=== PATIENT | male | born 1945 | race Asian ===

== ENCOUNTER 2024-02-08 10:28 | Inpatient (IN) | payer MEDICARE, BC, SELFPAY ==
[2024-02-08 10:38] VITALS: BP 164/70; PULSE 90; RESP 28; TEMP 36.9; O2SAT 97; BMI 25.6
--- NOTE | 2024-02-08 11:15 | XR_ITS ---
Examination: PA chest single view TECHNIQUE: Upright PA chest single view Exam date and time: February 08, 2024 1140 hours INDICATIONS: Chest pain today. FINDINGS: Mild prominence left ventricle Subtle opacity in the lungs Mild vascular congestion Blunting of the costophrenic angles IMPRESSION: Subtle opacity in both lungs suspicious for pneumonia Lateral chest view follow-up would be helpful to assess whether there is fluid in the fissures which would indicate mild heart failure in addition
--- NOTE | 2024-02-08 11:16 | PD.EDRME ---
Rapid Medical Screening Exam RME Arrival date/time: 02/08/24 10:28 78-year-old male presents emergency department with complaints of shortness of breath, cough 2 days ago. I have greeted and performed a focused initial assessment of this patient. Initial appropriate labs ordered at this time. A comprehensive ED assessment and evaluation of the patient and analysis of all test and completion of medical decision making process will be conducted by additional ED provider. Chief Complaint: Asthma Time Seen by Provider: 02/08/24 10:50 Vital signs: Vital Signs Temperature 98.4 F 02/08/24 10:38 Pulse Rate 90 02/08/24 10:38 Respiratory Rate 28 H 02/08/24 10:38 Blood Pressure 164/70 H 02/08/24 10:38 Pulse Oximetry (%) 97 02/08/24 10:38 Oxygen Delivery Method Room Air 02/08/24 10:38
[2024-02-08 11:37] LABS: Basophils % (Auto) 0 % (0-2.5); Eosinophils % (Auto) 0 % (0-10); Hematocrit 21.5 % (41.0-53.0); Immature Granulocytes % (Auto) 0 % (0-0); Immature Granulocytes Auto 0.03 Thou/mm3 (0.00-0.00); Lymphocytes # (Auto) 0.5 Thou/mm3 (1.0-4.8); Lymphocytes % (Auto) 4 % (10-50); Mean Corpuscular Hemoglobin 28.1 pg (25.0-35.0); Mean Corpuscular Volume 83 fL (80-100); Monocytes # (Auto) 1.1 Thou/mm3 (0.0-0.8); Monocytes % (Auto) 10 % (0-12); Neutrophils # (Auto) 9.2 Thou/mm3 (1.8-7.7); Neutrophils % (Auto) 85 % (37-80); Nucleated Red Blood Cell % 0 /100 WBC (0); Platelet Count 219 Thou/mm3 (140-440); RDW Standard Deviation 39.8 fL (35.1-43.9); White Blood Count 10.9 Thou/mm3 (3.8-10.6)
[2024-02-08 11:58] LABS: Prothrombin Time 11.4 Seconds (9.0-12.2)
[2024-02-08 12:02] LABS: Alanine Aminotransferase 47 U/L (10-49); Albumin, Serum 4.7 gm/dL (3.4-4.8); Albumin/Globulin Ratio 1.9 (1.2-2.2); Alkaline Phosphatase 65 U/L (46-116); Anion Gap 7 (7-16); Aspartate Amino Transferase 39 U/L (0-34); BUN/Creatinine Ratio 17 Ratio (12-20); Bilirubin,Total 0.8 mg/dL (0.3-1.2); Blood Urea Nitrogen 48 mg/dL (9-23); Calcium 8.7 mg/dL (8.3-10.6); Calcium (Corrected) 8.7 mg/dL (8.5-10.1); Carbon Dioxide 20.7 mMol/L (20.0-31.0); Chloride 92 mMol/L (98-107); Creatinine (Component) 2.9 mg/dL (0.6-1.3); Estimated Creatinine Clearance 15.5 mL/min (>60); Globulin 2.5 gm/dL (2.3-3.5); Glucose 185 mg/dL (74-106); Lipase 76 U/L (12-53); Osmolality,Calculated 259 (275-295); Potassium 4.4 mMol/L (3.4-5.1); Sodium 120 mMol/L (136-145); Total Protein 7.2 gm/dL (5.7-8.2); Troponin I 0.034 ng/mL (0.0-0.045); eGFR 21 See Note
[2024-02-08 12:04] LABS: Hemoglobin 7.3 g/dL (13.5-16.0)
[2024-02-08 12:06] LABS: B-Type Natriuretic Peptide 381 pg/mL (0-100)
--- NOTE | 2024-02-08 12:06 | PC.NURSE ---
COVID/FLU NEG
--- NOTE | 2024-02-08 12:40 | XR_ITS ---
Examination: PA lateral chest 2 views TECHNIQUE: Upright PA lateral chest 2 views Exam date and time: February 08, 2024 1315 hours Comparison February 07, 2014 11:40 AM INDICATIONS: Difficulty breathing this week FINDINGS: Mild enlargement cardiac contour Mild vascular congestion Subtle perihilar basilar opacity No fluid in the fissures on the lateral view IMPRESSION: Findings suspicious for mild bilateral perihilar basilar pneumonia
[2024-02-08 13:14] LABS: Lactate (Lactic Acid) 0.7 mMol/L (0.4-2.0)
[2024-02-08] MEDS: cefTRIAXone/D5w 1gm IV premix 50 ML IV (16:24)
--- NOTE | 2024-02-08 16:32 | PC.NURSE ---
sepsis alert called
[2024-02-08] MEDS: AZITHROMYCIN 250 MG TABLET 500 MG PO (16:45)
--- NOTE | 2024-02-08 17:12 | EDNOTE_ITS ---
ED SOB =RME/HPI General Chief Complaint: Asthma Stated Complaint: WHEEZING COLD WITH STOMACHACHE Time Seen by Provider: 02/08/24 10:50 Arrival date/time: 02/08/24 10:28 RME / HPI RME / HPI Narrative: 02/08/24 10:28 78-year-old male known case of diabetes mellitus, hypertension, CKD presents emergency department with complaints of shortness of breath, cough 2 days ago. The shortness of breath has been worsening over time. And she went to see his vegetable cook Dr. West and when she evaluated the patient she recommended them to go to the ED. The reported that he has also wheezing however he does not have any orthopnea, PND, fever or chills. On review of other system patient denied any melena or hematochezia denied any abdominal pain. Last bowel movement was today. Related Data Home Medications ?Medication ?Instructions ?Recorded ?Confirmed Glyburide/Metformin * (GLUCOVANCE 1 tab PO BIDAC #0 tabs 10/01/16 2/500 *) Previous Rx's ?Medication ?Instructions ?Recorded amlodipine 10 mg tablet 10 mg PO QDAY #30 tabs 03/18/21 aspirin 81 mg capsule 81 mg PO QDAY #30 caps 03/18/21 atorvastatin 80 mg tablet (Lipitor) 80 mg PO QDAY #30 tabs 03/18/21 blood sugar diagnostic (Accu-Chek #100 ea 03/18/21 Radha Plus test strips) clopidogrel 75 mg tablet (Plavix) 75 mg PO QDAY #30 tabs 03/18/21 lancets #100 ea 03/18/21 Allergies Allergy/AdvReac Type Severity Reaction Status Date / Time No Known Allergies Allergy Unverified 02/08/24 10:31 ED Exam Narrative Physical exam: GEN: AOx3, able to speak full sentences HEENT: NC/AC, oral mucosa moist, neck supple CVS: RRR, S1-S2 present, no murmurs appreciated RESP: Bilateral wheezing with crepitations. 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 Course Quality Measures none Orders Category Date Time Status Bedside Blood Glucose NOW Care 02/08/24 12:45 Active Bedside COVID-19 Antigen Test NOW Care 02/08/24 11:15 Active Bedside Influenza A&B Antigen Test NOW Care 02/08/24 11:15 Completed Director Of Perioperative Services STAT Care 02/08/24 11:15 Active EKG (ED ONLY) *Do not use* NOW Care 02/08/24 11:15 Completed Insert IV NOW Care 02/08/24 12:45 Active Insert IV STAT Care 02/08/24 11:15 Active Strict Intake and Output Routine Care 02/08/24 12:45 Ordered CXR2 [XR chest 2V] Stat Exams 02/08/24 12:40 Completed EKG (ED Only) Stat Exams 02/08/24 11:15 Ordered XR chest 1V portable Stat Exams 02/08/24 11:15 Completed B-Type Natriuretic Peptide Stat Lab 02/08/24 11:27 Completed Blood Culture (Lab) Stat Lab 02/08/24 13:07 Received CBC Stat Lab 02/08/24 11:27 Completed Comprehensive Metabolic Panel Stat Lab 02/08/24 11:27 Completed Lactate (Lactic Acid) Stat Lab 02/08/24 13:07 Completed Lipase Stat Lab 02/08/24 11:27 Completed Magnesium Stat Lab 02/08/24 11:27 Completed Partial Thromboplastin Time Stat Lab 02/08/24 11:27 Completed Procalcitonin Stat Lab 02/08/24 13:07 Completed Prothrombin Time with INR Stat Lab 02/08/24 11:27 Completed Troponin I Stat Lab 02/08/24 11:27 Completed Urinalysis Stat Lab 02/08/24 12:45 Ordered Albuterol/Ipratr Rt Romina [Duoneb Rt Romnia] Med 02/08/24 16:42 Discontinued 3 ml INH X1 ONE Azithromycin Inj [Zithromax Inj] 250 mg Med 02/08/24 14:02 Discontinued Sodium Chloride 0.9% 250 ml [Ns] 250 ml IV QDAY Azithromycin Po [Zithromax PO] Med 02/08/24 16:45 Active 500 mg PO QDAY@1400 Azithromycin Po [Zithromax PO] Med 02/09/24 14:00 Discontinued 500 mg PO QDAY@1400 cefTRIAXone/D5w 1gm IV premix [Rocephin/D5w 1gm IV Med 02/08/24 14:01 Discontinued premix] 50 ml IV X1 EKG (RT) Stat RT 02/08/24 12:45 Ordered Oxygen Delivery NOW RT 02/08/24 12:45 Active Vital Signs Vital signs: Vital Signs Temperature 98.4 F 02/08/24 10:38 Pulse Rate 90 02/08/24 10:38 Respiratory Rate 28 H 02/08/24 10:38 Blood Pressure 164/70 H 02/08/24 10:38 Pulse Oximetry (%) 97 02/08/24 10:38 Oxygen Delivery Method Room Air 02/08/24 10:38 Shortness of Breath / Dyspnea Patient data External records reviewed:: [facility] previous records Clinical information provided by:: patient and spouse Social determinants that could affect healthcare access:: none Patient has the following chronic illnesses:: Diabetes mellitus, hypertension How is presenting disease/condition affected by chronic disease/condition?: exacerbated by Evaluation data The following diagnostics were reviewed and interpreted by me:: lab results, radiology exam(s) and EKG tracing(s) Lab and/or radiology exams considered but not ordered:: None Interpretation Summary: Sepsis secondary to pneumonia Cardiogenic asthma less likely Anemia Medications / Prescriptions Medications or Prescriptions considered but not ordered:: None Medication administrations:: Medication Administration History Azithromycin (Azithromycin 250 Mg Tablet) 500 mg PO QDAY@1400 ABHIJIT Stop: 02/15/24 16:44 Last Admin: 02/08/24 16:45 Dose: 500 mg Documented By: KRISHNA Discontinued Medications Albuterol/Ipratropium (Albuterol/Ipratropium (Duoneb) Rt Romina 3 Ml Nebu) 3 ml INH X1 ONE Stop: 02/08/24 16:43 Azithromycin (Azithromycin 250 Mg Tablet) 500 mg PO QDAY@1400 ABHIJIT Stop: 02/16/24 13:59 Ceftriaxone Sodium/Dextrose (Rocephin/D5w 1gm Iv Premix) 50 mls @ 100 mls/hr IV X1 ONE Stop: 02/08/24 14:30 Last Admin: 02/08/24 16:24 Dose: 100 mls/hr Documented By: KRISHNA Azithromycin 250 mg/ Sodium (Chloride) 250 mls @ 250 mls/hr IV QDAY ABHIJIT Stop: 02/15/24 14:01 As above as given Consultations Consultation(s) initiated? (list below): Yes Diagnosis Shortness of Breath Differential Diagnosis: community acquired pneumonia Most likely diagnosis given after review of the tests above:: Sepsis secondary to pneumonia Admission Indicated Admission indicated?: indicated Admission Request Was there a request for admission?: Yes Admission Attestation Admission request attestation: Discussed case with [] from Hospitalist service regarding admission. Discussed patients ED course, exam findings, labs, and radiology results. The Hospitalist [agrees,declines] to accept the patient for admission. Disposition Plan Disposition Plan: Admit Discharge Plan Plan Patient Disposition: Admit Acute Care w/in Hospital Prescriptions/Referrals Prescriptions/Med Rec: No Action Glyburide/Metformin * (GLUCOVANCE 2/500 *) 1 TAB tablet 1 tab PO BIDAC Qty: 0 amlodipine 10 mg tablet 10 mg PO QDAY Qty: 30 0RF aspirin 81 mg capsule 81 mg PO QDAY Qty: 30 0RF clopidogrel [Plavix] 75 mg tablet 75 mg PO QDAY Qty: 30 0RF atorvastatin [Lipitor] 80 mg tablet 80 mg PO QDAY Qty: 30 0RF (DME) lancets Misc See Rx Instructions .Route Qty: 100 0RF Rx Instructions: As directed (DME) Accu-Chek Radha Plus test strp Strip See Rx Instructions .Route Qty: 100 0RF Rx Instructions: As directed Referrals: Velma West MD [Primary Care Provider] - In 1 week Problem List Clinical Impression: Sepsis, Community acquired pneumonia, Anemia, normocytic normochromic Patient/Caregiver Discharge Instructions Print Language: Tagalog Stand Alone Forms: Karly Award Info., Patient Portal Info Letter
[2024-02-08] MEDS: ALBUTEROL/IPRATROPIUM (Duoneb) RT SOL 3 ML NEBU INH ×3 (17:39→23:51)
[2024-02-08 17:40] VITALS: PULSE 81; RESP 20; O2SAT 99
--- NOTE | 2024-02-08 20:11 | ESHP_ITS ---
<Statement entered by Francis Waller DO - 02/08/24 22:00> Senior attestation: Patient was examined and case was reviewed with team including attending physician. Note reviewed, I agree with most of its contents and agree with the patient's care. Patient is a 78 year old male with history of CKD, T2DM, Htn, and CVA without residual deficits who presented with concerns of shortness of breath, was found to have WBC 10.9, Na 120, Cr 2.9, and imaging suspicious for bilateral basilar pneumonia. Will be admitted for hyposomolar hyponatremia and started on gentle IV NS fluids with q4hour sodium checks, will also start IV antibiotics with rocephin and azithromycin, patient's emergency communications officer Dr. West also consulted for DIAN on CKD and hyponatremia. Francis Waller DO PGY-3 Documentation for date of: 02/08/24 HPI History of Present Illness History of present illness: Mr. 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 Patient's is at bedside and majority of history was taken from her. Patient is been having shortness of breath and wheezing with mild cough and white phlegm for the past 2 days. Patient states that he also is mildly congested denies any runny nose sick contacts or travel history. The noted that recently he has been feeling bloating but denies any changes in the appetite nausea vomiting or abdominal pain. Patient denies any history of prior asthma history. In the ED patient's vitals include blood pressure 164/70 respirations 28, WBC 10.9, hemoglobin 7.3, hematocrit 21.5, was sodium 120. Creatinine 2.9, GFR 21, osmolality 259, BNP 381, lipase 76. Chest x-ray findings include subtle opacity in both lungs suspicious for bilateral basilar pneumonia In the ED patient received a breathing treatment, Rocephin x 1 PMH: Hypertension, diabetes, CKD and history of CVA PSH: No known surgical history SH: Patient denies tobacco, alcohol or drug use Home meds: Patient's losartan was switched to hydralazine 25 3 times daily, amlodipine, atorvastatin, clopidogrel and Ethan-vit Review of Systems Review of Systems Systems Reviewed: All systems reviewed, normal except as documented Exam Vital Signs Temp Pulse Resp BP Pulse Ox O2 Del Method 98.4 F 81 20 164/70 H 99 Room Air 02/08/24 10:38 02/08/24 17:40 02/08/24 17:40 02/08/24 10:38 02/08/24 17:40 02/08/24 10:38 Narrative Exam GENERAL: A&Ox3 . 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 mucous membranes moist. Eyes open, symmetrical, & clear HEART: Normal Heart Sounds LUNGS: wheezing on auscultation ABDOMEN: soft, non-distended, non-tender, bowel sounds heard, no guarding or rebound tenderness SKIN: No Rash or ecchymoses EXTREMITIES: No edema, tenderness, able to move all 4 extremities, pedal pulses palpated Results: Labs 02/10/24 04:42 02/10/24 07:05 Labs: Short CBC 02/08/24 Range/Units 11:27 WBC 10.9 H (3.8-10.6) Thou/mm3 Hgb 7.3 L (13.5-16.0) g/dL Hct 21.5 L* (41.0-53.0) % Plt Count 219 D (140-440) Thou/mm3 BMP 02/08/24 11:27 Sodium 120 L Potassium 4.4 Chloride 92 L Carbon Dioxide 20.7 BUN 48 H Creatinine 2.9 H Glucose 185 H Calcium 8.7 Cardiac Enzymes 02/08/24 Range/Units 11:27 Troponin I 0.034 (0.0-0.045) ng/mL Liver Function 02/08/24 Range/Units 11:27 Total Bilirubin 0.8 (0.3-1.2) mg/dL AST 39 H (0-34) U/L ALT 47 (10-49) U/L Alkaline Phosphatase 65 (46-116) U/L Albumin 4.7 (3.4-4.8) gm/dL Quality Measures Quality Measures none Advance care planning discussed with:: patient Medications Home Medications and Allergies Home Medications ?Medication ?Instructions ?Recorded ?Confirmed ?Type amlodipine 10 mg tablet 10 mg PO QPM 02/08/24 02/08/24 History atorvastatin 10 mg tablet 10 mg PO HS 02/08/24 02/08/24 History ferrous gluconate 324 mg (38 mg 324 mg PO DAILY 02/08/24 02/08/24 History iron) tablet hydralazine 25 mg tablet 25 mg PO TID 02/08/24 02/08/24 History insulin glargine 100 unit/mL (3 10 unit subcut QPM 02/08/24 02/08/24 History mL) subcutaneous pen (Lantus Solostar U-100 Insulin) vitamin B complex-vitamin C-folic 1 tab PO QPM 02/08/24 02/08/24 History acid 0.8 mg tablet (Peg-Pino) Allergies Allergy/AdvReac Type Severity Reaction Status Date / Time No Known Allergies Allergy Unverified 02/08/24 10:31 Visit Medications Acetaminophen (Acetaminophen 325 Mg Tablet) 650 mg PO Q6H PRN PRN Reason: Fever >101.5 Stop: 03/09/24 18:24 Albuterol/Ipratropium (Albuterol/Ipratropium (Duoneb) Rt Romina 3 Ml Nebu) 3 ml INH Q4HRRT ABHIJIT Stop: 03/09/24 18:59 Dextrose (Dextrose 50%-Water Inj 50 Ml Syringe) 25 ml IV Q15MIN PRN PRN Reason: BG 50-70 responsive npo pt Stop: 03/09/24 19:03 Dextrose (Dextrose 50%-Water Inj 50 Ml Syringe) 50 ml IV Q15MIN PRN PRN Reason: BG <50 OR BG <70 & pt unresponsive Stop: 03/09/24 19:03 Glucagon (Glucagon Inj 1 Mg Vial) 1 mg IM Q15MIN PRN PRN Reason: BG <70, and no IV access Sodium Chloride (Ns) 1,000 mls @ 75 mls/hr IV .[id number] [facility] Stop: 02/09/24 18:29 Ceftriaxone Sodium/Dextrose (Rocephin/D5w 1gm Iv Premix) 50 mls @ 100 mls/hr IV QDAY@1400 [facility] Stop: 02/16/24 13:59 Azithromycin 500 mg/ Sodium (Chloride) 250 mls @ 250 mls/hr IV QDAY@1400 [facility] Stop: 02/16/24 13:59 Insulin Human Lispro (Insulin Lispro (Admelog) 1 Unit/0.01 Ml Unit) 0 unit SC ACHS [facility]; Protocol Stop: 03/09/24 20:59 Ondansetron HCl (Ondansetron Inj 2 Mg/Ml Inj 2 Ml) 4 mg IV Q6H PRN; Protocol PRN Reason: NAUSEA OR VOMITING Stop: 03/09/24 18:24 Pantoprazole Sodium (Pantoprazole Inj 40 Mg Vial) 40 mg IVP QDAY ABHIJIT Stop: 03/09/24 18:29 Sennosides (Senna Tablet) 2 tab PO BID PRN; Protocol PRN Reason: CONSTIPATION Stop: 03/09/24 18:24 Discontinued Medications Albuterol/Ipratropium (Albuterol/Ipratropium (Duoneb) Rt Romina 3 Ml Nebu) 3 ml INH X1 ONE Stop: 02/08/24 16:43 Last Admin: 02/08/24 17:39 Dose: 3 ml Azithromycin (Azithromycin 250 Mg Tablet) 500 mg PO QDAY@1400 ABHIJIT Stop: 02/16/24 13:59 Azithromycin (Azithromycin 250 Mg Tablet) 500 mg PO QDAY@1400 ABHIJIT Stop: 02/15/24 16:44 Last Admin: 02/08/24 16:45 Dose: 500 mg Ceftriaxone Sodium/Dextrose (Rocephin/D5w 1gm Iv Premix) 50 mls @ 100 mls/hr IV X1 ONE Stop: 02/08/24 14:30 Last Infusion: 02/08/24 17:34 Dose: Infused Azithromycin 250 mg/ Sodium (Chloride) 250 mls @ 250 mls/hr IV QDAY ABHIJIT Stop: 02/15/24 14:01 Assessment & Plan Plan Mr. Acnua is a 78-year-old male with past medical history significant for hypertension, diabetes, CKD and history of CVA without residuals deficits. Patient is been having shortness of breath and wheezing with mild cough and white phlegm for the past 2 days. #Hyponatremia #Hypoosmolar -On admission patient's sodium is 120, repeat sodium every 4 hours -Osmolality 259 Plan: ?Gentle fluids, normal saline 75 cc ?Consult nephrology ?Urine electrolytes ?IV Rocephin plus azithromycin started 02/07- #Chronic anemia ?Takes iron at home -If hemoglobin drops below 7 consider transfusion -Less likely GI bleed-patient does not report melena or hematochezia #CKD #History of diabetes melitis -On admission creatinine 2.9, GFR 21-patient's baseline -HA1c 5.6 on 01/14/24 -Patient follows Dr. West outpatient for nephrology Plan: ? Nephrology consulted ?Insulin sliding scale ordered #History of primary hypertension #History of CVA without residual deficit -Blood pressure on arrival 164/70 -Resume home hydralazine, amlodipine Disposition: Medsurg DVT Prophylaxis: SCD QSHIFT GI Prophylaxis: Pantoprozol-40 IV Qdily Diet: carbohydrate consistent Code status: Full Assessment and plan discussed with my senior resident & attending physician Dr. Dr. 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 Patient states that shortness of breath has been going on for the past 3 days denies any fevers or chills. In the ER, patient found to have hypoosmolar hyponatremia with sodium of 120 and subsequently started on normal saline admitted. Furthermore, patient also noted to have normocytic anemia however denies any melena or hematochezia. Plan to admit to telemetry and monitor closely with sodium checks every 4 hours and if patient's sodium continues to drop at that point we will consider consulting nephrology I reviewed above note and agree with findings and plans. I have also personally examined the patient with medicine team and went over assessment and plan with medical team including internet marketing intern and resident physician.
[2024-02-08 20:13] LABS: Sodium 122 mMol/L (136-145)
[2024-02-08 20:24] VITALS: PULSE 97; RESP 20; O2SAT 98
[2024-02-08] MEDS: PANTOPRAZOLE INJ 40 MG VIAL IVP (20:37)
[2024-02-08] MEDS: SODIUM CHLORIDE 0.9% 1000 ML 1,000 ML 75 ML IV (20:37)
[2024-02-08 20:46] VITALS: BP 140/68; PULSE 88; RESP 18; TEMP 36.7; O2SAT 92; BMI 22.6
--- NOTE | 2024-02-08 21:28 | XR_ITS ---
Examination: Retroperitoneal ultrasound, complete Technique: Multiple high resolution grayscale images of the retroperitoneum obtained, including kidneys and bladder. Exam date and time:February 08, 2024 1114 hrs. Indications: Acute renal failure Findings: Right kidney 10.0 x 4.2 x 4.3 cm cortex 1.5 cm Left kidney 10.0 x 4.3 x 5.9 cm cortex 1.7 cm Mild renal parenchymal scar formation No hydronephrosis No bladder mass or bladder calculi Bladder prevoid volume 119 cc unable to void Prostate 3.6 x 2.9 x 3.4 cm no prostate nodules Impression: Bilateral renal cortical thinning Mild bilateral renal parenchymal scar formation No hydronephrosis
[2024-02-08] MEDS: INSULIN LISPRO (AdmeLOG) 1 UNIT/0.01 ML UNIT SC (22:03)
[2024-02-08 23:48] VITALS: PULSE 72; PULSE 82; RESP 18; RESP 20; RESP 92; O2SAT 95
[2024-02-09] VITALS (31 sets, daily range): BP systolic 137–176; BP diastolic 79–91; PULSE 86–108; RESP 14–31; TEMP 36.1–36.8; O2SAT 93–99
[2024-02-09 00:07] LABS: Sodium 121 mMol/L (136-145)
[2024-02-09] MEDS: ALBUTEROL/IPRATROPIUM (Duoneb) RT SOL 3 ML NEBU INH ×7 (02:37→21:41)
[2024-02-09 04:02] LABS: Collection Type, Urine Clean Catch; Squamous Epithelial Cell,Urine 0 /hpf (0-5)
[2024-02-09 04:15] LABS: Bilirubin,Urine Negative (Negative); Blood,Urine 1+ (Negative); Clarity,Urine Clear (Clear/Hazy); Color,Urine Lt-Yellow (Lt Yel-Yel); Glucose, Urine Negative (Negative); Ketones,Urine Negative (Negative); Leukocyte Esterase,Urine Negative (Negative); Nitrite,Urine Negative (Negative); PH,Urine 5.5 (5.0-7.0); Protein,Urine 2+ (Neg - Trace); RBC,Urine 1 /hpf (0-3); Specific Gravity,Urine 1.012 (1.001-1.035); Urobilinogen,Urine Negative mg/dL (0.0-1.0); WBC,Urine 1 /hpf (0-5)
[2024-02-09 04:37] LABS: Chloride,Urine Random < 20.0 mMol/L (55.0-125.0); Creatinine,Random Urine 81 mg/dL (30-125); Potassium,Urine Random 30 mMol/L (12-62); Protein Total, Random Urine 165 mg/dL (1-14); Sodium,Urine Random < 15.0 mMol/L (20.0-110.0)
[2024-02-09] MEDS: ACETAMINOPHEN 325 MG TABLET 650 MG PO (05:13)
[2024-02-09] MEDS: hydrALAZINE HCL 25 MG TABLET PO ×2 (05:13→22:06)
[2024-02-09 06:35] LABS: Basophils % (Auto) 0 % (0-2.5); Eosinophils % (Auto) 0 % (0-10); Immature Granulocytes % (Auto) 1 % (0-0); Immature Granulocytes Auto 0.06 Thou/mm3 (0.00-0.00); Lymphocytes # (Auto) 0.5 Thou/mm3 (1.0-4.8); Lymphocytes % (Auto) 4 % (10-50); Mean Corpuscular HGB Conc 33.8 g/dl (31.0-37.0); Mean Corpuscular Hemoglobin 28.2 pg (25.0-35.0); Mean Corpuscular Volume 83 fL (80-100); Monocytes # (Auto) 1.1 Thou/mm3 (0.0-0.8); Monocytes % (Auto) 9 % (0-12); Neutrophils # (Auto) 10.6 Thou/mm3 (1.8-7.7); Neutrophils % (Auto) 86 % (37-80); Nucleated Red Blood Cell % 0 /100 WBC (0); Platelet Count 239 Thou/mm3 (140-440); RDW Standard Deviation 39.8 fL (35.1-43.9); Red Blood Count 2.34 Miln/mm3 (4.50-5.90); White Blood Count 12.3 Thou/mm3 (3.8-10.6)
[2024-02-09 06:38] LABS: Hematocrit 19.5 % (41.0-53.0); Hemoglobin 6.6 g/dL (13.5-16.0)
--- NOTE | 2024-02-09 06:40 | PC.RT ---
Dr Villarreal aware of patient wheezing and increased RR. dr nelson States she will be up to assess patient shortly. nurse states pt has been this way and is aware dr will come in to see patient.
[2024-02-09 06:42] LABS: Glucose Estimated Average 117 mg/dL (80-131); Hemoglobin A1C 5.7 % Hgb (4.8-6.0)
[2024-02-09 07:08] LABS: Anion Gap 9 (7-16); BUN/Creatinine Ratio 19 Ratio (12-20); Blood Urea Nitrogen 51 mg/dL (9-23); Calcium 8.2 mg/dL (8.3-10.6); Carbon Dioxide 15.7 mMol/L (20.0-31.0); Chloride 92 mMol/L (98-107); Creatinine (Component) 2.7 mg/dL (0.6-1.3); Estimated Creatinine Clearance 19.6 mL/min (>60); Glucose 135 mg/dL (74-106); Magnesium 1.9 mg/dL (1.6-2.6); Osmolality,Calculated 252 (275-295); Phosphorous 4.3 mg/dL (2.4-5.1); Potassium 4.4 mMol/L (3.4-5.1); eGFR 23 See Note
[2024-02-09 07:10] LABS: Sodium 117 mMol/L (136-145)
[2024-02-09 08:07] LABS: Hematocrit 18.3 % (41.0-53.0)
[2024-02-09 08:08] LABS: Hemoglobin 6.3 g/dL (13.5-16.0)
[2024-02-09] MEDS: PANTOPRAZOLE INJ 40 MG VIAL IVP (08:59)
[2024-02-09] MEDS: CLOPIDOGREL BISULFATE 75 MG TABLET PO (08:59)
[2024-02-09] MEDS: INSULIN LISPRO (AdmeLOG) 1 UNIT/0.01 ML UNIT SC ×2 (09:00→12:10)
[2024-02-09] MEDS: SODIUM CHLORIDE 0.9% 1000 ML 1,000 ML 75 ML IV (09:04)
[2024-02-09 09:36] LABS: Base Excess -13 (-3-3); HCO3 13 mEq/L (20-26); Inspired O2, VO2 Liters 3 L/min; Inspired Oxygen, FIO2 21 %; O2 Saturation 93 % (91-98); PCO2 30 mmHg (32.0-48.0); PO2 69 mmHg (83-108); pH, Arterial 7.26 (7.35-7.45)
[2024-02-09 09:37] LABS: Allen Test Performed/OK; Puncture Site Right Radial
[2024-02-09] MEDS: MethylPREDNISolone SOD SUCC 62.5 MG/ML 2ML VIAL 125 MG IVP (09:45)
--- NOTE | 2024-02-09 10:10 | XR_ITS ---
Examination: CT chest, without intravenous contrast. Sagittal and coronal 2-D reconstructions. Exam date and time: February 09, 2024 1947 hrs. Indications: Hyponatremia laboratory examination today, clinical diagnosis cancer, chest x-ray 02/09/2024 mild to moderate CHF SOB this week CTDI:vol (mGy) 11.4 DLP: (mGycm) 398 Technique: Multiple 3.0 mm axial sections of the chest to been obtained. Bone and lung density settings are obtained. Sagittal and coronal 2-D reconstructions have been obtained. Low dose protocols were performed. One or more of the following dose reduction techniques were used; automated exposure control, adjustment of the mA and/or KV according to patient size, use of iterative reconstruction technique. Findings: Aortic aneurysm dilatation Main pulmonary artery segment 32 mm Heavy calcification left anterior descending coronary artery No paratracheal tracheobronchial or bronchopulmonary adenopathy Mild to moderate enlargement cardiac contour Prominent vascular congestion with perihilar edema and small right and left pleural effusions Trace pericardial thickening Liver mildly irregular in contour Cholelithiasis Spleen is not enlarged No pancreatic or adrenal mass No hydronephrosis Trace ascites Moderate thoracic spondylosis Impression: Mild to moderate CHF Suspect primary hepatocellular disease Cholelithiasis
[2024-02-09 10:11] LABS: Lactate (Lactic Acid) 3.1 mMol/L (0.4-2.0)
[2024-02-09 10:56] LABS: Albumin, Serum 4.4 gm/dL (3.4-4.8); Anion Gap 11 (7-16); BUN/Creatinine Ratio 18 Ratio (12-20); Blood Urea Nitrogen 46 mg/dL (9-23); Calcium 8.1 mg/dL (8.3-10.6); Calcium (Corrected) 8.1 mg/dL (8.5-10.1); Chloride 88 mMol/L (98-107); Creatinine (Component) 2.6 mg/dL (0.6-1.3); Estimated Creatinine Clearance 20.4 mL/min (>60); Glucose 225 mg/dL (74-106); Osmolality,Calculated 246 (275-295); Phosphorous 5.1 mg/dL (2.4-5.1); Potassium 4.7 mMol/L (3.4-5.1); eGFR 24 See Note
[2024-02-09] MEDS: FUROSEMIDE INJ 10 MG/ML 4ML VIAL 40 MG IVP (10:56)
[2024-02-09] MEDS: SODIUM BICARB INJ 8.4% 1 mEq/ML VIAL 50 ML 50 MEQ IV ×2 (10:56→18:09)
[2024-02-09 10:58] LABS: Sodium 112 mMol/L (136-145)
--- NOTE | 2024-02-09 11:38 | XR_ITS ---
Examination: AP chest single view Technique: AP portable upright chest single view Exam date and time: February 09, 2024 1158 hrs. Comparison: February 08, 2024 Indications: Shortness of breath this week Findings: [id number] heart failure Mild enlargement cardiac contour Prominent vascular congestion including central vascular engorgement Subtle perihilar basilar edema Moderate osteopenia Impression: Mild to moderate CHF Consider superimposed pneumonia at the lung bases
--- NOTE | 2024-02-09 11:40 | PD.RESCONSUL ---
HPI Data of Consult Requesting Physician: Gilbert Alexander MD Admitting Provider: Gilbert Alexander MD Attending Provider: Gilbert Alexander MD Primary Care Provider: Velma West MD Consult Narrative Reason for consult: shortness of breath History of present illness: The patient is a 78-year-old Tagalog speaking male with previous medical history of hypertension, CKD, type II diabetes, CVA in 2020, alcohol use disorder who was admitted for hypoosmolar hyponatremia. According to his he started to sneeze, cough and having shortness of breath a few days ago, he went to his PCP, Dr. West where he was advised to go to the ED. Recently his medications were changed: Losartan was stopped, hydralazine was started and amlodipine dose was increased. He denies history of smoking and denies recent alcohol use. 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 His denies him having shortness of breath while working outside. Denies history of allergies. He was started on antibiotics (ceftriaxone plus azithromycin), breathing treatments, received methylprednisolone 125 mg once maintenance fluids NS, sodium bicarb and 50 meQ. His labs showed Hemoglobin of 6.6, mild leukocytosis, sodium of 112, bicarb 13, lactic acid 3.1, creatinine 2.6. ABG 02/08 9:30 AM showed pH 7.26, pCO2 30, pO2 69. ICU team was consulted due to hypervolemic hyponatremia and shortness of breath. Surgical history: None Medications: Amlodipine, hydralazine Social history: Denies smoking, recent alcohol use. Retired. Used to work in the field. cc:: cc: Gilbert Alexander MD Review of Systems Review of Systems Systems Reviewed: All systems reviewed, normal except as documented Exam Vital Signs Temp Pulse Resp BP Pulse Ox O2 Del Method O2 Flow Rate 97.2 F 94 31 H 137/85 H 95 Nasal Cannula 2 02/09/24 08:00 02/09/24 10:56 02/09/24 10:55 02/09/24 10:56 02/09/24 10:55 02/09/24 08:00 02/09/24 10:55 Narrative Exam Gen: Well-developed and well-nourished elderly male. Able to speak full sentences. HEENT: NCAT, PERRLA, EOMI, MMM, anicteric conjunctivae. CVS: normal S1 and S2. RRR. No M/R/G. Resp: Diffuse expiratory wheezing, tachypnea with recruitment of accessory muscles. Wheeze are heard distantly. Abd: Distended, abdominal muscles tensed due to increased respiratory effort. BS+ in all 4 quadrants. MSK: Good ROM in BUE & BLE. No rash. Moderate pitting ankle edema. Bruise on the lower abdomen. Neuro: CN II-XII grossly intact. Strength 5/5 in BUE & BLE. Alert and oriented x3. Psych: appropriate mood and affect. Results Labs 02/09/24 18:19 02/09/24 22:35 Labs: Short CBC 02/08/24 02/09/24 02/09/24 Range/Units 11:27 05:05 07:31 WBC 10.9 H 12.3 H (3.8-10.6) Thou/mm3 Hgb 7.3 L 6.6 L* 6.3 L* (13.5-16.0) g/dL Hct 21.5 L* 19.5 L* 18.3 L* (41.0-53.0) % Plt Count 219 D 239 (140-440) Thou/mm3 BMP 02/08/24 02/08/24 02/08/24 11: 19:50 23:05 Sodium 120 L 122 L 121 L Potassium 4.4 Chloride 92 L Carbon Dioxide 20.7 BUN 48 H Creatinine 2.9 H Glucose 185 H Calcium 8.7 02/09/24 02/09/24 05:05 09:47 Sodium 117 L* 112 L* Potassium 4.4 4.7 Chloride 92 L 88 L Carbon Dioxide 15.7 L 13.0 L* BUN 51 H 46 H Creatinine 2.7 H 2.6 H Glucose 135 H D 225 H D Calcium 8.2 L 8.1 L Cardiac Enzymes 02/08/24 Range/Units 11: Troponin I 0.034 (0.0-0.045) ng/mL Liver Function 02/08/24 02/09/24 Range/Units 11:27 09:47 Total Bilirubin 0.8 (0.3-1.2) mg/dL AST 39 H (0-34) U/L ALT 47 (10-49) U/L Alkaline Phosphatase 65 (46-116) U/L Albumin 4.7 4.4 (3.4-4.8) gm/dL Urine 02/09/24 Range/Units 03:20 Urine Color Lt-Yellow (Lt Yel-Yel) Urine Clarity Clear (Clear/Hazy) Urine pH 5.5 (5.0-7.0) Ur Specific [place] 1.012 (1.001-1.035) Urine Protein 2+ A (Neg - Trace) Urine Glucose (UA) Negative (Negative) ABG Interpretation ABG results: 02/09/24 09:30 ABG pH 7.26 L ABG pCO2 30 L ABG pO2 69 L ABG HCO3 13 L ABG O2 Saturation 93 ABG Base Excess -13 L Quality Measures Quality Measures none Advance care planning discussed with:: other Medications Home Medications and Allergies Home Medications ?Medication ?Instructions ?Recorded ?Confirmed ?Type amlodipine 10 mg tablet 10 mg PO QPM 02/08/24 02/08/24 History atorvastatin 10 mg tablet 10 mg PO HS 02/08/24 02/08/24 History ferrous gluconate 324 mg (38 mg 324 mg PO DAILY 02/08/24 02/08/24 History iron) tablet hydralazine 25 mg tablet 25 mg PO TID 02/08/24 02/08/24 History insulin glargine 100 unit/mL (3 10 unit subcut QPM 02/08/24 02/08/24 History mL) subcutaneous pen (Lantus Solostar U-100 Insulin) vitamin B complex-vitamin C-folic 1 tab PO QPM 02/08/24 02/08/24 History acid 0.8 mg tablet (Peg-Pino) Allergies Allergy/AdvReac Type Severity Reaction Status Date / Time No Known Allergies Allergy Unverified 02/08/24 10:31 Visit Medications Acetaminophen (Acetaminophen 325 Mg Tablet) 650 mg PO Q6H PRN PRN Reason: PAIN OR FEVER > 101 Stop: 03/09/24 18:24 Last Admin: 02/09/24 05:13 Dose: 650 mg Albuterol/Ipratropium (Albuterol/Ipratropium (Duoneb) Rt Romina 3 Ml Nebu) 3 ml INH Q4HRRT ABHIJIT Stop: 03/09/24 18:59 Last Admin: 02/09/24 10:49 Dose: 3 ml Amlodipine Besylate (Amlodipine Besylate 5 Mg Tablet) 10 mg PO QPM [facility] Stop: 03/10/24 20:59 Atorvastatin Calcium (Atorvastatin Calcium 10 Mg Tablet) 10 mg PO HS [facility] Stop: 03/10/24 20:59 Dextrose (Dextrose 50%-Water Inj 50 Ml Syringe) 25 ml IV Q15MIN PRN PRN Reason: BG 50-70 responsive npo pt Stop: 03/09/24 19:03 Dextrose (Dextrose 50%-Water Inj 50 Ml Syringe) 50 ml IV Q15MIN PRN PRN Reason: BG <50 OR BG <70 & pt unresponsive Stop: 03/09/24 19:03 Glucagon (Glucagon Inj 1 Mg Vial) 1 mg IM Q15MIN PRN PRN Reason: BG <70, and no IV access Hydralazine HCl (Hydralazine Hcl 25 Mg Tablet) 25 mg PO TID [facility] Stop: 03/10/24 05:59 Last Admin: 02/09/24 05:13 Dose: 25 mg Ceftriaxone Sodium/Dextrose (Rocephin/D5w 1gm Iv Premix) 50 mls @ 100 mls/hr IV QDAY@1400 [facility] Stop: 02/16/24 13:59 Azithromycin 500 mg/ Sodium (Chloride) 250 mls @ 250 mls/hr IV QDAY@1400 [facility] Stop: 02/16/24 13:59 Sodium Chloride (Hypertonic Saline 3%) 500 mls @ 35 mls/hr IV .[id number] [facility] Stop: 02/10/24 00:32 Insulin Human Lispro (Insulin Lispro (Admelog) 1 Unit/0.01 Ml Unit) 0 unit [facility]; Protocol Stop: 03/09/24 20:59 Last Admin: 02/09/24 09:00 Dose: 2 unit Ondansetron HCl (Ondansetron Inj 2 Mg/Ml Inj 2 Ml) 4 mg IV Q6H PRN; Protocol PRN Reason: NAUSEA OR VOMITING Stop: 03/09/24 18:24 Pantoprazole Sodium (Pantoprazole Inj 40 Mg Vial) 40 mg IV BID [facility] Stop: 03/10/24 20:59 Sennosides (Senna Tablet) 2 tab PO BID PRN; Protocol PRN Reason: CONSTIPATION Stop: 03/09/24 18:24 Discontinued Medications Acetaminophen (Acetaminophen 325 Mg Tablet) 650 mg PO Q6H PRN PRN Reason: Fever >101.5 Stop: 03/09/24 18:24 Albuterol/Ipratropium (Albuterol/Ipratropium (Duoneb) Rt Romina 3 Ml Nebu) 3 ml INH X1 ONE Stop: 02/08/24 16:43 Last Admin: 02/08/24 17:39 Dose: 3 ml Albuterol/Ipratropium (Albuterol/Ipratropium (Duoneb) Rt Romina 3 Ml Nebu) 3 ml INH X1 ONE Stop: 02/09/24 04:23 Last Admin: 02/09/24 04:31 Dose: 3 ml Azithromycin (Azithromycin 250 Mg Tablet) 500 mg PO QDAY@1400 [facility] Stop: 02/16/24 13:59 Azithromycin (Azithromycin 250 Mg Tablet) 500 mg PO QDAY@1400 [facility] Stop: 02/15/24 16:44 Last Admin: 02/08/24 16:45 Dose: 500 mg Clopidogrel Bisulfate (Clopidogrel Bisulfate 75 Mg Tablet) 75 mg PO QDAY [facility] Stop: 03/10/24 08:59 Last Admin: 02/09/24 08:59 Dose: 75 mg Furosemide (Furosemide Inj 10 Mg/Ml 4ml Vial) 40 mg IVP X1 ONE Stop: 02/09/24 10:48 Last Admin: 02/09/24 10:56 Dose: 40 mg Ceftriaxone Sodium/Dextrose (Rocephin/D5w 1gm Iv Premix) 50 mls @ 100 mls/hr IV X1 ONE Stop: 02/08/24 14:30 Last Infusion: 02/08/24 17:34 Dose: Infused Azithromycin 250 mg/ Sodium (Chloride) 250 mls @ 250 mls/hr IV QDAY [facility] Stop: 02/15/24 14:01 Last Admin: 02/08/24 20:36 Dose: Not Given Sodium Chloride (Ns) 1,000 mls @ 75 mls/hr IV .[id number] [facility] Stop: 02/09/24 18:29 Last Admin: 02/09/24 09:04 Dose: 75 mls/hr Sodium Chloride 35 ml/ IV (Miscellaneous Supplies) 35 mls @ 30 mls/hr IV X1 ONE Stop: 02/10/24 01:59 Methylprednisolone Sodium Succinate (Methylprednisolone Sod Succ 62.5 Mg/Ml 2ml Vial) 125 mg IVP X1 ONE Stop: 02/09/24 09:16 Last Admin: 02/09/24 09:45 Dose: 125 mg Pantoprazole Sodium (Pantoprazole Inj 40 Mg Vial) 40 mg IVP QDAY ABHIJIT Stop: 03/09/24 18:29 Last Admin: 02/09/24 08:59 Dose: 40 mg Sodium Bicarbonate (Sodium Bicarb Inj 8.4% 1 Meq/Ml Vial 50 Ml) 50 meq IV X1 ONE Stop: 02/09/24 10:48 Last Admin: 02/09/24 10:56 Dose: 50 meq Assessment & Plan Plan The patient is a 78-year-old Tagalog speaking male with previous medical history of hypertension, CKD, type II diabetes, CVA in 2020, alcohol use disorder who was admitted for hypoosmolar hyponatremia. NEURO Patient is awake, alert, and oriented x3, following commands, conversational. #No active problems CARDIO #Possible CHF exacerbation #Hypertension Patient has a history of high blood pressure. He is having shortness of breath and is requiring oxygen support. CXR showed signs of CHF and vascular congestion. Plan: - Bumex 2 mg IV - Fluid restriction - Amlodipine 10 mg PO - hydralazine 25 mg TID PULM #Bilateral pneumonia #Possible COPD exacerbation Patient started to have sneezing, cough and shortness of breath a few days ago. He is retired, but continues to do chores outside. 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 Chest Xray showed CHF, bilateral opacities, perihilar pneumonia, flattened diaphragm. Due to increased work of breathing patient was started on BiPAP. ABGs after starting Bipap showed improvement of SaO2 and O2 levels. Plan: - BiPAP IPAP 10, EPAP 5 - DuoNeb treatments q4hrs - Ceftriaxone -present - Azithromycin 02/07-present GI #Possible GI bleed Patient had a significant drop in Hgb Plan: - GI consulted - Protonix 40mg IV - FOBT NEPHRO #Severe hypervolemic hyponatremia #DIAN on CKD On admission patient Na 120, was initially treated with normal saline @75ml/hr. Patient has received 2L of NS. Sodium increased to 122 and sharply declined to 112. Osmolality 259 decreased to 246. Urinalysis showed urine sodium less than 15. Patient appears volume overloaded: CHF pattern with vascular congestion on chest x-ray, 2+ tense edema bilateral lower extremities. ABG showed pH 7.2, pCO2 30, pO2 69, bicarb 13. Lactic acid 3.8, no anion gap. Patient received 1 dose 40 mg IV Lasix and [address] ordered, delayed due to patient severe respiratory distress. BUN 51, creatinine 2.7, eGFR 23. Baseline 2.3. Renal ultrasound showed no hydronephrosis, bilateral renal cortical thinning and renal parenchymal scar formation. Repeat Na remain 122, after that hypertonic saline was started. Plan: ?Hypertonic saline 3% @35 mL/h, do not exceed Na replenishing 4-6 mEq per day - Fluid restriction 1L ?Sodium checks every 4 hours ?Renally dose meds URO #No active problems HEME #Severe anemia Could attributed to possible bleeding or hemodilution. Plan: - repeat CBC - transfuse 1 unit of blood, repeat H&H after ENDO #Type 2 diabetes Plan: - SSK with hypoglycemia protocol ID #No active problems MSK #No active problems SKIN #No active problems DVT prophylaxis: SCDs GI prophylaxis: Pantoprazole 40mg BID Diet: NPO Oro: placed Lines: peripheral Antibiotics: azithromycin, ceftriaxone CODE STATUS: FULL CODE Disposition: to the telemetry for monitoring Plan of care discussed with attending and PGY-[address] Valera. Sheri Babcock MD, PGY 1.
--- NOTE | 2024-02-09 11:43 | ESPR_ITS ---
Documentation for date of: 02/09/24 Subjective Subjective Interval history: This is a 78yo M admitted to the hospital for SOB. Apparently he has been feeling unwell for a few days prior to arrival. He developed increasing SOB 48hrs prior to arrival along with a productive cough. Pts states that the sputum color was white/clear. Denies fever, n/v, chills, or chest pain does admit to some intermittent abd pain. On arrival the patient was noted to have a sodium of 122. The patient was started on normal saline and over the course of the evening and night dropped his sodium down to 112. The patient also developed a nongap acidosis as well as respiratory distress. He had audible wheezing and given his breathing difficulty the ICU was consulted for further evaluation. The patient himself is a poor historian and the majority of information is obtained from evaluation of the chart as well as the who was present at bedside. Critical Care Note Critical care time (min.): 65 Exam Vital Signs Temp Pulse Resp BP Pulse Ox O2 Del Method O2 Flow Rate 97.2 F 94 31 H 137/85 H 95 Nasal Cannula 2 02/09/24 08:00 02/09/24 10:56 02/09/24 10:55 02/09/24 10:56 02/09/24 10:55 02/09/24 08:00 02/09/24 10:55 Narrative Exam Occ-[id number]-[id number], awake and alert, normal body habitus, respiratory distress HEENT-normocephalic, atraumatic, sclera icteric, oral mucosa is hydrated, pursed lip breathing Chest-lungs with diffuse expiratory wheezes, occasional posterior crackles, heart rate regular and rhythmic, no bruits murmurs auscultated times exam, increased work of breathing Abdomen-soft, nontender, bowel sounds present, no rebound or guarding Extremities-2+ pitting edema bilateral lower extremities up to the level of the knee, pulses palpable, no mottling, no clubbing, no focal neurological deficits Physical Exam Completion Physical Exam Complete?: Yes 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 - Senior Medical 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 Labs 02/18/24 04:52 02/18/24 04:52 Labs: Laboratory Results - last 24 hr 02/08/24 02/08/24 02/08/24 11:27 13:07 19:50 WBC 10.9 H RBC 2.60 L Hgb 7.3 L Hct 21.5 L* MCV 83 MCH 28.1 MCHC 34.0 RDW Std Deviation 39.8 Plt Count 219 D Neut % (Auto) 85 H Lymph % (Auto) 4 L [place] % (Auto) 10 Eos % (Auto) 0 Baso % (Auto) 0 Neut # (Auto) 9.2 H Lymph # (Auto) 0.5 L [place] # (Auto) 1.1 H Eos # (Auto) 0.0 Baso # (Auto) 0.0 Immature Gran # (Auto) 0.03 H Absolute Nucleated RBC 0.00 Immature Gran % 0 Nucleated RBC % 0 PT 11.4 INR 1.0 APTT 31.0 Puncture Site ABG pH ABG pCO2 ABG pO2 ABG HCO3 ABG O2 Saturation ABG Base Excess Oxygen Liter Flow FiO2 Sodium 120 L 122 L Potassium 4.4 Chloride 92 L Carbon Dioxide 20.7 Anion Gap 7 BUN 48 H Creatinine 2.9 H Estim Creat Clear Calc 15.5 L eGFR 21 L BUN/Creatinine Ratio [address] Glu mg/dL Hemoglobin A1c Calculated Osmolality 259 L Lactic Acid 0.7 Calcium 8.7 Corrected Calcium 8.7 Phosphorus Magnesium 2.0 Total Bilirubin 0.8 AST 39 H ALT 47 Alkaline Phosphatase 65 Troponin I 0.034 B-Natriuretic Peptide 381 H Total Protein 7.2 Albumin 4.7 Globulin 2.5 Albumin/Globulin Ratio 1.9 Lipase 76 H Procalcitonin 0.20 Ur Collection Type Urine Color Urine Clarity Urine pH Ur Specific [place] Urine Protein Urine Glucose (UA) Urine Ketones Urine Blood Urine Nitrite Urine Bilirubin Urine Urobilinogen (Auto) Ur Leukocyte Esterase Urine RBC Urine WBC Ur Squamous Epith Cells Urine Bacteria Ur Random Creatinine U Random Total Protein Ur Random Sodium Ur Random Potassium Ur Random Chloride Crossmatch Blood Bank Wristband ID 02/08/24 02/09/24 02/09/24 23:05 03:20 03:20 WBC RBC Hgb Hct MCV MCH MCHC RDW Std Deviation Plt Count Neut % (Auto) Lymph % (Auto) [place] % (Auto) Eos % (Auto) Baso % (Auto) Neut # (Auto) Lymph # (Auto) [place] # (Auto) Eos # (Auto) Baso # (Auto) Immature Gran # (Auto) Absolute Nucleated RBC Immature Gran % Nucleated RBC % PT INR APTT Puncture Site ABG pH ABG pCO2 ABG pO2 ABG HCO3 ABG O2 Saturation ABG Base Excess Oxygen Liter Flow FiO2 Sodium 121 L Potassium Chloride Carbon Dioxide Anion Gap BUN Creatinine Estim Creat Clear Calc eGFR BUN/Creatinine Ratio Glucose Estimated Ave Glu mg/dL Hemoglobin A1c Calculated Osmolality Lactic Acid Calcium Corrected Calcium Phosphorus Magnesium Total Bilirubin AST ALT Alkaline Phosphatase Troponin I B-Natriuretic Peptide Total Protein Albumin Globulin Albumin/Globulin Ratio Lipase Procalcitonin Ur Collection Type Clean Catch Urine Color Lt-Yellow Urine Clarity Clear Urine pH 5.5 Ur Specific [place] 1.012 Urine Protein 2+ A Urine Glucose (UA) Negative Urine Ketones Negative Urine Blood 1+ A Urine Nitrite Negative Urine Bilirubin Negative Urine Urobilinogen (Auto) Negative Ur Leukocyte Esterase Negative Urine RBC 1 Urine WBC 1 Ur Squamous Epith Cells 0 Urine Bacteria None Ur Random Creatinine 81 U Random Total Protein 165 H Ur Random Sodium < 15.0 L < 15.0 L Ur Random Potassium 30 Ur Random Chloride < 20.0 L Crossmatch Blood Bank Wristband ID 02/09/24 02/09/24 02/09/24 05:05 07:31 09:30 WBC 12.3 H RBC 2.34 L Hgb 6.6 L* 6.3 L* Hct 19.5 L* 18.3 L* MCV 83 MCH 28.2 MCHC 33.8 RDW Std Deviation 39.8 Plt Count 239 Neut % (Auto) 86 H Lymph % (Auto) 4 L [place] % (Auto) 9 Eos % (Auto) 0 Baso % (Auto) 0 Neut # (Auto) 10.6 H Lymph # (Auto) 0.5 L [place] # (Auto) 1.1 H Eos # (Auto) 0.0 Baso # (Auto) 0.0 Immature Gran # (Auto) 0.06 H Absolute Nucleated RBC 0.00 Immature Gran % 1 H Nucleated RBC % 0 PT INR APTT Puncture Site Right Radial ABG pH 7.26 L ABG pCO2 30 L ABG pO2 69 L ABG HCO3 13 L ABG O2 Saturation 93 ABG Base Excess -13 L Oxygen Liter Flow 3 FiO2 21 Sodium 117 L* Potassium 4.4 Chloride 92 L Carbon Dioxide 15.7 L Anion Gap 9 BUN 51 H Creatinine 2.7 H Estim Creat Clear Calc 19.6 L eGFR 23 L BUN/Creatinine Ratio 19 [address]ucose [address] Glu mg/dL 117 Hemoglobin A1c 5.7 Calculated Osmolality 252 L Lactic Acid Calcium 8.2 L Corrected Calcium Phosphorus 4.3 Magnesium 1.9 Total Bilirubin AST ALT Alkaline Phosphatase Troponin I B-Natriuretic Peptide Total Protein Albumin Globulin Albumin/Globulin Ratio Lipase Procalcitonin Ur Collection Type Urine Color Urine Clarity Urine pH Ur Specific [place] Urine Protein Urine Glucose (UA) Urine Ketones Urine Blood Urine Nitrite Urine Bilirubin Urine Urobilinogen (Auto) Ur Leukocyte Esterase Urine RBC Urine WBC Ur Squamous Epith Cells Urine Bacteria Ur Random Creatinine U Random Total Protein Ur Random Sodium Ur Random Potassium Ur Random Chloride Crossmatch Blood Bank Wristband ID 02/09/24 09:47 WBC RBC Hgb Hct MCV MCH MCHC RDW Std Deviation Plt Count Neut % (Auto) Lymph % (Auto) [place] % (Auto) Eos % (Auto) Baso % (Auto) Neut # (Auto) Lymph # (Auto) [place] # (Auto) Eos # (Auto) Baso # (Auto) Immature Gran # (Auto) Absolute Nucleated RBC Immature Gran % Nucleated RBC % PT INR APTT Puncture Site ABG pH ABG pCO2 ABG pO2 ABG HCO3 ABG O2 Saturation ABG Base Excess Oxygen Liter Flow FiO2 Sodium 112 L* Potassium 4.7 Chloride 88 L Carbon Dioxide 13.0 L* Anion Gap 11 BUN 46 H Creatinine 2.6 H Estim Creat Clear Calc 20.4 L eGFR 24 L BUN/Creatinine Ratio 18 Glucose [address] Glu mg/dL Hemoglobin A1c Calculated Osmolality 246 L Lactic Acid 3.1 H Calcium 8.1 L Corrected Calcium 8.1 L Phosphorus 5.1 Magnesium Total Bilirubin AST ALT Alkaline Phosphatase Troponin I B-Natriuretic Peptide Total Protein Albumin 4.4 Globulin Albumin/Globulin Ratio Lipase Procalcitonin Ur Collection Type Urine Color Urine Clarity Urine pH Ur Specific [place] Urine Protein Urine Glucose (UA) Urine Ketones Urine Blood Urine Nitrite Urine Bilirubin Urine Urobilinogen (Auto) Ur Leukocyte Esterase Urine RBC Urine WBC Ur Squamous Epith Cells Urine Bacteria Ur Random Creatinine U Random Total Protein Ur Random Sodium Ur Random Potassium Ur Random Chloride Crossmatch See Detail Blood Bank Wristband ID Yes Assessment & Plan Additional Assessment Additional Assessment: In brief this is a 78yo M with acute hypoxic resp failure 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 Has an elevated BNP. Last echocardiogram was performed in 2020. Will obtain repeat. Will start the patient on diuresis. Will start on BiPAP for noninvasive positive pressure ventilation to assist with work of breathing. Tropinemia- elevated in the setting of CKD. does not c/o chest pain however will fu with repeat trops and EKG. likely related to demand ischemia Resp Acute hypoxic resp failure- started on bipap for increase in WOB, on FiO2 , given lasix for diuresis as well as nebs ? COPD- pts CXR appears to have some degree of hyperinflation though there is no h/o dx COPD, start duoneb and consider steroids Renal Hyponatremia-on arrival patient presented with a sodium of 120. He received 2 L of normal saline and has had a drop in his sodium to 112. At this point in time the patient appears to have hypervolemic hyponatremia. Will start HTS @20cc/hr with Na q4hrs and adjust with goal of no more than 6meq change in 24hrs Metabolic acidosis- unclear etiology, appears to be a nongap acidosis. there is no report of GI tract losses to account for HCO3. ABG does appear to show appropriate respiratory compensation, ? renal losses, being seen and followed by nephrology CKD- baseline appears to be around 2, acute/chronic component. followed by nephrology as outpt . monitor i/os, contreras placed with 800cc obtained on placement GI NPO for now Endo DM- SSI Heme Anemia-patient's baseline appears to be around 10. On arrival yesterday his hemoglobin was 7.3 which dropped to 6.3 this morning status post 2 L of IV fluid. Will transfuse 1 unit of PRBCs and give lasix after unit. will need additional workup Leukocytosis- reactive v infectious ID ? PNA- on ceftri/carloithro case d/w ICU team and primary pt should be transferred to tele, d/w family at bedside that if the pt continues to decline may need ETT and ICU level of care. They are agreeable if this is needed. labs, imaging, records reviewed ~65ccmin required for eval, exam, review, intervention, discussion and formulation of POC for this critically ill pt with acute hypoxic resp failure at high risk for further and ongoing decompensation. pt was seen and examined multiple times throughout the day Provider Notation Provider Notation: Although this document has been carefully reviewed, there may still be some phonetic and other typographical errors. These errors are purely grammatical due to imperfections in the software program and should not be construed in any way to compromise the substance of the patient's medical care during this visit. Thank you for the opportunity and privilege in assisting you with this patient's care and management.
[2024-02-09] MEDS: ALBUTEROL RT 2.5 MG/0.5 ML NEBU 5 MG INH (12:04)
--- NOTE | 2024-02-09 12:21 | ECHO_ITS ---
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 16 - 28 cm?/m? Ascending Aorta Diameter 3.4 cm M-MODE Aortic Root Diameter MM 3.3 cm LA Systolic Diameter MM 4.2 cm LA Ao Ratio MM 1.3 AV Cusp Separation MM 2.0 cm DOPPLER AV Peak Velocity 172.0 cm/s AV Peak Gradient 11.8 mmHg AV Mean Gradient 7.0 mmHg AV Velocity Time Integral 34.0 cm LVOT Peak Velocity 124.0 cm/s LVOT Peak Gradient 6.2 mmHg LVOT Velocity Time Integral 23.7 cm LVOT Cardiac Index 4460.3 cm?/min?m? AV Area Cont Eq vti 2.2 cm? AV Area Cont Eq pk 2.3 cm? MV Peak Velocity 157.5 cm/s MV Peak Gradient 9.9 mmHg MV Mean Velocity 97.7 cm/s MV Mean Gradient 4.5 mmHg MV Area PHT 5.0 cm? MR Peak Velocity 425.0 cm/s MR Peak Gradient 72.3 mmHg Mitral E Point Velocity 146.0 cm/s Mitral A Point Velocity 122.0 cm/s Mitral E to A Ratio 1.2 LV E' Lateral Velocity 8.1 cm/s Mitral E to LV E' Lateral Ratio 18.1 LV E' Septal Velocity 4.7 cm/s Mitral E to LV E' Septal Ratio 31.2 TR Peak Velocity 302.5 cm/s TR Peak Gradient 36.6 mmHg FINDINGS Left Ventricle Normal left ventricular size, wall thickness, systolic function with no obvious regional wall motion abnormalities. The ejection fraction is visually estimated at 60-65%. Right Ventricle The right ventricle is normal in size and systolic function. The estimated right ventricular systoli c pressure, 53 mmHg. RAP 5. Left Atrium The left atrium is normal by two-dimensional, color flow and Doppler imaging with no structural abnormalities, no thrombus formation present. Right Atrium The right atrium is normal by two-dimensional imaging, color flow and Doppler imaging with no struct ural abnormalities, no thrombus formation present. Atrial Septum The interatrial septum appears normal with no evidence of a shunt. Aorta The aorta is normal by two-dimensional, color flow and Doppler interrogation. Mitral Valve The mitral valve is normal by two-dimensional, color flow and Doppler interrogation. There is mild m itral valve regurgitation. Aortic Valve The aortic valve is trileaflet and normal by two-dimensional, color flow and Doppler interrogation. There is trace aortic valve regurgitation. Tricuspid Valve The tricuspid valve is normal by two-dimensional, color flow and Doppler interrogation. There is mod erate tricuspid valve regurgitation. Pulmonic Valve There is no significant pulmonic valve regurgitation. Vessels The pulmonary artery appears normal. The inferior vena cava pulmonary and hepatic veins appear gallo l. Pericardium The pericardium is normal by two-dimensional imaging. There is no significant pericardial effusion. CONCLUSIONS Normal LV size and function. Estimated EF 60-65% Normal RV size and function. Estimated RVSP 53mmHg. Mild MR. Moderate TR. Trace AI. Jesi Burleson (Electronically Signed) Final Date: 11 February 2024 18:39
--- NOTE | 2024-02-09 12:54 | ESCONSULT_ITS ---
HPI Data of Consult Consult date: 02/09/24 Requesting Physician: Gilbert Alexander MD Admitting Provider: Gilbert Alexander MD Attending Provider: Velma West MD Primary Care Provider: Velma West MD Consult Narrative Reason for consult: Severe hyponatremia History of present illness: Mr. 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 Patient's is at bedside and majority of history was taken from her. Patient has been having shortness of breath and wheezing with mild cough and white phlegm for the past 2 days. Patient states that he also is mildly congested denies any runny nose sick contacts or travel history. The noted that recently he has been feeling bloating but denies any changes in the appetite nausea vomiting or abdominal pain. Patient denies any history of prior asthma history. In the ED patient's vitals include blood pressure 164/70 respirations 28, WBC 10.9, hemoglobin 7.3, hematocrit 21.5, and sodium 120. Creatinine 2.9, GFR 21, osmolality 259, BNP 381, lipase 76. Chest x-ray findings include subtle opacity in both lungs suspicious for bilateral basilar pneumonia. In the ED patient received a breathing treatment, Rocephin x 1. Patient admitted for hypoosmolar hyponatremia. Nephrology was consulted for hyponatremia and DIAN on CKD. Primary team ordered urine electrolytes, started patient on IV fluids normal saline at 75 mL/h, every 4 sodium checks. Urine electrolytes showed urine sodium less than 15. Renal ultrasound showed no hydronephrosis, renal cortical thinning and renal parenchymal scar formation. Patient continued to deteriorate: Hemoglobin 6.3, sodium 117, BUN 51, creatinine 2.7, eGFR 23. Patient was examined on the floors, sitting at side of bed, in clear distress. Patient had labored breathing, audible wheezing, tense edema to bilateral lower extremities. Repeat sodium check 112. Patient received breathing treatment with minimal improvement. ICU was consulted for possible upgrade, patient started on hypertonic saline. ICU team aware of patient monitoring, elected to keep patient on floors for now. Blood transfusion held in setting of volume overload, will continue to monitor closely. Considered chest CT, delayed due to patient's respiratory distress. ABG showed pH 7.26, pCO2 30, pO2 69, bicarb 13. Lactic acid 3.8. No anion gap. Chest x-ray showed mild to moderate CHF pattern with severe vascular congestion including central vascular engorgement. cc:: cc: Gilbert Alexander MD Review of Systems Review of Systems Systems Reviewed: All systems reviewed, normal except as documented Past Medical History Past Medical History CARDIAC: Positive Cardiac Disorders and Hypertension; Negative Congestive Heart Failure RESPIRATORY: Negative Chronic Obstructive Pulmonary Disease (COPD) GENITOURINARY: Negative Renal Disease ENDOCRINE: Positive Diabetes Mellitus Type 2; Negative Diabetes Mellitus Type 1 Surgical History SURGICAL: Positive Eye Surgery OTHER SURGICAL HX: As in the history of present illness Social History SMOKING STATUS: Never smoker Exam Vital Signs Temp Pulse Resp BP Pulse Ox O2 Del Method O2 Flow Rate 97.2 F 93 25 H 137/85 H 98 Nasal Cannula 2 02/09/24 08:00 02/09/24 12:06 02/09/24 12:06 02/09/24 10:56 02/09/24 12:06 02/09/24 08:00 02/09/24 10:55 FiO2 35 02/09/24 12:06 Narrative Exam PE: Gen: Ill-appearing, distressed. HEENT: NCAT, PERRLA, EOMI, MMM, anicteric conjunctivae. CVS: normal S1 and S2. RRR. No M/R/G. Resp: Severe diffuse expiratory wheezing. Scratchy lung sounds. Abd: soft, non-tender, non-distended. MSK: Good ROM in BUE & BLE. No rash. 2+ tense edema bilateral lower extremities. Neuro: CN II-XII grossly intact. Strength 5/5 in BUE & BLE. Alert and oriented x3. Psych: appropriate mood and affect. Results Labs 02/10/24 04:42 02/10/24 15:18 Labs: Short CBC 02/09/24 02/09/24 Range/Units 05:05 07:31 WBC 12.3 H (3.8-10.6) Thou/mm3 Hgb 6.6 L* 6.3 L* (13.5-16.0) g/dL Hct 19.5 L* 18.3 L* (41.0-53.0) % Plt Count 239 (140-440) Thou/mm3 BMP 02/08/24 02/08/24 02/09/24 19:50 23:05 05:05 Sodium 122 L 121 L 117 L* Potassium 4.4 Chloride 92 L Carbon Dioxide 15.7 L BUN 51 H Creatinine 2.7 H Glucose 135 H D Calcium 8.2 L 02/09/24 09:47 Sodium 112 L* Potassium 4.7 Chloride 88 L Carbon Dioxide 13.0 L* BUN 46 H Creatinine 2.6 H Glucose 225 H D Calcium 8.1 L Liver Function 02/09/24 Range/Units 09:47 Albumin 4.4 (3.4-4.8) gm/dL Urine 02/09/24 Range/Units 03:20 Urine Color Lt-Yellow (Lt Yel-Yel) Urine Clarity Clear (Clear/Hazy) Urine pH 5.5 (5.0-7.0) Ur Specific [place] 1.012 (1.001-1.035) Urine Protein 2+ A (Neg - Trace) Urine Glucose (UA) Negative (Negative) ABG Interpretation ABG results: 02/09/24 09:30 ABG pH 7.26 L ABG pCO2 30 L ABG pO2 69 L ABG HCO3 13 L ABG O2 Saturation 93 ABG Base Excess -13 L Quality Measures Quality Measures VTE prophylaxis Advance care planning discussed with:: patient and spouse Medications Home Medications and Allergies Home Medications ?Medication ?Instructions ?Recorded ?Confirmed ?Type amlodipine 10 mg tablet 10 mg PO QPM 02/08/24 02/08/24 History atorvastatin 10 mg tablet 10 mg PO HS 02/08/24 02/08/24 History ferrous gluconate 324 mg (38 mg 324 mg PO DAILY 02/08/24 02/08/24 History iron) tablet hydralazine 25 mg tablet 25 mg PO TID 02/08/24 02/08/24 History insulin glargine 100 unit/mL (3 10 unit subcut QPM 02/08/24 02/08/24 History mL) subcutaneous pen (Lantus Solostar U-100 Insulin) vitamin B complex-vitamin C-folic 1 tab PO QPM 02/08/24 02/08/24 History acid 0.8 mg tablet (Peg-Pino) Allergies Allergy/AdvReac Type Severity Reaction Status Date / Time No Known Allergies Allergy Unverified 02/08/24 10:31 Visit Medications Acetaminophen (Acetaminophen 325 Mg Tablet) 650 mg PO Q6H PRN PRN Reason: PAIN OR FEVER > 101 Stop: 03/09/24 18:24 Last Admin: 02/09/24 05:13 Dose: 650 mg Albuterol/Ipratropium (Albuterol/Ipratropium (Duoneb) Rt Romina 3 Ml Nebu) 3 ml INH Q4HRRT [facility] Stop: 03/09/24 18:59 Last Admin: 02/09/24 10:49 Dose: 3 ml Amlodipine Besylate (Amlodipine Besylate 5 Mg Tablet) 10 mg PO QPM [facility] Stop: 03/10/24 20:59 Atorvastatin Calcium (Atorvastatin Calcium 10 Mg Tablet) 10 mg PO HS [facility] Stop: 03/10/24 20:59 Dextrose (Dextrose 50%-Water Inj 50 Ml Syringe) 25 ml IV Q15MIN PRN PRN Reason: BG 50-70 responsive npo pt Stop: 03/09/24 19:03 Dextrose (Dextrose 50%-Water Inj 50 Ml Syringe) 50 ml IV Q15MIN PRN PRN Reason: BG <50 OR BG <70 & pt unresponsive Stop: 03/09/24 19:03 Glucagon (Glucagon Inj 1 Mg Vial) 1 mg IM Q15MIN PRN PRN Reason: BG <70, and no IV access Hydralazine HCl (Hydralazine Hcl 25 Mg Tablet) 25 mg PO TID [facility] Stop: 03/10/24 05:59 Last Admin: 02/09/24 05:13 Dose: 25 mg Ceftriaxone Sodium/Dextrose (Rocephin/D5w 1gm Iv Premix) 50 mls @ 100 mls/hr IV QDAY@1400 [facility] Stop: 02/16/24 13:59 Azithromycin 500 mg/ Sodium (Chloride) 250 mls @ 250 mls/hr IV QDAY@1400 [facility] Stop: 02/16/24 13:59 Sodium Chloride (Hypertonic Saline 3%) 500 mls @ 35 mls/hr IV .[id number] [facility] Stop: 02/10/24 00:32 Insulin Human Lispro (Insulin Lispro (Admelog) 1 Unit/0.01 Ml Unit) 0 unit [facility]; Protocol Stop: 03/09/24 20:59 Last Admin: 02/09/24 12:10 Dose: 4 unit Ondansetron HCl (Ondansetron Inj 2 Mg/Ml Inj 2 Ml) 4 mg IV Q6H PRN; Protocol PRN Reason: NAUSEA OR VOMITING Stop: 03/09/24 18:24 Pantoprazole Sodium (Pantoprazole Inj 40 Mg Vial) 40 mg IV BID [facility] Stop: 03/10/24 20:59 Sennosides (Senna Tablet) 2 tab PO BID PRN; Protocol PRN Reason: CONSTIPATION Stop: 03/09/24 18:24 Discontinued Medications Acetaminophen (Acetaminophen 325 Mg Tablet) 650 mg PO Q6H PRN PRN Reason: Fever >101.5 Stop: 03/09/24 18:24 Albuterol (Albuterol Rt 2.5 Mg/0.5 Ml Nebu) 5 mg INH X1 ONE Stop: 02/09/24 11:41 Last Admin: 02/09/24 12:04 Dose: 5 mg Albuterol/Ipratropium (Albuterol/Ipratropium (Duoneb) Rt Romina 3 Ml Nebu) 3 ml INH X1 ONE Stop: 02/08/24 16:43 Last Admin: 02/08/24 17:39 Dose: 3 ml Albuterol/Ipratropium (Albuterol/Ipratropium (Duoneb) Rt Romina 3 Ml Nebu) 3 ml INH X1 ONE Stop: 02/09/24 04:23 Last Admin: 02/09/24 04:31 Dose: 3 ml Azithromycin (Azithromycin 250 Mg Tablet) 500 mg PO QDAY@1400 [facility] Stop: 02/16/24 13:59 Azithromycin (Azithromycin 250 Mg Tablet) 500 mg PO QDAY@1400 [facility] Stop: 02/15/24 16:44 Last Admin: 02/08/24 16:45 Dose: 500 mg Clopidogrel Bisulfate (Clopidogrel Bisulfate 75 Mg Tablet) 75 mg PO QDAY [facility] Stop: 03/10/24 08:59 Last Admin: 02/09/24 08:59 Dose: 75 mg Furosemide (Furosemide Inj 10 Mg/Ml 4ml Vial) 40 mg IVP X1 ONE Stop: 02/09/24 10:48 Last Admin: 02/09/24 10:56 Dose: 40 mg Ceftriaxone Sodium/Dextrose (Rocephin/D5w 1gm Iv Premix) 50 mls @ 100 mls/hr IV X1 ONE Stop: 02/08/24 14:30 Last Infusion: 02/08/24 17:34 Dose: Infused Azithromycin 250 mg/ Sodium (Chloride) 250 mls @ 250 mls/hr IV QDAY [facility] Stop: 02/15/24 14:01 Last Admin: 02/08/24 20:36 Dose: Not Given Sodium Chloride (Ns) 1,000 mls @ 75 mls/hr IV .[id number] [facility] Stop: 02/09/24 18:29 Last Admin: 02/09/24 09:04 Dose: 75 mls/hr Sodium Chloride 35 ml/ IV (Miscellaneous Supplies) 35 mls @ 30 mls/hr IV X1 ONE Stop: 02/10/24 01:59 Methylprednisolone Sodium Succinate (Methylprednisolone Sod Succ 62.5 Mg/Ml 2ml Vial) 125 mg IVP X1 ONE Stop: 02/09/24 09:16 Last Admin: 02/09/24 09:45 Dose: 125 mg Pantoprazole Sodium (Pantoprazole Inj 40 Mg Vial) 40 mg IVP QDAY [facility] Stop: 03/09/24 18:29 Last Admin: 02/09/24 08:59 Dose: 40 mg Sodium Bicarbonate (Sodium Bicarb Inj 8.4% 1 Meq/Ml Vial 50 Ml) 50 meq IV X1 ONE Stop: 02/09/24 10:48 Last Admin: 02/09/24 10:56 Dose: 50 meq Assessment & Plan Plan Mr. 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 Patient is been having shortness of breath and wheezing with mild cough and white phlegm for the past 2 days. #Hypoosmolar hyponatremia #DIAN on CKD On admission patient sodium 120, was initially treated with normal saline at 75 mL/h. Sodium increased to 122 and sharply declined to 112. Osmolality 259 decreased to 246. ICU team consulted, patient will remain on floors, ICU will monitor. Urinalysis showed urine sodium less than 15. Patient appears volume overloaded: CHF pattern with vascular congestion on chest x-ray, 2+ tense edema bilateral lower extremities. ABG showed pH 7.2, pCO2 30, pO2 69, bicarb 13. Lactic acid 3.8, no anion gap. Patient received 1 dose 40 mg IV Lasix and [address] ordered, delayed due to patient severe respiratory distress. BUN 51, creatinine 2.7, eGFR 23. Worse than patient's baseline. Renal ultrasound showed no hydronephrosis, bilateral renal cortical thinning and renal parenchymal scar formation. Plan: -Hypertonic saline 3% at 35 mL/h -Every 4 hour sodium checks -Renally dose meds -Avoid nephrotoxic medications -Monitor daily renal function -ICU team consulted for worsening hyponatremia -Echo pending #Acute hypoxic respiratory failure #Chronic anemia #History of diabetes mellitus #History of primary hypertension #History of CVA without residual deficit Management as per primary team DVT prophylaxis: SCDs GI prophylaxis: Protonix Diet: N.p.o. Lines: Peripheral IV, Oro cath Code status: Full code Thank you for allow me to precipitate in the care of this patient. Plan of care discussed with attending Dr. West. Cornelio Powell MD PGY-1 Attending Provider Attestation/Addendum Patient seen and examined with resident physician Dr. Powell. Note reviewed, agree with findings and recommendations. Sick gentleman currently seen in medical floor. Will transfer him to telemetry due to acute respiratory failure. Patient with significant fluid overload and hyponatremia. Did receive 2.5 L of fluids yesterday as urine sodium was less than 15. However he went into flash pulmonary edema this morning needing BiPAP. Patient declined BiPAP. Will continue with nasal cannula. Clinically looks rather hypervolemic. Lifter/Driver was consulted. Will hold off on blood transfusion and CAT scan of the chest until he is more stable. Started him on diuretics. Will monitor serum sodium closely. Plan of care discussed with at bedside. Thank you for allowing me to participate in the care of
[2024-02-09 13:04] LABS: Lactate (Lactic Acid) 3.8 mMol/L (0.4-2.0)
[2024-02-09 13:06] LABS: Beta Hydroxybutyrate 0.2 mmol/L (<0.6)
[2024-02-09 13:06] LABS: Reflex Lactate? Y
[2024-02-09 13:09] LABS: Basophils % (Auto) 0 % (0-2.5); Eosinophils % (Auto) 0 % (0-10); Immature Granulocytes % (Auto) 1 % (0-0); Immature Granulocytes Auto 0.06 Thou/mm3 (0.00-0.00); Lymphocytes # (Auto) 0.4 Thou/mm3 (1.0-4.8); Lymphocytes % (Auto) 3 % (10-50); Mean Corpuscular Hemoglobin 28.7 pg (25.0-35.0); Mean Corpuscular Volume 80 fL (80-100); Monocytes # (Auto) 0.3 Thou/mm3 (0.0-0.8); Monocytes % (Auto) 2 % (0-12); Neutrophils # (Auto) 11.5 Thou/mm3 (1.8-7.7); Neutrophils % (Auto) 94 % (37-80); Nucleated Red Blood Cell % 0 /100 WBC (0); Platelet Count 214 Thou/mm3 (140-440); RDW Standard Deviation 37.5 fL (35.1-43.9); Red Blood Count 2.37 Miln/mm3 (4.50-5.90); White Blood Count 12.2 Thou/mm3 (3.8-10.6)
[2024-02-09 13:20] LABS: Hematocrit 18.9 % (41.0-53.0); Hemoglobin 6.8 g/dL (13.5-16.0)
[2024-02-09 13:25] LABS: Base Excess -10 (-3-3); HCO3 15 mEq/L (20-26); Inspired Oxygen, FIO2 35 %; O2 Saturation 99 % (91-98); PCO2 31 mmHg (32.0-48.0); PO2 101 mmHg (83-108); pH, Arterial 7.31 (7.35-7.45)
[2024-02-09 13:26] LABS: Allen Test Performed/OK; Puncture Site Left Radial
[2024-02-09 13:26] LABS: B-Type Natriuretic Peptide 487 pg/mL (0-100)
[2024-02-09] MEDS: cefTRIAXone/D5w 1gm IV premix 50 ML IV (13:31)
[2024-02-09 13:59] LABS: Alanine Aminotransferase 52 U/L (10-49); Albumin, Serum 4.6 gm/dL (3.4-4.8); Albumin/Globulin Ratio 2.1 (1.2-2.2); Alkaline Phosphatase 60 U/L (46-116); Anion Gap 11 (7-16); Aspartate Amino Transferase 50 U/L (0-34); BUN/Creatinine Ratio 19 Ratio (12-20); Bilirubin,Total 0.9 mg/dL (0.3-1.2); Blood Urea Nitrogen 51 mg/dL (9-23); Chloride 86 mMol/L (98-107); Creatinine (Component) 2.7 mg/dL (0.6-1.3); Estimated Creatinine Clearance 19.6 mL/min (>60); Globulin 2.2 gm/dL (2.3-3.5); Glucose 245 mg/dL (74-106); Osmolality,Calculated 249 (275-295); Phosphorous 5.4 mg/dL (2.4-5.1); Potassium 4.5 mMol/L (3.4-5.1); Procalcitonin 0.51 ng/ml (0.0-0.49); Total Protein 6.8 gm/dL (5.7-8.2); eGFR 23 See Note
[2024-02-09 14:07] LABS: Sodium 112 mMol/L (136-145)
--- NOTE | 2024-02-09 14:07 | EKG_ITS ---
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
[2024-02-09 14:08] LABS: Carbon Dioxide 14.9 mMol/L (20.0-31.0)
[2024-02-09 14:14] LABS: Cocci Serology, IgM Negative (Negative)
[2024-02-09] MEDS: BUMETANIDE INJ 0.25 MG/ML VIAL 4 ML 2 MG IVP ×2 (14:25→22:55)
[2024-02-09] MEDS: AZITHROMYCIN INJ 500 MG in SODIUM CHLORIDE 0.9% 250 ML 250 ML 250 MG IV (14:44)
[2024-02-09 15:35] LABS: Albumin, Serum 4.5 gm/dL (3.4-4.8); Anion Gap 11 (7-16); BUN/Creatinine Ratio 20 Ratio (12-20); Blood Urea Nitrogen 53 mg/dL (9-23); Carbon Dioxide 15.8 mMol/L (20.0-31.0); Chloride 86 mMol/L (98-107); Creatinine (Component) 2.7 mg/dL (0.6-1.3); Estimated Creatinine Clearance 19.6 mL/min (>60); Glucose 219 mg/dL (74-106); Osmolality,Calculated 250 (275-295); Phosphorous 5.6 mg/dL (2.4-5.1); Potassium 4.6 mMol/L (3.4-5.1); eGFR 23 See Note
[2024-02-09 15:36] LABS: Sodium 113 mMol/L (136-145); Troponin I 0.289 ng/mL (0.0-0.045)
[2024-02-09 15:54] LABS: Reflex Lactate? Y
--- NOTE | 2024-02-09 16:11 | ESCONSULT_ITS ---
HPI Data of Consult Requesting Physician: Gilbert Alexander MD Primary Care Provider: Velma West MD Consult Narrative Reason for consult: H/H 6.3/18.3 History of present illness: 78 years old male who presented with shortness of breath and cough for 2 days found to have a chest x-ray bilateral pneumonia also presenting sodium of 112 Patient has a history of diabetes mellitus type 2 hypertension and chronic kidney disease Chloride was 86, osmolality was 249, Chart review shows a PSA of 19.12 as of 01/14/2024 B12 1493 and PTH elevated at 121 I could not find levels of iron in the chart cc:: cc: Gilbert Alexander MD Review of Systems Review of Systems Systems Reviewed: All systems reviewed, normal except as documented Past Medical History Surgical History OTHER SURGICAL HX: As in the history of present illness Meds Home Medications and Allergies Home Medications ?Medication ?Instructions ?Recorded ?Confirmed ?Type amlodipine 10 mg tablet 10 mg PO QPM 02/08/24 02/08/24 History atorvastatin 10 mg tablet 10 mg PO HS 02/08/24 02/08/24 History ferrous gluconate 324 mg (38 mg 324 mg PO DAILY 02/08/24 02/08/24 History iron) tablet hydralazine 25 mg tablet 25 mg PO TID 02/08/24 02/08/24 History insulin glargine 100 unit/mL (3 10 unit subcut QPM 02/08/24 02/08/24 History mL) subcutaneous pen (Lantus Solostar U-100 Insulin) vitamin B complex-vitamin C-folic 1 tab PO QPM 02/08/24 02/08/24 History acid 0.8 mg tablet (Peg-Pino) Allergies Allergy/AdvReac Type Severity Reaction Status Date / Time No Known Allergies Allergy Unverified 02/08/24 10:31 Exam Vital Signs Temp Pulse Resp BP Pulse Ox O2 Del Method O2 Flow Rate 97.7 F 94 25 H 150/87 H 97 BiPAP 2 02/09/24 15:21 02/09/24 15:21 02/09/24 15:21 02/09/24 15:21 02/09/24 15:21 02/09/24 12:00 02/09/24 10:55 FiO2 35 02/09/24 14:53 Constitutional Comments: Chronically ill-appearing Routine Respiratory Exam Comments: Scattered rhonchi decreased breath sounds at the bases Routine Abdominal Exam Comments: Soft nontender Results Labs 02/09/24 12:42 02/09/24 14:55 Labs: Short CBC 02/09/24 02/09/24 02/09/24 Range/Units 05:05 07:31 12:42 WBC 12.3 H 12.2 H (3.8-10.6) Thou/mm3 Hgb 6.6 L* 6.3 L* 6.8 L* (13.5-16.0) g/dL Hct 19.5 L* 18.3 L* 18.9 L* (41.0-53.0) % Plt Count 239 214 (140-440) Thou/mm3 BMP 02/08/24 02/08/24 02/09/24 19:50 23:05 05:05 Sodium 122 L 121 L 117 L* Potassium 4.4 Chloride 92 L Carbon Dioxide 15.7 L BUN 51 H Creatinine 2.7 H Glucose 135 H D Calcium 8.2 L 02/09/24 02/09/24 02/09/24 09:47 12:42 14:55 Sodium 112 L* 112 L* 113 L* Potassium 4.7 4.5 4.6 Chloride 88 L 86 L 86 L Carbon Dioxide 13.0 L* 14.9 L* 15.8 L BUN 46 H 51 H 53 H Creatinine 2.6 H 2.7 H 2.7 H Glucose 225 H D 245 H 219 H Calcium 8.1 L 8.0 L 8.0 L Cardiac Enzymes 02/09/24 Range/Units 14:55 Troponin I 0.289 H* D (0.0-0.045) ng/mL Liver Function 02/09/24 02/09/24 02/09/24 Range/Units 09:47 12:42 14:55 Total Bilirubin 0.9 (0.3-1.2) mg/dL AST 50 H (0-34) U/L ALT 52 H (10-49) U/L Alkaline Phosphatase 60 (46-116) U/L Albumin 4.4 4.6 4.5 (3.4-4.8) gm/dL Urine 02/09/24 Range/Units 03:20 Urine Color Lt-Yellow (Lt Yel-Yel) Urine Clarity Clear (Clear/Hazy) Urine pH 5.5 (5.0-7.0) Ur Specific [place] 1.012 (1.001-1.035) Urine Protein 2+ A (Neg - Trace) Urine Glucose (UA) Negative (Negative) ABG Interpretation ABG results: 02/09/24 02/09/24 09:30 12:12 ABG pH 7.26 L 7.31 L ABG pCO2 30 L 31 L ABG pO2 69 L 101 D ABG HCO3 13 L 15 L ABG O2 Saturation 93 99 H ABG Base Excess -13 L -10 L Assessment and Plan Additional Assessment & Plan Additional Plan: # Anemia with thrombocytopenia within normal B12 level and no history of any yash GI bleeding in the form of melena hematochezia or hematemesis Patient can still have occult GI bleeding # Hypoosmolar hypochloremic hyponatremia agree with the IV fluids I do not think patient has SIADH # Bilateral pneumonia # CKD # Diabetes mellitus type 2 Plan Iron panel Stool for occult blood Upper endoscopy during this hospitalization to make sure there is no source of bleeding at the moment and may be an outpatient colonoscopy In this clinical setting GI tract has to be screened fully I do not think patient has any kind of paraneoplastic syndrome although He does have an elevated PSA of 19.12 which needs to be addressed Thank you very much for the opportunity to participate in the care of this patient
[2024-02-09 16:47] LABS: Lactic Acid, 3 HR 2.6 mMol/L (0.4-2.0)
--- NOTE | 2024-02-09 16:59 | PD.ADDCONS ---
Addendum Consultation Addendum Date of report being addended: 02/09/24 Narrative: Upper endoscopy for tomorrow canceled as patient is on BiPAP I will do the procedure once patient's respiratory status improves
[2024-02-09 17:18] LABS: Total Iron Binding Capacity 240 mcg/dL (250-425)
[2024-02-09 17:18] LABS: Albumin, Serum 4.4 gm/dL (3.4-4.8); Anion Gap 10 (7-16); BUN/Creatinine Ratio 20 Ratio (12-20); Blood Urea Nitrogen 51 mg/dL (9-23); Calcium 7.9 mg/dL (8.3-10.6); Calcium (Corrected) 7.9 mg/dL (8.5-10.1); Chloride 88 mMol/L (98-107); Creatinine (Component) 2.6 mg/dL (0.6-1.3); Estimated Creatinine Clearance 20.4 mL/min (>60); Glucose 221 mg/dL (74-106); Osmolality,Calculated 248 (275-295); Phosphorous 5.6 mg/dL (2.4-5.1); eGFR 24 See Note
[2024-02-09 17:21] LABS: Carbon Dioxide 13.7 mMol/L (20.0-31.0); Sodium 112 mMol/L (136-145)
--- NOTE | 2024-02-09 17:23 | EKG_ITS ---
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
[2024-02-09] MEDS: INSULIN GLARGINE (Lantus) 5 UNIT/0.05 ML (PER 5 UNITS) SC (17:54)
[2024-02-09 18:44] LABS: Hematocrit 21.2 % (41.0-53.0)
[2024-02-09 18:49] LABS: Iron 21 mcg/dL (65-175); Percent Iron Saturation 8 % (20-55); Unsaturated Iron Binding 219 (225-295)
[2024-02-09 18:53] LABS: Hemoglobin 7.7 g/dL (13.5-16.0)
[2024-02-09 19:03] LABS: Albumin, Serum 4.2 gm/dL (3.4-4.8); Anion Gap 10 (7-16); BUN/Creatinine Ratio 19 Ratio (12-20); Blood Urea Nitrogen 50 mg/dL (9-23); Calcium 7.9 mg/dL (8.3-10.6); Calcium (Corrected) 7.9 mg/dL (8.5-10.1); Carbon Dioxide 21.1 mMol/L (20.0-31.0); Chloride 86 mMol/L (98-107); Creatinine (Component) 2.6 mg/dL (0.6-1.3); Estimated Creatinine Clearance 20.4 mL/min (>60); Glucose 215 mg/dL (74-106); Osmolality,Calculated 255 (275-295); Phosphorous 5.2 mg/dL (2.4-5.1); Potassium 4.7 mMol/L (3.4-5.1); eGFR 24 See Note
[2024-02-09 19:06] LABS: Sodium 117 mMol/L (136-145)
[2024-02-09 19:27] LABS: Base Excess, Venous -6 (-3-3); O2 Saturation, Venous 74 % (96-97); PCO2, Venous 29 mmHg (36-56); PO2, Venous 38 mmHg (15-58); pH, Venous 7.41 (7.33-7.66)
[2024-02-09] MEDS: amLODIPine BESYLATE 5 MG TABLET 10 MG PO (20:27)
[2024-02-09] MEDS: ATORVASTATIN CALCIUM 10 MG TABLET PO (20:27)
[2024-02-09] MEDS: PANTOPRAZOLE INJ 40 MG VIAL IV (20:27)
--- NOTE | 2024-02-09 20:55 | PD.RESPRO ---
Documentation for date of: 02/09/24 Subjective Subjective Interval history: 02/08: Over night team reported patient had increasing wheezing and shortness of breath, and received multiple duoneds treatments. This mornign patient is seen and examined at bed. Pt. is unable to talk because of SOB, he is using orxygen via nasal cannula. Pt denies chest pains, nausea, vomiting or abdominal pain. He is loudly wheezing. Pt. reports worsening symptoms of SOB from last night. He continues to have mild cough with phelgm. but the SOB is bothering him the most. Exam Vital Signs Temp Pulse Resp BP Pulse Ox O2 Del Method O2 Flow Rate 97.9 F 91 22 H 165/89 H 99 BiPAP 2 02/09/24 20:00 02/09/24 20:27 02/09/24 20:00 02/09/24 20:27 02/09/24 20:00 02/09/24 20:00 02/09/24 20:00 FiO2 35 02/09/24 20:00 Narrative Exam GENERAL: A&Ox3 . Awake, appears to be in acute distress due to SOB NEURO: nematologist grossly intact, moves extremities x4 HEENT: Atraumatic, Normocephalic. mucous membranes moist. Eyes open, symmetrical, & clear HEART: Normal Heart Sounds LUNGS: wheezing on auscultation ABDOMEN: soft, non-distended, non-tender, bowel sounds heard, no guarding or rebound tenderness SKIN: No Rash or ecchymoses EXTREMITIES: 2+ pitting edema, nop tenderness, able to move all 4 extremities, pedal pulses palpated Objective Labs 02/10/24 04:42 02/10/24 07:05 Labs: Laboratory Results - last 24 hr 02/08/24 02/09/24 02/09/24 23:05 03:20 03:20 WBC RBC Hgb Hct MCV MCH MCHC RDW Std Deviation Plt Count Neut % (Auto) Lymph % (Auto) [place] % (Auto) Eos % (Auto) Baso % (Auto) Neut # (Auto) Lymph # (Auto) [place] # (Auto) Eos # (Auto) Baso # (Auto) Immature Gran # (Auto) Absolute Nucleated RBC Immature Gran % Nucleated RBC % Puncture Site ABG pH ABG pCO2 ABG pO2 ABG HCO3 ABG O2 Saturation ABG Base Excess VBG pH VBG pCO2 VBG pO2 VBG O2 Sat ([place]) VBG Base Excess Oxygen Liter Flow FiO2 Sodium 121 L Potassium Chloride Carbon Dioxide Anion Gap BUN Creatinine Estim Creat Clear Calc eGFR BUN/Creatinine Ratio Glucose Estimated Ave Glu mg/dL Hemoglobin A1c Calculated Osmolality Lactic Acid Calcium Corrected Calcium Phosphorus Magnesium Iron TIBC Iron Saturation Unsat Iron Binding Total Bilirubin AST ALT Alkaline Phosphatase Troponin I B-Natriuretic Peptide Total Protein Albumin Globulin Albumin/Globulin Ratio Beta-Hydroxybutyrate/Acetoacetate Procalcitonin Ur Collection Type Clean Catch Urine Color Lt-Yellow Urine Clarity Clear Urine pH 5.5 Ur Specific [place] 1.012 Urine Protein 2+ A Urine Glucose (UA) Negative Urine Ketones Negative Urine Blood 1+ A Urine Nitrite Negative Urine Bilirubin Negative Urine Urobilinogen (Auto) Negative Ur Leukocyte Esterase Negative Urine RBC 1 Urine WBC 1 Ur Squamous Epith Cells 0 Urine Bacteria None Ur Random Creatinine 81 U Random Total Protein 165 H Ur Random Sodium < 15.0 L < 15.0 L Ur Random Potassium 30 Ur Random Chloride < 20.0 L Coccidioides IgM Ab Blood Type Antibody Screen Crossmatch Blood Bank Wristband ID 02/09/24 02/09/24 02/09/24 05:05 07:31 09:30 WBC 12.3 H RBC 2.34 L Hgb 6.6 L* 6.3 L* Hct 19.5 L* 18.3 L* MCV 83 MCH 28.2 MCHC 33.8 RDW Std Deviation 39.8 Plt Count 239 Neut % (Auto) 86 H Lymph % (Auto) 4 L [place] % (Auto) 9 Eos % (Auto) 0 Baso % (Auto) 0 Neut # (Auto) 10.6 H Lymph # (Auto) 0.5 L [place] # (Auto) 1.1 H Eos # (Auto) 0.0 Baso # (Auto) 0.0 Immature Gran # (Auto) 0.06 H Absolute Nucleated RBC 0.00 Immature Gran % 1 H Nucleated RBC % 0 Puncture Site Right Radial ABG pH 7.26 L ABG pCO2 30 L ABG pO2 69 L ABG HCO3 13 L ABG O2 Saturation 93 ABG Base Excess -13 L VBG pH VBG pCO2 VBG pO2 VBG O2 Sat ([place]) VBG Base Excess Oxygen Liter Flow 3 FiO2 21 Sodium 117 L* Potassium 4.4 Chloride 92 L Carbon Dioxide 15.7 L Anion Gap 9 BUN 51 H Creatinine 2.7 H Estim Creat Clear Calc 19.6 L eGFR 23 L BUN/Creatinine Ratio 19 Glucose [address] Glu mg/dL 117 Hemoglobin A1c 5.7 Calculated Osmolality 252 L Lactic Acid Calcium 8.2 L Corrected Calcium Phosphorus 4.3 Magnesium 1.9 Iron TIBC Iron Saturation Unsat Iron Binding Total Bilirubin AST ALT Alkaline Phosphatase Troponin I B-Natriuretic Peptide Total Protein Albumin Globulin Albumin/Globulin Ratio Beta-Hydroxybutyrate/Acetoacetate Procalcitonin Ur Collection Type Urine Color Urine Clarity Urine pH Ur Specific [place] Urine Protein Urine Glucose (UA) Urine Ketones Urine Blood Urine Nitrite Urine Bilirubin Urine Urobilinogen (Auto) Ur Leukocyte Esterase Urine RBC Urine WBC Ur Squamous Epith Cells Urine Bacteria Ur Random Creatinine U Random Total Protein Ur Random Sodium Ur Random Potassium Ur Random Chloride Coccidioides IgM Ab Blood Type Antibody Screen Crossmatch Blood Bank Wristband ID 02/09/24 02/09/24 02/09/24 09:47 12:12 12:42 WBC 12.2 H RBC 2.37 L Hgb 6.8 L* Hct 18.9 L* MCV 80 MCH 28.7 MCHC 36.0 RDW Std Deviation 37.5 Plt Count 214 Neut % (Auto) 94 H Lymph % (Auto) 3 L [place] % (Auto) 2 Eos % (Auto) 0 Baso % (Auto) 0 Neut # (Auto) 11.5 H Lymph # (Auto) 0.4 L [place] # (Auto) 0.3 Eos # (Auto) 0.0 Baso # (Auto) 0.0 Immature Gran # (Auto) 0.06 H Absolute Nucleated RBC 0.00 Immature Gran % 1 H Nucleated RBC % 0 Puncture Site Left Radial ABG pH 7.31 L ABG pCO2 31 L ABG pO2 101 D ABG HCO3 15 L ABG O2 Saturation 99 H ABG Base Excess -10 L VBG pH VBG pCO2 VBG pO2 VBG O2 Sat ([place]) VBG Base Excess Oxygen Liter Flow FiO2 35 Sodium 112 L* 112 L* Potassium 4.7 4.5 Chloride 88 L 86 L Carbon Dioxide 13.0 L* 14.9 L* Anion Gap 11 11 BUN 46 H 51 H Creatinine 2.6 H 2.7 H Estim Creat Clear Calc 20.4 L 19.6 L eGFR 24 L 23 L BUN/Creatinine Ratio 18 19 Glucose 225 H D [address] Glu mg/dL Hemoglobin A1c Calculated Osmolality 246 L 249 L Lactic Acid 3.1 H 3.8 H Calcium 8.1 L 8.0 L Corrected Calcium 8.1 L 8.0 L Phosphorus 5.1 5.4 H Magnesium Iron TIBC Iron Saturation Unsat Iron Binding Total Bilirubin 0.9 AST 50 H ALT 52 H Alkaline Phosphatase 60 Troponin I B-Natriuretic Peptide 487 H* Total Protein 6.8 Albumin 4.4 4.6 Globulin 2.2 L Albumin/Globulin Ratio 2.1 Beta-Hydroxybutyrate/Acetoacetate 0.2 Procalcitonin 0.51 H Ur Collection Type Urine Color Urine Clarity Urine pH Ur Specific [place] Urine Protein Urine Glucose (UA) Urine Ketones Urine Blood Urine Nitrite Urine Bilirubin Urine Urobilinogen (Auto) Ur Leukocyte Esterase Urine RBC Urine WBC Ur Squamous Epith Cells Urine Bacteria Ur Random Creatinine U Random Total Protein Ur Random Sodium Ur Random Potassium Ur Random Chloride Coccidioides IgM Ab Negative Blood Type B Positive Antibody Screen NEGATIVE Crossmatch See Detail Blood Bank Wristband ID Yes 02/09/24 02/09/24 02/09/24 14:55 16:25 18:19 WBC RBC Hgb 7.7 L Hct 21.2 L* MCV MCH MCHC RDW Std Deviation Plt Count Neut % (Auto) Lymph % (Auto) [place] % (Auto) Eos % (Auto) Baso % (Auto) Neut # (Auto) Lymph # (Auto) [place] # (Auto) Eos # (Auto) Baso # (Auto) Immature Gran # (Auto) Absolute Nucleated RBC Immature Gran % Nucleated RBC % Puncture Site ABG pH ABG pCO2 ABG pO2 ABG HCO3 ABG O2 Saturation ABG Base Excess VBG pH VBG pCO2 VBG pO2 VBG O2 Sat ([place]) VBG Base Excess Oxygen Liter Flow FiO2 Sodium 113 L* 112 L* 117 L* Potassium 4.6 5.0 4.7 Chloride 86 L 88 L 86 L Carbon Dioxide 15.8 L 13.7 L* 21.1 Anion Gap 11 10 10 BUN 53 H 51 H 50 H Creatinine 2.7 H 2.6 H 2.6 H Estim Creat Clear Calc 19.6 L 20.4 L 20.4 L eGFR 23 L 24 L 24 L BUN/Creatinine Ratio 20 20 19 Glucose 219 H [address] Glu mg/dL Hemoglobin A1c Calculated Osmolality 250 L 248 L 255 L Lactic Acid 2.6 H Calcium 8.0 L 7.9 L 7.9 L Corrected Calcium 8.0 L 7.9 L 7.9 L Phosphorus 5.6 H 5.6 H 5.2 H Magnesium Iron 21 L TIBC 240 L Iron Saturation 8 L Unsat Iron Binding 219 L Total Bilirubin AST ALT Alkaline Phosphatase Troponin I 0.289 H* D B-Natriuretic Peptide Total Protein Albumin 4.5 4.4 4.2 Globulin Albumin/Globulin Ratio Beta-Hydroxybutyrate/Acetoacetate Procalcitonin Ur Collection Type Urine Color Urine Clarity Urine pH Ur Specific [place] Urine Protein Urine Glucose (UA) Urine Ketones Urine Blood Urine Nitrite Urine Bilirubin Urine Urobilinogen (Auto) Ur Leukocyte Esterase Urine RBC Urine WBC Ur Squamous Epith Cells Urine Bacteria Ur Random Creatinine U Random Total Protein Ur Random Sodium Ur Random Potassium Ur Random Chloride Coccidioides IgM Ab Blood Type Antibody Screen [facility] [place] Wristband ID 02/09/24 19:16 WBC RBC Hgb Hct MCV MCH MCHC RDW Std Deviation Plt Count Neut % (Auto) Lymph % (Auto) [place] % (Auto) Eos % (Auto) Baso % (Auto) Neut # (Auto) Lymph # (Auto) [place] # (Auto) Eos # (Auto) Baso # (Auto) Immature Gran # (Auto) Absolute Nucleated RBC Immature Gran % Nucleated RBC % Puncture Site ABG pH ABG pCO2 ABG pO2 ABG HCO3 ABG O2 Saturation ABG Base Excess VBG pH 7.41 VBG pCO2 29 L VBG pO2 38 VBG O2 Sat ([place]) 74 L VBG Base Excess -6 L Oxygen Liter Flow FiO2 Sodium Potassium Chloride Carbon Dioxide Anion Gap BUN Creatinine Estim Creat Clear Calc eGFR BUN/Creatinine Ratio Glucose Estimated Ave Glu mg/dL Hemoglobin A1c Calculated Osmolality Lactic Acid Calcium Corrected Calcium Phosphorus Magnesium Iron TIBC Iron Saturation Unsat Iron Binding Total Bilirubin AST ALT Alkaline Phosphatase Troponin I B-Natriuretic Peptide Total Protein Albumin Globulin Albumin/Globulin Ratio Beta-Hydroxybutyrate/Acetoacetate Procalcitonin Ur Collection Type Urine Color Urine Clarity Urine pH Ur Specific [place] Urine Protein Urine Glucose (UA) Urine Ketones Urine Blood Urine Nitrite Urine Bilirubin Urine Urobilinogen (Auto) Ur Leukocyte Esterase Urine RBC Urine WBC Ur Squamous Epith Cells Urine Bacteria Ur Random Creatinine U Random Total Protein Ur Random Sodium Ur Random Potassium Ur Random Chloride Coccidioides IgM Ab Blood Type Antibody Screen [facility] Blood Bank Wristband ID ABG Interpretation ABG results: 02/09/24 02/09/24 02/09/24 09:30 12:12 19:16 ABG pH 7.26 L 7.31 L ABG pCO2 30 L 31 L ABG pO2 69 L 101 D ABG HCO3 13 L 15 L ABG O2 Saturation 93 99 H ABG Base Excess -13 L -10 L VBG pH 7.41 VBG pCO2 29 L VBG pO2 38 VBG Base Excess -6 L Quality Measures Quality Measures VTE prophylaxis Advance care planning discussed with:: patient Assessment & Plan Assessment Current Active Medications: Generic Name Dose Route Start Last Admin Trade Name Freq PRN Reason Stop Dose Admin Acetaminophen 650 mg 02/09/24 05:01 02/09/24 05:13 Acetaminophen 325 Mg Tablet PO 03/09/24 18:24 650 mg Q6H PRN Administration PAIN OR FEVER > 101 Albuterol/Ipratropium 3 ml 02/08/24 19:00 02/09/24 19:58 Albuterol/Ipratropium (Duoneb) Rt Romina 3 Ml Nebu INH 03/09/24 18:59 3 ml Q4HRRT ABHIJIT Administration Amlodipine Besylate 10 mg 02/09/24 21:00 02/09/24 20:27 Amlodipine Besylate 5 Mg Tablet PO 03/10/24 20:59 10 mg QPM ABHIJIT Administration Atorvastatin Calcium 10 mg 02/09/24 21:00 02/09/24 20:27 Atorvastatin Calcium 10 Mg Tablet PO 03/10/24 20:59 10 mg HS ABHIJIT Administration Dextrose 25 ml 02/08/24 19:04 Dextrose 50%-Water Inj 50 Ml Syringe IV 03/09/24 19:03 Q15MIN PRN BG 50-70 responsive npo pt Dextrose 50 ml 02/08/24 19:04 Dextrose 50%-Water Inj 50 Ml Syringe IV 03/09/24 19:03 Q15MIN PRN BG <50 OR BG <70 & pt unresponsive Glucagon 1 mg 02/08/24 19:04 Glucagon Inj 1 Mg Vial IM Q15MIN PRN BG <70, and no IV access Hydralazine HCl 25 mg 02/09/24 06:00 02/09/24 14:24 Hydralazine Hcl 25 Mg Tablet PO 03/10/24 05:59 Not Given TID ABHIJIT Ceftriaxone Sodium/Dextrose 50 mls @ 100 mls/hr 02/09/24 14:00 02/09/24 13:31 Rocephin/D5w 1gm Iv Premix IV 02/16/24 13:59 100 mls/hr QDAY@1400 ABHIJIT Administration Azithromycin 500 mg/ Sodium 250 mls @ 250 mls/hr 02/09/24 14:00 02/09/24 14:44 Chloride IV 02/16/24 13:59 250 mls/hr QDAY@1400 ABHIJIT Administration Sodium Chloride 500 mls @ 50 mls/hr 02/09/24 17:59 Hypertonic Saline 3% IV .Q10H ABHIJIT Insulin Glargine 5 unit 02/09/24 18:00 02/09/24 17:54 Insulin Glargine (Lantus) 5 Unit/0.05 Ml (Per 5 Units) SC 03/10/24 17:59 5 unit QDAY ABHIJIT Administration Insulin Human Lispro 0 unit 02/09/24 18:00 02/09/24 17:46 Insulin Lispro (Admelog) 1 Unit/0.01 Ml Unit SC 03/10/24 17:59 Not Given Q6HR [facility] Protocol Ondansetron HCl 4 mg 02/08/24 18:25 Ondansetron Inj 2 Mg/Ml Inj 2 Ml IV 03/09/24 18:24 Q6H PRN NAUSEA OR VOMITING Protocol Pantoprazole Sodium 40 mg 02/09/24 21:00 02/09/24 20:27 Pantoprazole Inj 40 Mg Vial IV 03/10/24 20:59 40 mg BID ABHIJIT Administration Sennosides 2 tab 02/08/24 18:25 Senna Tablet PO 03/09/24 18:24 BID PRN CONSTIPATION Protocol Plan Mr. 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 Patient is been having shortness of breath and wheezing with mild cough and white phlegm for the past 2 days. #AHRF # Acute CHF exacerbation # COPD exacerbation -Likely multifactorial secondary to COPD exacerbation, community-acquired pneumonia and symptomatic anemia and CHF exacerbation.? -ABG obtained and -no evidence of CO2 retention.? -ICU team was consulted and patient started on BiPAP.? Wean oxygen as tolerated.? Plan: -Continue IV Rocephin and azithromycin -for likely pneumonia.? 02/08- -Continue DuoNebs every 4 hours scheduled and as needed.? -Status post IV Solu-Medrol 125 mg.? -Blood culture showed no growth at --24 hours.? -CT chest ordered. # Hypotonic hypochloremic hyponatremia -Sodium currently 112 and osmolality 255 -Volume status: Hypervolemic -Unclear etiology at this time possibly CHF versus extrarenal losses versus low solute intake versus SIADH versus mineralocorticoid deficiency vs ckd Plan: -Nephrology consulted-Dr. West -Continue to trend sodium every 2 hours and ordered urine studies -Per nephro, Dr. West recommendations start hypertonic saline at 35 cc/h # Normocytic anemia -Presented with hemoglobin of 7.3. -Hemoglobin decreased to 6.6 after receiving IV fluids. Likely a dilutional component.?Hemoglobin improved to 7.7 without blood products.? Plan: -Continue to monitor -will consider transfusion if hemoglobin drops below 7.? -Gastroenterology was consulted and pending FOBT. #? CHF exacerbation -Previous echo in 2020 showed ejection fraction of 55 to 60% -Chest x-ray mild/moderate CHF with prominent vascular congestion -BNP 487 Plan: -Status post IV Lasix 40 mg x 1 -Echocardiogram pending -We will institute goal-directed medical therapy based off echocardiogram results if indicated #troponinemia -Likely secondary to demand ischemia unrelated to ACS versus less likely NSTEMI type I -Troponin elevated to 0.289 Plan: -Trend troponins every 8 hours or until downtrend -Continue home statin -Continue to monitor # Nonanion gap metabolic acidosis # Lactic acidosis -ABG showed pH 7.31, pCO2 31, bicarb 15 -Multifactorial secondary to respiratory distress/hypoxia and underlying CKD plan: -Nephrology consulted -Status post 2 Amps of sodium bicarb -Continue to trend lactic acid #CKD -Creatinine 2.6 and BUN 50 which appears close to patient's baseline plan: -Nephrology following -Renally dose medications and avoid nephrotoxic agents -Daily renal panel # Diabetes mellitus type 2 -Continue lispro sliding scale every 6 hours and Lantus 5 units subcu daily.? - Diabetes well-controlled with A1c 5.6%.? -Monitor blood sugars after receiving steroids. # Primary hypertension -Blood pressure currently not at goal and systolic blood pressure trending in the 150s to 160s -Continue home amlodipine 10 mg PO at bedtime, hydralazine 25 mg PO 3 times daily, and patient received Lasix x 1.? -Resume antihypertensive regimen as needed. Disposition: Tele- AHRF DVT Prophylaxis: SCD QSHIFT GI Prophylaxis: Pantoprozol-40 IV Qdily Diet: carbohydrate consistent Code status: Full Assessment and plan discussed with my senior resident Dr. Waller & attending physician Dr. 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 Patient states that shortness of breath has been going on for the past 3 days denies any fevers or chills. In the ER, patient found to have hypoosmolar hyponatremia with sodium of 120 and subsequently started on normal saline admitted. Furthermore, patient also noted to have normocytic anemia however denies any melena or hematochezia. Overnight, patient noted to have worsening acute hypoxic respiratory failure with worsening crackles and lower extremity edema and subsequently started on diuretic therapy and BiPAP. Furthermore, patient's sodium also noted to drop to 112 and subsequently nephrology was consulted and recommended starting patient on 3% hypertonic saline renal panel every 2 hours. Furthermore, consulted ICU and appreciate recommendation. In addition, patient also noted to have elevated troponin however denies any chest pain and EKG with no ST elevation likely non-STEMI type II and if tropes continue to uptrend at that point we will consult cardiology. I reviewed above note and agree with findings and plans. I have also personally examined the patient with medicine team and went over assessment and plan with medical team including advisory intern and resident physician.
[2024-02-09 21:03] LABS: Albumin, Serum 4.5 gm/dL (3.4-4.8); Anion Gap 13 (7-16); BUN/Creatinine Ratio 20 Ratio (12-20); Blood Urea Nitrogen 55 mg/dL (9-23); Calcium 8.2 mg/dL (8.3-10.6); Calcium (Corrected) 8.2 mg/dL (8.5-10.1); Carbon Dioxide 17.9 mMol/L (20.0-31.0); Chloride 87 mMol/L (98-107); Creatinine (Component) 2.7 mg/dL (0.6-1.3); Estimated Creatinine Clearance 19.6 mL/min (>60); Glucose 219 mg/dL (74-106); Osmolality,Calculated 260 (275-295); Phosphorous 5.4 mg/dL (2.4-5.1); Potassium 4.5 mMol/L (3.4-5.1); eGFR 23 See Note
[2024-02-09 21:04] LABS: Sodium 118 mMol/L (136-145)
[2024-02-09 23:10] LABS: Albumin, Serum 4.2 gm/dL (3.4-4.8); Anion Gap 12 (7-16); BUN/Creatinine Ratio 19 Ratio (12-20); Blood Urea Nitrogen 50 mg/dL (9-23); Carbon Dioxide 17.1 mMol/L (20.0-31.0); Chloride 88 mMol/L (98-107); Creatinine (Component) 2.7 mg/dL (0.6-1.3); Estimated Creatinine Clearance 19.6 mL/min (>60); Glucose 238 mg/dL (74-106); Osmolality,Calculated 257 (275-295); Phosphorous 5.6 mg/dL (2.4-5.1); Potassium 4.4 mMol/L (3.4-5.1); eGFR 23 See Note
[2024-02-09 23:33] LABS: Troponin I 1.242 ng/mL (0.0-0.045)
[2024-02-09 23:34] LABS: Sodium 117 mMol/L (136-145)
--- NOTE | 2024-02-09 23:44 | EKG_ITS ---
[facility] Test Date: 2024-02-09 Pat Name: LARA MARTIN [facility] Hobbing Machine Operator: ARIANNA : 1945 Requested By: Amarilys Villarreal Order Number: [id number] Reading MD: Amarilys Villarreal Measurements Intervals [place] Rate: 97 P: 55 ND: 226 QRS: 22 QRSD: 89 T: 34 QT: 337 QTc: 429 Interpretive Statements SINUS RHYTHM WITH FIRST DEGREE AV BLOCK WITH OCCASIONAL SUPRAVENTRICULAR PREMATURE COMPLEXES POSSIBLE RIGHT VENTRICULAR CONDUCTION DELAY MODERATE ST DEPRESSION Compared to ECG 02/09/2024 17:34:19 ST (T wave) deviation now present /store/S0/[id number].pdf
[2024-02-10] VITALS (21 sets, daily range): BP systolic 132–154; BP diastolic 67–85; PULSE 87–107; RESP 14–25; TEMP 36.6–37; O2SAT 91–99
[2024-02-10 01:06] LABS: Sodium 118 mMol/L (136-145)
[2024-02-10] MEDS: ALBUTEROL/IPRATROPIUM (Duoneb) RT SOL 3 ML NEBU INH ×6 (02:36→22:28)
[2024-02-10] MEDS: hydrALAZINE HCL 25 MG TABLET PO ×3 (05:15→21:57)
[2024-02-10 05:59] LABS: Basophils % (Auto) 0 % (0-2.5); Eosinophils % (Auto) 0 % (0-10); Immature Granulocytes % (Auto) 1 % (0-0); Immature Granulocytes Auto 0.07 Thou/mm3 (0.00-0.00); Lymphocytes # (Auto) 0.3 Thou/mm3 (1.0-4.8); Lymphocytes % (Auto) 3 % (10-50); Mean Corpuscular HGB Conc 35.8 g/dl (31.0-37.0); Mean Corpuscular Hemoglobin 27.9 pg (25.0-35.0); Mean Corpuscular Volume 78 fL (80-100); Monocytes # (Auto) 0.9 Thou/mm3 (0.0-0.8); Monocytes % (Auto) 9 % (0-12); Neutrophils # (Auto) 8.8 Thou/mm3 (1.8-7.7); Neutrophils % (Auto) 87 % (37-80); Nucleated Red Blood Cell % 0 /100 WBC (0); Platelet Count 203 Thou/mm3 (140-440); RDW Standard Deviation 35.4 fL (35.1-43.9); Red Blood Count 2.58 Miln/mm3 (4.50-5.90); White Blood Count 10.1 Thou/mm3 (3.8-10.6)
[2024-02-10 06:01] LABS: Hemoglobin 7.2 g/dL (13.5-16.0)
[2024-02-10 06:04] LABS: Hematocrit 20.1 % (41.0-53.0)
--- NOTE | 2024-02-10 06:05 | PC.NURSE ---
notified md franklin h/h 7.05/15.1, no new orders at the moment per MD, will continue POC
[2024-02-10 06:28] LABS: Anion Gap 11 (7-16); BUN/Creatinine Ratio 19 Ratio (12-20); Blood Urea Nitrogen 55 mg/dL (9-23); Carbon Dioxide 19.1 mMol/L (20.0-31.0); Chloride 88 mMol/L (98-107); Creatinine (Component) 2.9 mg/dL (0.6-1.3); Estimated Creatinine Clearance 18.3 mL/min (>60); Glucose 223 mg/dL (74-106); Osmolality,Calculated 260 (275-295); Potassium 4.2 mMol/L (3.4-5.1); eGFR 21 See Note
[2024-02-10 06:29] LABS: Sodium 118 mMol/L (136-145); Troponin I 1.033 ng/mL (0.0-0.045)
[2024-02-10 08:05] LABS: Sodium 119 mMol/L (136-145); Troponin I 1.072 ng/mL (0.0-0.045)
[2024-02-10] MEDS: PANTOPRAZOLE INJ 40 MG VIAL IV ×2 (09:05→21:55)
[2024-02-10 10:19] LABS: Sodium 119 mMol/L (136-145)
[2024-02-10] MEDS: SODIUM BICARB INJ 8.4% 1 mEq/ML VIAL 50 ML 50 MEQ IV (11:04)
[2024-02-10] MEDS: BUMETANIDE INJ 0.25 MG/ML VIAL 4 ML 1 MG IVP (11:04)
[2024-02-10 12:03] LABS: Sodium 121 mMol/L (136-145)
[2024-02-10] MEDS: INSULIN LISPRO (AdmeLOG) 1 UNIT/0.01 ML UNIT SC ×2 (12:31→16:56)
--- NOTE | 2024-02-10 13:20 | PC.SS ---
Rounding: Pending consult and Cardio
[2024-02-10 13:25] LABS: Albumin, Serum 4.5 gm/dL (3.4-4.8); Anion Gap 14 (7-16); BUN/Creatinine Ratio 19 Ratio (12-20); Blood Urea Nitrogen 56 mg/dL (9-23); Calcium 8.3 mg/dL (8.3-10.6); Calcium (Corrected) 8.3 mg/dL (8.5-10.1); Carbon Dioxide 20.4 mMol/L (20.0-31.0); Chloride 87 mMol/L (98-107); Estimated Creatinine Clearance 17.7 mL/min (>60); Glucose 310 mg/dL (74-106); Osmolality,Calculated 271 (275-295); Phosphorous 5.4 mg/dL (2.4-5.1); Potassium 4.1 mMol/L (3.4-5.1); Sodium 121 mMol/L (136-145); eGFR 21 See Note
--- NOTE | 2024-02-10 13:31 | PC.SS ---
Prisca Acuna is a 78-year-old male admitted to [facility] for Hyponatremia. SS conducted bedside contact with the patient to complete initial assessment and to discuss discharge planning. Patient confirmed demographic information. Patient identifies his Reza Acuna [phone] as his surrogate decision maker. Patient resides at home with his . Pt states he is typically able to complete most ADL?s independently, no need for any source of DME. sometimes assist with ADLs. Pts PCP is Dr. West (last visit about 1 weeks ago) and pharmacy of choice is [facility]. DC option discussed and pt wishes to return home. Pts family will provide transportation upon DC. No further intervention required at this time, social media analyst would be available to address any further concerns. DC Plan: Home Contact: Reza Acuna [phone] PCP: Jenna
[2024-02-10] MEDS: cefTRIAXone/D5w 1gm IV premix 50 ML IV (14:04)
[2024-02-10] MEDS: AZITHROMYCIN 250 MG TABLET 500 MG PO (15:06)
--- NOTE | 2024-02-10 15:10 | ESPR_ITS ---
<Statement entered by Rahul Oneill MD - 02/10/24 16:12> Senior Resident Attestation: I supervised/discussed management plan with architecture internship physician Dr. Hu, and was involved in the care of this patient. I personally saw and examined the patient and discussed the assessment and plan with the entire medicine team, including my attending. I agree with the assessment and plan as documented. Patient's care was discussed with attending physician, Dr. Alexander. Rahul Oneill MD PGY-2. Documentation for date of: 02/10/24 Subjective Subjective Interval history: Patient seen at bedside this morning. Overnight patient remained on BiPAP due to increased work of breathing. Patient was placed on OxyMask this morning as he is a mouth breather and was oxygenating well on it. He was later transitioned to nasal cannula and was oxygenating well this morning his lower extremity edema had improved and patient diet was started. No other complaints at this time. Exam Vital Signs Temp Pulse Resp BP Pulse Ox O2 Del Method O2 Flow Rate 97.9 F 105 H 20 139/81 H 98 Nasal Cannula 6 02/10/24 12:00 02/10/24 14:58 02/10/24 14:58 02/10/24 14:05 02/10/24 14:58 02/10/24 12:00 02/10/24 14:58 FiO2 35 02/10/24 06:51 Narrative Exam General: A/O x3, no acute distress, thin Eyes: PERRL, EOMI. Anicteric, vision grossly intact. Ears: No ear pain, no ear discharge, Hearing grossly intact. Nose: No nasal discharge. Mouth/Throat: Moist mucous membranes, no redness, no lesions. Neck: Neck supple, non-tender, no cervical lymphadenopathy. Lungs: Wheezing, No accessory muscle use, mouth breathing Cardio: Normal S1/S2, regular rhythm, no murmurs, no JVD Abdomen: Soft, non-tender, no palpable masses, peristalsis present, no guarding or rebound. Extremities: Symmetrical, no significant deformities, 1+ peripheral edema , non-tender, peripheral pulses presents. Skin: No rashes, no lesions, warm to touch. Neuro: No focal neurological deficits. motor and sensory intact Psych: Cooperative, appropriate mood and effect. Objective Labs 02/14/24 08:27 02/14/24 04:25 Labs: Laboratory Results - last 24 hr 02/09/24 02/09/24 02/09/24 09:47 14:55 16:25 WBC RBC Hgb Hct MCV MCH MCHC RDW Std Deviation Plt Count Neut % (Auto) Lymph % (Auto) [place] % (Auto) Eos % (Auto) Baso % (Auto) Neut # (Auto) Lymph # (Auto) [place] # (Auto) Eos # (Auto) Baso # (Auto) Immature Gran # (Auto) Absolute Nucleated RBC Immature Gran % Nucleated RBC % VBG pH VBG pCO2 VBG pO2 VBG O2 Sat ([place]) VBG Base Excess Sodium 113 L* 112 L* Potassium 4.6 5.0 Chloride 86 L 88 L Carbon Dioxide 15.8 L 13.7 L* Anion Gap 11 10 BUN 53 H 51 H Creatinine 2.7 H 2.6 H Estim Creat Clear Calc 19.6 L 20.4 L eGFR 23 L 24 L BUN/Creatinine Ratio 20 20 Glucose 219 H 221 H Calculated Osmolality 250 L 248 L Lactic Acid 2.6 H Calcium 8.0 L 7.9 L Corrected Calcium 8.0 L 7.9 L Phosphorus 5.6 H 5.6 H Iron 21 L TIBC 240 L Iron Saturation 8 L Unsat Iron Binding 219 L Troponin I 0.289 H* D Albumin 4.5 4.4 Blood Type B Positive Antibody Screen NEGATIVE Crossmatch See Detail Blood Bank Wristband ID Yes 02/09/24 02/09/24 02/09/24 18:19 19:16 20:14 WBC RBC Hgb 7.7 L Hct 21.2 L* MCV MCH MCHC RDW Std Deviation Plt Count Neut % (Auto) Lymph % (Auto) [place] % (Auto) Eos % (Auto) Baso % (Auto) Neut # (Auto) Lymph # (Auto) [place] # (Auto) Eos # (Auto) Baso # (Auto) Immature Gran # (Auto) Absolute Nucleated RBC Immature Gran % Nucleated RBC % VBG pH 7.41 VBG pCO2 29 L VBG pO2 38 VBG O2 Sat (Tawny) 74 L VBG Base Excess -6 L Sodium 117 L* 118 L* Potassium 4.7 4.5 Chloride 86 L 87 L Carbon Dioxide 21.1 17.9 L Anion Gap 10 13 BUN 50 H 55 H Creatinine 2.6 H 2.7 H Estim Creat Clear Calc 20.4 L 19.6 L eGFR 24 L 23 L BUN/Creatinine Ratio 19 20 Glucose 215 H 219 H Calculated Osmolality 255 L 260 L Lactic Acid Calcium 7.9 L 8.2 L Corrected Calcium 7.9 L 8.2 L Phosphorus 5.2 H 5.4 H Iron TIBC Iron Saturation Unsat Iron Binding Troponin I Albumin 4.2 4.5 Blood Type Antibody Screen [facility] Blood Bank Wristband ID 02/09/24 02/10/24 02/10/24 22:35 00:24 04:42 WBC 10.1 RBC 2.58 L Hgb 7.2 L Hct 20.1 L* MCV 78 L MCH 27.9 MCHC 35.8 RDW Std Deviation 35.4 Plt Count 203 Neut % (Auto) 87 H Lymph % (Auto) 3 L [place] % (Auto) 9 Eos % (Auto) 0 Baso % (Auto) 0 Neut # (Auto) 8.8 H Lymph # (Auto) 0.3 L [place] # (Auto) 0.9 H Eos # (Auto) 0.0 Baso # (Auto) 0.0 Immature Gran # (Auto) 0.07 H Absolute Nucleated RBC 0.00 Immature Gran % 1 H Nucleated RBC % 0 VBG pH VBG pCO2 VBG pO2 VBG O2 Sat ([place]y) VBG Base Excess Sodium 117 L* 118 L* 118 L* Potassium 4.4 4.2 Chloride 88 L 88 L Carbon Dioxide 17.1 L 19.1 L Anion Gap 12 11 BUN 50 H 55 H Creatinine 2.7 H 2.9 H Estim Creat Clear Calc 19.6 L 18.3 L eGFR 23 L 21 L BUN/Creatinine Ratio 19 19 Glucose 238 H 223 H Calculated Osmolality 257 L 260 L Lactic Acid Calcium 8.0 L 8.0 L Corrected Calcium 8.0 L Phosphorus 5.6 H Iron TIBC Iron Saturation Unsat Iron Binding Troponin I 1.242 H* D 1.033 H* D Albumin 4.2 Blood Type Antibody Screen [facility] Blood Bank Wristband ID 02/10/24 02/10/24 02/10/24 07:05 09:20 11:25 WBC RBC Hgb Hct MCV MCH MCHC RDW Std Deviation Plt Count Neut % (Auto) Lymph % (Auto) [place] % (Auto) Eos % (Auto) Baso % (Auto) Neut # (Auto) Lymph # (Auto) [place] # (Auto) Eos # (Auto) Baso # (Auto) Immature Gran # (Auto) Absolute Nucleated RBC Immature Gran % Nucleated RBC % VBG pH VBG pCO2 VBG pO2 VBG O2 Sat ([place]y) VBG Base Excess Sodium 119 L* 119 L* 121 L Potassium Chloride Carbon Dioxide Anion Gap BUN Creatinine Estim Creat Clear Calc eGFR BUN/Creatinine Ratio Glucose Calculated Osmolality Lactic Acid Calcium Corrected Calcium Phosphorus Iron TIBC Iron Saturation Unsat Iron Binding Troponin I 1.072 H* Albumin Blood Type Antibody Screen Crossmatch Blood Bank Wristband ID 02/10/24 12:50 WBC RBC Hgb Hct MCV MCH MCHC RDW Std Deviation Plt Count Neut % (Auto) Lymph % (Auto) [place] % (Auto) Eos % (Auto) Baso % (Auto) Neut # (Auto) Lymph # (Auto) [place] # (Auto) Eos # (Auto) Baso # (Auto) Immature Gran # (Auto) Absolute Nucleated RBC Immature Gran % Nucleated RBC % VBG pH VBG pCO2 VBG pO2 VBG O2 Sat ([place]y) VBG Base Excess Sodium 121 L Potassium 4.1 Chloride 87 L Carbon Dioxide 20.4 Anion Gap 14 BUN 56 H Creatinine 3.0 H Estim Creat Clear Calc 17.7 L eGFR 21 L BUN/Creatinine Ratio 19 Glucose 310 H D Calculated Osmolality 271 L Lactic Acid Calcium 8.3 Corrected Calcium 8.3 L Phosphorus 5.4 H Iron TIBC Iron Saturation Unsat Iron Binding Troponin I Albumin 4.5 Blood Type Antibody Screen Crossmatch Blood Bank Wristband ID ABG Interpretation ABG results: 02/09/24 02/09/24 02/09/24 09:30 12:12 19:16 ABG pH 7.26 L 7.31 L ABG pCO2 30 L 31 L ABG pO2 69 L 101 D ABG HCO3 13 L 15 L ABG O2 Saturation 93 99 H ABG Base Excess -13 L -10 L VBG pH 7.41 VBG pCO2 29 L VBG pO2 38 VBG Base Excess -6 L Quality Measures Quality Measures VTE prophylaxis Advance care planning discussed with:: patient, spouse and child Assessment & Plan Assessment Current Active Medications: Generic Name Dose Route Start Last Admin Trade Name Freq PRN Reason Stop Dose Admin Acetaminophen 650 mg 02/09/24 05:01 02/09/24 05:13 Acetaminophen 325 Mg Tablet PO 03/09/24 18:24 650 mg Q6H PRN Administration PAIN OR FEVER > 101 Albuterol/Ipratropium 3 ml 02/08/24 19:00 02/10/24 14:56 Albuterol/Ipratropium (Duoneb) Rt Romina 3 Ml Nebu INH 03/09/24 18:59 3 ml Q4HRRT ABHIJIT Administration Amlodipine Besylate 10 mg 02/09/24 21:00 02/09/24 20:27 Amlodipine Besylate 5 Mg Tablet PO 03/10/24 20:59 10 mg QPM ABHIJIT Administration Atorvastatin Calcium 10 mg 02/09/24 21:00 02/09/24 20:27 Atorvastatin Calcium 10 Mg Tablet PO 03/10/24 20:59 10 mg HS ABHIJIT Administration Azithromycin 500 mg 02/10/24 15:00 02/10/24 15:06 Azithromycin 250 Mg Tablet PO 02/17/24 14:59 500 mg QDAY ABHIJIT Administration Bumetanide 2 mg 02/10/24 21:00 Bumetanide Inj 0.25 Mg/Ml Vial 4 Ml IVP 03/11/24 20:59 BID ABHIJIT Dextrose 25 ml 02/08/24 19:04 Dextrose 50%-Water Inj 50 Ml Syringe IV 03/09/24 19:03 Q15MIN PRN BG 50-70 responsive npo pt Dextrose 50 ml 02/08/24 19:04 Dextrose 50%-Water Inj 50 Ml Syringe IV 03/09/24 19:03 Q15MIN PRN BG <50 OR BG <70 & pt unresponsive Glucagon 1 mg 02/08/24 19:04 Glucagon Inj 1 Mg Vial IM Q15MIN PRN BG <70, and no IV access Hydralazine HCl 25 mg 02/09/24 06:00 02/10/24 14:05 Hydralazine Hcl 25 Mg Tablet PO 03/10/24 05:59 25 mg TID ABHIJIT Administration Ceftriaxone Sodium/Dextrose 50 mls @ 100 mls/hr 02/09/24 14:00 02/10/24 14:04 Rocephin/D5w 1gm Iv Premix IV 02/16/24 13:59 100 mls/hr QDAY@1400 ABHIJIT Administration Sodium Chloride 500 mls @ 50 mls/hr 02/09/24 17:59 Hypertonic Saline 3% IV .Q10H ABHIJIT Insulin Glargine 5 unit 02/10/24 21:00 Insulin Glargine (Lantus) 5 Unit/0.05 Ml (Per 5 Units) SC 03/11/24 20:59 HS ABHIJIT Insulin Human Lispro 0 unit 02/09/24 18:00 02/10/24 12:31 Insulin Lispro (Admelog) 1 Unit/0.01 Ml Unit SC 03/10/24 17:59 8 unit Q6HR ABHIJIT Administration Protocol Methylprednisolone Sodium Succinate 60 mg 02/10/24 08:00 02/10/24 09:05 Methylprednisolone Sod Succ 40 Mg Vial IVP 02/17/24 07:59 60 mg Q12H ABHIJIT Administration Ondansetron HCl 4 mg 02/08/24 18:25 Ondansetron Inj 2 Mg/Ml Inj 2 Ml IV 03/09/24 18:24 Q6H PRN NAUSEA OR VOMITING Protocol Pantoprazole Sodium 40 mg 02/09/24 21:00 02/10/24 09:05 Pantoprazole Inj 40 Mg Vial IV 03/10/24 20:59 40 mg BID ABHIJIT Administration Sennosides 2 tab 02/08/24 18:25 Senna Tablet PO 03/09/24 18:24 BID PRN CONSTIPATION Protocol Plan 70-year-old male with past medical history of hypertension, DM2, CKD, and CVA was admitted to the hospital on 02/08/2024 for hypoosmolar hyponatremia and acute hypoxic respiratory failure likely secondary to acute decompensated heart failure exacerbation versus pneumonia. #Hypoosmolar hyponatremia #Hypochloremia #Hyperphosphatemia ?Patient's sodium was initially 120 and dropped to 112 next day of admission Sodium this morning was 118 and on repeat in the afternoon was 121 ?Phosphorus 5.4 and chloride 87 Plan: ?Goal sodium correction 124 today ?Sodium checks every 4 hours ?Nephrology consulted, appreciate recommendations ?Will continue to monitor #Acute hypoxic respiratory failure #Pleural effusions #Acute decompensated heart failure exacerbation #HFpEF (EF 55-to 60% 2020) -Patient had LIBERTY LE edema 2+ on admission per chart review ?Echo on 2020 showed EF 55-60% ?BNP on 02/08/2024 was 381 ? Chest CT showed moderate heart failure with pleural effusions bilateral Plan: ?Continue Bumex 2 mg twice daily ?Echo ordered -Strict VALERIO's ?Keep potassium above 4 magnesium above 2 ?O2 administration as needed ?Cardiology consulted Dr. Amaya, appreciate commendations ? Will continue to monitor #Sepsis likely secondary to community-acquired pneumonia #Community-acquired pneumonia #lactic acidosis ?Initially patient came in with complaints of productive cough ?Patient met SIRS criteria 2 out of 4 with leukocytosis and tachypnea ?Chest x-ray 02/08/2024 showed bilateral pneumonia ?Chest x-ray on 02/09/2024 showed pneumonia lung bases ?WBC 10.1 today and no spikes in fevers ?Blood culture negative in 48 hours -Lactic acid 2.6 Plan: ?Continue azithromycin 500 mg daily and Rocephin 1 g daily [02/08-] ?Started Solu-Medrol 60 mg IV every 12 hours ?Will continue to monitor #NSTEMI type II likely demand ischemia ?Patient denies any chest pain?troponins ?Peaked at 1.242 and down trended. ?EKG showed sinus rhythm Plan: ?Will continue to monitor #NAGMA #Lactic acidosis ?Carbon dioxide 19.1 this morning and repeat showed 20.4 after sodium bicarb ?Lactic acid 2.6 Plan: ?Sodium bicarb 50 mEq x 1 ?Will continue to monitor #Chronic anemia ?Patient's hemoglobin 7.2 today ?No active signs of bleeding ?Received 1 PRBC during his hospital stay Plan: ?Will transfuse if hemoglobin less than 7 ?GI consulted and recommended EGD once patient's O2 requirements decreased. ?Will continue to monitor #Hx of HTN ?Continue amlodipine 10 mg every afternoon and hydralazine 25 mg 3 times daily #Hx of DM2 ?a1c 5.7 02/09/2024 Plan: ?ISS ?Accu-Cheks and hypoglycemic protocol ?Will continue to monitor #Hx of CKD ?Patient's baseline creatinine is around 2.3-3.1 ?Creatinine today 3 Plan: ?Avoid nephrotoxic agents ?Renally dose medications ?Nephrology consulted, appreciate recommendations ?Will continue to monitor #Hx of CVA ?Continue atorvastatin 10 mg at bedtime Disposition: Patient seen in telemetry watching sodium and pending echo. Diet: Cardiac, carb consistent low GI prophylaxis: protonix DVT prophylaxis: SCDs Code:Full Case disclosed with Attending Dr. Alexander and My senior Dr. Oneill PGY2. 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 Patient states that shortness of breath has been going on for the past 3 days denies any fevers or chills. In the ER, patient found to have hypoosmolar hyponatremia with sodium of 120 and subsequently started on normal saline admitted. Furthermore, patient also noted to have normocytic anemia however denies any melena or hematochezia. Overnight, patient noted to have worsening acute hypoxic respiratory failure with worsening crackles and lower extremity edema and subsequently started on diuretic therapy and BiPAP. Furthermore, patient's sodium also noted to drop to 112 and subsequently nephrology was consulted and recommended starting patient on 3% hypertonic saline renal panel every 2 hours. In addition, patient also noted to have elevated troponin however denies any chest pain and EKG with no ST elevation likely non-STEMI type II secondary to fluid overload state. As of now, patient's oxygen requirement is downtrending however creatinine continues to uptrend and appreciate nephrology input. Sodium up to 122. Continue to monitor closely and will follow-up with cardiology and nephrology input. Overall, clinically improving. I reviewed above note and agree with findings and plans. I have also personally examined the patient with medicine team and went over assessment and plan with medical team including architecture internship and resident physician.
[2024-02-10 16:07] LABS: Sodium 121 mMol/L (136-145)
--- NOTE | 2024-02-10 18:03 | PD.NEPHPROG ---
Documentation for date of: 02/10/24 Subjective Subjective Interval history: Mr. 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 Patient's is at bedside and majority of history was taken from her. Patient has been having shortness of breath and wheezing with mild cough and white phlegm for the past 2 days. Patient states that he also is mildly congested denies any runny nose sick contacts or travel history. The noted that recently he has been feeling bloating but denies any changes in the appetite nausea vomiting or abdominal pain. Patient denies any history of prior asthma history. In the ED patient's vitals include blood pressure 164/70 respirations 28, WBC 10.9, hemoglobin 7.3, hematocrit 21.5, and sodium 120. Creatinine 2.9, GFR 21, osmolality 259, BNP 381, lipase 76. Chest x-ray findings include subtle opacity in both lungs suspicious for bilateral basilar pneumonia. In the ED patient received a breathing treatment, Rocephin x 1. Patient admitted for hypoosmolar hyponatremia. Nephrology was consulted for hyponatremia and DIAN on CKD. Primary team ordered urine electrolytes, started patient on IV fluids normal saline at 75 mL/h, every 4 sodium checks. Urine electrolytes showed urine sodium less than 15. Renal ultrasound showed no hydronephrosis, renal cortical thinning and renal parenchymal scar formation. Patient continued to deteriorate: Hemoglobin 6.3, sodium 117, BUN 51, creatinine 2.7, eGFR 23. Patient was examined on the floors, sitting at side of bed, in clear distress. Patient had labored breathing, audible wheezing, tense edema to bilateral lower extremities. Repeat sodium check 112. Patient received breathing treatment with minimal improvement. ICU was consulted for possible upgrade, patient started on hypertonic saline. ICU team aware of patient monitoring, elected to keep patient on floors for now. Blood transfusion held in setting of volume overload, will continue to monitor closely. Considered chest CT, delayed due to patient's respiratory distress. ABG showed pH 7.26, pCO2 30, pO2 69, bicarb 13. Lactic acid 3.8. No anion gap. Chest x-ray showed mild to moderate CHF pattern with severe vascular congestion including central vascular engorgement. 02/10/2024 patient currently seen in telemetry. Still having labored breathing and wheezing although slightly better than yesterday. With the Bumex patient put out 3.7 L. Sodium improved from 1 12-1 21. Clinically seems to be stable. at bedside. Blood pressure 154/80, heart rate 107. WBC 10.1, hemoglobin 7.2, platelets 203. Sodium 121, potassium 4.1, BUN 56, creatinine went up to 3.0, glucose 310, phosphorus 5.4, troponin 1.072. Chest x-ray yesterday showed moderate heart failure. Review of Systems Review of Systems Narrative Review of Systems: CONSTITUTIONAL: Complaining of fatigue CARDIOVASCULAR: Patient denies any chest pain. c/o shortness of breath, swelling in the lower extremities. PULMONARY: Patient complaining of wheezing,shortness of breath, cough. GASTROINTESTINAL: Patient denies any abdominal pain, constipation, nausea, vomiting, diarrhea. GENITOURINARY: Patient denies any urinary symptoms of burning or frequency or hematuria, denies any form in the urine. SKIN: Denies any rash. MUSCULOSKELETAL: Complaining of gait imbalance NEUROLOGICAL: Denies any neurological problems of strokes, seizures or confusion. Denies any memory problems. Exam Vital Signs Temp Pulse Resp BP Pulse Ox O2 Del Method O2 Flow Rate 36.9 C 107 H 23 H 154/80 H 94 L Nasal Cannula 6 02/10/24 16:00 02/10/24 16:00 02/10/24 16:00 02/10/24 16:00 02/10/24 16:00 02/10/24 16:00 02/10/24 16:00 FiO2 35 02/10/24 06:51 Narrative Exam GENERAL APPEARANCE: Fragile gentleman currently seen in telemetry. Short of breath. On nasal cannula NECK: ++ JVD CARDIOVASCULAR: Heart regular, no murmurs, tachycardia LUNGS/CHEST: Bilateral crackles, wheezing heard ing ABDOMEN: Soft, nontender, nondistended. No masses. Normal bowel sounds. EXTREMITIES: 2+ edema noted in the lower extremities (right greater than the left SKIN: Skin exam normal without any rashes MUSCULOSKELETAL: In bed NEUROLOGICAL : No neurological deficits. Alert and awake Objective Labs 02/10/24 04:42 02/10/24 15:18 Labs: Laboratory Results - last 24 hr 02/09/24 02/09/24 02/09/24 14:55 18:19 19:16 WBC RBC Hgb 7.7 L Hct 21.2 L* MCV MCH MCHC RDW Std Deviation Plt Count Neut % (Auto) Lymph % (Auto) [place] % (Auto) Eos % (Auto) Baso % (Auto) Neut # (Auto) Lymph # (Auto) [place] # (Auto) Eos # (Auto) Baso # (Auto) Immature Gran # (Auto) Absolute Nucleated RBC Immature Gran % Nucleated RBC % VBG pH 7.41 VBG pCO2 29 L VBG pO2 38 VBG O2 Sat ([place]) 74 L VBG Base Excess -6 L Sodium 117 L* Potassium 4.7 Chloride 86 L Carbon Dioxide 21.1 Anion Gap 10 BUN 50 H Creatinine 2.6 H Estim Creat Clear Calc 20.4 L eGFR 24 L BUN/Creatinine Ratio 19 Glucose 215 H Calculated Osmolality 255 L Calcium 7.9 L Corrected Calcium 7.9 L Phosphorus 5.2 H Iron 21 L Iron Saturation 8 L Unsat Iron Binding 219 L Troponin I Albumin 4.2 02/09/24 02/09/24 02/10/24 20:14 22:35 00:24 WBC RBC Hgb Hct MCV MCH MCHC RDW Std Deviation Plt Count Neut % (Auto) Lymph % (Auto) [place] % (Auto) Eos % (Auto) Baso % (Auto) Neut # (Auto) Lymph # (Auto) [place] # (Auto) Eos # (Auto) Baso # (Auto) Immature Gran # (Auto) Absolute Nucleated RBC Immature Gran % Nucleated RBC % VBG pH VBG pCO2 VBG pO2 VBG O2 Sat ([place]) VBG Base Excess Sodium 118 L* 117 L* 118 L* Potassium 4.5 4.4 Chloride 87 L 88 L Carbon Dioxide 17.9 L 17.1 L Anion Gap 13 12 BUN 55 H 50 H Creatinine 2.7 H 2.7 H Estim Creat Clear Calc 19.6 L 19.6 L eGFR 23 L 23 L BUN/Creatinine Ratio 20 19 Glucose 219 H 238 H Calculated Osmolality 260 L 257 L Calcium 8.2 L 8.0 L Corrected Calcium 8.2 L 8.0 L Phosphorus 5.4 H 5.6 H Iron Iron Saturation Unsat Iron Binding Troponin I 1.242 H* D Albumin 4.5 4.2 02/10/24 02/10/24 02/10/24 04:42 07:05 09:20 WBC 10.1 RBC 2.58 L Hgb 7.2 L Hct 20.1 L* MCV 78 L MCH 27.9 MCHC 35.8 RDW Std Deviation 35.4 Plt Count 203 Neut % (Auto) 87 H Lymph % (Auto) 3 L [place] % (Auto) 9 Eos % (Auto) 0 Baso % (Auto) 0 Neut # (Auto) 8.8 H Lymph # (Auto) 0.3 L [place] # (Auto) 0.9 H Eos # (Auto) 0.0 Baso # (Auto) 0.0 Immature Gran # (Auto) 0.07 H Absolute Nucleated RBC 0.00 Immature Gran % 1 H Nucleated RBC % 0 VBG pH VBG pCO2 VBG pO2 VBG O2 Sat ([place]) VBG Base Excess Sodium 118 L* 119 L* 119 L* Potassium 4.2 Chloride 88 L Carbon Dioxide 19.1 L Anion Gap 11 BUN 55 H Creatinine 2.9 H Estim Creat Clear Calc 18.3 L eGFR 21 L BUN/Creatinine Ratio 19 Glucose 223 H Calculated Osmolality 260 L Calcium 8.0 L Corrected Calcium Phosphorus Iron Iron Saturation Unsat Iron Binding Troponin I 1.033 H* D 1.072 H* Albumin 02/10/24 02/10/24 02/10/24 11:25 12:50 15:18 WBC RBC Hgb Hct MCV MCH MCHC RDW Std Deviation Plt Count Neut % (Auto) Lymph % (Auto) [place] % (Auto) Eos % (Auto) Baso % (Auto) Neut # (Auto) Lymph # (Auto) [place] # (Auto) Eos # (Auto) Baso # (Auto) Immature Gran # (Auto) Absolute Nucleated RBC Immature Gran % Nucleated RBC % VBG pH VBG pCO2 VBG pO2 VBG O2 Sat ([place]) VBG Base Excess Sodium 121 L 121 L 121 L Potassium 4.1 Chloride 87 L Carbon Dioxide 20.4 Anion Gap 14 BUN 56 H Creatinine 3.0 H Estim Creat Clear Calc 17.7 L eGFR 21 L BUN/Creatinine Ratio 19 Glucose 310 H D Calculated Osmolality 271 L Calcium 8.3 Corrected Calcium 8.3 L Phosphorus 5.4 H Iron Iron Saturation Unsat Iron Binding Troponin I Albumin 4.5 ABG Interpretation ABG results: 02/09/24 02/09/24 02/09/24 09:30 12:12 19:16 ABG pH 7.26 L 7.31 L ABG pCO2 30 L 31 L ABG pO2 69 L 101 D ABG HCO3 13 L 15 L ABG O2 Saturation 93 99 H ABG Base Excess -13 L -10 L VBG pH 7.41 VBG pCO2 29 L VBG pO2 38 VBG Base Excess -6 L Assessment & Plan Additional Assessment & Plan Additional Plan: Mr. 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 Patient is been having shortness of breath and wheezing with mild cough and white phlegm for the past 2 days. #Hyperosmolar hyponatremia--patient sodium dropped to 112. Clinically looks rather hypervolemic. Will try 3% hypertonic saline along with diuretics. Vaprisol not available in this hospital. Patient seems to have gone into flash pulmonary edema. Will request ICU consult. Plan of care discussed with primary team. #DIAN on CKD On admission patient sodium 120, was initially treated with normal saline at 75 mL/h. Sodium increased to 122 and sharply declined to 112. Osmolality 259 decreased to 246. ICU team consulted, patient will remain on floors, ICU will monitor. Urinalysis showed urine sodium less than 15. Patient appears volume overloaded: CHF pattern with vascular congestion on chest x-ray, 2+ tense edema bilateral lower extremities. ABG showed pH 7.2, pCO2 30, pO2 69, bicarb 13. Lactic acid 3.8, no anion gap. Patient received 1 dose 40 mg IV Lasix and [address] ordered, delayed due to patient severe respiratory distress. BUN 51, creatinine 3.0. Worse than patient's baseline. Renal ultrasound showed no hydronephrosis, bilateral renal cortical thinning and renal parenchymal scar formation. Plan: Continue with the diuretics. Clinically he seems to be tad better today. Hold off on 3% and DDAVP -Every 4 hour sodium checks -Renally dose meds -Avoid nephrotoxic medications -Monitor daily renal function ICU team on the case #Acute hypoxic respiratory failure #Chronic anemia #History of diabetes mellitus #History of primary hypertension #History of CVA without residual deficit Management as per primary team Spoke to Dr. Burleson-hold dialysis as he responded very well to diuretics. Continue with the Bumex IV 2 mg twice daily Spoke to at bedside. Time spent more than 35 minutes regarding plan of care and disease management. Spoke to Dr. Oliveira, Dr. garcia
--- NOTE | 2024-02-10 19:23 | PD.IMPROG ---
Documentation for date of: 02/10/24 Subjective Subjective Interval history: Patient remains on BiPAP Exam Vital Signs Temp Pulse Resp BP Pulse Ox O2 Del Method O2 Flow Rate 98.4 F 101 H 20 154/80 H 98 Nasal Cannula 5 02/10/24 16:00 02/10/24 19:21 02/10/24 19:21 02/10/24 16:00 02/10/24 19:21 02/10/24 16:00 02/10/24 19:21 FiO2 35 02/10/24 06:51 Constitutional Comments: Chronically ill-appearing Routine Respiratory Exam Comments: On BiPAP Routine Abdominal Exam Comments: Soft nontender Objective Labs 02/10/24 04:42 02/10/24 15:18 Labs: Laboratory Results - last 24 hr 02/09/24 02/09/24 02/09/24 19:16 20:14 22:35 WBC RBC Hgb Hct MCV MCH MCHC RDW Std Deviation Plt Count Neut % (Auto) Lymph % (Auto) [place] % (Auto) Eos % (Auto) Baso % (Auto) Neut # (Auto) Lymph # (Auto) [place] # (Auto) Eos # (Auto) Baso # (Auto) Immature Gran # (Auto) Absolute Nucleated RBC Immature Gran % Nucleated RBC % VBG pH 7.41 VBG pCO2 29 L VBG pO2 38 VBG O2 Sat ([place]) 74 L VBG Base Excess -6 L Sodium 118 L* 117 L* Potassium 4.5 4.4 Chloride 87 L 88 L Carbon Dioxide 17.9 L 17.1 L Anion Gap 13 12 BUN 55 H 50 H Creatinine 2.7 H 2.7 H Estim Creat Clear Calc 19.6 L 19.6 L eGFR 23 L 23 L BUN/Creatinine Ratio 20 19 Glucose 219 H 238 H Calculated Osmolality 260 L 257 L Calcium 8.2 L 8.0 L Corrected Calcium 8.2 L 8.0 L Phosphorus 5.4 H 5.6 H Troponin I 1.242 H* D Albumin 4.5 4.2 02/10/24 02/10/24 02/10/24 00:24 04:42 07:05 WBC 10.1 RBC 2.58 L Hgb 7.2 L Hct 20.1 L* MCV 78 L MCH 27.9 MCHC 35.8 RDW Std Deviation 35.4 Plt Count 203 Neut % (Auto) 87 H Lymph % (Auto) 3 L [place] % (Auto) 9 Eos % (Auto) 0 Baso % (Auto) 0 Neut # (Auto) 8.8 H Lymph # (Auto) 0.3 L [place] # (Auto) 0.9 H Eos # (Auto) 0.0 Baso # (Auto) 0.0 Immature Gran # (Auto) 0.07 H Absolute Nucleated RBC 0.00 Immature Gran % 1 H Nucleated RBC % 0 VBG pH VBG pCO2 VBG pO2 VBG O2 Sat ([place]) VBG Base Excess Sodium 118 L* 118 L* 119 L* Potassium 4.2 Chloride 88 L Carbon Dioxide 19.1 L Anion Gap 11 BUN 55 H Creatinine 2.9 H Estim Creat Clear Calc 18.3 L eGFR 21 L BUN/Creatinine Ratio 19 Glucose 223 H Calculated Osmolality 260 L Calcium 8.0 L Corrected Calcium Phosphorus Troponin I 1.033 H* D 1.072 H* Albumin 02/10/24 02/10/24 02/10/24 09:20 11:25 12:50 WBC RBC Hgb Hct MCV MCH MCHC RDW Std Deviation Plt Count Neut % (Auto) Lymph % (Auto) [place] % (Auto) Eos % (Auto) Baso % (Auto) Neut # (Auto) Lymph # (Auto) [place] # (Auto) Eos # (Auto) Baso # (Auto) Immature Gran # (Auto) Absolute Nucleated RBC Immature Gran % Nucleated RBC % VBG pH VBG pCO2 VBG pO2 VBG O2 Sat ([place]) VBG Base Excess Sodium 119 L* 121 L 121 L Potassium 4.1 Chloride 87 L Carbon Dioxide 20.4 Anion Gap 14 BUN 56 H Creatinine 3.0 H Estim Creat Clear Calc 17.7 L eGFR 21 L BUN/Creatinine Ratio 19 Glucose 310 H D Calculated Osmolality 271 L Calcium 8.3 Corrected Calcium 8.3 L Phosphorus 5.4 H Troponin I Albumin 4.5 02/10/24 15:18 WBC RBC Hgb Hct MCV MCH MCHC RDW Std Deviation Plt Count Neut % (Auto) Lymph % (Auto) [place] % (Auto) Eos % (Auto) Baso % (Auto) Neut # (Auto) Lymph # (Auto) [place] # (Auto) Eos # (Auto) Baso # (Auto) Immature Gran # (Auto) Absolute Nucleated RBC Immature Gran % Nucleated RBC % VBG pH VBG pCO2 VBG pO2 VBG O2 Sat ([place]) VBG Base Excess Sodium 121 L Potassium Chloride Carbon Dioxide Anion Gap BUN Creatinine Estim Creat Clear Calc eGFR BUN/Creatinine Ratio Glucose Calculated Osmolality Calcium Corrected Calcium Phosphorus Troponin I Albumin Impressions Impression: # Anemia thrombocytopenia # Acute respiratory failure requiring BiPAP Will wait to do any invasive GI workup till the respiratory status improves ABG Interpretation ABG results: 02/09/24 02/09/24 02/09/24 09:30 12:12 19:16 ABG pH 7.26 L 7.31 L ABG pCO2 30 L 31 L ABG pO2 69 L 101 D ABG HCO3 13 L 15 L ABG O2 Saturation 93 99 H ABG Base Excess -13 L -10 L VBG pH 7.41 VBG pCO2 29 L VBG pO2 38 VBG Base Excess -6 L Assessment & Plan A&P Narrative # Anemia with thrombocytopenia within normal B12 level and no history of any yash GI bleeding in the form of melena hematochezia or hematemesis Patient can still have occult GI bleeding # Hypoosmolar hypochloremic hyponatremia agree with the IV fluids I do not think patient has SIADH # Bilateral pneumonia # CKD # Diabetes mellitus type 2 Plan Iron panel Stool for occult blood Upper endoscopy during this hospitalization to make sure there is no source of bleeding at the moment and may be an outpatient colonoscopy In this clinical setting GI tract has to be screened fully I do not think patient has any kind of paraneoplastic syndrome although He does have an elevated PSA of 19.12 which needs to be addressed Thank you very much for the opportunity to participate in the care of this patient Time Spent With Patient Time: Total time spent is greater than 50% in coordination of care (as documented) at patient's floor/unit and/or counseling patient:
[2024-02-10 20:54] LABS: Sodium 125 mMol/L (136-145)
[2024-02-10] MEDS: BUMETANIDE INJ 0.25 MG/ML VIAL 4 ML 2 MG IVP (21:56)
[2024-02-10] MEDS: ATORVASTATIN CALCIUM 10 MG TABLET PO (21:56)
[2024-02-10] MEDS: amLODIPine BESYLATE 5 MG TABLET 10 MG PO (21:58)
[2024-02-10 22:43] LABS: Sodium 124 mMol/L (136-145)
--- NOTE | 2024-02-10 22:48 | ESCONSULT_ITS ---
RE: LARA MARTIN : 1945 DATE OF CONSULTATION: 02/10/2024 CONSULTING PHYSICIANS: Dr. Velma West and hospitalist. REASON FOR CONSULTATION: Evaluation of patient with volume overload, congestive heart failure, elevated cardiac enzymes, and troponin level elevation. CHIEF COMPLAINT: Shortness of breath. HISTORY OF PRESENT ILLNESS: The patient is a 78-year-old male with known history of longstanding hypertension, diabetes mellitus and chronic kidney disease stage IV, who is followed by Dr. West regularly, presented to the hospital with multiple symptoms being shortness of breath, orthopnea and volume overload. He was given some fluid, is not having much diuresis, having severe shortness of breath, not having any chest pain at all, but his cardiac enzymes were persistently elevated at one point initially 0.28, but went up to 1.24, 1.0, 1.03. The patient is still not having any chest pain and mostly orthopnea, has JVD with volume overload situation. He does not have any other symptoms for now, but he has been treated with IV Bumex with some urine output. The patient is also developed severe hyponatremia. Sodium 118, now up to 121, dilutional with low urine sodium. His creatinine is still going up steadily 3.0, BUN is 56 and mild acidosis, CO2 is 19. Blood gas showed pH 7.31, pCO2 of 31, and pO2 is 100. His chest x-ray does show evidence of pulmonary congestion and heart failure. EKG showed sinus rhythm. No evidence of ischemic change and now essentially unremarkable first-degree AV block. The patient is still having some shortness of breath and orthopnea and not complaining of any chest pain. ALLERGIES: NONE. MEDICATIONS: At home, he is on currently multiple medications includin. Amlodipine 10 mg daily at home. 2. Hydralazine for hypertension 25 mg daily. 3. Insulin for diabetes mellitus. PAST MEDICAL HISTORY: Hypertension, diabetes, chronic kidney disease, and hypercholesterolemia. Never had any cardiac events or cardiac problems. SOCIAL HISTORY: The patient is with his . He has family. Does not smoke or drink alcoholic beverages. FAMILY HISTORY: Noncontributory. REVIEW OF SYSTEMS: Cardiovascular System: No chest pain. Mostly shortness of breath. Gastrointestinal: No nausea or vomiting. Genitourinary: No frequency or dysuria. Central Nervous System: No neurological symptoms. PHYSICAL EXAMINATION: GENERAL: Well-nourished, acutely ill male, sitting, orthopneic, alert, awake, in no acute distress. Height 5 feet 5 inches, weight 136 pounds. HEENT: Head is atraumatic. NECK: Supple. Significant jugular venous distention is noted. CHEST: Symmetrical. LUNGS: Decreased breath sounds, bilateral crackles and extensive wheezes. HEART: S1 and S2 regular. ABDOMEN: Thin and soft. EXTREMITIES: Edema of both feet. GENITOURINARY AND RECTAL: Not performed. NEUROLOGIC: Unremarkable. LABORATORY DATA: As described earlier Peak troponin 1.0. Other lab data showed hemoglobin of 7.3, hematocrit 20, and white count 10. Chemistry panel showed BUN and creatinine elevated at 56 and 3.0, sodium now 121, earlier it was 118. Creatinine clearance is 21. IMPRESSION: 1. Acutely decompensated congestive heart failure possibly with preserved ejection fraction due to volume overload. 2. Severe hyponatremia secondary to chronic kidney disease and fluid retention. 3. Elevated troponin, possibly type 2 troponin due to demand ischemia with volume overload and heart failure. 4. Hypercholesterolemia. 5. Diabetes mellitus. RECOMMENDATIONS: Continue IV diuretics and Bumex. For now, he does not respond, possibly may require fluid dialysis or fluid overload. Also correction of hyponatremia. As for troponin is concerned, I would treat it as type 2 troponin. Do not see any need for any workup for CAD at this time. No need for anticoagulation considering the patient has severe anemia. I would like to thank you for referring this patient for cardiovascular evaluation. We will be glad to follow the patient with you. DT: 20:39:40 TT: 21:43:00 Ref: [id number] - TID: [id number] MTDD
[2024-02-11] VITALS (16 sets, daily range): BP systolic 136–158; BP diastolic 66–95; PULSE 72–112; RESP 14–22; TEMP 36.5–36.8; O2SAT 91–99; BMI 22.6
[2024-02-11 00:49] LABS: Sodium 124 mMol/L (136-145)
[2024-02-11] MEDS: MELATONIN 3 MG TABLET PO (00:49)
[2024-02-11 02:14] LABS: Sodium 123 mMol/L (136-145)
[2024-02-11] MEDS: ALBUTEROL/IPRATROPIUM (Duoneb) RT SOL 3 ML NEBU INH ×6 (04:09→22:36)
[2024-02-11] MEDS: hydrALAZINE HCL 25 MG TABLET PO (05:18)
[2024-02-11 05:57] LABS: Basophils % (Auto) 0 % (0-2.5); Eosinophils % (Auto) 0 % (0-10); Hematocrit 20.6 % (41.0-53.0); Immature Granulocytes % (Auto) 1 % (0-0); Immature Granulocytes Auto 0.08 Thou/mm3 (0.00-0.00); Lymphocytes # (Auto) 0.3 Thou/mm3 (1.0-4.8); Lymphocytes % (Auto) 3 % (10-50); Mean Corpuscular HGB Conc 35.4 g/dl (31.0-37.0); Mean Corpuscular Hemoglobin 28.2 pg (25.0-35.0); Mean Corpuscular Volume 80 fL (80-100); Monocytes # (Auto) 0.4 Thou/mm3 (0.0-0.8); Monocytes % (Auto) 3 % (0-12); Neutrophils # (Auto) 10.6 Thou/mm3 (1.8-7.7); Neutrophils % (Auto) 94 % (37-80); Nucleated Red Blood Cell % 0 /100 WBC (0); Platelet Count 229 Thou/mm3 (140-440); RDW Standard Deviation 36.8 fL (35.1-43.9); Red Blood Count 2.59 Miln/mm3 (4.50-5.90); White Blood Count 11.3 Thou/mm3 (3.8-10.6)
[2024-02-11 05:58] LABS: Hemoglobin 7.3 g/dL (13.5-16.0)
[2024-02-11 06:40] LABS: Anion Gap 13 (7-16); BUN/Creatinine Ratio 18 Ratio (12-20); Blood Urea Nitrogen 57 mg/dL (9-23); Calcium 8.4 mg/dL (8.3-10.6); Carbon Dioxide 19.5 mMol/L (20.0-31.0); Chloride 90 mMol/L (98-107); Creatinine (Component) 3.2 mg/dL (0.6-1.3); Estimated Creatinine Clearance 16.5 mL/min (>60); Glucose 220 mg/dL (74-106); Osmolality,Calculated 268 (275-295); Potassium 3.9 mMol/L (3.4-5.1); Sodium 122 mMol/L (136-145); eGFR 19 See Note
[2024-02-11 07:23] LABS: Sodium 122 mMol/L (136-145)
[2024-02-11] MEDS: INSULIN LISPRO (AdmeLOG) 1 UNIT/0.01 ML UNIT SC ×3 (07:48→16:57)
[2024-02-11 08:06] LABS: Phosphorous 6.7 mg/dL (2.4-5.1)
[2024-02-11] MEDS: PANTOPRAZOLE INJ 40 MG VIAL IV ×2 (08:33→20:24)
[2024-02-11] MEDS: BUMETANIDE INJ 0.25 MG/ML VIAL 4 ML 2 MG IVP (08:35)
[2024-02-11] MEDS: CITRIC ACID/SODIUM CITR 15 ML UDC (BICITRA) 30 ML PO ×2 (08:35→20:22)
[2024-02-11 09:26] LABS: Sodium 121 mMol/L (136-145)
--- NOTE | 2024-02-11 10:37 | ESPR_ITS ---
<Statement entered by Hernandez Amaya MD - 02/12/24 12:24> I personally evaluated this patient who has a complex medical problems including volume overload renal failure appears to appears to have HFpEF with worsening of shortness of breath with heart failure and wheezing extensive wheezing. He did have good urine output dialysis has been deferred for now. Cardiac echo showed normal ejection fraction no significant valvular heart disease. No wall motion abnormality seen. Troponin level elevation appears to be is due to type II troponin demand ischemia. I personally evaluated the patient with the resident PGY [address] Kern agree with treatment plan recommendation as formulated. Documentation for date of: 02/11/24 Subjective Subjective Interval history: The patient is a 78-year-old male with known history of longstanding hypertension, diabetes mellitus and chronic kidney disease stage IV, who is followed by Dr. West regularly, presented to the hospital with multiple symptoms being shortness of breath, orthopnea and volume overload. He was given some fluid, is not having much diuresis, having severe shortness of breath, not having any chest pain at all, but his cardiac enzymes were persistently elevated at one point initially 0.28, but went up to 1.24, 1.0, 1.03. The patient is still not having any chest pain and mostly orthopnea, has JVD with volume overload situation. He does not have any other symptoms for now, but he has been treated with IV Bumex with some urine output. The patient is also developed severe hyponatremia. Sodium 118, now up to 121, dilutional with low urine sodium. His creatinine is still going up steadily 3.0, BUN is 56 and mild acidosis, CO2 is 19. Blood gas showed pH 7.31, pCO2 of 31, and pO2 is 100. His chest x-ray does show evidence of pulmonary congestion and heart failure. EKG showed sinus rhythm. No evidence of ischemic change and now essentially unremarkable first-degree AV block. The patient is still having some shortness of breath and orthopnea and not complaining of any chest pain. Labs revealed troponin at 1.0. Hemoglobin at 7.3, white count 10. Chemistry panel showed BUN and creatinine elevated at 56 and 2.0. Sodium now 121. Creatinine clearance 21. PMH: As above Allergies: NKDA Home medications: Amlodipine 10 mg, hydralazine 25 mg, insulin 02/11/2024: Patient was seen and examined at the bedside. Patient is feeling better and is seen on nasal cannula 4 L. Morning labs revealed leukocytosis likely due to steroids, hemoglobin at 7.3. Chemistry panel showed sodium at 121 today. Kidney functions consistent with CKD stage IV with creatinine 3.2. Phosphorus at 6.7. Urine sodium less than 15, random total protein 165. Echocardiogram showed normal LV size and function. Estimated EF 60-65%Normal RV size and function.Estimated RVSP 53mmHg.Mild MR. Moderate TR. Trace AI. Recommended to continue Bumex 2 mg once a day, continuing IV ceftriaxone for treating infection. Sodium levels have improved. Nephrology team added salt tablets as well. After discussing with scout executive, we discontinued amlodipine and hydralazine and started Cardizem 60 mg 3 times daily. Patient's family was updated regarding the plan of care. Patient still making good urine output therefore nephrology will follow the patient closely due to his CKD stage IV. Exam Vital Signs Temp Pulse Resp BP Pulse Ox O2 Del Method O2 Flow Rate 98.0 F 101 H 17 147/95 H 97 Nasal Cannula 4 02/11/24 08:00 02/11/24 10:00 02/11/24 10:00 02/11/24 08:35 02/11/24 10:00 02/11/24 04:00 02/11/24 10:00 FiO2 35 02/11/24 04:00 Narrative Exam GENERAL APPEARANCE: AxOx4, chronically ill-appearing male in no acute distress. HEENT: NC, AT. MMM. EOMI, clear conjunctiva, oropharynx clear.JVD NECK: Supple without lymphadenopathy. No stiffness or restricted ROM. Prominent JVD. HEART: Regular rate and regular rhythm, normal S1/S2, no m/r/g LUNGS: Decreased breath sounds and bilateral crackles heard on auscultation. ABDOMEN: Soft, nontender, nondistended with good bowel sounds heard. EXTREMITIES: 1+ pitting edema On both lower extremities. NEUROLOGICAL: Grossly nonfocal. Alert and oriented, moving all 4 extremities. CN not formally tested but appear grossly intact. Observed to ambulate with normal gait. Skin: Warm and dry without any rash. Psych: Appropriate mood and affect Objective Labs 02/11/24 05:08 02/11/24 15:07 Labs: Laboratory Results - last 24 hr 1102/10/24 02/10/24 11:25 12:50 15:18 WBC RBC Hgb Hct MCV MCH MCHC RDW Std Deviation Plt Count Neut % (Auto) Lymph % (Auto) [place] % (Auto) Eos % (Auto) Baso % (Auto) Neut # (Auto) Lymph # (Auto) [place] # (Auto) Eos # (Auto) Baso # (Auto) Immature Gran # (Auto) Absolute Nucleated RBC Immature Gran % Nucleated RBC % Sodium 121 L 121 L 121 L Potassium 4.1 Chloride 87 L Carbon Dioxide 20.4 Anion Gap 14 BUN 56 H Creatinine 3.0 H Estim Creat Clear Calc 17.7 L eGFR 21 L BUN/Creatinine Ratio 19 Glucose 310 H D Calculated Osmolality 271 L Calcium 8.3 Corrected Calcium 8.3 L Phosphorus 5.4 H Albumin 4.5 02/10/24 02/10/24 02/11/24 20:21 22:25 00:23 WBC RBC Hgb Hct MCV MCH MCHC RDW Std Deviation Plt Count Neut % (Auto) Lymph % (Auto) [place] % (Auto) Eos % (Auto) Baso % (Auto) Neut # (Auto) Lymph # (Auto) [place] # (Auto) Eos # (Auto) Baso # (Auto) Immature Gran # (Auto) Absolute Nucleated RBC Immature Gran % Nucleated RBC % Sodium 125 L 124 L 124 L Potassium Chloride Carbon Dioxide Anion Gap BUN Creatinine Estim Creat Clear Calc eGFR BUN/Creatinine Ratio Glucose Calculated Osmolality Calcium Corrected Calcium Phosphorus Albumin 02/11/24 02/11/24 02/11/24 01:54 05:08 07:01 WBC 11.3 H RBC 2.59 L Hgb 7.3 L Hct 20.6 L* MCV 80 MCH 28.2 MCHC 35.4 RDW Std Deviation 36.8 Plt Count 229 Neut % (Auto) 94 H Lymph % (Auto) 3 L [place] % (Auto) 3 Eos % (Auto) 0 Baso % (Auto) 0 Neut # (Auto) 10.6 H Lymph # (Auto) 0.3 L [place] # (Auto) 0.4 Eos # (Auto) 0.0 Baso # (Auto) 0.0 Immature Gran # (Auto) 0.08 H Absolute Nucleated RBC 0.00 Immature Gran % 1 H Nucleated RBC % 0 Sodium 123 L 122 L 122 L Potassium 3.9 Chloride 90 L Carbon Dioxide 19.5 L Anion Gap 13 BUN 57 H Creatinine 3.2 H Estim Creat Clear Calc 16.5 L eGFR 19 L BUN/Creatinine Ratio 18 Glucose 220 H D Calculated Osmolality 268 L Calcium 8.4 Corrected Calcium Phosphorus 6.7 H Albumin 02/11/24 09:04 WBC RBC Hgb Hct MCV MCH MCHC RDW Std Deviation Plt Count Neut % (Auto) Lymph % (Auto) [place] % (Auto) Eos % (Auto) Baso % (Auto) Neut # (Auto) Lymph # (Auto) [place] # (Auto) Eos # (Auto) Baso # (Auto) Immature Gran # (Auto) Absolute Nucleated RBC Immature Gran % Nucleated RBC % Sodium 121 L Potassium Chloride Carbon Dioxide Anion Gap BUN Creatinine Estim Creat Clear Calc eGFR BUN/Creatinine Ratio Glucose Calculated Osmolality Calcium Corrected Calcium Phosphorus Albumin ABG Interpretation ABG results: 02/09/24 02/09/24 02/09/24 09:30 12:12 19:16 ABG pH 7.26 L 7.31 L ABG pCO2 30 L 31 L ABG pO2 69 L 101 D ABG HCO3 13 L 15 L ABG O2 Saturation 93 99 H ABG Base Excess -13 L -10 L VBG pH 7.41 VBG pCO2 29 L VBG pO2 38 VBG Base Excess -6 L Quality Measures Quality Measures VTE prophylaxis Advance care planning discussed with:: patient Assessment & Plan Assessment Current Active Medications: Generic Name Dose Route Start Last Admin Trade Name Freq PRN Reason Stop Dose Admin Acetaminophen 650 mg 02/09/24 05:01 02/09/24 05:13 Acetaminophen 325 Mg Tablet PO 03/09/24 18:24 650 mg Q6H PRN Administration PAIN OR FEVER > 101 Albuterol/Ipratropium 3 ml 02/08/24 19:00 02/11/24 09:58 Albuterol/Ipratropium (Duoneb) Rt Romina 3 Ml Nebu INH 03/09/24 18:59 3 ml Q4HRRT ABHIJIT Administration Amlodipine Besylate 10 mg 02/09/24 21:00 02/10/24 21:58 Amlodipine Besylate 5 Mg Tablet PO 03/10/24 20:59 10 mg QPM ABHIJIT Administration Atorvastatin Calcium 10 mg 02/09/24 21:00 02/10/24 21:56 Atorvastatin Calcium 10 Mg Tablet PO 03/10/24 20:59 10 mg HS ABHIJIT Administration Bumetanide 2 mg 02/12/24 09:00 Bumetanide Inj 0.25 Mg/Ml Vial 4 Ml IVP 03/13/24 08:59 DAILY ABHIJIT Citric Acid/Sodium Citrate 30 ml 02/11/24 09:00 02/11/24 08:35 Citric Acid/Sodium Citr 15 Ml Udc (Bicitra) PO 03/12/24 08:59 30 ml BID ABHIJIT Administration Dextrose 25 ml 02/08/24 19:04 Dextrose 50%-Water Inj 50 Ml Syringe IV 03/09/24 19:03 Q15MIN PRN BG 50-70 responsive npo pt Dextrose 50 ml 02/08/24 19:04 Dextrose 50%-Water Inj 50 Ml Syringe IV 03/09/24 19:03 Q15MIN PRN BG <50 OR BG <70 & pt unresponsive Glucagon 1 mg 02/08/24 19:04 Glucagon Inj 1 Mg Vial IM Q15MIN PRN BG <70, and no IV access Hydralazine HCl 25 mg 02/09/24 06:00 02/11/24 05:18 Hydralazine Hcl 25 Mg Tablet PO 03/10/24 05:59 25 mg TID ABHIJIT Administration Ceftriaxone Sodium/Dextrose 50 mls @ 100 mls/hr 02/09/24 14:00 02/10/24 14:04 Rocephin/D5w 1gm Iv Premix IV 02/16/24 13:59 100 mls/hr QDAY@1400 ABHIJIT Administration Sodium Chloride 500 mls @ 50 mls/hr 02/09/24 17:59 02/10/24 19:19 Hypertonic Saline 3% IV Not Given .Q10H ABHIJIT Insulin Glargine 5 unit 02/10/24 21:00 02/10/24 21:51 Insulin Glargine (Lantus) 5 Unit/0.05 Ml (Per 5 Units) SC 03/11/24 20:59 Not Given HS ABHIJIT Insulin Human Lispro 0 unit 02/10/24 17:00 02/11/24 07:48 Insulin Lispro (Admelog) 1 Unit/0.01 Ml Unit SC 03/11/24 16:59 4 unit ACHS ABHIJIT Administration Protocol Methylprednisolone Sodium Succinate 60 mg 02/10/24 08:00 02/11/24 08:33 Methylprednisolone Sod Succ 40 Mg Vial IVP 02/17/24 07:59 60 mg Q12H ABHIJIT Administration Ondansetron HCl 4 mg 02/08/24 18:25 Ondansetron Inj 2 Mg/Ml Inj 2 Ml IV 03/09/24 18:24 Q6H PRN NAUSEA OR VOMITING Protocol Pantoprazole Sodium 40 mg 02/09/24 21:00 02/11/24 08:33 Pantoprazole Inj 40 Mg Vial IV 03/10/24 20:59 40 mg BID ABHIJIT Administration Sennosides 2 tab 02/08/24 18:25 Senna Tablet PO 03/09/24 18:24 BID PRN CONSTIPATION Protocol Sevelamer Carbonate 800 mg 02/11/24 12:00 Sevelamer Carbonate 800 Mg Tablet PO 03/12/24 11:59 TIDWM ABHIJIT Plan This 70-year-old male with past medical history of hypertension, DM2, CKD, and CVA was admitted to the hospital on 02/08/2024 for hypoosmolar hyponatremia and acute hypoxic respiratory failure likely secondary to acute decompensated heart failure exacerbation versus pneumonia. # Acute hypoxic respiratory failure # Likely secondary to pleural effusion versus HFpEF vs Fluid overload due to CKD # HFpEF EF 60 to 65% ?Patient presented with shortness of breath, wheezing and mild cough. Patient was kept on BiPAP due to increased work of breathing. Switched to OxyMask. ? Chest CT showed moderate heart failure with pleural effusions bilateral. ?Patient showed a diuresis output of 2.4 L with negative balance of 1.6 L. ?Patient's sodium has slightly improved at 123 ? Echocardiogram showed EF 60 to 65%. Plan: ? Continue IV diuretics Bumex 2 mg once a day ? Started Cardizem 60 mg 3 times daily ? Continue correcting hyponatremia ? Nephrology team added salt tablets and recommended to continue diuresis as 2 mg once a day ? No need of anticoagulation as patient has severe anemia ? Strict VALERIO's, fluid restriction and daily weight ? Oxygen as needed ? Daily labs ? Keep magnesium above 2 and potassium above 4 ? Primary team transfusing PRBCs ? Keep hemoglobin above 7 ? Continue IV antibiotic therapy and steroids for treating sepsis # History of hypertension ? Patient was taking amlodipine and hydralazine for blood pressure management. Plan: ? Started Cardizem 60 mg 3 times a day ? DC'd amlodipine and hydralazine ? Monitor vitals # NSTEMI type II likely supply demand ischemia ? Troponin I peaked at 1.242 and down trended. EKG showed sinus rhythm. Plan: ? Continue to monitor for signs of chest pain or shortness of breath Other active problems: # Hypoosmolar hyponatremia # Hypochloremia -Nephrology following the case. # Sepsis likely secondary to community-acquired pneumonia # Lactic acidosis type B # NAGMA # Anemia of chronic disease # History of type 2 diabetes # CKD stage 4 # History of CVA #Moderate thoracic spondylosis per CT finding Rest of the management as per primary care team. Thank you very much for consulting cardiology team. Recommended to continue IV diuretic therapy, correcting underlying hyponatremia and treating underlying infection. Echocardiogram showed EF 60-65%. Discontinued amlodipine and hydralazine. Started Cardizem 60 3 times daily. Plan of care discussed with target man, Dr. Jose Luis Kern MD, PGY 2
--- NOTE | 2024-02-11 11:15 | ESPR_ITS ---
<Statement entered by Rahul Oneill MD - 02/11/24 15:07> Senior Resident Attestation: I supervised/discussed management plan with manager of international physician Dr. Hu, and was involved in the care of this patient. I personally saw and examined the patient and discussed the assessment and plan with the entire medicine team, including my attending. I agree with the assessment and plan as documented. Patient's care was discussed with attending physician, Dr. Alexander. Rahul Oneill MD PGY-2. Documentation for date of: 02/11/24 Subjective Subjective Interval history: Patient seen at bedside this morning. No overnight events. Patient sodium dropped to 122 from 124 last night, but repeat around noon time was 123. Nephrology started sodium tablets 1 g twice daily. Patient was also/on Bicitra given his metabolic acidosis and sevelamer for his hyperphosphatemia. Patient's respiratory requirements have been stable, but he still has some wheezing. He has been diuresing well, Bumex 2mg qday now, DC amlodipine and hydralazine, started diltiazem. No other complaints at this time. Exam Vital Signs Temp Pulse Resp BP Pulse Ox O2 Del Method O2 Flow Rate 98.0 F 101 H 17 147/95 H 97 Nasal Cannula 4 02/11/24 08:00 02/11/24 10:00 02/11/24 10:00 02/11/24 08:35 02/11/24 10:00 02/11/24 04:00 02/11/24 10:00 FiO2 35 02/11/24 04:00 Narrative Exam General: A/O x3, no acute distress, thin Eyes: PERRL, EOMI. Anicteric, vision grossly intact. Ears: No ear pain, no ear discharge, Hearing grossly intact. Nose: No nasal discharge. Mouth/Throat: Moist mucous membranes, no redness, no lesions. Neck: Neck supple, non-tender, no cervical lymphadenopathy. Lungs: Wheezing still appreaciated, No accessory muscle use, mouth breathing Cardio: Normal S1/S2, regular rhythm, no murmurs, no JVD Abdomen: Soft, non-tender, no palpable masses, peristalsis present, no guarding or rebound. Extremities: Symmetrical, no significant deformities, 1+ peripheral edema, slightly better , non-tender, peripheral pulses presents. Skin: No rashes, no lesions, warm to touch. Neuro: No focal neurological deficits. motor and sensory intact Psych: Cooperative, appropriate mood and effect. Objective Labs 02/14/24 08:27 02/14/24 04:25 Labs: Laboratory Results - last 24 hr 02/10/24 02/10/24 02/10/24 11:25 12:50 15:18 WBC RBC Hgb Hct MCV MCH MCHC RDW Std Deviation Plt Count Neut % (Auto) Lymph % (Auto) [place] % (Auto) Eos % (Auto) Baso % (Auto) Neut # (Auto) Lymph # (Auto) [place] # (Auto) Eos # (Auto) Baso # (Auto) Immature Gran # (Auto) Absolute Nucleated RBC Immature Gran % Nucleated RBC % Sodium 121 L 121 L 121 L Potassium 4.1 Chloride 87 L Carbon Dioxide 20.4 Anion Gap 14 BUN 56 H Creatinine 3.0 H Estim Creat Clear Calc 17.7 L eGFR 21 L BUN/Creatinine Ratio 19 Glucose 310 H D Calculated Osmolality 271 L Calcium 8.3 Corrected Calcium 8.3 L Phosphorus 5.4 H Albumin 4.5 02/10/24 02/10/24 02/11/24 20:21 22:25 00:23 WBC RBC Hgb Hct MCV MCH MCHC RDW Std Deviation Plt Count Neut % (Auto) Lymph % (Auto) [place] % (Auto) Eos % (Auto) Baso % (Auto) Neut # (Auto) Lymph # (Auto) [place] # (Auto) Eos # (Auto) Baso # (Auto) Immature Gran # (Auto) Absolute Nucleated RBC Immature Gran % Nucleated RBC % Sodium 125 L 124 L 124 L Potassium Chloride Carbon Dioxide Anion Gap BUN Creatinine Estim Creat Clear Calc eGFR BUN/Creatinine Ratio Glucose Calculated Osmolality Calcium Corrected Calcium Phosphorus Albumin 02/11/24 02/11/24 02/11/24 01:54 05:08 07:01 WBC 11.3 H RBC 2.59 L Hgb 7.3 L Hct 20.6 L* MCV 80 MCH 28.2 MCHC 35.4 RDW Std Deviation 36.8 Plt Count 229 Neut % (Auto) 94 H Lymph % (Auto) 3 L [place] % (Auto) 3 Eos % (Auto) 0 Baso % (Auto) 0 Neut # (Auto) 10.6 H Lymph # (Auto) 0.3 L [place] # (Auto) 0.4 Eos # (Auto) 0.0 Baso # (Auto) 0.0 Immature Gran # (Auto) 0.08 H Absolute Nucleated RBC 0.00 Immature Gran % 1 H Nucleated RBC % 0 Sodium 123 L 122 L 122 L Potassium 3.9 Chloride 90 L Carbon Dioxide 19.5 L Anion Gap 13 BUN 57 H Creatinine 3.2 H Estim Creat Clear Calc 16.5 L eGFR 19 L BUN/Creatinine Ratio 18 Glucose 220 H D Calculated Osmolality 268 L Calcium 8.4 Corrected Calcium Phosphorus 6.7 H Albumin 02/11/24 09:04 WBC RBC Hgb Hct MCV MCH MCHC RDW Std Deviation Plt Count Neut % (Auto) Lymph % (Auto) [place] % (Auto) Eos % (Auto) Baso % (Auto) Neut # (Auto) Lymph # (Auto) [place] # (Auto) Eos # (Auto) Baso # (Auto) Immature Gran # (Auto) Absolute Nucleated RBC Immature Gran % Nucleated RBC % Sodium 121 L Potassium Chloride Carbon Dioxide Anion Gap BUN Creatinine Estim Creat Clear Calc eGFR BUN/Creatinine Ratio Glucose Calculated Osmolality Calcium Corrected Calcium Phosphorus Albumin ABG Interpretation ABG results: 02/09/24 02/09/24 02/09/24 09:30 12:12 19:16 ABG pH 7.26 L 7.31 L ABG pCO2 30 L 31 L ABG pO2 69 L 101 D ABG HCO3 13 L 15 L ABG O2 Saturation 93 99 H ABG Base Excess -13 L -10 L VBG pH 7.41 VBG pCO2 29 L VBG pO2 38 VBG Base Excess -6 L Quality Measures Quality Measures VTE prophylaxis Advance care planning discussed with:: patient and spouse Assessment & Plan Assessment Current Active Medications: Generic Name Dose Route Start Last Admin Trade Name Freq PRN Reason Stop Dose Admin Acetaminophen 650 mg 02/09/24 05:01 02/09/24 05:13 Acetaminophen 325 Mg Tablet PO 03/09/24 18:24 650 mg Q6H PRN Administration PAIN OR FEVER > 101 Albuterol/Ipratropium 3 ml 02/08/24 19:00 02/11/24 09:58 Albuterol/Ipratropium (Duoneb) Rt Romina 3 Ml Nebu INH 03/09/24 18:59 3 ml Q4HRRT ABHIJIT Administration Amlodipine Besylate 10 mg 02/09/24 21:00 02/10/24 21:58 Amlodipine Besylate 5 Mg Tablet PO 03/10/24 20:59 10 mg QPM ABHIJIT Administration Atorvastatin Calcium 10 mg 02/09/24 21:00 02/10/24 21:56 Atorvastatin Calcium 10 Mg Tablet PO 03/10/24 20:59 10 mg HS ABHIJIT Administration Bumetanide 2 mg 02/12/24 09:00 Bumetanide Inj 0.25 Mg/Ml Vial 4 Ml IVP 03/13/24 08:59 DAILY ABHIJIT Citric Acid/Sodium Citrate 30 ml 02/11/24 09:00 02/11/24 08:35 Citric Acid/Sodium Citr 15 Ml Udc (Bicitra) PO 03/12/24 08:59 30 ml BID ABHIJIT Administration Dextrose 25 ml 02/08/24 19:04 Dextrose 50%-Water Inj 50 Ml Syringe IV 03/09/24 19:03 Q15MIN PRN BG 50-70 responsive npo pt Dextrose 50 ml 02/08/24 19:04 Dextrose 50%-Water Inj 50 Ml Syringe IV 03/09/24 19:03 Q15MIN PRN BG <50 OR BG <70 & pt unresponsive Glucagon 1 mg 02/08/24 19:04 Glucagon Inj 1 Mg Vial IM Q15MIN PRN BG <70, and no IV access Hydralazine HCl 25 mg 02/09/24 06:00 02/11/24 05:18 Hydralazine Hcl 25 Mg Tablet PO 03/10/24 05:59 25 mg TID ABHIJIT Administration Ceftriaxone Sodium/Dextrose 50 mls @ 100 mls/hr 02/09/24 14:00 02/10/24 14:04 Rocephin/D5w 1gm Iv Premix IV 02/16/24 13:59 100 mls/hr QDAY@1400 ABHIJIT Administration Sodium Chloride 500 mls @ 50 mls/hr 02/09/24 17:59 02/10/24 19:19 Hypertonic Saline 3% IV Not Given .Q10H ABHIJTI Insulin Glargine 5 unit 02/10/24 21:00 02/10/24 21:51 Insulin Glargine (Lantus) 5 Unit/0.05 Ml (Per 5 Units) SC 03/11/24 20:59 Not Given HS ABHIJIT Insulin Human Lispro 0 unit 02/10/24 17:00 11/18/24 07:48 Insulin Lispro (Admelog) 1 Unit/0.01 Ml Unit SC 03/11/24 16:59 4 unit ACHS ABHIJIT Administration Protocol Methylprednisolone Sodium Succinate 60 mg 02/10/24 08:00 02/11/24 08:33 Methylprednisolone Sod Succ 40 Mg Vial IVP 02/17/24 07:59 60 mg Q12H ABHIJIT Administration Ondansetron HCl 4 mg 02/08/24 18:25 Ondansetron Inj 2 Mg/Ml Inj 2 Ml IV 03/09/24 18:24 Q6H PRN NAUSEA OR VOMITING Protocol Pantoprazole Sodium 40 mg 02/09/24 21:00 02/11/24 08:33 Pantoprazole Inj 40 Mg Vial IV 03/10/24 20:59 40 mg BID ABHIJIT Administration Sennosides 2 tab 02/08/24 18:25 Senna Tablet PO 03/09/24 18:24 BID PRN CONSTIPATION Protocol Sevelamer Carbonate 800 mg 02/11/24 12:00 Sevelamer Carbonate 800 Mg Tablet PO 03/12/24 11:59 TIDWM ABHIJIT Plan 70-year-old male with past medical history of hypertension, DM2, CKD, and CVA was admitted to the hospital on 02/08/2024 for hypoosmolar hyponatremia and acute hypoxic respiratory failure likely secondary to acute decompensated heart failure exacerbation versus pneumonia. #Hypoosmolar hyponatremia #Hypochloremia #Hyperphosphatemia ?Patient's sodium was initially 120 and dropped to 112 next day of admission -Sodium today 123 ?Phosphorus 6.7 and chloride 90 Plan: ?started sodium tablets 1gm BID and sevelamer 800 mg TID. ?Sodium checks every 4 hours ?Nephrology consulted, appreciate recommendations ?Will continue to monitor #Acute hypoxic respiratory failure #Pleural effusions #Acute decompensated heart failure exacerbation #HFpEF (EF 55-to 60% 2020) -Patient had LIBERTY LE edema 2+ on admission per chart review ?Echo on 2020 showed EF 55-60% ?BNP on 02/08/2024 was 381 ? Chest CT showed moderate heart failure with pleural effusions bilateral Plan: ?Decreased Bumex 2 mg to once daily ?Echo pending -Strict VALERIO's ?Keep potassium above 4 magnesium above 2 ?O2 administration as needed ?Cardiology consulted Dr. Amaya, appreciate commendations ? Will continue to monitor #Sepsis likely secondary to community-acquired pneumonia #Community-acquired pneumonia #lactic acidosis ?Initially patient came in with complaints of productive cough ?Patient met SIRS criteria 2 out of 4 with leukocytosis and tachypnea ?Chest x-ray 02/08/2024 showed bilateral pneumonia ?Chest x-ray on 02/09/2024 showed pneumonia lung bases ?WBC 11.3 today, likely reactive in the setting of steroids, no spikes in fevers ?Blood culture negative in 48 hours -Lactic acid 2.6 Plan: ?Continue azithromycin 500 mg daily and Rocephin 1 g daily [02/08-] ?Started Solu-Medrol 60 mg IV every 12 hours ?Will continue to monitor #NSTEMI type II likely demand ischemia ?Patient denies any chest pain?troponins ?Peaked at 1.242 and down trended. ?EKG showed sinus rhythm Plan: ?Will continue to monitor #NAGMA #Lactic acidosis ?Carbon dioxide 19.5 this morning Plan: ?Bicitra as per nephrology ?Will continue to monitor #Chronic anemia ?Patient's hemoglobin 7.3 today ?No active signs of bleeding ?Received 1 PRBC during his hospital stay Plan: ?Will transfuse if hemoglobin less than 7 ?GI consulted and recommended EGD once patient's O2 requirements decreased. ?Will continue to monitor #Hx of HTN ?DC'd amlodipine 10 mg every afternoon and hydralazine 25 mg 3 times daily -Started Diltiazem 60mg TID. #Hx of DM2 ?a1c 5.7 02/09/2024 Plan: ?ISS ?Accu-Cheks and hypoglycemic protocol ?Will continue to monitor #Hx of CKD ?Patient's baseline creatinine is around 2.3-3.1 ?Creatinine today 3.2 Plan: ?Avoid nephrotoxic agents ?Renally dose medications ?Nephrology consulted, appreciate recommendations ?Will continue to monitor #Hx of CVA ?Continue atorvastatin 10 mg at bedtime Disposition: Patient seen in telemetry watching sodium and pending echo. Diet: Cardiac, carb consistent low GI prophylaxis: protonix DVT prophylaxis: SCDs Code:Full Case disclosed with Attending Dr. Alexander and My senior Dr. Oneill PGY2. 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 Patient states that shortness of breath has been going on for the past 3 days denies any fevers or chills. In the ER, patient found to have hypoosmolar hyponatremia with sodium of 120 and subsequently started on normal saline admitted. Furthermore, patient also noted to have normocytic anemia however denies any melena or hematochezia. Overnight, patient noted to have worsening acute hypoxic respiratory failure with worsening crackles and lower extremity edema and subsequently started on diuretic therapy and BiPAP. Furthermore, patient's sodium also noted to drop to 112 and subsequently nephrology was consulted and recommended starting patient on 3% hypertonic saline renal panel every 2 hours. In addition, patient also noted to have elevated troponin however denies any chest pain and EKG with no ST elevation likely non-STEMI type II secondary to fluid overload state. As of now, patient's oxygen requirement is downtrending however creatinine continues to uptrend and appreciate nephrology input. Sodium up to 122. Continue to monitor closely and will follow-up with cardiology and nephrology input. Overall, clinically improving. I reviewed above note and agree with findings and plans. I have also personally examined the patient with medicine team and went over assessment and plan with medical team including manager of international and resident physician.
[2024-02-11] MEDS: SODIUM CHLORIDE 1 GM TABLET PO ×2 (12:05→20:23)
[2024-02-11] MEDS: SEVELAMER CARBONATE 800 MG TABLET PO ×2 (12:06→16:57)
[2024-02-11] MEDS: LACTULOSE SYRUP 20 GM/30 ML UDC 10 GM PO (12:06)
[2024-02-11 12:09] LABS: Sodium 123 mMol/L (136-145)
[2024-02-11 12:33] LABS: Cocci Serology, IgG Negative (Negative)
--- NOTE | 2024-02-11 13:17 | PD.NEPHPROG ---
Documentation for date of: 02/11/24 Subjective Subjective Interval history: Mr. 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 Patient's is at bedside and majority of history was taken from her. Patient has been having shortness of breath and wheezing with mild cough and white phlegm for the past 2 days. Patient states that he also is mildly congested denies any runny nose sick contacts or travel history. The noted that recently he has been feeling bloating but denies any changes in the appetite nausea vomiting or abdominal pain. Patient denies any history of prior asthma history. In the ED patient's vitals include blood pressure 164/70 respirations 28, WBC 10.9, hemoglobin 7.3, hematocrit 21.5, and sodium 120. Creatinine 2.9, GFR 21, osmolality 259, BNP 381, lipase 76. Chest x-ray findings include subtle opacity in both lungs suspicious for bilateral basilar pneumonia. In the ED patient received a breathing treatment, Rocephin x 1. Patient admitted for hypoosmolar hyponatremia. Nephrology was consulted for hyponatremia and DIAN on CKD. Primary team ordered urine electrolytes, started patient on IV fluids normal saline at 75 mL/h, every 4 sodium checks. Urine electrolytes showed urine sodium less than 15. Renal ultrasound showed no hydronephrosis, renal cortical thinning and renal parenchymal scar formation. Patient continued to deteriorate: Hemoglobin 6.3, sodium 117, BUN 51, creatinine 2.7, eGFR 23. Patient was examined on the floors, sitting at side of bed, in clear distress. Patient had labored breathing, audible wheezing, tense edema to bilateral lower extremities. Repeat sodium check 112. Patient received breathing treatment with minimal improvement. ICU was consulted for possible upgrade, patient started on hypertonic saline. ICU team aware of patient monitoring, elected to keep patient on floors for now. Blood transfusion held in setting of volume overload, will continue to monitor closely. Considered chest CT, delayed due to patient's respiratory distress. ABG showed pH 7.26, pCO2 30, pO2 69, bicarb 13. Lactic acid 3.8. No anion gap. Chest x-ray showed mild to moderate CHF pattern with severe vascular congestion including central vascular engorgement. 02/10/2024 patient currently seen in telemetry. Still having labored breathing and wheezing although slightly better than yesterday. With the Bumex patient put out 3.7 L. Sodium improved from 1 12-1 21. Clinically seems to be stable. at bedside. Blood pressure 154/80, heart rate 107. WBC 10.1, hemoglobin 7.2, platelets 203. Sodium 121, potassium 4.1, BUN 56, creatinine went up to 3.0, glucose 310, phosphorus 5.4, troponin 1.072. Chest x-ray yesterday showed moderate heart failure. 02/11/2024 patient still very short of breath although slightly better than yesterday. at bedside. Labs and medications have been reviewed. Continue with diuretics. Sodium 123. Salt tablets added. Metabolic acidosis noted-Bicitra given. Spoke to Dr. Burleson. Review of Systems Review of Systems Narrative Review of Systems: CONSTITUTIONAL: Complaining of fatigue CARDIOVASCULAR: Patient denies any chest pain. c/o shortness of breath, swelling in the lower extremities. PULMONARY: Patient complaining of wheezing,shortness of breath, cough. GASTROINTESTINAL: Patient denies any abdominal pain, constipation, nausea, vomiting, diarrhea. GENITOURINARY: Patient denies any urinary symptoms of burning or frequency or hematuria, denies any form in the urine. SKIN: Denies any rash. MUSCULOSKELETAL: Complaining of gait imbalance NEUROLOGICAL: Denies any neurological problems of strokes, seizures or confusion. Denies any memory problems. Exam Vital Signs Temp Pulse Resp BP Pulse Ox O2 Del Method O2 Flow Rate 36.7 C 98 17 139/66 H 98 Nasal Cannula 4 02/11/24 12:00 02/11/24 12:00 02/11/24 12:00 02/11/24 12:00 02/11/24 12:00 02/11/24 12:00 02/11/24 10:00 FiO2 35 02/11/24 04:00 Narrative Exam GENERAL APPEARANCE: Fragile gentleman currently seen in telemetry. Short of breath. On nasal cannula NECK: ++ JVD CARDIOVASCULAR: Heart regular, no murmurs, tachycardia LUNGS/CHEST: Bilateral crackles, wheezing heard ABDOMEN: Soft, nontender, nondistended. No masses. Normal bowel sounds. EXTREMITIES: 2+ edema noted in the lower extremities (right greater than the left SKIN: Skin exam normal without any rashes MUSCULOSKELETAL: In bed NEUROLOGICAL : No neurological deficits. Alert and awake Objective Labs 02/12/24 05:27 02/12/24 05:27 Labs: Laboratory Results - last 24 hr 02/09/24 02/10/24 02/10/24 12:42 12:50 15:18 WBC RBC Hgb Hct MCV MCH MCHC RDW Std Deviation Plt Count Neut % (Auto) Lymph % (Auto) [place] % (Auto) Eos % (Auto) Baso % (Auto) Neut # (Auto) Lymph # (Auto) [place] # (Auto) Eos # (Auto) Baso # (Auto) Immature Gran # (Auto) Absolute Nucleated RBC Immature Gran % Nucleated RBC % Sodium 121 L 121 L Potassium 4.1 Chloride 87 L Carbon Dioxide 20.4 Anion Gap 14 BUN 56 H Creatinine 3.0 H Estim Creat Clear Calc 17.7 L eGFR 21 L BUN/Creatinine Ratio 19 Glucose 310 H D Calculated Osmolality 271 L Calcium 8.3 Corrected Calcium 8.3 L Phosphorus 5.4 H Albumin 4.5 Coccidioides IgG Ab Negative 02/10/24 02/10/24 02/11/24 20:21 22:25 00:23 WBC RBC Hgb Hct MCV MCH MCHC RDW Std Deviation Plt Count Neut % (Auto) Lymph % (Auto) [place] % (Auto) Eos % (Auto) Baso % (Auto) Neut # (Auto) Lymph # (Auto) [place] # (Auto) Eos # (Auto) Baso # (Auto) Immature Gran # (Auto) Absolute Nucleated RBC Immature Gran % Nucleated RBC % Sodium 125 L 124 L 124 L Potassium Chloride Carbon Dioxide Anion Gap BUN Creatinine Estim Creat Clear Calc eGFR BUN/Creatinine Ratio Glucose Calculated Osmolality Calcium Corrected Calcium Phosphorus Albumin Coccidioides IgG Ab 02/11/24 02/11/24 02/11/24 01:54 05:08 07:01 WBC 11.3 H RBC 2.59 L Hgb 7.3 L Hct 20.6 L* MCV 80 MCH 28.2 MCHC 35.4 RDW Std Deviation 36.8 Plt Count 229 Neut % (Auto) 94 H Lymph % (Auto) 3 L [place] % (Auto) 3 Eos % (Auto) 0 Baso % (Auto) 0 Neut # (Auto) 10.6 H Lymph # (Auto) 0.3 L [place] # (Auto) 0.4 Eos # (Auto) 0.0 Baso # (Auto) 0.0 Immature Gran # (Auto) 0.08 H Absolute Nucleated RBC 0.00 Immature Gran % 1 H Nucleated RBC % 0 Sodium 123 L 122 L 122 L Potassium 3.9 Chloride 90 L Carbon Dioxide 19.5 L Anion Gap 13 BUN 57 H Creatinine 3.2 H Estim Creat Clear Calc 16.5 L eGFR 19 L BUN/Creatinine Ratio 18 Glucose 220 H D Calculated Osmolality 268 L Calcium 8.4 Corrected Calcium Phosphorus 6.7 H Albumin Coccidioides IgG Ab 02/11/24 02/11/24 09:04 11:14 WBC RBC Hgb Hct MCV MCH MCHC RDW Std Deviation Plt Count Neut % (Auto) Lymph % (Auto) [place] % (Auto) Eos % (Auto) Baso % (Auto) Neut # (Auto) Lymph # (Auto) [place] # (Auto) Eos # (Auto) Baso # (Auto) Immature Gran # (Auto) Absolute Nucleated RBC Immature Gran % Nucleated RBC % Sodium 121 L 123 L Potassium Chloride Carbon Dioxide Anion Gap BUN Creatinine Estim Creat Clear Calc eGFR BUN/Creatinine Ratio Glucose Calculated Osmolality Calcium Corrected Calcium Phosphorus Albumin Coccidioides IgG Ab ABG Interpretation ABG results: 02/09/24 02/09/24 02/09/24 09:30 12:12 19:16 ABG pH 7.26 L 7.31 L ABG pCO2 30 L 31 L ABG pO2 69 L 101 D ABG HCO3 13 L 15 L ABG O2 Saturation 93 99 H ABG Base Excess -13 L -10 L VBG pH 7.41 VBG pCO2 29 L VBG pO2 38 VBG Base Excess -6 L Assessment & Plan Additional Assessment & Plan Additional Plan: Mr. 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 Patient is been having shortness of breath and wheezing with mild cough and white phlegm for the past 2 days. #Hyperosmolar hyponatremia--patient sodium dropped to 112-- 123. Clinically looks rather hypervolemic. Added salt tablet #DIAN on CKD On admission patient sodium 120, was initially treated with normal saline at 75 mL/h. Sodium increased to 122 and sharply declined to 112. Osmolality 259 decreased to 246. ICU team consulted, patient will remain on floors, ICU will monitor. Urinalysis showed urine sodium less than 15. Patient appears volume overloaded: CHF pattern with vascular congestion on chest x-ray, 2+ tense edema bilateral lower extremities. ABG showed pH 7.2, pCO2 30, pO2 69, bicarb 13. Lactic acid 3.8, no anion gap. Patient received 1 dose 40 mg IV Lasix and [address] ordered, delayed due to patient severe respiratory distress. BUN 51, creatinine 3.0. Secondary to diuretics worse than patient's baseline. Renal ultrasound showed no hydronephrosis, bilateral renal cortical thinning and renal parenchymal scar formation. Plan: Continue with the diuretics. Clinically he seems to be tad better today. -Every 4 hour sodium checks -Renally dose meds -Avoid nephrotoxic medications -Monitor daily renal function ICU team on the case #Acute hypoxic respiratory failure #Chronic anemia #History of diabetes mellitus #History of primary hypertension #History of CVA without residual deficit Management as per primary team Spoke to Dr. Burleson-hold dialysis as he responded very well to diuretics. Continue with the Bumex IV 2 mg daily Spoke to at bedside. Time spent more than 35 minutes regarding plan of care and disease management. Spoke to primary team Quality - progress note Quality Measures Quality Measures: VTE prophylaxis Reason for Continued Stay Reason for Continued Stay: further monitoring
[2024-02-11 13:32] LABS: Sodium 123 mMol/L (136-145)
[2024-02-11] MEDS: cefTRIAXone/D5w 1gm IV premix 50 ML IV (13:47)
--- NOTE | 2024-02-11 14:22 | PC.SS ---
Update: MRI was negative, Echo reading is pending. Plan is to d/c tomorrow.
[2024-02-11 15:47] LABS: Sodium 123 mMol/L (136-145)
[2024-02-11] MEDS: ATORVASTATIN CALCIUM 10 MG TABLET PO (20:23)
[2024-02-11] MEDS: INSULIN GLARGINE (Lantus) 5 UNIT/0.05 ML (PER 5 UNITS) SC (20:39)
[2024-02-11] MEDS: DILTIAZEM 30 MG TABLET 60 MG PO (22:23)
[2024-02-12] VITALS (19 sets, daily range): BP systolic 141–159; BP diastolic 66–93; PULSE 76–104; RESP 15–22; TEMP 36.4–37.1; O2SAT 92–100; BMI 22.6
[2024-02-12] MEDS: ALBUTEROL/IPRATROPIUM (Duoneb) RT SOL 3 ML NEBU INH ×5 (02:33→22:36)
[2024-02-12] MEDS: DILTIAZEM 30 MG TABLET 60 MG PO ×3 (05:00→21:12)
[2024-02-12 06:37] LABS: Basophils % (Auto) 0 % (0-2.5); Eosinophils % (Auto) 0 % (0-10); Immature Granulocytes % (Auto) 1 % (0-0); Immature Granulocytes Auto 0.14 Thou/mm3 (0.00-0.00); Lymphocytes # (Auto) 0.3 Thou/mm3 (1.0-4.8); Lymphocytes % (Auto) 3 % (10-50); Mean Corpuscular HGB Conc 35.5 g/dl (31.0-37.0); Mean Corpuscular Hemoglobin 28.4 pg (25.0-35.0); Mean Corpuscular Volume 80 fL (80-100); Monocytes # (Auto) 0.5 Thou/mm3 (0.0-0.8); Monocytes % (Auto) 4 % (0-12); Neutrophils # (Auto) 12.2 Thou/mm3 (1.8-7.7); Neutrophils % (Auto) 92 % (37-80); Nucleated Red Blood Cell % 0 /100 WBC (0); Platelet Count 275 Thou/mm3 (140-440); Red Blood Count 2.64 Miln/mm3 (4.50-5.90); White Blood Count 13.1 Thou/mm3 (3.8-10.6)
[2024-02-12 06:46] LABS: Hematocrit 21.1 % (41.0-53.0); Hemoglobin 7.5 g/dL (13.5-16.0)
[2024-02-12 07:25] LABS: Alanine Aminotransferase 86 U/L (10-49); Albumin, Serum 4.4 gm/dL (3.4-4.8); Alkaline Phosphatase 48 U/L (46-116); Anion Gap 13 (7-16); Aspartate Amino Transferase 97 U/L (0-34); BUN/Creatinine Ratio 19 Ratio (12-20); Bilirubin,Total 0.5 mg/dL (0.3-1.2); Blood Urea Nitrogen 69 mg/dL (9-23); Calcium 8.9 mg/dL (8.3-10.6); Calcium (Corrected) 8.9 mg/dL (8.5-10.1); Carbon Dioxide 22.9 mMol/L (20.0-31.0); Chloride 89 mMol/L (98-107); Creatinine (Component) 3.6 mg/dL (0.6-1.3); Estimated Creatinine Clearance 14.7 mL/min (>60); Globulin 2.2 gm/dL (2.3-3.5); Glucose 218 mg/dL (74-106); Osmolality,Calculated 278 (275-295); Phosphorous 6.6 mg/dL (2.4-5.1); Sodium 125 mMol/L (136-145); Total Protein 6.6 gm/dL (5.7-8.2); eGFR 17 See Note
[2024-02-12] MEDS: INSULIN LISPRO (AdmeLOG) 1 UNIT/0.01 ML UNIT SC ×3 (07:47→16:47)
[2024-02-12] MEDS: BUMETANIDE INJ 0.25 MG/ML VIAL 4 ML 2 MG IVP (08:47)
[2024-02-12] MEDS: PANTOPRAZOLE INJ 40 MG VIAL IV ×2 (08:47→21:08)
[2024-02-12] MEDS: SODIUM CHLORIDE 1 GM TABLET PO ×2 (08:47→21:10)
[2024-02-12] MEDS: SEVELAMER CARBONATE 800 MG TABLET PO ×3 (08:47→16:52)
[2024-02-12] MEDS: CITRIC ACID/SODIUM CITR 15 ML UDC (BICITRA) 30 ML PO ×2 (08:48→21:10)
--- NOTE | 2024-02-12 09:56 | ESPR_ITS ---
Documentation for date of: 02/12/24 Subjective Subjective Interval history: Mr. 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 Patient's is at bedside and majority of history was taken from her. Patient has been having shortness of breath and wheezing with mild cough and white phlegm for the past 2 days. Patient states that he also is mildly congested denies any runny nose sick contacts or travel history. The noted that recently he has been feeling bloating but denies any changes in the appetite nausea vomiting or abdominal pain. Patient denies any history of prior asthma history. In the ED patient's vitals include blood pressure 164/70 respirations 28, WBC 10.9, hemoglobin 7.3, hematocrit 21.5, and sodium 120. Creatinine 2.9, GFR 21, osmolality 259, BNP 381, lipase 76. Chest x-ray findings include subtle opacity in both lungs suspicious for bilateral basilar pneumonia. In the ED patient received a breathing treatment, Rocephin x 1. Patient admitted for hypoosmolar hyponatremia. Nephrology was consulted for hyponatremia and DIAN on CKD. Primary team ordered urine electrolytes, started patient on IV fluids normal saline at 75 mL/h, every 4 sodium checks. Urine electrolytes showed urine sodium less than 15. Renal ultrasound showed no hydronephrosis, renal cortical thinning and renal parenchymal scar formation. Patient continued to deteriorate: Hemoglobin 6.3, sodium 117, BUN 51, creatinine 2.7, eGFR 23. Patient was examined on the floors, sitting at side of bed, in clear distress. Patient had labored breathing, audible wheezing, tense edema to bilateral lower extremities. Repeat sodium check 112. Patient received breathing treatment with minimal improvement. ICU was consulted for possible upgrade, patient started on hypertonic saline. ICU team aware of patient monitoring, elected to keep patient on floors for now. Blood transfusion held in setting of volume overload, will continue to monitor closely. Considered chest CT, delayed due to patient's respiratory distress. ABG showed pH 7.26, pCO2 30, pO2 69, bicarb 13. Lactic acid 3.8. No anion gap. Chest x-ray showed mild to moderate CHF pattern with severe vascular congestion including central vascular engorgement. 02/10/2024 patient currently seen in telemetry. Still having labored breathing and wheezing although slightly better than yesterday. With the Bumex patient put out 3.7 L. Sodium improved from 1 12-1 21. Clinically seems to be stable. at bedside. Blood pressure 154/80, heart rate 107. WBC 10.1, hemoglobin 7.2, platelets 203. Sodium 121, potassium 4.1, BUN 56, creatinine went up to 3.0, glucose 310, phosphorus 5.4, troponin 1.072. Chest x-ray yesterday showed moderate heart failure. 02/11/2024 patient seen and examined in telemetry. Patient appears comfortable, mildly agitated/excitable. Lung sounds greatly improved, minimal lower extremity edema. 1.5 L urine output. Sodium continues to improve: 123 increased to 125. Potassium 4.0, bicarb 22.9, BUN 69, creatinine 3.6, eGFR 17. Exam Vital Signs Temp Pulse Resp BP Pulse Ox O2 Del Method O2 Flow Rate 98.1 F 86 16 145/66 H 97 Nasal Cannula 4 02/12/24 07:54 02/12/24 08:47 02/12/24 07:54 02/12/24 08:47 02/12/24 07:54 02/12/24 07:54 02/12/24 07:54 FiO2 35 02/11/24 04:00 Narrative Exam GENERAL APPEARANCE: Fragile gentleman currently seen in telemetry. Short of breath. On nasal cannula NECK: ++ JVD CARDIOVASCULAR: Heart regular, no murmurs, tachycardia LUNGS/CHEST: Minimal bibasilar crackles ABDOMEN: Soft, nontender, nondistended. No masses. Normal bowel sounds. EXTREMITIES: Trace edema BLE SKIN: Skin exam normal without any rashes MUSCULOSKELETAL: In bed NEUROLOGICAL : No neurological deficits. Alert and awake Objective Labs 02/12/24 05:27 02/12/24 05:27 Labs: Laboratory Results - last 24 hr 02/09/24 02/09/24 02/11/24 09:47 12:42 11:14 WBC RBC Hgb Hct MCV MCH MCHC RDW Std Deviation Plt Count Neut % (Auto) Lymph % (Auto) [place] % (Auto) Eos % (Auto) Baso % (Auto) Neut # (Auto) Lymph # (Auto) [facility] # (Auto) Eos # (Auto) Baso # (Auto) Immature Gran # (Auto) Absolute Nucleated RBC Immature Gran % Nucleated RBC % Sodium 123 L Potassium Chloride Carbon Dioxide Anion Gap BUN Creatinine Estim Creat Clear Calc eGFR BUN/Creatinine Ratio Glucose Calculated Osmolality Calcium Corrected Calcium Phosphorus Total Bilirubin AST ALT Alkaline Phosphatase Total Protein Albumin Globulin Albumin/Globulin Ratio Coccidioides IgG Ab Negative Crossmatch See Detail 02/11/24 02/11/24 02/12/24 13:00 15:07 05:27 WBC 13.1 H RBC 2.64 L Hgb 7.5 L Hct 21.1 L* MCV 80 MCH 28.4 MCHC 35.5 RDW Std Deviation 37.0 Plt Count 275 D Neut % (Auto) 92 H Lymph % (Auto) [address] [facility] % (Auto) 4 Eos % (Auto) 0 Baso % (Auto) 0 Neut # (Auto) 12.2 H Lymph # (Auto) 0.[address] [facility] # (Auto) 0.5 Eos # (Auto) 0.0 Baso # (Auto) 0.0 Immature Gran # (Auto) 0.14 H Absolute Nucleated RBC 0.00 Immature Gran % 1 H Nucleated RBC % 0 Sodium 123 L 123 L 125 L Potassium 4.0 Chloride 89 L Carbon Dioxide 22.9 Anion Gap 13 BUN 69 H Creatinine 3.6 H Estim Creat Clear Calc 14.7 L eGFR 17 L BUN/Creatinine Ratio 19 Glucose 218 H Calculated Osmolality 278 Calcium 8.9 Corrected Calcium 8.9 Phosphorus 6.6 H Total Bilirubin 0.5 AST 97 H ALT 86 H Alkaline Phosphatase 48 Total Protein 6.6 Albumin 4.4 Globulin 2.2 L Albumin/Globulin Ratio 2.0 Coccidioides IgG Ab Crossmatch ABG Interpretation ABG results: 02/09/24 02/09/24 02/09/24 09:30 12:12 19:16 ABG pH 7.26 L 7.31 L ABG pCO2 30 L 31 L ABG pO2 69 L 101 D ABG HCO3 13 L 15 L ABG O2 Saturation 93 99 H ABG Base Excess -13 L -10 L VBG pH 7.41 VBG pCO2 29 L VBG pO2 38 VBG Base Excess -6 L Quality Measures Quality Measures VTE prophylaxis Advance care planning discussed with:: patient Assessment & Plan Assessment Current Active Medications: Generic Name Dose Route Start Last Admin Trade Name Freq PRN Reason Stop Dose Admin Acetaminophen 650 mg 02/09/24 05:01 02/09/24 05:13 Acetaminophen 325 Mg Tablet PO 03/09/24 18:24 650 mg Q6H PRN Administration PAIN OR FEVER > 101 Albuterol/Ipratropium 3 ml 02/08/24 19:00 02/12/24 07:49 Albuterol/Ipratropium (Duoneb) Rt Romina 3 Ml Nebu INH 03/09/24 18:59 Not Given Q4HRRT ABHIJIT Atorvastatin Calcium 10 mg 02/09/24 21:00 02/11/24 20:23 Atorvastatin Calcium 10 Mg Tablet PO 03/10/24 20:59 10 mg HS ABHIJIT Administration Bumetanide 2 mg 02/12/24 09:00 02/12/24 08:47 Bumetanide Inj 0.25 Mg/Ml Vial 4 Ml IVP 03/13/24 08:59 2 mg DAILY ABHIJIT Administration Citric Acid/Sodium Citrate 30 ml 02/11/24 09:00 02/12/24 08:48 Citric Acid/Sodium Citr 15 Ml Udc (Bicitra) PO 03/12/24 08:59 30 ml BID ABHIJIT Administration Dextrose 25 ml 02/08/24 19:04 Dextrose 50%-Water Inj 50 Ml Syringe IV 03/09/24 19:03 Q15MIN PRN BG 50-70 responsive npo pt Dextrose 50 ml 02/08/24 19:04 Dextrose 50%-Water Inj 50 Ml Syringe IV 03/09/24 19:03 Q15MIN PRN BG <50 OR BG <70 & pt unresponsive Diltiazem HCl 60 mg 02/11/24 22:00 02/12/24 05:00 Diltiazem 30 Mg Tablet PO 03/12/24 21:59 60 mg TID ABHIJIT Administration Glucagon 1 mg 02/08/24 19:04 Glucagon Inj 1 Mg Vial IM Q15MIN PRN BG <70, and no IV access Ceftriaxone Sodium/Dextrose 50 mls @ 100 mls/hr 02/09/24 14:00 02/11/24 13:47 Rocephin/D5w 1gm Iv Premix IV 02/16/24 13:59 100 mls/hr QDAY@1400 ABHIJIT Administration Sodium Chloride 500 mls @ 50 mls/hr 02/09/24 17:59 02/10/24 19:19 Hypertonic Saline 3% IV Not Given .Q10H ABHIJIT Insulin Glargine 5 unit 02/10/24 21:00 02/11/24 20:39 Insulin Glargine (Lantus) 5 Unit/0.05 Ml (Per 5 Units) SC 03/11/24 20:59 5 unit HS ABHIJIT Administration Insulin Human Lispro 0 unit 02/10/24 17:00 02/12/24 07:47 Insulin Lispro (Admelog) 1 Unit/0.01 Ml Unit SC 03/11/24 16:59 6 unit ACHS ABHIJIT Administration Protocol Methylprednisolone Sodium Succinate 60 mg 02/10/24 08:00 02/12/24 08:46 Methylprednisolone Sod Succ 40 Mg Vial IVP 02/17/24 07:59 60 mg Q12H ABHIJIT Administration Ondansetron HCl 4 mg 02/08/24 18:25 Ondansetron Inj 2 Mg/Ml Inj 2 Ml IV 03/09/24 18:24 Q6H PRN NAUSEA OR VOMITING Protocol Pantoprazole Sodium 40 mg 02/09/24 21:00 02/12/24 08:47 Pantoprazole Inj 40 Mg Vial IV 03/10/24 20:59 40 mg BID ABHIJIT Administration Sennosides 2 tab 02/08/24 18:25 Senna Tablet PO 03/09/24 18:24 BID PRN CONSTIPATION Protocol Sevelamer Carbonate 800 mg 02/11/24 12:00 02/12/24 08:47 Sevelamer Carbonate 800 Mg Tablet PO 03/12/24 11:59 800 mg TIDWM ABHIJIT Administration Sodium Chloride 1 gm 02/11/24 11:45 02/12/24 08:47 Sodium Chloride 1 Gm Tablet PO 03/12/24 11:44 1 gm BID ABHIJIT Administration Plan Mr. 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 Patient is been having shortness of breath and wheezing with mild cough and white phlegm for the past 2 days. #Hyperosmolar hyponatremia--patient sodium dropped to 112. Clinically looks rather hypervolemic. Will try 3% hypertonic saline along with diuretics. Vaprisol not available in this hospital. Patient seems to have gone into flash pulmonary edema. Will request ICU consult. Plan of care discussed with primary team. #DIAN on CKD On admission patient sodium 120, was initially treated with normal saline at 75 mL/h. Sodium increased to 122 and sharply declined to 112. Osmolality 259 decreased to 246. ICU team consulted, patient will remain on floors, ICU will monitor. Urinalysis showed urine sodium less than 15. Patient appears volume overloaded: CHF pattern with vascular congestion on chest x-ray, 2+ tense edema bilateral lower extremities. ABG showed pH 7.2, pCO2 30, pO2 69, bicarb 13. Lactic acid 3.8, no anion gap. Patient received 1 dose 40 mg IV Lasix and [address] ordered, delayed due to patient severe respiratory distress. BUN 51, creatinine 3.0. Worse than patient's baseline. Renal ultrasound showed no hydronephrosis, bilateral renal cortical thinning and renal parenchymal scar formation. 3% hypertonic saline has been held, patient on oral salt tabs Plan: Continue with the diuretics. Clinically he seems to be tad better today. Hold off on 3% and DDAVP -Every 4 hour sodium checks -Renally dose meds -Avoid nephrotoxic medications -Salt tabs p.o. 1 g twice daily -Monitor daily renal function ICU team on the case #Acute hypoxic respiratory failure #Chronic anemia #History of diabetes mellitus #History of primary hypertension #History of CVA without residual deficit Management as per primary team Spoke to Dr. Burleson-hold dialysis as he responded very well to diuretics. Continue with the Bumex IV 2 mg twice daily. Thank you for allow me to participate in the care of this patient. Plan of care discussed with attending Dr. West. Cornelio Powell MD PGY-1 Attending Provider Attestation/Addendum patient seen and examined with resident physician Dr. Powell. Note reviewed, agree with findings and recommendations with changes made. Patient clinically looks better than previous days although slightly confused. Question related to his hypoxic respiratory failure/ steroids/delirium. Will monitor closely. Sodium 125. Continue with diuretics. Creatinine elevated at 3.6. Unfortunately cannot stop diuretics as patient clinically seems to be in fluid overload. Might end up on dialysis short-term.
--- NOTE | 2024-02-12 12:34 | XR_ITS ---
Examination: Duplex scan of the lower extremity, unilateral left complete Date and time of exam: February 12, 2024 1406 hours INDICATIONS: Left leg swelling and calf pain beginning today Technique: Duplex scan of the extremity veins using B-mode/grayscale imaging and Doppler spectral analysis and color flow Attention is directed to internal echogenicity, compression and augmentation involving these veins, color flow assessment, spectral analysis Findings: Major deep venous structures in the extremity demonstrate normal course and caliber. There is no evidence of deep vein thrombosis. Normal color flow and spectral analysis Impression: Negative for DVT..
[2024-02-12] MEDS: cefTRIAXone/D5w 1gm IV premix 50 ML IV (13:46)
--- NOTE | 2024-02-12 14:34 | PC.SS ---
Rounding Note: Patient might require dialysis. Medical team to order Hep panel and TB test.
--- NOTE | 2024-02-12 14:35 | PC.SS ---
[facility] confirmed with patient's daughter, Daisy Acuna; that patient is not established with dialysis outpatient. Patient might be candidate for inpatient dialysis.
--- NOTE | 2024-02-12 15:20 | ESPR_ITS ---
<Statement entered by Hernandez Amaya MD - 02/15/24 08:56> I personally I personally examined the patient evaluated the patient in detail patient appears to be doing a little better but still having a lot of shortness of breath continue with IV diuretic therapy is tolerating well so far. I evaluated the patient all essential components of the note are reviewed by me treatment plan recommendations are reviewed agree with the treatment plan recommendation as formulated by Dr. Sanderson PGY 2 will continue to monitor the patient may require dialysis if he does not improve. Documentation for date of: 02/12/24 Subjective Subjective Interval history: The patient is a 78-year-old male with known history of longstanding hypertension, diabetes mellitus and chronic kidney disease stage IV, who is followed by Dr. West regularly, presented to the hospital with multiple symptoms being shortness of breath, orthopnea and volume overload. He was given some fluid, is not having much diuresis, having severe shortness of breath, not having any chest pain at all, but his cardiac enzymes were persistently elevated at one point initially 0.28, but went up to 1.24, 1.0, 1.03. The patient is still not having any chest pain and mostly orthopnea, has JVD with volume overload situation. He does not have any other symptoms for now, but he has been treated with IV Bumex with some urine output. The patient is also developed severe hyponatremia. Sodium 118, now up to 121, dilutional with low urine sodium. His creatinine is still going up steadily 3.0, BUN is 56 and mild acidosis, CO2 is 19. Blood gas showed pH 7.31, pCO2 of 31, and pO2 is 100. His chest x-ray does show evidence of pulmonary congestion and heart failure. EKG showed sinus rhythm. No evidence of ischemic change and now essentially unremarkable first-degree AV block. The patient is still having some shortness of breath and orthopnea and not complaining of any chest pain. Labs revealed troponin at 1.0. Hemoglobin at 7.3, white count 10. Chemistry panel showed BUN and creatinine elevated at 56 and 2.0. Sodium now 121. Creatinine clearance 21. PMH: As above Allergies: NKDA Home medications: Amlodipine 10 mg, hydralazine 25 mg, insulin 02/11/2024: Patient was seen and examined at the bedside. Patient is feeling better and is seen on nasal cannula 4 L. Morning labs revealed leukocytosis likely due to steroids, hemoglobin at 7.3. Chemistry panel showed sodium at 121 today. Kidney functions consistent with CKD stage IV with creatinine 3.2. Phosphorus at 6.7. Urine sodium less than 15, random total protein 165. Echocardiogram showed normal LV size and function. Estimated EF 60-65%Normal RV size and function.Estimated RVSP 53mmHg.Mild MR. Moderate TR. Trace AI. Recommended to continue Bumex 2 mg once a day, continuing IV ceftriaxone for treating infection. Sodium levels have improved. Nephrology team added salt tablets as well. After discussing with bridge engineer, we discontinued amlodipine and hydralazine and started Cardizem 60 mg 3 times daily. Patient's family was updated regarding the plan of care. Patient still making good urine output therefore nephrology will follow the patient closely due to his CKD stage IV. 02/12/24:Patient was seen and examined at the bedside, Patient appears improved in his breathing. Patient had Left leg swelling and calf pain. Vitals showed slight elevated BP. Labs showed Leukocytosis and Hgb around 7.5.Na improved to 125. Kidney functions showing Cr at 3.6. Doppler LE was negative for DVT.Recommended to continue Bumex 2 mg once a day, and cont cardizem 60 mg TID. Added nicardipine 20 mg twice daily for blood pressure control. Exam Vital Signs Temp Pulse Resp BP Pulse Ox O2 Del Method O2 Flow Rate 98.0 F 89 18 157/76 H 99 Nasal Cannula 2 02/12/24 12:00 02/12/24 14:37 02/12/24 14:37 02/12/24 13:45 02/12/24 14:37 02/12/24 12:00 02/12/24 14:37 FiO2 35 02/11/24 04:00 Narrative Exam GENERAL APPEARANCE: AxOx4, chronically ill-appearing male in no acute distress. HEENT: NC, AT. MMM. EOMI, clear conjunctiva, oropharynx clear.JVD NECK: Supple without lymphadenopathy. No stiffness or restricted ROM. Prominent JVD. HEART: Regular rate and regular rhythm, normal S1/S2, no m/r/g LUNGS: Decreased breath sounds and bilateral crackles heard on auscultation. ABDOMEN: Soft, nontender, nondistended with good bowel sounds heard. EXTREMITIES: 1+ pitting edema On both lower extremities. NEUROLOGICAL: Grossly nonfocal. Alert and oriented, moving all 4 extremities. CN not formally tested but appear grossly intact. Observed to ambulate with normal gait. Skin: Warm and dry without any rash. Psych: Appropriate mood and affect Objective Labs 02/12/24 05:27 02/12/24 05:27 Labs: Laboratory Results - last 24 hr 02/09/24 02/11/24 02/12/24 09:47 15:07 05:27 WBC 13.1 H RBC 2.64 L Hgb 7.5 L Hct 21.1 L* MCV 80 MCH 28.4 MCHC 35.5 RDW Std Deviation 37.0 Plt Count 275 D Neut % (Auto) 92 H Lymph % (Auto) 3 L [place] % (Auto) 4 Eos % (Auto) 0 Baso % (Auto) 0 Neut # (Auto) 12.2 H Lymph # (Auto) 0.3 L [place] # (Auto) 0.5 Eos # (Auto) 0.0 Baso # (Auto) 0.0 Immature Gran # (Auto) 0.14 H Absolute Nucleated RBC 0.00 Immature Gran % 1 H Nucleated RBC % 0 Sodium 123 L 125 L Potassium 4.0 Chloride 89 L Carbon Dioxide 22.9 Anion Gap 13 BUN 69 H Creatinine 3.6 H Estim Creat Clear Calc 14.7 L eGFR 17 L BUN/Creatinine Ratio 19 Glucose 218 H Calculated Osmolality 278 Calcium 8.9 Corrected Calcium 8.9 Phosphorus 6.6 H Total Bilirubin 0.5 AST 97 H ALT 86 H Alkaline Phosphatase 48 Total Protein 6.6 Albumin 4.4 Globulin 2.2 L Albumin/Globulin Ratio 2.0 Crossmatch See Detail ABG Interpretation ABG results: 02/09/24 02/09/24 02/09/24 09:30 12:12 19:16 ABG pH 7.26 L 7.31 L ABG pCO2 30 L 31 L ABG pO2 69 L 101 D ABG HCO3 13 L 15 L ABG O2 Saturation 93 99 H ABG Base Excess -13 L -10 L VBG pH 7.41 VBG pCO2 29 L VBG pO2 38 VBG Base Excess -6 L Quality Measures Quality Measures VTE prophylaxis Advance care planning discussed with:: patient Assessment & Plan Assessment Current Active Medications: Generic Name Dose Route Start Last Admin Trade Name Freq PRN Reason Stop Dose Admin Acetaminophen 650 mg 02/09/24 05:01 02/09/24 05:13 Acetaminophen 325 Mg Tablet PO 03/09/24 18:24 650 mg Q6H PRN Administration PAIN OR FEVER > 101 Albuterol/Ipratropium 3 ml 02/08/24 19:00 02/12/24 14:35 Albuterol/Ipratropium (Duoneb) Rt Romina 3 Ml Nebu INH 03/09/24 18:59 3 ml Q4HRRT ABHIJIT Administration Atorvastatin Calcium 10 mg 02/09/24 21:00 02/11/24 20:23 Atorvastatin Calcium 10 Mg Tablet PO 03/10/24 20:59 10 mg HS ABHIJIT Administration Bumetanide 2 mg 02/12/24 09:00 02/12/24 08:47 Bumetanide Inj 0.25 Mg/Ml Vial 4 Ml IVP 03/13/24 08:59 2 mg DAILY ABHIJIT Administration Citric Acid/Sodium Citrate 30 ml 02/11/24 09:00 02/12/24 08:48 Citric Acid/Sodium Citr 15 Ml Udc (Bicitra) PO 03/12/24 08:59 30 ml BID ABHIJIT Administration Dextrose 25 ml 02/08/24 19:04 Dextrose 50%-Water Inj 50 Ml Syringe IV 03/09/24 19:03 Q15MIN PRN BG 50-70 responsive npo pt Dextrose 50 ml 02/08/24 19:04 Dextrose 50%-Water Inj 50 Ml Syringe IV 03/09/24 19:03 Q15MIN PRN BG <50 OR BG <70 & pt unresponsive Diltiazem HCl 60 mg 02/11/24 22:00 02/12/24 13:45 Diltiazem 30 Mg Tablet PO 03/12/24 21:59 60 mg TID ABHIJIT Administration Glucagon 1 mg 02/08/24 19:04 Glucagon Inj 1 Mg Vial IM Q15MIN PRN BG <70, and no IV access Ceftriaxone Sodium/Dextrose 50 mls @ 100 mls/hr 02/09/24 14:00 02/12/24 13:46 Rocephin/D5w 1gm Iv Premix IV 02/16/24 13:59 100 mls/hr QDAY@1400 ABHIJIT Administration Sodium Chloride 500 mls @ 50 mls/hr 02/09/24 17:59 02/10/24 19:19 Hypertonic Saline 3% IV Not Given .Q10H ABHIJIT Insulin Glargine 5 unit 02/10/24 21:00 02/11/24 20:39 Insulin Glargine (Lantus) 5 Unit/0.05 Ml (Per 5 Units) SC 03/11/24 20:59 5 unit HS ABHIJIT Administration Insulin Human Lispro 0 unit 02/10/24 17:00 02/12/24 11:29 Insulin Lispro (Admelog) 1 Unit/0.01 Ml Unit SC 03/11/24 16:59 4 unit ACHS ABHIJIT Administration Protocol Methylprednisolone Sodium Succinate 60 mg 02/10/24 08:00 02/12/24 08:46 Methylprednisolone Sod Succ 40 Mg Vial IVP 02/17/24 07:59 60 mg Q12H ABHIJIT Administration Ondansetron HCl 4 mg 02/08/24 18:25 Ondansetron Inj 2 Mg/Ml Inj 2 Ml IV 03/09/24 18:24 Q6H PRN NAUSEA OR VOMITING Protocol Pantoprazole Sodium 40 mg 02/09/24 21:00 02/12/24 08:47 Pantoprazole Inj 40 Mg Vial IV 03/10/24 20:59 40 mg BID ABHIJIT Administration Sennosides 2 tab 02/08/24 18:25 Senna Tablet PO 03/09/24 18:24 BID PRN CONSTIPATION Protocol Sevelamer Carbonate 800 mg 02/11/24 12:00 02/12/24 12:34 Sevelamer Carbonate 800 Mg Tablet PO 03/12/24 11:59 800 mg TIDWM ABHIJIT Administration Sodium Chloride 1 gm 02/11/24 11:45 02/12/24 08:47 Sodium Chloride 1 Gm Tablet PO 03/12/24 11:44 1 gm BID ABHIJIT Administration Plan This 70-year-old male with past medical history of hypertension, DM2, CKD, and CVA was admitted to the hospital on 02/08/2024 for hypoosmolar hyponatremia and acute hypoxic respiratory failure likely secondary to acute decompensated heart failure exacerbation versus pneumonia. # Acute hypoxic respiratory failure # Likely secondary to pleural effusion versus HFpEF vs Fluid overload due to CKD # HFpEF EF 60 to 65% ?Patient presented with shortness of breath, wheezing and mild cough. Patient was kept on BiPAP due to increased work of breathing. Switched to OxyMask. ? Chest CT showed moderate heart failure with pleural effusions bilateral. ?Patient showed a diuresis output of 2.4 L with negative balance of 1.6 L. ?Patient's sodium has slightly improved at 123 ? Echocardiogram showed EF 60 to 65%. ? LE Doppler was negative for DVT. Plan: ? Added nicardipine 20 mg twice daily for blood pressure management ? Continue IV diuretics Bumex 2 mg once a day ? Continur Cardizem 60 mg 3 times daily ? Continue correcting hyponatremia ? Nephrology team added salt tablets and recommended to continue diuresis as 2 mg once a day ? No need of anticoagulation as patient has severe anemia ? Strict VALERIO's, fluid restriction and daily weight ? Oxygen as needed ? Daily labs ? Keep magnesium above 2 and potassium above 4 ? Primary team transfusing PRBCs ? Keep hemoglobin above 7 ? Continue IV antibiotic therapy and steroids for treating sepsis # History of hypertension # Hypertensive emergency ? Patient was taking amlodipine and hydralazine for blood pressure management. Plan: ?Added nicardipine 20 mg twice daily ? Continue Cardizem 60 mg 3 times a day ? DC'd amlodipine and hydralazine ? Monitor vitals # NSTEMI type II likely supply demand ischemia ? Troponin I peaked at 1.242 and down trended. EKG showed sinus rhythm. Plan: ? Continue to monitor for signs of chest pain or shortness of breath Other active problems: # Hypoosmolar hyponatremia # Hypochloremia -Nephrology following the case. # Sepsis likely secondary to community-acquired pneumonia # Lactic acidosis type B # NAGMA # Anemia of chronic disease # History of type 2 diabetes # CKD stage 4 # History of CVA #Moderate thoracic spondylosis per CT finding Rest of the management as per primary care team. Thank you very much for consulting cardiology team. Recommended to continue IV diuretic therapy, correcting underlying hyponatremia and treating underlying infection.Continue with Cardizem 60 3 times daily. Added nicardipine 20 mg twice daily. Plan of care discussed with network technician, Dr. Jose Luis Kern MD, PGY 2
--- NOTE | 2024-02-12 16:18 | ESPR_ITS ---
<Statement entered by Rahul Oneill MD - 02/12/24 18:29> Senior Resident Attestation: I supervised/discussed management plan with employee communications intern physician Dr. Key, and was involved in the care of this patient. I personally saw and examined the patient and discussed the assessment and plan with the entire medicine team, including my attending. I agree with the assessment and plan as documented. Patient's care was discussed with attending physician, Dr. Alexander. Rahul Oneill MD PGY-2. Documentation for date of: 02/12/24 Subjective Subjective Interval history: 02/08: Over night team reported patient had increasing wheezing and shortness of breath, and received multiple duoneds treatments. This mornign patient is seen and examined at bed. Pt. is unable to talk because of SOB, he is using orxygen via nasal cannula. Pt denies chest pains, nausea, vomiting or abdominal pain. He is loudly wheezing. Pt. reports worsening symptoms of SOB from last night. He continues to have mild cough with phelgm. but the SOB is bothering him the most. 02/09: Please see Dr. Hu notes 02/10: Please see Dr. Hu notes 02/11: No overnight events, patient is seen and examined at bedside. Patient appears to be comfortably breathing on 3 L of oxygen on nasal cannula. Patient has significant improvement in shortness of breath, wheezing and edema in the lower extremities. Patient denies any chest pain, continues to have minimal cough with phlegm. Patient denies any abdominal pain nausea or vomiting. Later in the afternoon patient had tenderness over the edema on the left extremity, Doppler ultrasound was negative for DVT. Patient has no other complaints Exam Vital Signs Temp Pulse Resp BP Pulse Ox O2 Del Method O2 Flow Rate 98.0 F 89 18 157/76 H 99 Nasal Cannula 2 02/12/24 12:00 02/12/24 14:37 02/12/24 14:37 02/12/24 13:45 02/12/24 14:37 02/12/24 12:00 02/12/24 14:37 FiO2 35 02/11/24 04:00 Narrative Exam GENERAL: A&Ox3 . 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 mucous membranes moist. Eyes open, symmetrical, & clear HEART: Normal Heart Sounds LUNGS: clear on auscultation ABDOMEN: soft, non-distended, non-tender, bowel sounds heard, no guarding or rebound tenderness SKIN: No Rash or ecchymoses EXTREMITIES: minimal pitting edema, nop tenderness, able to move all 4 extremities, pedal pulses palpated Objective Labs 02/14/24 08:27 02/14/24 04:25 Labs: Laboratory Results - last 24 hr 02/09/24 02/12/24 09:47 05:27 WBC 13.1 H RBC 2.64 L Hgb 7.5 L Hct 21.1 L* MCV 80 MCH 28.4 MCHC 35.5 RDW Std Deviation 37.0 Plt Count 275 D Neut % (Auto) 92 H Lymph % (Auto) 3 L [place] % (Auto) 4 Eos % (Auto) 0 Baso % (Auto) 0 Neut # (Auto) 12.2 H Lymph # (Auto) 0.3 L [place] # (Auto) 0.5 Eos # (Auto) 0.0 Baso # (Auto) 0.0 Immature Gran # (Auto) 0.14 H Absolute Nucleated RBC 0.00 Immature Gran % 1 H Nucleated RBC % 0 Sodium 125 L Potassium 4.0 Chloride 89 L Carbon Dioxide 22.9 Anion Gap 13 BUN 69 H Creatinine 3.6 H Estim Creat Clear Calc 14.7 L eGFR 17 L BUN/Creatinine Ratio 19 Glucose 218 H Calculated Osmolality 278 Calcium 8.9 Corrected Calcium 8.9 Phosphorus 6.6 H Total Bilirubin 0.5 AST 97 H ALT 86 H Alkaline Phosphatase 48 Total Protein 6.6 Albumin 4.4 Globulin 2.2 L Albumin/Globulin Ratio 2.0 Crossmatch See Detail ABG Interpretation ABG results: 02/09/24 02/09/24 02/09/24 09:30 12:12 19:16 ABG pH 7.26 L 7.31 L ABG pCO2 30 L 31 L ABG pO2 69 L 101 D ABG HCO3 13 L 15 L ABG O2 Saturation 93 99 H ABG Base Excess -13 L -10 L VBG pH 7.41 VBG pCO2 29 L VBG pO2 38 VBG Base Excess -6 L Quality Measures Quality Measures VTE prophylaxis Advance care planning discussed with:: patient Assessment & Plan Assessment Current Active Medications: Generic Name Dose Route Start Last Admin Trade Name Freq PRN Reason Stop Dose Admin Acetaminophen 650 mg 02/09/24 05:01 02/09/24 05:13 Acetaminophen 325 Mg Tablet PO 03/09/24 18:24 650 mg Q6H PRN Administration PAIN OR FEVER > 101 Albuterol/Ipratropium 3 ml 02/08/24 19:00 02/12/24 14:35 Albuterol/Ipratropium (Duoneb) Rt Romina 3 Ml Nebu INH 03/09/24 18:59 3 ml Q4HRRT ABHIJIT Administration Atorvastatin Calcium 10 mg 02/09/24 21:00 02/11/24 20:23 Atorvastatin Calcium 10 Mg Tablet PO 03/10/24 20:59 10 mg HS ABHIJIT Administration Bumetanide 2 mg 02/12/24 09:00 02/12/24 08:47 Bumetanide Inj 0.25 Mg/Ml Vial 4 Ml IVP 03/13/24 08:59 2 mg DAILY ABHIJIT Administration Citric Acid/Sodium Citrate 30 ml 02/11/24 09:00 02/12/24 08:48 Citric Acid/Sodium Citr 15 Ml Udc (Bicitra) PO 03/12/24 08:59 30 ml BID ABHIJIT Administration Dextrose 25 ml 02/08/24 19:04 Dextrose 50%-Water Inj 50 Ml Syringe IV 03/09/24 19:03 Q15MIN PRN BG 50-70 responsive npo pt Dextrose 50 ml 02/08/24 19:04 Dextrose 50%-Water Inj 50 Ml Syringe IV 03/09/24 19:03 Q15MIN PRN BG <50 OR BG <70 & pt unresponsive Diltiazem HCl 60 mg 02/11/24 22:00 02/12/24 13:45 Diltiazem 30 Mg Tablet PO 03/12/24 21:59 60 mg TID ABHIJIT Administration Glucagon 1 mg 02/08/24 19:04 Glucagon Inj 1 Mg Vial IM Q15MIN PRN BG <70, and no IV access Ceftriaxone Sodium/Dextrose 50 mls @ 100 mls/hr 02/09/24 14:00 02/12/24 13:46 Rocephin/D5w 1gm Iv Premix IV 02/16/24 13:59 100 mls/hr QDAY@1400 ABHIJIT Administration Sodium Chloride 500 mls @ 50 mls/hr 02/09/24 17:59 02/10/24 19:19 Hypertonic Saline 3% IV Not Given .Q10H ABHIJIT Insulin Glargine 5 unit 02/10/24 21:00 02/11/24 20:39 Insulin Glargine (Lantus) 5 Unit/0.05 Ml (Per 5 Units) SC 03/11/24 20:59 5 unit HS ABHIJIT Administration Insulin Human Lispro 0 unit 02/10/24 17:00 02/12/24 11:29 Insulin Lispro (Admelog) 1 Unit/0.01 Ml Unit SC 03/11/24 16:59 4 unit ACHS ABHIJIT Administration Protocol Methylprednisolone Sodium Succinate 60 mg 02/10/24 08:00 02/12/24 08:46 Methylprednisolone Sod Succ 40 Mg Vial IVP 02/17/24 07:59 60 mg Q12H ABHIJIT Administration Ondansetron HCl 4 mg 02/08/24 18:25 Ondansetron Inj 2 Mg/Ml Inj 2 Ml IV 03/09/24 18:24 Q6H PRN NAUSEA OR VOMITING Protocol Pantoprazole Sodium 40 mg 02/09/24 21:00 02/12/24 08:47 Pantoprazole Inj 40 Mg Vial IV 03/10/24 20:59 40 mg BID ABHIJIT Administration Sennosides 2 tab 02/08/24 18:25 Senna Tablet PO 03/09/24 18:24 BID PRN CONSTIPATION Protocol Sevelamer Carbonate 800 mg 02/11/24 12:00 02/12/24 12:34 Sevelamer Carbonate 800 Mg Tablet PO 03/12/24 11:59 800 mg TIDWM ABHIJIT Administration Sodium Chloride 1 gm 02/11/24 11:45 02/12/24 08:47 Sodium Chloride 1 Gm Tablet PO 03/12/24 11:44 1 gm BID ABHIJIT Administration Plan 70-year-old male with past medical history of hypertension, DM2, CKD, and CVA was admitted to the hospital on 02/08/2024 for hypoosmolar hyponatremia and acute hypoxic respiratory failure likely secondary to acute decompensated heart failure exacerbation versus pneumonia. #Hypoosmolar hyponatremia #Hypochloremia #Hyperphosphatemia ?Patient's sodium was initially 120 and dropped to 112 next day of admission -Sodium today 125 ?Phosphorus 6.6 and chloride 89 Plan: ?started sodium tablets 1gm BID and sevelamer 800 mg TID. ?Sodium checks every 4 hours ?Nephrology consulted, appreciate recommendations ?Will continue to monitor #Acute hypoxic respiratory failure #Pleural effusions #Acute decompensated heart failure exacerbation #HFpEF (EF 55-to 60% 2020) -Patient had LIBERTY LE edema 2+ on admission per chart review ?Echo on 2020 showed EF 55-60%, without evidence of diastolic dysfuntion ?BNP on 02/08/2024 was 381 ?Chest CT showed moderate heart failure with pleural effusions bilateral ?Echo 02/10- estimated EF 60-65% and Mild MR and moderate TR Plan: ?Continue Bumex 2mg to once daily -Strict VALERIO's ?Keep potassium above 4 magnesium above 2 ?O2 administration as needed ?Cardiology consulted Dr. Amaya, appreciate commendations ? Will continue to monitor #Sepsis likely secondary to community-acquired pneumonia #Community-acquired pneumonia #lactic acidosis ?Initially patient came in with complaints of productive cough ?Patient met SIRS criteria 2 out of 4 with leukocytosis and tachypnea ?Chest x-ray 02/08/2024 showed bilateral pneumonia ?Chest x-ray on 02/09/2024 showed pneumonia lung bases ?WBC 11.3 today, likely reactive in the setting of steroids, no spikes in fevers ?Blood culture negative in 48 hours -Lactic acid 2.6 Plan: ?Continue azithromycin 500 mg daily and Rocephin 1 g daily [02/08-] ?Started Solu-Medrol 60 mg IV every 12 hours ?Will continue to monitor #NSTEMI type II likely demand ischemia ?Patient denies any chest pain?troponins ?Peaked at 1.242 and down trended. ?EKG showed sinus rhythm Plan: ?Will continue to monitor #NAGMA #Lactic acidosis ?Carbon dioxide 19.5 this morning Plan: ?Bicitra as per nephrology ?Will continue to monitor #Chronic anemia ?Patient's hemoglobin 7.3 today ?No active signs of bleeding ?Received 1 PRBC during his hospital stay Plan: ?Will transfuse if hemoglobin less than 7 ?GI consulted and recommended EGD once patient's O2 requirements decreased. ?Will continue to monitor #Hx of HTN ?DC'd amlodipine 10 mg every afternoon and hydralazine 25 mg 3 times daily -Started Diltiazem 60mg TID. #Hx of DM2 ?a1c 5.7 02/09/2024 Plan: ?ISS ?Accu-Cheks and hypoglycemic protocol ?Will continue to monitor #Hx of CKD ?Patient's baseline creatinine is around 2.3-3.1 ?Creatinine today 3.2 Plan: ?Avoid nephrotoxic agents ?Renally dose medications ?Nephrology consulted, appreciate recommendations ?Will continue to monitor #Hx of CVA ?Continue atorvastatin 10 mg at bedtime Disposition: tele for continue to monitor sodium Diet: Cardiac, carb consistent low GI prophylaxis: protonix DVT prophylaxis: SCDs Code:Full Assessment and plan discussed with my senior resident Dr. Oneill & attending physician Dr. 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 Patient states that shortness of breath has been going on for the past 3 days denies any fevers or chills. In the ER, patient found to have hypoosmolar hyponatremia with sodium of 120 and subsequently started on normal saline admitted. Furthermore, patient also noted to have normocytic anemia however denies any melena or hematochezia. Overnight, patient noted to have worsening acute hypoxic respiratory failure with worsening crackles and lower extremity edema and subsequently started on diuretic therapy and BiPAP. Furthermore, patient's sodium also noted to drop to 112 and subsequently nephrology was consulted and recommended starting patient on 3% hypertonic saline renal panel every 2 hours. In addition, patient also noted to have elevated troponin however denies any chest pain and EKG with no ST elevation likely non-STEMI type II secondary to fluid overload state. As of now, patient's oxygen requirement is downtrending however creatinine continues to uptrend and appreciate nephrology input. Sodium up to 122. Continue to monitor closely and will follow-up with cardiology and nephrology input. Overall, clinically improving. I reviewed above note and agree with findings and plans. I have also personally examined the patient with medicine team and went over assessment and plan with medical team including employee communications intern and resident physician.
[2024-02-12] MEDS: INSULIN GLARGINE (Lantus) 5 UNIT/0.05 ML (PER 5 UNITS) SC (21:09)
[2024-02-12] MEDS: niCARdipine 20 MG CAPSULE PO (21:10)
[2024-02-12] MEDS: ATORVASTATIN CALCIUM 10 MG TABLET PO (21:10)
[2024-02-12] MEDS: MELATONIN 3 MG TABLET PO (22:01)
[2024-02-13] VITALS (16 sets, daily range): BP systolic 106–139; BP diastolic 58–84; PULSE 66–103; RESP 14–82; TEMP 36.2–37.3; O2SAT 90–99
[2024-02-13] MEDS: traZODone HCL 50 MG TABLET PO (00:13)
[2024-02-13] MEDS: ALBUTEROL/IPRATROPIUM (Duoneb) RT SOL 3 ML NEBU INH ×3 (02:32→21:01)
[2024-02-13 05:54] LABS: Basophils % (Auto) 0 % (0-2.5); Eosinophils % (Auto) 0 % (0-10); Immature Granulocytes % (Auto) 1 % (0-0); Lymphocytes # (Auto) 0.3 Thou/mm3 (1.0-4.8); Lymphocytes % (Auto) 2 % (10-50); Mean Corpuscular HGB Conc 34.6 g/dl (31.0-37.0); Mean Corpuscular Hemoglobin 27.9 pg (25.0-35.0); Mean Corpuscular Volume 81 fL (80-100); Monocytes # (Auto) 0.6 Thou/mm3 (0.0-0.8); Monocytes % (Auto) 5 % (0-12); Neutrophils # (Auto) 10.6 Thou/mm3 (1.8-7.7); Neutrophils % (Auto) 92 % (37-80); Nucleated Red Blood Cell # 0.02 Thou/mm3 (0.00-0.00); Nucleated Red Blood Cell % 0 /100 WBC (0); Platelet Count 259 Thou/mm3 (140-440); RDW Standard Deviation 37.9 fL (35.1-43.9); Red Blood Count 2.58 Miln/mm3 (4.50-5.90); White Blood Count 11.5 Thou/mm3 (3.8-10.6)
[2024-02-13 05:55] LABS: Hematocrit 20.8 % (41.0-53.0); Hemoglobin 7.2 g/dL (13.5-16.0)
[2024-02-13 06:37] LABS: Alanine Aminotransferase 93 U/L (10-49); Albumin, Serum 4.2 gm/dL (3.4-4.8); Albumin/Globulin Ratio 2.2 (1.2-2.2); Alkaline Phosphatase 43 U/L (46-116); Anion Gap 12 (7-16); Aspartate Amino Transferase 88 U/L (0-34); BUN/Creatinine Ratio 20 Ratio (12-20); Bilirubin,Total 0.5 mg/dL (0.3-1.2); Blood Urea Nitrogen 77 mg/dL (9-23); Calcium 8.7 mg/dL (8.3-10.6); Calcium (Corrected) 8.7 mg/dL (8.5-10.1); Carbon Dioxide 26.2 mMol/L (20.0-31.0); Chloride 89 mMol/L (98-107); Creatinine (Component) 3.9 mg/dL (0.6-1.3); Estimated Creatinine Clearance 13.1 mL/min (>60); Globulin 1.9 gm/dL (2.3-3.5); Glucose 260 mg/dL (74-106); Magnesium 2.3 mg/dL (1.6-2.6); Osmolality,Calculated 287 (275-295); Phosphorous 6.8 mg/dL (2.4-5.1); Sodium 127 mMol/L (136-145); Total Protein 6.1 gm/dL (5.7-8.2); eGFR 15 See Note
[2024-02-13] MEDS: DILTIAZEM 30 MG TABLET 60 MG PO ×3 (07:27→21:13)
[2024-02-13] MEDS: INSULIN LISPRO (AdmeLOG) 1 UNIT/0.01 ML UNIT SC ×4 (07:40→20:47)
[2024-02-13] MEDS: SODIUM CHLORIDE 1 GM TABLET PO ×2 (08:53→21:13)
[2024-02-13] MEDS: CITRIC ACID/SODIUM CITR 15 ML UDC (BICITRA) 30 ML PO ×2 (08:53→21:13)
[2024-02-13] MEDS: BUMETANIDE INJ 0.25 MG/ML VIAL 4 ML 2 MG IVP (08:54)
[2024-02-13] MEDS: niCARdipine 20 MG CAPSULE PO ×2 (08:54→21:12)
[2024-02-13] MEDS: PANTOPRAZOLE INJ 40 MG VIAL IV ×2 (08:55→21:13)
--- NOTE | 2024-02-13 09:48 | PD.RESPRO ---
Documentation for date of: 02/13/24 Subjective Subjective Interval history: Mr. 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 Patient's is at bedside and majority of history was taken from her. Patient has been having shortness of breath and wheezing with mild cough and white phlegm for the past 2 days. Patient states that he also is mildly congested denies any runny nose sick contacts or travel history. The noted that recently he has been feeling bloating but denies any changes in the appetite nausea vomiting or abdominal pain. Patient denies any history of prior asthma history. In the ED patient's vitals include blood pressure 164/70 respirations 28, WBC 10.9, hemoglobin 7.3, hematocrit 21.5, and sodium 120. Creatinine 2.9, GFR 21, osmolality 259, BNP 381, lipase 76. Chest x-ray findings include subtle opacity in both lungs suspicious for bilateral basilar pneumonia. In the ED patient received a breathing treatment, Rocephin x 1. Patient admitted for hypoosmolar hyponatremia. Nephrology was consulted for hyponatremia and DIAN on CKD. Primary team ordered urine electrolytes, started patient on IV fluids normal saline at 75 mL/h, every 4 sodium checks. Urine electrolytes showed urine sodium less than 15. Renal ultrasound showed no hydronephrosis, renal cortical thinning and renal parenchymal scar formation. Patient continued to deteriorate: Hemoglobin 6.3, sodium 117, BUN 51, creatinine 2.7, eGFR 23. Patient was examined on the floors, sitting at side of bed, in clear distress. Patient had labored breathing, audible wheezing, tense edema to bilateral lower extremities. Repeat sodium check 112. Patient received breathing treatment with minimal improvement. ICU was consulted for possible upgrade, patient started on hypertonic saline. ICU team aware of patient monitoring, elected to keep patient on floors for now. Blood transfusion held in setting of volume overload, will continue to monitor closely. Considered chest CT, delayed due to patient's respiratory distress. ABG showed pH 7.26, pCO2 30, pO2 69, bicarb 13. Lactic acid 3.8. No anion gap. Chest x-ray showed mild to moderate CHF pattern with severe vascular congestion including central vascular engorgement. 02/10/2024 patient currently seen in telemetry. Still having labored breathing and wheezing although slightly better than yesterday. With the Bumex patient put out 3.7 L. Sodium improved from 1 12-1 21. Clinically seems to be stable. at bedside. Blood pressure 154/80, heart rate 107. WBC 10.1, hemoglobin 7.2, platelets 203. Sodium 121, potassium 4.1, BUN 56, creatinine went up to 3.0, glucose 310, phosphorus 5.4, troponin 1.072. Chest x-ray yesterday showed moderate heart failure. 02/11/2024 patient still very short of breath although slightly better than yesterday. at bedside. Labs and medications have been reviewed. Continue with diuretics. Sodium 123. Salt tablets added. Metabolic acidosis noted-Bicitra given. Spoke to Dr. Burleson. 02/12/2024 patient seen and examined in telemetry. Patient appears comfortable, mildly agitated/excitable. Lung sounds greatly improved, minimal lower extremity edema. 1.5 L urine output. Sodium continues to improve: 123 increased to 125. Potassium 4.0, bicarb 22.9, BUN 69, creatinine 3.6, eGFR 17. 02/13/2024 patient seen and examined in telemetry. Patient resting in bed, appears lethargic, mildly agitated, poor mentation compared to previous examinations. Significant wheezing on auscultation of lungs, minimal lower extremity edema. 1.9 L urinary output. Sodium 127, potassium 4.0, bicarb 26.2, BUN 77, creatinine 3.9, eGFR 15. Hemoglobin 7.2. Will hold Bumex. Discussed worsening delirium with primary team, will possibly use Seroquel. Exam Vital Signs Temp Pulse Resp BP Pulse Ox O2 Del Method O2 Flow Rate 97.9 F 94 21 H 106/78 94 L Nasal Cannula 4 02/13/24 08:00 02/13/24 08:54 02/13/24 08:00 02/13/24 08:54 02/13/24 08:00 02/13/24 08:00 02/13/24 08:00 FiO2 0 02/13/24 08:00 Narrative Exam GENERAL APPEARANCE: Fragile gentleman currently seen in telemetry. Short of breath. On nasal cannula NECK: ++ JVD CARDIOVASCULAR: Heart regular, no murmurs, tachycardia LUNGS/CHEST: Significant wheezing in all lung lara. ABDOMEN: Soft, nontender, nondistended. No masses. Normal bowel sounds. EXTREMITIES: Trace edema BLE SKIN: Skin exam normal without any rashes MUSCULOSKELETAL: In bed NEUROLOGICAL : No neurological deficits. Alert and awake Objective Labs 02/13/24 05:32 02/13/24 05:32 Labs: Laboratory Results - last 24 hr 02/13/24 05:32 WBC 11.5 H RBC 2.58 L Hgb 7.2 L Hct 20.8 L* MCV 81 MCH 27.9 MCHC 34.6 RDW Std Deviation 37.9 Plt Count 259 Neut % (Auto) 92 H Lymph % (Auto) 2 L [place] % (Auto) 5 Eos % (Auto) 0 Baso % (Auto) 0 Neut # (Auto) 10.6 H Lymph # (Auto) 0.3 L [place] # (Auto) 0.6 Eos # (Auto) 0.0 Baso # (Auto) 0.0 Immature Gran # (Auto) 0.10 H Absolute Nucleated RBC 0.02 H Immature Gran % 1 H Nucleated RBC % 0 Sodium 127 L Potassium 4.0 Chloride 89 L Carbon Dioxide 26.2 Anion Gap 12 BUN 77 H Creatinine 3.9 H Estim Creat Clear Calc 13.1 L eGFR 15 L BUN/Creatinine Ratio 20 Glucose 260 H Calculated Osmolality 287 Calcium 8.7 Corrected Calcium 8.7 Phosphorus 6.8 H Magnesium 2.3 Total Bilirubin 0.5 AST 88 H ALT 93 H Alkaline Phosphatase 43 L Total Protein 6.1 Albumin 4.2 Globulin 1.9 L Albumin/Globulin Ratio 2.2 ABG Interpretation ABG results: 02/09/24 02/09/24 02/09/24 09:30 12:12 19:16 ABG pH 7.26 L 7.31 L ABG pCO2 30 L 31 L ABG pO2 69 L 101 D ABG HCO3 13 L 15 L ABG O2 Saturation 93 99 H ABG Base Excess -13 L -10 L VBG pH 7.41 VBG pCO2 29 L VBG pO2 38 VBG Base Excess -6 L Quality Measures Quality Measures VTE prophylaxis Advance care planning discussed with:: patient and spouse Assessment & Plan Assessment Current Active Medications: Generic Name Dose Route Start Last Admin Trade Name Freq PRN Reason Stop Dose Admin Acetaminophen 650 mg 02/09/24 05:01 02/09/24 05:13 Acetaminophen 325 Mg Tablet PO 03/09/24 18:24 650 mg Q6H PRN Administration PAIN OR FEVER > 101 Albuterol/Ipratropium 3 ml 02/13/24 09:21 Albuterol/Ipratropium (Duoneb) Rt Romina 3 Ml Nebu INH 03/09/24 18:59 Q4HRRT PRN WHEEZING or sob Atorvastatin Calcium 10 mg 02/09/24 21:00 02/12/24 21:10 Atorvastatin Calcium 10 Mg Tablet PO 03/10/24 20:59 10 mg HS ABHIJIT Administration Bumetanide 2 mg 02/12/24 09:00 02/13/24 08:54 Bumetanide Inj 0.25 Mg/Ml Vial 4 Ml IVP 03/13/24 08:59 2 mg DAILY ABHIJIT Administration Citric Acid/Sodium Citrate 30 ml 02/11/24 09:00 02/13/24 08:53 Citric Acid/Sodium Citr 15 Ml Udc (Bicitra) PO 03/12/24 08:59 30 ml BID ABHIJIT Administration Dextrose 25 ml 02/08/24 19:04 Dextrose 50%-Water Inj 50 Ml Syringe IV 03/09/24 19:03 Q15MIN PRN BG 50-70 responsive npo pt Dextrose 50 ml 02/08/24 19:04 Dextrose 50%-Water Inj 50 Ml Syringe IV 03/09/24 19:03 Q15MIN PRN BG <50 OR BG <70 & pt unresponsive Diltiazem HCl 60 mg 02/11/24 22:00 02/13/24 07:27 Diltiazem 30 Mg Tablet PO 03/12/24 21:59 60 mg TID ABHIJIT Administration Glucagon 1 mg 02/08/24 19:04 Glucagon Inj 1 Mg Vial IM Q15MIN PRN BG <70, and no IV access Ceftriaxone Sodium/Dextrose 50 mls @ 100 mls/hr 02/09/24 14:00 02/12/24 13:46 Rocephin/D5w 1gm Iv Premix IV 02/16/24 13:59 100 mls/hr QDAY@1400 ABHIJIT Administration Sodium Chloride 500 mls @ 50 mls/hr 02/09/24 17:59 02/10/24 19:19 Hypertonic Saline 3% IV Not Given .Q10H ABHIJIT Insulin Glargine 5 unit 02/10/24 21:00 02/12/24 21:09 Insulin Glargine (Lantus) 5 Unit/0.05 Ml (Per 5 Units) SC 03/11/24 20:59 5 unit HS ABHIJIT Administration Insulin Human Lispro 0 unit 02/10/24 17:00 02/13/24 07:40 Insulin Lispro (Admelog) 1 Unit/0.01 Ml Unit SC 03/11/24 16:59 6 unit ACHS ABHIJIT Administration Protocol Methylprednisolone Sodium Succinate 60 mg 02/13/24 09:00 02/13/24 08:53 Methylprednisolone Sod Succ 40 Mg Vial IVP 02/20/24 08:59 60 mg DAILY ABHIJIT Administration Nicardipine HCl 20 mg 02/12/24 21:00 02/13/24 08:54 Nicardipine 20 Mg Capsule PO 03/13/24 20:59 20 mg BID ABHIJIT Administration Ondansetron HCl 4 mg 02/08/24 18:25 Ondansetron Inj 2 Mg/Ml Inj 2 Ml IV 03/09/24 18:24 Q6H PRN NAUSEA OR VOMITING Protocol Pantoprazole Sodium 40 mg 02/09/24 21:00 02/13/24 08:55 Pantoprazole Inj 40 Mg Vial IV 03/10/24 20:59 40 mg BID ABHIJIT Administration Sennosides 2 tab 02/08/24 18:25 Senna Tablet PO 03/09/24 18:24 BID PRN CONSTIPATION Protocol Sevelamer Carbonate 800 mg 02/11/24 12:00 02/13/24 09:06 Sevelamer Carbonate 800 Mg Tablet PO 03/12/24 11:59 Not Given TIDWM ABHIJIT Sodium Chloride 1 gm 02/11/24 11:45 02/13/24 08:53 Sodium Chloride 1 Gm Tablet PO 03/12/24 11:44 1 gm BID ABHIJIT Administration Plan Mr. 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 Patient is been having shortness of breath and wheezing with mild cough and white phlegm for the past 2 days. #Hyperosmolar hyponatremia--patient sodium dropped to 112. Clinically looks rather hypervolemic. Will try 3% hypertonic saline along with diuretics. Vaprisol not available in this hospital. Patient seems to have gone into flash pulmonary edema. Will request ICU consult. Plan of care discussed with primary team. Sodium improving, 127. Plan: -Continue to monitor daily labs -Hold IV fluids due to volume overload -Salt tabs 1 g p.o. twice daily #DIAN on CKD On admission patient sodium 120, was initially treated with normal saline at 75 mL/h. Sodium increased to 122 and sharply declined to 112. Osmolality 259 decreased to 246. ICU team consulted, patient will remain on floors, ICU will monitor. Urinalysis showed urine sodium less than 15. Patient appears volume overloaded: CHF pattern with vascular congestion on chest x-ray, 2+ tense edema bilateral lower extremities. ABG showed pH 7.2, pCO2 30, pO2 69, bicarb 13. Lactic acid 3.8, no anion gap. Patient received 1 dose 40 mg IV Lasix and [address] ordered, delayed due to patient severe respiratory distress. BUN 51, creatinine 3.0. Worse than patient's baseline. Renal ultrasound showed no hydronephrosis, bilateral renal cortical thinning and renal parenchymal scar formation. 3% hypertonic saline has been held, patient on oral salt tabs Plan: -Hold Bumex -Hold IV fluids -Every 4 hour sodium checks -Renally dose meds -Avoid nephrotoxic medications -Monitor daily renal function -ICU team on the case #Hospital induced delirium #Acute hypoxic respiratory failure #Chronic anemia #History of diabetes mellitus #History of primary hypertension #History of CVA without residual deficit Management as per primary team Spoke to Dr. Burleson-hold dialysis as he responded very well to diuretics. Continue with the Bumex IV 2 mg twice daily. Thank you for allow me to participate in the care of this patient. Plan of care discussed with attending Dr. West. Cornelio Powell MD PGY-1 Attending Provider Attestation/Addendum Patient seen and examined with resident physician Dr. Powell. Note reviewed, agree with findings and recommendations. Patient is a BUN and creatinine continues to be elevated. He is still confused. Will hold diuretics today. Seems to be slightly dehydrated. Still having wheezing. On nebulizer, steroids. Might benefit from low-dose Seroquel. Seems to have hospital-acquired delirium. at bedside.
[2024-02-13] MEDS: SEVELAMER CARBONATE 800 MG TABLET PO ×2 (13:20→17:33)
[2024-02-13] MEDS: cefTRIAXone/D5w 1gm IV premix 50 ML IV (13:20)
--- NOTE | 2024-02-13 14:44 | ESPR_ITS ---
<Statement entered by Hernandez Amaya MD - 02/15/24 09:07> The patient is doing better now but still having shortness of shortness of breath continues to respond to diuretic therapy all the findings are reviewed agree with the treatment plan recommendation as documented by Dr. Kern PGY 2 Documentation for date of: 02/13/24 Subjective Subjective Interval history: The patient is a 78-year-old male with known history of longstanding hypertension, diabetes mellitus and chronic kidney disease stage IV, who is followed by Dr. West regularly, presented to the hospital with multiple symptoms being shortness of breath, orthopnea and volume overload. He was given some fluid, is not having much diuresis, having severe shortness of breath, not having any chest pain at all, but his cardiac enzymes were persistently elevated at one point initially 0.28, but went up to 1.24, 1.0, 1.03. The patient is still not having any chest pain and mostly orthopnea, has JVD with volume overload situation. He does not have any other symptoms for now, but he has been treated with IV Bumex with some urine output. The patient is also developed severe hyponatremia. Sodium 118, now up to 121, dilutional with low urine sodium. His creatinine is still going up steadily 3.0, BUN is 56 and mild acidosis, CO2 is 19. Blood gas showed pH 7.31, pCO2 of 31, and pO2 is 100. His chest x-ray does show evidence of pulmonary congestion and heart failure. EKG showed sinus rhythm. No evidence of ischemic change and now essentially unremarkable first-degree AV block. The patient is still having some shortness of breath and orthopnea and not complaining of any chest pain. Labs revealed troponin at 1.0. Hemoglobin at 7.3, white count 10. Chemistry panel showed BUN and creatinine elevated at 56 and 2.0. Sodium now 121. Creatinine clearance 21. PMH: As above Allergies: NKDA Home medications: Amlodipine 10 mg, hydralazine 25 mg, insulin 02/11/2024: Patient was seen and examined at the bedside. Patient is feeling better and is seen on nasal cannula 4 L. Morning labs revealed leukocytosis likely due to steroids, hemoglobin at 7.3. Chemistry panel showed sodium at 121 today. Kidney functions consistent with CKD stage IV with creatinine 3.2. Phosphorus at 6.7. Urine sodium less than 15, random total protein 165. Echocardiogram showed normal LV size and function. Estimated EF 60-65%Normal RV size and function.Estimated RVSP 53mmHg.Mild MR. Moderate TR. Trace AI. Recommended to continue Bumex 2 mg once a day, continuing IV ceftriaxone for treating infection. Sodium levels have improved. Nephrology team added salt tablets as well. After discussing with chemistry department chair, we discontinued amlodipine and hydralazine and started Cardizem 60 mg 3 times daily. Patient's family was updated regarding the plan of care. Patient still making good urine output therefore nephrology will follow the patient closely due to his CKD stage IV. 02/12/24:Patient was seen and examined at the bedside, Patient appears improved in his breathing. Patient had Left leg swelling and calf pain. Vitals showed slight elevated BP. Labs showed Leukocytosis and Hgb around 7.5.Na improved to 125. Kidney functions showing Cr at 3.6. Doppler LE was negative for DVT.Recommended to continue Bumex 2 mg once a day, and cont cardizem 60 mg TID. Added nicardipine 20 mg twice daily for blood pressure control. 02/13/2024: Patient was seen and examined at the bedside. He appears lethargic and mildly agitated with poor mentation. He had a urine output of 1. 9 l. Chemistry panel showed sodium 127, kidney functions worsened with BUN 77 creatinine 3.9. Hemoglobin 7.2. Nephrology team decided to hold Bumex. He does have signs of worsening delirium. Recommended to hold Bumex as patient has CKD significant compared to heart failure. will likely reduce dose of bumex to 1 mg once a day and give only for fluid overload state. Exam Vital Signs Temp Pulse Resp BP Pulse Ox O2 Del Method O2 Flow Rate 98.0 F 82 18 125/62 99 Nasal Cannula 2 02/13/24 11:54 02/13/24 13:20 02/13/24 12:57 02/13/24 13:20 02/13/24 12:57 02/13/24 11:54 02/13/24 12:57 FiO2 0 02/13/24 11:54 Narrative Exam GENERAL APPEARANCE: Patient is mildly delirious chronically ill-appearing male in no acute distress. HEENT: NC, AT. MMM. EOMI, clear conjunctiva, oropharynx clear.JVD NECK: Supple without lymphadenopathy. No stiffness or restricted ROM. Prominent JVD. HEART: Regular rate and regular rhythm, normal S1/S2, no m/r/g LUNGS: Decreased breath sounds and bilateral crackles heard on auscultation. ABDOMEN: Soft, nontender, nondistended with good bowel sounds heard. EXTREMITIES: 1+ pitting edema On both lower extremities. NEUROLOGICAL: Grossly nonfocal. Alert and oriented, moving all 4 extremities. CN not formally tested but appear grossly intact. Observed to ambulate with normal gait. Skin: Warm and dry without any rash. Psych: Delirium noticed Objective Labs 02/13/24 05:32 02/13/24 05:32 Labs: Laboratory Results - last 24 hr 02/13/24 05:32 WBC 11.5 H RBC 2.58 L Hgb 7.2 L Hct 20.8 L* MCV 81 MCH 27.9 MCHC 34.6 RDW Std Deviation 37.9 Plt Count 259 Neut % (Auto) 92 H Lymph % (Auto) 2 L [place] % (Auto) 5 Eos % (Auto) 0 Baso % (Auto) 0 Neut # (Auto) 10.6 H Lymph # (Auto) 0.3 L [place] # (Auto) 0.6 Eos # (Auto) 0.0 Baso # (Auto) 0.0 Immature Gran # (Auto) 0.10 H Absolute Nucleated RBC 0.02 H Immature Gran % 1 H Nucleated RBC % 0 Sodium 127 L Potassium 4.0 Chloride 89 L Carbon Dioxide 26.2 Anion Gap 12 BUN 77 H Creatinine 3.9 H Estim Creat Clear Calc 13.1 L eGFR 15 L BUN/Creatinine Ratio 20 Glucose 260 H Calculated Osmolality 287 Calcium 8.7 Corrected Calcium 8.7 Phosphorus 6.8 H Magnesium 2.3 Total Bilirubin 0.5 AST 88 H ALT 93 H Alkaline Phosphatase 43 L Total Protein 6.1 Albumin 4.2 Globulin 1.9 L Albumin/Globulin Ratio 2.2 ABG Interpretation ABG results: 02/09/24 02/09/24 02/09/24 09:30 12:12 19:16 ABG pH 7.26 L 7.31 L ABG pCO2 30 L 31 L ABG pO2 69 L 101 D ABG HCO3 13 L 15 L ABG O2 Saturation 93 99 H ABG Base Excess -13 L -10 L VBG pH 7.41 VBG pCO2 29 L VBG pO2 38 VBG Base Excess -6 L Quality Measures Quality Measures VTE prophylaxis Advance care planning discussed with:: other Assessment & Plan Assessment Current Active Medications: Generic Name Dose Route Start Last Admin Trade Name Silvia PRN Reason Stop Dose Admin Acetaminophen 650 mg 02/09/24 05:01 02/09/24 05:13 Acetaminophen 325 Mg Tablet PO 03/09/24 18:24 650 mg Q6H PRN Administration PAIN OR FEVER > 101 Albuterol/Ipratropium 3 ml 02/13/24 09:21 02/13/24 12:54 Albuterol/Ipratropium (Duoneb) Rt Romina 3 Ml Nebu INH 03/09/24 18:59 3 ml Q4HRRT PRN Administration WHEEZING or sob Atorvastatin Calcium 10 mg 02/09/24 21:00 02/12/24 21:10 Atorvastatin Calcium 10 Mg Tablet PO 03/10/24 20:59 10 mg HS ABHIJIT Administration Bumetanide 2 mg 02/12/24 09:00 02/13/24 08:54 Bumetanide Inj 0.25 Mg/Ml Vial 4 Ml IVP 03/13/24 08:59 2 mg DAILY ABHIJIT Administration Citric Acid/Sodium Citrate 30 ml 02/11/24 09:00 02/13/24 08:53 Citric Acid/Sodium Citr 15 Ml Udc (Bicitra) PO 03/12/24 08:59 30 ml BID ABHIJIT Administration Dextrose 25 ml 02/08/24 19:04 Dextrose 50%-Water Inj 50 Ml Syringe IV 03/09/24 19:03 Q15MIN PRN BG 50-70 responsive npo pt Dextrose 50 ml 02/08/24 19:04 Dextrose 50%-Water Inj 50 Ml Syringe IV 03/09/24 19:03 Q15MIN PRN BG <50 OR BG <70 & pt unresponsive Diltiazem HCl 60 mg 02/11/24 22:00 02/13/24 13:20 Diltiazem 30 Mg Tablet PO 03/12/24 21:59 60 mg TID ABHIJIT Administration Glucagon 1 mg 02/08/24 19:04 Glucagon Inj 1 Mg Vial IM Q15MIN PRN BG <70, and no IV access Ceftriaxone Sodium/Dextrose 50 mls @ 100 mls/hr 02/09/24 14:00 02/13/24 13:20 Rocephin/D5w 1gm Iv Premix IV 02/16/24 13:59 100 mls/hr QDAY@1400 ABHIJIT Administration Sodium Chloride 500 mls @ 50 mls/hr 02/09/24 17:59 02/10/24 19:19 Hypertonic Saline 3% IV Not Given .Q10H ABHIJIT Insulin Glargine 5 unit 02/10/24 21:00 02/12/24 21:09 Insulin Glargine (Lantus) 5 Unit/0.05 Ml (Per 5 Units) SC 03/11/24 20:59 5 unit HS ABHIJIT Administration Insulin Human Lispro 0 unit 02/10/24 17:00 02/13/24 11:40 Insulin Lispro (Admelog) 1 Unit/0.01 Ml Unit SC 03/11/24 16:59 6 unit ACHS ABHIJIT Administration Protocol Nicardipine HCl 20 mg 02/12/24 21:00 02/13/24 08:54 Nicardipine 20 Mg Capsule PO 03/13/24 20:59 20 mg BID ABHIJIT Administration Ondansetron HCl 4 mg 02/08/24 18:25 Ondansetron Inj 2 Mg/Ml Inj 2 Ml IV 03/09/24 18:24 Q6H PRN NAUSEA OR VOMITING Protocol Pantoprazole Sodium 40 mg 02/09/24 21:00 02/13/24 08:55 Pantoprazole Inj 40 Mg Vial IV 03/10/24 20:59 40 mg BID ABHIJIT Administration Sennosides 2 tab 02/08/24 18:25 Senna Tablet PO 03/09/24 18:24 BID PRN CONSTIPATION Protocol Sevelamer Carbonate 800 mg 02/11/24 12:00 02/13/24 13:20 Sevelamer Carbonate 800 Mg Tablet PO 03/12/24 11:59 800 mg TIDWM ABHIJIT Administration Sodium Chloride 1 gm 02/11/24 11:45 02/13/24 08:53 Sodium Chloride 1 Gm Tablet PO 03/12/24 11:44 1 gm BID ABHIJIT Administration Plan This 70-year-old male with past medical history of hypertension, DM2, CKD, and CVA was admitted to the hospital on 02/08/2024 for hypoosmolar hyponatremia and acute hypoxic respiratory failure likely secondary to acute decompensated heart failure exacerbation versus pneumonia. # Acute hypoxic respiratory failure # Likely secondary to pleural effusion versus HFpEF vs Fluid overload due to CKD # HFpEF EF 60 to 65% ?Patient presented with shortness of breath, wheezing and mild cough. Patient was kept on BiPAP due to increased work of breathing. Switched to OxyMask. ? Chest CT showed moderate heart failure with pleural effusions bilateral. ?Patient showed a diuresis output of 2.4 L with negative balance of 1.6 L. ?Patient's sodium has slightly improved at 123 ? Echocardiogram showed EF 60 to 65%. ? LE Doppler was negative for DVT. Plan: ? Cont nicardipine 20 mg twice daily for blood pressure management ? Hold IV diuretics Bumex 2 mg once a day given worsening kidney functions and will switch to 1 mg bumex once only if fluid overloaded ? No need of anticoagulation as patient has severe anemia ? Strict VALERIO's, fluid restriction and daily weight ? Oxygen as needed ? Daily labs ? Keep magnesium above 2 and potassium above 4 ? Keep hemoglobin above 7 ? Continue IV antibiotic therapy and steroids for treating sepsis # History of hypertension # Hypertensive emergency, resolved ? Patient was taking amlodipine and hydralazine for blood pressure management. Plan: ? Continue nicardipine 20 mg twice dailyand Cardizem 60 mg 3 times a day ? DC'd amlodipine and hydralazine ? Monitor vitals # NSTEMI type II likely supply demand ischemia ? Troponin I peaked at 1.242 and down trended. EKG showed sinus rhythm. Plan: ? Continue to monitor for signs of chest pain or shortness of breath Other active problems: # Delirium # Hypoosmolar hyponatremia, improved # Hypochloremia -Nephrology following the case. # Sepsis likely secondary to community-acquired pneumonia # Lactic acidosis type B # NAGMA # Anemia of chronic disease # History of type 2 diabetes # CKD stage 4 # History of CVA #Moderate thoracic spondylosis per CT finding Rest of the management as per primary care team. Thank you very much for consulting cardiology team. Sodium improved to 127. Holding Bumex for now. Primary team managing for delirium. Plan of care discussed with cad detailer, Dr. Jose Luis Kern MD, PGY 2
--- NOTE | 2024-02-13 15:23 | ESPR_ITS ---
<Statement entered by Rahul Oneill MD - 02/13/24 17:22> Senior Resident Attestation: I supervised/discussed management plan with internal communications writer physician Dr. Key, and was involved in the care of this patient. I personally saw and examined the patient and discussed the assessment and plan with the entire medicine team, including my attending. I agree with the assessment and plan as documented. Patient's care was discussed with attending physician, Dr. Alexander. Rahul Oneill MD PGY-2. Documentation for date of: 02/13/24 Subjective Subjective Interval history: 02/08: Over night team reported patient had increasing wheezing and shortness of breath, and received multiple duoneds treatments. This mornign patient is seen and examined at bed. Pt. is unable to talk because of SOB, he is using orxygen via nasal cannula. Pt denies chest pains, nausea, vomiting or abdominal pain. He is loudly wheezing. Pt. reports worsening symptoms of SOB from last night. He continues to have mild cough with phelgm. but the SOB is bothering him the most. 02/09: Please see Dr. Hu notes 02/10: Please see Dr. Hu notes 02/11: No overnight events, patient is seen and examined at bedside. Patient appears to be comfortably breathing on 3 L of oxygen on nasal cannula. Patient has significant improvement in shortness of breath, wheezing and edema in the lower extremities. Patient denies any chest pain, continues to have minimal cough with phlegm. Patient denies any abdominal pain nausea or vomiting. Later in the afternoon patient had tenderness over the edema on the left extremity, Doppler ultrasound was negative for DVT. Patient has no other complaints. 02/12: No overnight events, patient is seen and examined at bedside. Patient's is at bedside who reported patient has been hallucinating all night, he appeared to be talking to someone that was not present in the room. Patient's stated that he has been seeing people boxing around the room, he would get up from the bed and sit on the bedside commode. Patient was delirious and agitated all night. denies any prior history of similar episodes. Currently patient is saturating on 3 L of oxygen. He has been eating approximately 30% of his food denies cough, nausea or vomiting. This morning patient was able to sleep a little bit and skipped his breathing treatments that were scheduled for 7 AM. Sodium is improving to 127, patient's kidney function is declining with creatinine 3.9 and GFR 15. patient has no other complaints. Exam Vital Signs Temp Pulse Resp BP Pulse Ox O2 Del Method O2 Flow Rate 98.0 F 82 18 125/62 99 Nasal Cannula 2 02/13/24 11:54 02/13/24 13:20 02/13/24 12:57 02/13/24 13:20 02/13/24 12:57 02/13/24 11:54 02/13/24 12:57 FiO2 0 02/13/24 11:54 Narrative Exam GENERAL: A&Ox3 . Awake, confused and delirious NEURO: well surveying engineer grossly intact, moves extremities x4 HEENT: Atraumatic, Normocephalic. mucous membranes moist. Eyes open, symmetrical, & clear HEART: Normal Heart Sounds LUNGS: wheezing bilaterally on auscultation ABDOMEN: soft, non-distended, non-tender, bowel sounds heard, no guarding or rebound tenderness SKIN: No Rash or ecchymoses EXTREMITIES: minimal pitting edema, nop tenderness, able to move all 4 extremities, pedal pulses palpated Objective Labs 02/14/24 08:27 02/14/24 04:25 Labs: Laboratory Results - last 24 hr 02/13/24 05:32 WBC 11.5 H RBC 2.58 L Hgb 7.2 L Hct 20.8 L* MCV 81 MCH 27.9 MCHC 34.6 RDW Std Deviation 37.9 Plt Count 259 Neut % (Auto) 92 H Lymph % (Auto) 2 L [place] % (Auto) 5 Eos % (Auto) 0 Baso % (Auto) 0 Neut # (Auto) 10.6 H Lymph # (Auto) 0.3 L [place] # (Auto) 0.6 Eos # (Auto) 0.0 Baso # (Auto) 0.0 Immature Gran # (Auto) 0.10 H Absolute Nucleated RBC 0.02 H Immature Gran % 1 H Nucleated RBC % 0 Sodium 127 L Potassium 4.0 Chloride 89 L Carbon Dioxide 26.2 Anion Gap 12 BUN 77 H Creatinine 3.9 H Estim Creat Clear Calc 13.1 L eGFR 15 L BUN/Creatinine Ratio 20 Glucose 260 H Calculated Osmolality 287 Calcium 8.7 Corrected Calcium 8.7 Phosphorus 6.8 H Magnesium 2.3 Total Bilirubin 0.5 AST 88 H ALT 93 H Alkaline Phosphatase 43 L Total Protein 6.1 Albumin 4.2 Globulin 1.9 L Albumin/Globulin Ratio 2.2 ABG Interpretation ABG results: 02/09/24 02/09/24 02/09/24 09:30 12:12 19:16 ABG pH 7.26 L 7.31 L ABG pCO2 30 L 31 L ABG pO2 69 L 101 D ABG HCO3 13 L 15 L ABG O2 Saturation 93 99 H ABG Base Excess -13 L -10 L VBG pH 7.41 VBG pCO2 29 L VBG pO2 38 VBG Base Excess -6 L Quality Measures Quality Measures VTE prophylaxis Advance care planning discussed with:: patient Assessment & Plan Assessment Current Active Medications: Generic Name Dose Route Start Last Admin Trade Name Freq PRN Reason Stop Dose Admin Acetaminophen 650 mg 02/09/24 05:01 02/09/24 05:13 Acetaminophen 325 Mg Tablet PO 03/09/24 18:24 650 mg Q6H PRN Administration PAIN OR FEVER > 101 Albuterol/Ipratropium 3 ml 02/13/24 09:21 02/13/24 12:54 Albuterol/Ipratropium (Duoneb) Rt Romina 3 Ml Nebu INH 03/09/24 18:59 3 ml Q4HRRT PRN Administration WHEEZING or sob Atorvastatin Calcium 10 mg 02/09/24 21:00 02/12/24 21:10 Atorvastatin Calcium 10 Mg Tablet PO 03/10/24 20:59 10 mg HS ABHIJIT Administration Bumetanide 2 mg 02/12/24 09:00 02/13/24 08:54 Bumetanide Inj 0.25 Mg/Ml Vial 4 Ml IVP 03/13/24 08:59 2 mg DAILY ABHIJIT Administration Citric Acid/Sodium Citrate 30 ml 02/11/24 09:00 02/13/24 08:53 Citric Acid/Sodium Citr 15 Ml Udc (Bicitra) PO 03/12/24 08:59 30 ml BID ABHIJIT Administration Dextrose 25 ml 02/08/24 19:04 Dextrose 50%-Water Inj 50 Ml Syringe IV 03/09/24 19:03 Q15MIN PRN BG 50-70 responsive npo pt Dextrose 50 ml 02/08/24 19:04 Dextrose 50%-Water Inj 50 Ml Syringe IV 03/09/24 19:03 Q15MIN PRN BG <50 OR BG <70 & pt unresponsive Diltiazem HCl 60 mg 02/11/24 22:00 02/13/24 13:20 Diltiazem 30 Mg Tablet PO 03/12/24 21:59 60 mg TID ABHIJIT Administration Glucagon 1 mg 02/08/24 19:04 Glucagon Inj 1 Mg Vial IM Q15MIN PRN BG <70, and no IV access Ceftriaxone Sodium/Dextrose 50 mls @ 100 mls/hr 02/09/24 14:00 02/13/24 13:20 Rocephin/D5w 1gm Iv Premix IV 02/16/24 13:59 100 mls/hr QDAY@1400 ABHIJIT Administration Sodium Chloride 500 mls @ 50 mls/hr 02/09/24 17:59 02/10/24 19:19 Hypertonic Saline 3% IV Not Given .Q10H ABHIJIT Insulin Glargine 5 unit 02/10/24 21:00 02/12/24 21:09 Insulin Glargine (Lantus) 5 Unit/0.05 Ml (Per 5 Units) SC 03/11/24 20:59 5 unit HS ABHIJIT Administration Insulin Human Lispro 0 unit 02/10/24 17:00 02/13/24 11:40 Insulin Lispro (Admelog) 1 Unit/0.01 Ml Unit SC 03/11/24 16:59 6 unit ACHS ABHIJIT Administration Protocol Nicardipine HCl 20 mg 02/12/24 21:00 02/13/24 08:54 Nicardipine 20 Mg Capsule PO 03/13/24 20:59 20 mg BID ABHIJIT Administration Ondansetron HCl 4 mg 02/08/24 18:25 Ondansetron Inj 2 Mg/Ml Inj 2 Ml IV 03/09/24 18:24 Q6H PRN NAUSEA OR VOMITING Protocol Pantoprazole Sodium 40 mg 02/09/24 21:00 02/13/24 08:55 Pantoprazole Inj 40 Mg Vial IV 03/10/24 20:59 40 mg BID ABHIJIT Administration Sennosides 2 tab 02/08/24 18:25 Senna Tablet PO 03/09/24 18:24 BID PRN CONSTIPATION Protocol Sevelamer Carbonate 800 mg 02/11/24 12:00 02/13/24 13:20 Sevelamer Carbonate 800 Mg Tablet PO 03/12/24 11:59 800 mg TIDWM ABHIJIT Administration Sodium Chloride 1 gm 02/11/24 11:45 02/13/24 08:53 Sodium Chloride 1 Gm Tablet PO 03/12/24 11:44 1 gm BID ABHIJIT Administration Plan 70-year-old male with past medical history of hypertension, DM2, CKD, and CVA was admitted to the hospital on 02/08/2024 for hypoosmolar, hyponatremia and acute hypoxic respiratory failure likely secondary to acute decompensated heart failure exacerbation versus pneumonia. #Delirium -Patient is likely showing signs of delirium possibly a side effect of steroids Plan: ?D/C steroids -And monitor patient mood -Encouraged to be surrounded with patient's family #Hypoosmolar hyponatremia #Hypochloremia #Hyperphosphatemia ?Patient's sodium was initially 120 and dropped to 112 next day of admission -Sodium today 127 ?Phosphorus 6.6 and chloride 89 Plan: ?started sodium tablets 1gm BID and sevelamer 800 mg TID. ?Sodium checks every 4 hours ?Nephrology consulted, appreciate recommendations ?Will continue to monitor #Acute hypoxic respiratory failure #Pleural effusions #Acute decompensated heart failure exacerbation #HFpEF (EF 55-to 60% 2020) -Patient had LIBERTY LE edema 2+ on admission per chart review ?Echo on 2020 showed EF 55-60%, without evidence of diastolic dysfuntion ?BNP on 02/08/2024 was 381 ?Chest CT showed moderate heart failure with pleural effusions bilateral ?Echo 02/10- estimated EF 60-65% and Mild MR and moderate TR Plan: ? Per nephrology team hold Bumex 2mg to once daily -Strict VALERIO's ?Keep potassium above 4 magnesium above 2 ?O2 administration as needed ?Cardiology consulted Dr. Amaya, appreciate commendations ? Will continue to monitor #Sepsis likely secondary to community-acquired pneumonia #Community-acquired pneumonia #lactic acidosis ?Initially patient came in with complaints of productive cough ?Patient met SIRS criteria 2 out of 4 with leukocytosis and tachypnea ?Chest x-ray 02/08/2024 showed bilateral pneumonia ?Chest x-ray on 02/09/2024 showed pneumonia lung bases ?WBC 11.3 today, likely reactive in the setting of steroids, no spikes in fevers ?Blood culture negative in 48 hours -Lactic acid 2.6 Plan: ?Continue azithromycin 500 mg daily and Rocephin 1 g daily [02/08-] ? D/C- Solu-Medrol 60 mg IV every 12 hours ?Will continue to monitor #NSTEMI type II likely demand ischemia ?Patient denies any chest pain?troponins ?Peaked at 1.242 and down trended. ?EKG showed sinus rhythm Plan: ?Will continue to monitor #NAGMA #Lactic acidosis ?Carbon dioxide 19.5 this morning Plan: ?Bicitra as per nephrology ?Will continue to monitor #Chronic anemia ?Patient's hemoglobin 7.3 today ?No active signs of bleeding ?Received 1 PRBC during his hospital stay Plan: ?Will transfuse if hemoglobin less than 7 ?GI consulted and recommended EGD once patient's O2 requirements decreased. ?Will continue to monitor #Hx of HTN ?DC'd amlodipine 10 mg every afternoon and hydralazine 25 mg 3 times daily -Started Diltiazem 60mg TID. #Hx of DM2 ?a1c 5.7 02/09/2024 Plan: ?ISS ?Accu-Cheks and hypoglycemic protocol ?Will continue to monitor #Hx of CKD ?Patient's baseline creatinine is around 2.3-3.1 ?Creatinine today 3.2 Plan: ?Avoid nephrotoxic agents ?Renally dose medications ?Nephrology consulted, appreciate recommendations ?Will continue to monitor #Hx of CVA ?Continue atorvastatin 10 mg at bedtime Disposition: tele for continue to monitor sodium Diet: Cardiac, carb consistent low GI prophylaxis: protonix DVT prophylaxis: SCDs Code:Full Assessment and plan discussed with my senior resident Dr. Oneill & attending physician Dr. 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 Patient states that shortness of breath has been going on for the past 3 days denies any fevers or chills. In the ER, patient found to have hypoosmolar hyponatremia with sodium of 120 and subsequently started on normal saline admitted. Furthermore, patient also noted to have normocytic anemia however denies any melena or hematochezia. Overnight, patient noted to have worsening acute hypoxic respiratory failure with worsening crackles and lower extremity edema and subsequently started on diuretic therapy and BiPAP. Furthermore, patient's sodium also noted to drop to 112 and subsequently nephrology was consulted and recommended starting patient on 3% hypertonic saline renal panel every 2 hours. In addition, patient also noted to have elevated troponin however denies any chest pain and EKG with no ST elevation likely non-STEMI type II secondary to fluid overload state. As of now, patient's oxygen requirement is downtrending however creatinine continues to uptrend and appreciate nephrology input. Sodium up to 122. Continue to monitor closely and will follow-up with cardiology and nephrology input. Creatinine continues to uptrend and hyponatremia improving. Noted to be confused and plan to discontinue steroids. I reviewed above note and agree with findings and plans. I have also personally examined the patient with medicine team and went over assessment and plan with medical team including internal communications writer and resident physician.
[2024-02-13] MEDS: INSULIN GLARGINE (Lantus) 5 UNIT/0.05 ML (PER 5 UNITS) SC (20:47)
[2024-02-13] MEDS: ATORVASTATIN CALCIUM 10 MG TABLET PO (21:13)
[2024-02-13] MEDS: QUEtiapine FUMARATE 25 MG TABLET PO (23:52)
[2024-02-14] VITALS (32 sets, daily range): BP systolic 124–163; BP diastolic 52–85; PULSE 66–83; RESP 12–80; TEMP 36.1–36.8; O2SAT 83–99
--- NOTE | 2024-02-14 | XR_ITS ---
Ultrasound-guided needle placement right internal jugular vein Permanent tunneled dialysis catheter insertion, percutaneous Fluoroscopy AP chest, 2 views INDICATIONS: Renal failure, need for stat and long-term dialysis with permanent tunneled dialysis catheter Date and time of procedure: February 14, 2024 1023 hours Informed consent provided Technique: A timeout was completed verifying correct patient, procedure, site, positioning, and special equipment if applicable. The patient was placed in a dependent position appropriate for dialysis catheter placement based on the vein to be cannulated. The patient'sright neck was prepped and draped in sterile fashion. Maximum Sterile Barrier Technique used including cap, mask, sterile gown, sterile gloves, and sterile full body drape. If ultrasound technique used: sterile gel and sterile probe covers. Hand Hygiene performed using proper scrub, soap and water, or alcohol-based hand rub. 1% lidocaine was used to anesthetize the surrounding skin area The [employer] portable ultrasound apparatus was utilized to confirm patency of the right internal jugular vein Utilizing ultrasonographic guidance, successful 21-gauge needle puncture into the right internal jugular vein. Ultrasound images were recorded and stored. Vessel micropuncture was performed with 21-gauge needle. 0.18 wire guide is introduced into the vein. 0.18 wire is introduced into the vena cava under fluoroscopy. Subcutaneous tunnel formed in the upper chest. Permanent tunneled dialysis catheter placed in the subcutaneous tunnel. Dilators were introduced over the J-wire guide. Tunneled dialysis catheter is introduced through a dilator with venous sheath into the superior vena cava under fluoroscopic guidance. The catheter is sutured in place to the skin and a sterile dressing applied. Perfusion to the extremity distal to the point of catheter insertion is checked and found to be adequate Attending radiologist was present for the entire procedure Estimated blood loss2 cc. The patient tolerated the procedure well and there were no complications Impression: Successful ultrasound-guided needle placement right internal jugular vein Successful permanent tunneled dialysis catheter insertion, percutaneous Fluoroscopy 0.2 minute radiation dose 1.39 milligray 2 spot fluoroscopic chest films. AP chest performed at completion procedure demonstrates satisfactory position dialysis catheter. May use dialysis catheter.
[2024-02-14] MEDS: DILTIAZEM 30 MG TABLET 60 MG PO ×2 (06:13→21:58)
[2024-02-14 06:15] LABS: Basophils % (Auto) 0 % (0-2.5); Eosinophils % (Auto) 0 % (0-10); Monocytes # (Auto) 0.7 Thou/mm3 (0.0-0.8); Monocytes % (Auto) 7 % (0-12); Nucleated Red Blood Cell % 0 /100 WBC (0); White Blood Count 10.2 Thou/mm3 (3.8-10.6)
[2024-02-14 06:17] LABS: Immature Granulocytes % (Auto) 2 % (0-0); Immature Granulocytes Auto 0.18 Thou/mm3 (0.00-0.00); Lymphocytes # (Auto) 0.2 Thou/mm3 (1.0-4.8); Lymphocytes % (Auto) 2 % (10-50); Mean Corpuscular HGB Conc 35.4 g/dl (31.0-37.0); Mean Corpuscular Hemoglobin 28.7 pg (25.0-35.0); Mean Corpuscular Volume 81 fL (80-100); Neutrophils % (Auto) 89 % (37-80); Nucleated Red Blood Cell # 0.02 Thou/mm3 (0.00-0.00); Platelet Count 243 Thou/mm3 (140-440); RDW Standard Deviation 38.3 fL (35.1-43.9); Red Blood Count 2.44 Miln/mm3 (4.50-5.90)
[2024-02-14 06:37] LABS: Hematocrit 19.8 % (41.0-53.0)
[2024-02-14 07:14] LABS: Alanine Aminotransferase 91 U/L (10-49); Albumin/Globulin Ratio 2.2 (1.2-2.2); Alkaline Phosphatase 40 U/L (46-116); Anion Gap 7 (7-16); Aspartate Amino Transferase 64 U/L (0-34); BUN/Creatinine Ratio 20 Ratio (12-20); Bilirubin,Total 0.4 mg/dL (0.3-1.2); Blood Urea Nitrogen 95 mg/dL (9-23); Calcium 8.9 mg/dL (8.3-10.6); Calcium (Corrected) 8.9 mg/dL (8.5-10.1); Carbon Dioxide 29.9 mMol/L (20.0-31.0); Chloride 92 mMol/L (98-107); Creatinine (Component) 4.7 mg/dL (0.6-1.3); Estimated Creatinine Clearance 10.8 mL/min (>60); Globulin 1.8 gm/dL (2.3-3.5); Glucose 294 mg/dL (74-106); Magnesium 2.6 mg/dL (1.6-2.6); Osmolality,Calculated 299 (275-295); Potassium 4.4 mMol/L (3.4-5.1); Sodium 129 mMol/L (136-145); Total Protein 5.8 gm/dL (5.7-8.2); eGFR 12 See Note
[2024-02-14] MEDS: INSULIN LISPRO (AdmeLOG) 1 UNIT/0.01 ML UNIT SC ×3 (07:37→20:25)
[2024-02-14 08:42] LABS: Hematocrit 21.1 % (41.0-53.0)
[2024-02-14 08:44] LABS: Hemoglobin 7.3 g/dL (13.5-16.0)
[2024-02-14] MEDS: PANTOPRAZOLE INJ 40 MG VIAL IV ×2 (08:49→20:27)
--- NOTE | 2024-02-14 09:18 | ESPR_ITS ---
Documentation for date of: 02/14/24 Subjective Subjective Interval history: Mr. 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 Patient's is at bedside and majority of history was taken from her. Patient has been having shortness of breath and wheezing with mild cough and white phlegm for the past 2 days. Patient states that he also is mildly congested denies any runny nose sick contacts or travel history. The noted that recently he has been feeling bloating but denies any changes in the appetite nausea vomiting or abdominal pain. Patient denies any history of prior asthma history. In the ED patient's vitals include blood pressure 164/70 respirations 28, WBC 10.9, hemoglobin 7.3, hematocrit 21.5, and sodium 120. Creatinine 2.9, GFR 21, osmolality 259, BNP 381, lipase 76. Chest x-ray findings include subtle opacity in both lungs suspicious for bilateral basilar pneumonia. In the ED patient received a breathing treatment, Rocephin x 1. Patient admitted for hypoosmolar hyponatremia. Nephrology was consulted for hyponatremia and DIAN on CKD. Primary team ordered urine electrolytes, started patient on IV fluids normal saline at 75 mL/h, every 4 sodium checks. Urine electrolytes showed urine sodium less than 15. Renal ultrasound showed no hydronephrosis, renal cortical thinning and renal parenchymal scar formation. Patient continued to deteriorate: Hemoglobin 6.3, sodium 117, BUN 51, creatinine 2.7, eGFR 23. Patient was examined on the floors, sitting at side of bed, in clear distress. Patient had labored breathing, audible wheezing, tense edema to bilateral lower extremities. Repeat sodium check 112. Patient received breathing treatment with minimal improvement. ICU was consulted for possible upgrade, patient started on hypertonic saline. ICU team aware of patient monitoring, elected to keep patient on floors for now. Blood transfusion held in setting of volume overload, will continue to monitor closely. Considered chest CT, delayed due to patient's respiratory distress. ABG showed pH 7.26, pCO2 30, pO2 69, bicarb 13. Lactic acid 3.8. No anion gap. Chest x-ray showed mild to moderate CHF pattern with severe vascular congestion including central vascular engorgement. 02/10/2024 patient currently seen in telemetry. Still having labored breathing and wheezing although slightly better than yesterday. With the Bumex patient put out 3.7 L. Sodium improved from 1 12-1 21. Clinically seems to be stable. at bedside. Blood pressure 154/80, heart rate 107. WBC 10.1, hemoglobin 7.2, platelets 203. Sodium 121, potassium 4.1, BUN 56, creatinine went up to 3.0, glucose 310, phosphorus 5.4, troponin 1.072. Chest x-ray yesterday showed moderate heart failure. 02/11/2024 patient still very short of breath although slightly better than yesterday. at bedside. Labs and medications have been reviewed. Continue with diuretics. Sodium 123. Salt tablets added. Metabolic acidosis noted- Bicitra given. Spoke to Dr. Burleson. 02/12/2024 patient seen and examined in telemetry. Patient appears comfortable, mildly agitated/excitable. Lung sounds greatly improved, minimal lower extremity edema. 1.5 L urine output. Sodium continues to improve: 123 increased to 125. Potassium 4.0, bicarb 22.9, BUN 69, creatinine 3.6, eGFR 17. 02/13/2024 patient seen and examined in telemetry. Patient resting in bed, appears lethargic, mildly agitated, poor mentation compared to previous examinations. Significant wheezing on auscultation of lungs, minimal lower extremity edema. 1.9 L urinary output. Sodium 127, potassium 4.0, bicarb 26.2, BUN 77, creatinine 3.9, eGFR 15. Hemoglobin 7.2. Will hold Bumex. Discussed worsening delirium with primary team, will possibly use Seroquel. 02/14/2024 patient seen on telemetry. Patient resting in bed, appears mildly agitated. Per at bedside patient had good night sleep but Became agitated when woken this morning for blood draw. Renal function decreased: BUN 95, creatinine 4.7, eGFR 12. Sodium 129. Will place a temporary Vas-Cath for emergent dialysis. Exam Vital Signs Temp Pulse Resp BP Pulse Ox O2 Del Method O2 Flow Rate 97.4 F 71 19 130/59 L 95 Oxy Mask 5 02/14/24 08:00 02/14/24 08:00 02/14/24 08:00 02/14/24 08:00 02/14/24 08:00 02/14/24 08:00 02/14/24 08:00 FiO2 0 02/13/24 11:54 Narrative Exam GENERAL APPEARANCE: Fragile gentleman currently seen in telemetry. Short of breath. On nasal cannula NECK: ++ JVD CARDIOVASCULAR: Heart regular, no murmurs, tachycardia LUNGS/CHEST: Significant wheezing in all lung lara. ABDOMEN: Soft, nontender, nondistended. No masses. Normal bowel sounds. EXTREMITIES: No edema. SKIN: Skin exam normal without any rashes MUSCULOSKELETAL: In bed NEUROLOGICAL : No neurological deficits. Alert and awake. Mildly agitated. Objective Labs 02/14/24 17:37 02/14/24 04:25 Labs: Laboratory Results - last 24 hr 02/14/24 02/14/24 04:25 08:27 WBC 10.2 RBC 2.44 L Hgb 7.0 L 7.3 L Hct 19.8 L* 21.1 L* MCV 81 MCH 28.7 MCHC 35.4 RDW Std Deviation 38.3 Plt Count 243 Neut % (Auto) 89 H Lymph % (Auto) 2 L [place]berry % (Auto) 7 Eos % (Auto) 0 Baso % (Auto) 0 Neut # (Auto) 9.0 H Lymph # (Auto) 0.2 L [place] # (Auto) 0.7 Eos # (Auto) 0.0 Baso # (Auto) 0.0 Immature Gran # (Auto) 0.18 H Absolute Nucleated RBC 0.02 H Immature Gran % 2 H Nucleated RBC % 0 Sodium 129 L Potassium 4.4 Chloride 92 L Carbon Dioxide 29.9 Anion Gap 7 BUN 95 H Creatinine 4.7 H* D Estim Creat Clear Calc 10.8 L eGFR 12 L* BUN/Creatinine Ratio 20 Glucose 294 H Calculated Osmolality 299 H Calcium 8.9 Corrected Calcium 8.9 Phosphorus 7.0 H Magnesium 2.6 Total Bilirubin 0.4 AST 64 H ALT 91 H Alkaline Phosphatase 40 L Total Protein 5.8 Albumin 4.0 Globulin 1.8 L Albumin/Globulin Ratio 2.2 ABG Interpretation ABG results: 02/09/24 02/09/24 02/09/24 09:30 12:12 19:16 ABG pH 7.26 L 7.31 L ABG pCO2 30 L 31 L ABG pO2 69 L 101 D ABG HCO3 13 L 15 L ABG O2 Saturation 93 99 H ABG Base Excess -13 L -10 L VBG pH 7.41 VBG pCO2 29 L VBG pO2 38 VBG Base Excess -6 L Quality Measures Quality Measures VTE prophylaxis Advance care planning discussed with:: patient and spouse Assessment & Plan Assessment Current Active Medications: Generic Name Dose Route Start Last Admin Trade Name Freq PRN Reason Stop Dose Admin Acetaminophen 650 mg 02/09/24 05:01 02/09/24 05:13 Acetaminophen 325 Mg Tablet PO 03/09/24 18:24 650 mg Q6H PRN Administration PAIN OR FEVER > 101 Albuterol/Ipratropium 3 ml 02/13/24 09:21 02/13/24 21:01 Albuterol/Ipratropium (Duoneb) Rt Romina 3 Ml Nebu INH 03/09/24 18:59 3 ml Q4HRRT PRN Administration WHEEZING or sob Atorvastatin Calcium 10 mg 02/09/24 21:00 02/13/24 21:13 Atorvastatin Calcium 10 Mg Tablet PO 03/10/24 20:59 10 mg HS ABHIJIT Administration Bumetanide 2 mg 02/12/24 09:00 02/13/24 08:54 Bumetanide Inj 0.25 Mg/Ml Vial 4 Ml IVP 03/13/24 08:59 2 mg DAILY ABHIJIT Administration Citric Acid/Sodium Citrate 30 ml 02/11/24 09:00 02/14/24 08:44 Citric Acid/Sodium Citr 15 Ml Udc (Bicitra) PO 03/12/24 08:59 Not Given BID ABHIJIT Dextrose 25 ml 02/08/24 19:04 Dextrose 50%-Water Inj 50 Ml Syringe IV 03/09/24 19:03 Q15MIN PRN BG 50-70 responsive npo pt Dextrose 50 ml 02/08/24 19:04 Dextrose 50%-Water Inj 50 Ml Syringe IV 03/09/24 19:03 Q15MIN PRN BG <50 OR BG <70 & pt unresponsive Diltiazem HCl 60 mg 02/11/24 22:00 02/14/24 06:13 Diltiazem 30 Mg Tablet PO 03/12/24 21:59 60 mg TID ABHIJIT Administration Glucagon 1 mg 02/08/24 19:04 Glucagon Inj 1 Mg Vial IM Q15MIN PRN BG <70, and no IV access Ceftriaxone Sodium/Dextrose 50 mls @ 100 mls/hr 02/09/24 14:00 02/13/24 13:20 Rocephin/D5w 1gm Iv Premix IV 02/16/24 13:59 100 mls/hr QDAY@1400 ABHIJIT Administration Insulin Glargine 5 unit 02/10/24 21:00 02/13/24 20:47 Insulin Glargine (Lantus) 5 Unit/0.05 Ml (Per 5 Units) SC 03/11/24 20:59 5 unit HS ABHIJIT Administration Insulin Human Lispro 0 unit 02/10/24 17:00 02/14/24 07:37 Insulin Lispro (Admelog) 1 Unit/0.01 Ml Unit SC 03/11/24 16:59 10 unit ACHS ABHIJIT Administration Protocol Nicardipine HCl 20 mg 02/12/24 21:00 02/14/24 08:44 Nicardipine 20 Mg Capsule PO 03/13/24 20:59 Not Given BID ABHIJIT Ondansetron HCl 4 mg 02/08/24 18:25 Ondansetron Inj 2 Mg/Ml Inj 2 Ml IV 03/09/24 18:24 Q6H PRN NAUSEA OR VOMITING Protocol Pantoprazole Sodium 40 mg 02/09/24 21:00 02/14/24 08:49 Pantoprazole Inj 40 Mg Vial IV 03/10/24 20:59 40 mg BID ABHIJIT Administration Sennosides 2 tab 02/08/24 18:25 Senna Tablet PO 03/09/24 18:24 BID PRN CONSTIPATION Protocol Sevelamer Carbonate 800 mg 02/11/24 12:00 02/14/24 08:40 Sevelamer Carbonate 800 Mg Tablet PO 03/12/24 11:59 Not Given TIDWM ABHIJIT Sodium Chloride 1 gm 02/11/24 11:45 02/14/24 08:45 Sodium Chloride 1 Gm Tablet PO 03/12/24 11:44 Not Given BID ABHIJIT Plan Mr. 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 Patient is been having shortness of breath and wheezing with mild cough and white phlegm for the past 2 days. #Hyperosmolar hyponatremia--patient sodium dropped to 112. Clinically looks rather hypervolemic. Will try 3% hypertonic saline along with diuretics. Vaprisol not available in this hospital. Patient seems to have gone into flash pulmonary edema. Will request ICU consult. Plan of care discussed with primary team. Sodium improving, 129. Plan: -Continue to monitor daily labs -Hold IV fluids due to volume overload -Salt tabs 1 g p.o. twice daily #DIAN on CKD On admission patient sodium 120, was initially treated with normal saline at 75 mL/h. Sodium increased to 122 and sharply declined to 112. Osmolality 259 decreased to 246. ICU team consulted, patient will remain on floors, ICU will monitor. Urinalysis showed urine sodium less than 15. Patient appears volume overloaded: CHF pattern with vascular congestion on chest x-ray, 2+ tense edema bilateral lower extremities. ABG showed pH 7.2, pCO2 30, pO2 69, bicarb 13. Lactic acid 3.8, no anion gap. Patient received 1 dose 40 mg IV Lasix and [address] ordered, delayed due to patient severe respiratory distress. BUN 51, creatinine 3.0. Worse than patient's baseline. Renal ultrasound showed no hydronephrosis, bilateral renal cortical thinning and renal parenchymal scar formation. 3% hypertonic saline has been held, patient on oral salt tabs Kidney function has continued to decline: BUN 95, creatinine 4.7, EGFR 12. Plan: -Will place temporary Vas-Cath for emergent dialysis -Hold Bumex -Hold IV fluids -Every 4 hour sodium checks -Renally dose meds -Avoid nephrotoxic medications -Monitor daily renal function -ICU team on the case #Hospital induced delirium #Acute hypoxic respiratory failure #Chronic anemia #History of diabetes mellitus #History of primary hypertension #History of CVA without residual deficit Management as per primary team Thank you for allow me to participate in the care of this patient. Plan of care discussed with attending Dr. West. Cornelio Powell MD PGY-1 Attending Provider Attestation/Addendum Patient seen and examined with resident physician Dr. Powell. Note reviewed, agree with findings and recommendations. Patient still feeling short of breath and confused. BUN and creatinine significantly elevated. Suspect patient going towards cardiorenal syndrome/ATN. Long conversation with his -she agreed for dialysis. Catheter placed by Dr. Trevizo. If no improvement needs outpatient dialysis. Hepatitis, PPD ordered Patient currently seen on dialysis. Tolerating dialysis without any problems. Hemodialysis for 2 hours, 2K, ultrafiltration 1-1.5 L, Epogen 6000, no heparin ordered. Plan of care discussed with the dialysis nurse. Please see dialysis flowsheet for further details.
[2024-02-14 09:21] LABS: INR 1.1 (0.9-1.3); Partial Thromboplastin Time 26.3 Seconds (22.0-36.0); Prothrombin Time 12.2 Seconds (9.0-12.2)
--- NOTE | 2024-02-14 09:33 | PC.SS ---
Update: Plan is for the patient to receive placement of dialysis catheter today.
[2024-02-14] MEDS: LIDOCAINE INJ PF 1% 5 ML VIAL 6 ML INFL (11:24)
[2024-02-14] MEDS: HEPARIN SOD LOCK SYR 100 UNIT/ML 500 UNIT STFIELD (11:24)
[2024-02-14] MEDS: fentaNYL CIT INJ 50 mCg/ML AMP 2ML IVP (11:24)
[2024-02-14] MEDS: HEPARIN SOD INJ 1000 UNIT/ML VIAL 3300 UNIT INDWELLCAT (11:40)
--- NOTE | 2024-02-14 12:00 | PC.NURSE ---
Patient transported to tele via gurney. Report given to SKIP Tavera post perm dialysis catheter placement. Dressing clean, dry, and intact.
[2024-02-14] MEDS: SEVELAMER CARBONATE 0.8 GM PACKET (NON-FORMULARY) PO ×2 (12:57→17:03)
--- NOTE | 2024-02-14 14:43 | PC.NURSE ---
Pt on dialysis at this time. 1 unit prbc started. No s/s of reaction or side effects noted. Pt no complaints. Dr West ordered to remove 1-1.5L of fluid as tolerated. Will monitor
--- NOTE | 2024-02-14 14:47 | ESPR_ITS ---
<Statement entered by Hernandez Amaya MD - 02/17/24 12:58> I personally examined the patient evaluated the patient not complain of any chest pain or shortness of breath now undergoing dialysis tolerating well so far blood pressure is also stable I reviewed the findings and all essential components of the progress report and consultation report agree with the treatment plan recommendation as formulated by Dr. Kern PGY 2 resident physician will continue to monitor the patient Documentation for date of: 02/14/24 Subjective Subjective Interval history: The patient is a 78-year-old male with known history of longstanding hypertension, diabetes mellitus and chronic kidney disease stage IV, who is followed by Dr. West regularly, presented to the hospital with multiple symptoms being shortness of breath, orthopnea and volume overload. He was given some fluid, is not having much diuresis, having severe shortness of breath, not having any chest pain at all, but his cardiac enzymes were persistently elevated at one point initially 0.28, but went up to 1.24, 1.0, 1.03. The patient is still not having any chest pain and mostly orthopnea, has JVD with volume overload situation. He does not have any other symptoms for now, but he has been treated with IV Bumex with some urine output. The patient is also developed severe hyponatremia. Sodium 118, now up to 121, dilutional with low urine sodium. His creatinine is still going up steadily 3.0, BUN is 56 and mild acidosis, CO2 is 19. Blood gas showed pH 7.31, pCO2 of 31, and pO2 is 100. His chest x-ray does show evidence of pulmonary congestion and heart failure. EKG showed sinus rhythm. No evidence of ischemic change and now essentially unremarkable first-degree AV block. The patient is still having some shortness of breath and orthopnea and not complaining of any chest pain. Labs revealed troponin at 1.0. Hemoglobin at 7.3, white count 10. Chemistry panel showed BUN and creatinine elevated at 56 and 2.0. Sodium now 121. Creatinine clearance 21. PMH: As above Allergies: NKDA Home medications: Amlodipine 10 mg, hydralazine 25 mg, insulin 02/11/2024: Patient was seen and examined at the bedside. Patient is feeling better and is seen on nasal cannula 4 L. Morning labs revealed leukocytosis likely due to steroids, hemoglobin at 7.3. Chemistry panel showed sodium at 121 today. Kidney functions consistent with CKD stage IV with creatinine 3.2. Phosphorus at 6.7. Urine sodium less than 15, random total protein 165. Echocardiogram showed normal LV size and function. Estimated EF 60-65%Normal RV size and function.Estimated RVSP 53mmHg.Mild MR. Moderate TR. Trace AI. Recommended to continue Bumex 2 mg once a day, continuing IV ceftriaxone for treating infection. Sodium levels have improved. Nephrology team added salt tablets as well. After discussing with cotton tipper, we discontinued amlodipine and hydralazine and started Cardizem 60 mg 3 times daily. Patient's family was updated regarding the plan of care. Patient still making good urine output therefore nephrology will follow the patient closely due to his CKD stage IV. 02/12/24:Patient was seen and examined at the bedside, Patient appears improved in his breathing. Patient had Left leg swelling and calf pain. Vitals showed slight elevated BP. Labs showed Leukocytosis and Hgb around 7.5.Na improved to 125. Kidney functions showing Cr at 3.6. Doppler LE was negative for DVT.Recommended to continue Bumex 2 mg once a day, and cont cardizem 60 mg TID. Added nicardipine 20 mg twice daily for blood pressure control. 02/13/2024: Patient was seen and examined at the bedside. He appears lethargic and mildly agitated with poor mentation. He had a urine output of 1. 9 l. Chemistry panel showed sodium 127, kidney functions worsened with BUN 77 creatinine 3.9. Hemoglobin 7.2. Nephrology team decided to hold Bumex. He does have signs of worsening delirium. Recommended to hold Bumex as patient has CKD significant compared to heart failure. will likely reduce dose of bumex to 1 mg once a day and give only for fluid overload state. 02/14/2024: Patient was seen and examined at the bedside. Patient appears to be mildly distress. Vitals showed mildly elevated blood pressure. Labs revealed hemoglobin at 7.3. Kidney functions showed worsening BUN and creatinine 4.7. Mild hyponatremia however sodium improved since admission. Phosphorus 7.0. Elevated liver enzymes. Nephrology team decided to start dialysis and family was agreeable to the plan.PermCath placed in right IJV. Recommended to discontinue Bumex. Patient will be undergoing hemodialysis. Agreeable to the plan. All labs and orders were reviewed. Exam Vital Signs Temp Pulse Resp BP Pulse Ox O2 Del Method O2 Flow Rate 97.8 F 66 16 144/52 H 97 Oxy Mask 2 02/14/24 14:36 02/14/24 14:45 02/14/24 14:36 02/14/24 14:45 02/14/24 14:36 02/14/24 12:00 02/14/24 14:36 FiO2 0 02/14/24 13:58 Narrative Exam GENERAL APPEARANCE: Patient is mildly delirious chronically ill-appearing male in mildly agitated HEENT: NC, AT. MMM. EOMI, clear conjunctiva, oropharynx clear.JVD seen NECK: Supple without lymphadenopathy. No stiffness or restricted ROM. Prominent JVD. Right IJV catheter HEART: Regular rate and regular rhythm, normal S1/S2, no m/r/g LUNGS: Decreased breath sounds and bilateral crackles heard on auscultation. ABDOMEN: Soft, nontender, nondistended with good bowel sounds heard. EXTREMITIES: 1+ pitting edema On both lower extremities. NEUROLOGICAL: Grossly nonfocal. Alert and oriented, moving all 4 extremities. CN not formally tested but appear grossly intact. Observed to ambulate with normal gait. Skin: Warm and dry without any rash. Psych: Delirium noticed Objective Labs 02/14/24 08:27 02/14/24 04:25 Labs: Laboratory Results - last 24 hr 02/09/24 02/14/24 02/14/24 09:47 04:25 05:30 WBC 10.2 RBC 2.44 L Hgb 7.0 L Hct 19.8 L* MCV 81 MCH 28.7 MCHC 35.4 RDW Std Deviation 38.3 Plt Count 243 Neut % (Auto) 89 H Lymph % (Auto) 2 L [place] % (Auto) 7 Eos % (Auto) 0 Baso % (Auto) 0 Neut # (Auto) 9.0 H Lymph # (Auto) 0.2 L [place] # (Auto) 0.7 Eos # (Auto) 0.0 Baso # (Auto) 0.0 Immature Gran # (Auto) 0.18 H Absolute Nucleated RBC 0.02 H Immature Gran % 2 H Nucleated RBC % 0 PT 12.2 INR 1.1 APTT 26.3 Sodium 129 L Potassium 4.4 Chloride 92 L Carbon Dioxide 29.9 Anion Gap 7 BUN 95 H Creatinine 4.7 H* D Estim Creat Clear Calc 10.8 L eGFR 12 L* BUN/Creatinine Ratio 20 Glucose 294 H Calculated Osmolality 299 H Calcium 8.9 Corrected Calcium 8.9 Phosphorus 7.0 H Magnesium 2.6 Total Bilirubin 0.4 AST 64 H ALT 91 H Alkaline Phosphatase 40 L Total Protein 5.8 Albumin 4.0 Globulin 1.8 L Albumin/Globulin Ratio 2.2 Blood Type Antibody Screen Crossmatch See Detail Blood Bank Wristband ID 02/14/24 08:27 WBC RBC Hgb 7.3 L Hct 21.1 L* MCV MCH MCHC RDW Std Deviation Plt Count Neut % (Auto) Lymph % (Auto) [place] % (Auto) Eos % (Auto) Baso % (Auto) Neut # (Auto) Lymph # (Auto) [place] # (Auto) Eos # (Auto) Baso # (Auto) Immature Gran # (Auto) Absolute Nucleated RBC Immature Gran % Nucleated RBC % PT INR APTT Sodium Potassium Chloride Carbon Dioxide Anion Gap BUN Creatinine Estim Creat Clear Calc eGFR BUN/Creatinine Ratio Glucose Calculated Osmolality Calcium Corrected Calcium Phosphorus Magnesium Total Bilirubin AST ALT Alkaline Phosphatase Total Protein Albumin Globulin Albumin/Globulin Ratio Blood Type B Positive Antibody Screen NEGATIVE Crossmatch See Detail Blood Bank Wristband ID Yes ABG Interpretation ABG results: 02/09/24 02/09/24 02/09/24 09:30 12:12 19:16 ABG pH 7.26 L 7.31 L ABG pCO2 30 L 31 L ABG pO2 69 L 101 D ABG HCO3 13 L 15 L ABG O2 Saturation 93 99 H ABG Base Excess -13 L -10 L VBG pH 7.41 VBG pCO2 29 L VBG pO2 38 VBG Base Excess -6 L Quality Measures Quality Measures VTE prophylaxis Advance care planning discussed with:: patient Assessment & Plan Assessment Current Active Medications: Generic Name Dose Route Start Last Admin Trade Name Freq PRN Reason Stop Dose Admin Acetaminophen 650 mg 02/09/24 05:01 02/09/24 05:13 Acetaminophen 325 Mg Tablet PO 03/09/24 18:24 650 mg Q6H PRN Administration PAIN OR FEVER > 101 Albuterol/Ipratropium 3 ml 02/13/24 09:21 02/13/24 21:01 Albuterol/Ipratropium (Duoneb) Rt Romina 3 Ml Nebu INH 03/09/24 18:59 3 ml Q4HRRT PRN Administration WHEEZING or sob Atorvastatin Calcium 10 mg 02/09/24 21:00 02/13/24 21:13 Atorvastatin Calcium 10 Mg Tablet PO 03/10/24 20:59 10 mg HS ABHIJIT Administration Citric Acid/Sodium Citrate 30 ml 02/11/24 09:00 02/14/24 08:44 Citric Acid/Sodium Citr 15 Ml Udc (Bicitra) PO 03/12/24 08:59 Not Given BID ABHIJIT Dextrose 25 ml 02/08/24 19:04 Dextrose 50%-Water Inj 50 Ml Syringe IV 03/09/24 19:03 Q15MIN PRN BG 50-70 responsive npo pt Dextrose 50 ml 02/08/24 19:04 Dextrose 50%-Water Inj 50 Ml Syringe IV 03/09/24 19:03 Q15MIN PRN BG <50 OR BG <70 & pt unresponsive Diltiazem HCl 60 mg 02/11/24 22:00 02/14/24 13:53 Diltiazem 30 Mg Tablet PO 03/12/24 21:59 Not Given TID ABHIJIT Glucagon 1 mg 02/08/24 19:04 Glucagon Inj 1 Mg Vial IM Q15MIN PRN BG <70, and no IV access Ceftriaxone Sodium/Dextrose 50 mls @ 100 mls/hr 02/09/24 14:00 02/13/24 13:20 Rocephin/D5w 1gm Iv Premix IV 02/16/24 13:59 100 mls/hr QDAY@1400 ABHIJIT Administration Insulin Glargine 5 unit 02/10/24 21:00 02/13/24 20:47 Insulin Glargine (Lantus) 5 Unit/0.05 Ml (Per 5 Units) SC 03/11/24 20:59 5 unit HS ABHIJIT Administration Insulin Human Lispro 0 unit 02/10/24 17:00 02/14/24 12:08 Insulin Lispro (Admelog) 1 Unit/0.01 Ml Unit SC 03/11/24 16:59 4 unit ACHS ABHIJIT Administration Protocol Nicardipine HCl 20 mg 02/12/24 21:00 02/14/24 08:44 Nicardipine 20 Mg Capsule PO 03/13/24 20:59 Not Given BID ABHIJIT Ondansetron HCl 4 mg 02/08/24 18:25 Ondansetron Inj 2 Mg/Ml Inj 2 Ml IV 03/09/24 18:24 Q6H PRN NAUSEA OR VOMITING Protocol Pantoprazole Sodium 40 mg 02/09/24 21:00 02/14/24 08:49 Pantoprazole Inj 40 Mg Vial IV 03/10/24 20:59 40 mg BID ABHIJIT Administration Sennosides 2 tab 02/08/24 18:25 Senna Tablet PO 03/09/24 18:24 BID PRN CONSTIPATION Protocol Sevelamer Carbonate 0.8 gm 02/14/24 12:30 02/14/24 12:57 Sevelamer Carbonate 0.8 Gm Packet (Non-Formulary) PO 03/12/24 11:59 0.8 gm TIDWM ABHIJIT Administration Sodium Chloride 1 gm 02/11/24 11:45 02/14/24 08:45 Sodium Chloride 1 Gm Tablet PO 03/12/24 11:44 Not Given BID ABHIJIT Plan This 70-year-old male with past medical history of hypertension, DM2, CKD, and CVA was admitted to the hospital on 02/08/2024 for hypoosmolar hyponatremia and acute hypoxic respiratory failure likely secondary to acute decompensated heart failure exacerbation versus pneumonia. # Acute hypoxic respiratory failure # Likely secondary to pleural effusion versus HFpEF vs Fluid overload due to CKD # HFpEF EF 60 to 65% ?Patient presented with shortness of breath, wheezing and mild cough. Patient was kept on BiPAP due to increased work of breathing. Switched to OxyMask. ? Chest CT showed moderate heart failure with pleural effusions bilateral. ?Patient showed a diuresis output of 2.4 L with negative balance of 1.6 L. ?Patient's sodium has slightly improved at 123 ? Echocardiogram showed EF 60 to 65%. ? LE Doppler was negative for DVT. Plan: ? Discontinued Bumex given patient is starting on hemodialysis from now on ? Cont nicardipine 20 mg twice daily for blood pressure management ? No need of anticoagulation as patient has severe anemia ? Strict VALERIO's, fluid restriction and daily weight ? Oxygen as needed ? Daily labs ? Keep magnesium above 2 and potassium above 4 ? Keep hemoglobin above 7 ? Continue IV antibiotic therapy and steroids for treating sepsis # History of hypertension # Hypertensive emergency, resolved ? Patient was taking amlodipine and hydralazine for blood pressure management. Plan: ? Continue nicardipine 20 mg twice dailyand Cardizem 60 mg 3 times a day ? DC'd amlodipine and hydralazine ? Monitor vitals # NSTEMI type II likely supply demand ischemia ? Troponin I peaked at 1.242 and down trended. EKG showed sinus rhythm. Plan: ? Continue to monitor for signs of chest pain or shortness of breath # New onset hemodialysis ? Patient's kidney functions worsened and he remains in fluid overload with decreased urine output. ? Nephrology team decided for placing a right IJV catheter and starting hemodialysis sessions. ? Right IJV catheter placed today Plan: ? Avoid nephrotoxic agents ? Renally dose medications ? Strict VALERIO's ? Follow-up with renal panel ? Nephrology following the case ? Discontinued Bumex ?Continue sevelamer 0.8 3 times daily with meals Other active problems: # Delirium # Hypoosmolar hyponatremia, improved # Hypochloremia -Nephrology following the case. # Sepsis likely secondary to community-acquired pneumonia # Lactic acidosis type B # NAGMA # Anemia of chronic disease # History of type 2 diabetes # CKD stage 4 # History of CVA #Moderate thoracic spondylosis per CT finding Rest of the management as per primary care team. Thank you very much for consulting cardiology team. Discontinued Bumex. Patient is starting a new onset hemodialysis from now on nephrology following the case. Agreeable to the plan. Plan of care discussed with die try out worker stamping, Dr. Jose Luis Kern MD, PGY 2
--- NOTE | 2024-02-14 15:04 | PC.SS ---
Addendum entered and electronically signed by JOHNATHAN Bruon 02/14/24 15:05: Medical team informed of need to order Hep panel and TB test. Original Note: Rounding Note: Plan is for dialysis cath placement and then to start dialysis.
--- NOTE | 2024-02-14 15:30 | PC.SS ---
APICULTURIST informed that patient will receive 1st session of dialysis today.
--- NOTE | 2024-02-14 16:41 | PD.RESPRO ---
Documentation for date of: 02/14/24 Subjective Subjective Interval history: 02/08: Over night team reported patient had increasing wheezing and shortness of breath, and received multiple duoneds treatments. This mornign patient is seen and examined at bed. Pt. is unable to talk because of SOB, he is using orxygen via nasal cannula. Pt denies chest pains, nausea, vomiting or abdominal pain. He is loudly wheezing. Pt. reports worsening symptoms of SOB from last night. He continues to have mild cough with phelgm. but the SOB is bothering him the most. 02/09: Please see Dr. Hu notes 02/10: Please see Dr. Hu notes 02/11: No overnight events, patient is seen and examined at bedside. Patient appears to be comfortably breathing on 3 L of oxygen on nasal cannula. Patient has significant improvement in shortness of breath, wheezing and edema in the lower extremities. Patient denies any chest pain, continues to have minimal cough with phlegm. Patient denies any abdominal pain nausea or vomiting. Later in the afternoon patient had tenderness over the edema on the left extremity, Doppler ultrasound was negative for DVT. Patient has no other complaints. 02/12: No overnight events, patient is seen and examined at bedside. Patient's is at bedside who reported patient has been hallucinating all night, he appeared to be talking to someone that was not present in the room. Patient's stated that he has been seeing people boxing around the room, he would get up from the bed and sit on the bedside commode. Patient was delirious and agitated all night. denies any prior history of similar episodes. Currently patient is saturating on 3 L of oxygen. He has been eating approximately 30% of his food denies cough, nausea or vomiting. This morning patient was able to sleep a little bit and skipped his breathing treatments that were scheduled for 7 AM. Sodium is improving to 127, patient's kidney function is declining with creatinine 3.9 and GFR 15. patient has no other complaints. 02/13: Overnight team reported patient had worsening delirium and Seroquel x1 was given around 11 PM. Patient is seen and examined at bedside patient's is at bedside who stated patient slept comfortably after the dose of Seroquel. this morning patient was agitated and startles very easily. also states that patient have not had a bowel movement for several days. Currently patient is saturating on 6 L of oxygen via OxiMax saturating at 97%. Patient's kidney function is worsening creatinine 4.7 and GFR 12 plan for urgent dialysis today. Patient's hemoglobin is 7 and hematocrit is 19.8 Mild hyponatremia 129 however sodium improved since admission. planning to give him 1 unit of RBCs since patient will be going to have a dialysis session today. Exam Vital Signs Temp Pulse Resp BP Pulse Ox O2 Del Method O2 Flow Rate 98 F 70 17 163/79 H 98 Oxy Mask 3 02/14/24 16:19 02/14/24 16:19 02/14/24 16:19 02/14/24 16:19 02/14/24 16:19 02/14/24 12:00 02/14/24 16:19 FiO2 0 02/14/24 16:19 Narrative Exam GENERAL: A&Ox3 . Awake, confused and delirious NEURO: executive cyber leader grossly intact, moves extremities x4 HEENT: Atraumatic, Normocephalic. mucous membranes moist. Eyes open, symmetrical, & clear HEART: Normal Heart Sounds LUNGS: wheezing bilaterally on auscultation ABDOMEN: soft, non-distended, non-tender, bowel sounds heard, no guarding or rebound tenderness SKIN: No Rash or ecchymoses EXTREMITIES: minimal pitting edema, nop tenderness, able to move all 4 extremities, pedal pulses palpated Objective Labs 02/14/24 08:27 02/14/24 04:25 Labs: Laboratory Results - last 24 hr 02/09/24 02/14/24 02/14/24 09:47 04:25 05:30 WBC 10.2 RBC 2.44 L Hgb 7.0 L Hct 19.8 L* MCV 81 MCH 28.7 MCHC 35.4 RDW Std Deviation 38.3 Plt Count 243 Neut % (Auto) 89 H Lymph % (Auto) 2 L [place] % (Auto) 7 Eos % (Auto) 0 Baso % (Auto) 0 Neut # (Auto) 9.0 H Lymph # (Auto) 0.2 L [place] # (Auto) 0.7 Eos # (Auto) 0.0 Baso # (Auto) 0.0 Immature Gran # (Auto) 0.18 H Absolute Nucleated RBC 0.02 H Immature Gran % 2 H Nucleated RBC % 0 PT 12.2 INR 1.1 APTT 26.3 Sodium 129 L Potassium 4.4 Chloride 92 L Carbon Dioxide 29.9 Anion Gap 7 BUN 95 H Creatinine 4.7 H* D Estim Creat Clear Calc 10.8 L eGFR 12 L* BUN/Creatinine Ratio 20 Glucose 294 H Calculated Osmolality 299 H Calcium 8.9 Corrected Calcium 8.9 Phosphorus 7.0 H Magnesium 2.6 Total Bilirubin 0.4 AST 64 H ALT 91 H Alkaline Phosphatase 40 L Total Protein 5.8 Albumin 4.0 Globulin 1.8 L Albumin/Globulin Ratio 2.2 Blood Type Antibody Screen Crossmatch See Detail Blood Bank Wristband ID 02/14/24 08:27 WBC RBC Hgb 7.3 L Hct 21.1 L* MCV MCH MCHC RDW Std Deviation Plt Count Neut % (Auto) Lymph % (Auto) [place] % (Auto) Eos % (Auto) Baso % (Auto) Neut # (Auto) Lymph # (Auto) [place] # (Auto) Eos # (Auto) Baso # (Auto) Immature Gran # (Auto) Absolute Nucleated RBC Immature Gran % Nucleated RBC % PT INR APTT Sodium Potassium Chloride Carbon Dioxide Anion Gap BUN Creatinine Estim Creat Clear Calc eGFR BUN/Creatinine Ratio Glucose Calculated Osmolality Calcium Corrected Calcium Phosphorus Magnesium Total Bilirubin AST ALT Alkaline Phosphatase Total Protein Albumin Globulin Albumin/Globulin Ratio Blood Type B Positive Antibody Screen NEGATIVE Crossmatch See Detail Blood Bank Wristband ID Yes ABG Interpretation ABG results: 02/09/24 02/09/24 02/09/24 09:30 12:12 19:16 ABG pH 7.26 L 7.31 L ABG pCO2 30 L 31 L ABG pO2 69 L 101 D ABG HCO3 13 L 15 L ABG O2 Saturation 93 99 H ABG Base Excess -13 L -10 L VBG pH 7.41 VBG pCO2 29 L VBG pO2 38 VBG Base Excess -6 L Quality Measures Quality Measures VTE prophylaxis Advance care planning discussed with:: patient Assessment & Plan Assessment Current Active Medications: Generic Name Dose Route Start Last Admin Trade Name Freq PRN Reason Stop Dose Admin Acetaminophen 650 mg 02/09/24 05:01 02/09/24 05:13 Acetaminophen 325 Mg Tablet PO 03/09/24 18:24 650 mg Q6H PRN Administration PAIN OR FEVER > 101 Albuterol/Ipratropium 3 ml 02/13/24 09:21 02/13/24 21:01 Albuterol/Ipratropium (Duoneb) Rt Romina 3 Ml Nebu INH 03/09/24 18:59 3 ml Q4HRRT PRN Administration WHEEZING or sob Atorvastatin Calcium 10 mg 02/09/24 21:00 02/13/24 21:13 Atorvastatin Calcium 10 Mg Tablet PO 03/10/24 20:59 10 mg HS ABHIJIT Administration Citric Acid/Sodium Citrate 30 ml 02/11/24 09:00 02/14/24 08:44 Citric Acid/Sodium Citr 15 Ml Udc (Bicitra) PO 03/12/24 08:59 Not Given BID ABHIJIT Dextrose 25 ml 02/08/24 19:04 Dextrose 50%-Water Inj 50 Ml Syringe IV 03/09/24 19:03 Q15MIN PRN BG 50-70 responsive npo pt Dextrose 50 ml 02/08/24 19:04 Dextrose 50%-Water Inj 50 Ml Syringe IV 03/09/24 19:03 Q15MIN PRN BG <50 OR BG <70 & pt unresponsive Diltiazem HCl 60 mg 02/11/24 22:00 02/14/24 13:53 Diltiazem 30 Mg Tablet PO 03/12/24 21:59 Not Given TID ABHIJIT Glucagon 1 mg 02/08/24 19:04 Glucagon Inj 1 Mg Vial IM Q15MIN PRN BG <70, and no IV access Heparin Sodium (Porcine) 3,300 unit 02/14/24 15:39 Heparin Sod Inj 1000 Unit/Ml Vial 10 Ml INDWELLCAT 02/28/24 15:38 X1 PRN DIALYSIS Ceftriaxone Sodium/Dextrose 50 mls @ 100 mls/hr 02/09/24 14:00 02/13/24 13:20 Rocephin/D5w 1gm Iv Premix IV 02/16/24 13:59 100 mls/hr QDAY@1400 ABHIJIT Administration Insulin Glargine 5 unit 02/10/24 21:00 02/13/24 20:47 Insulin Glargine (Lantus) 5 Unit/0.05 Ml (Per 5 Units) SC 03/11/24 20:59 5 unit HS ABHIJIT Administration Insulin Human Lispro 0 unit 02/10/24 17:00 02/14/24 12:08 Insulin Lispro (Admelog) 1 Unit/0.01 Ml Unit SC 12/17/24 16:59 4 unit ACHS ABHIJIT Administration Protocol Nicardipine HCl 20 mg 02/12/24 21:00 02/14/24 08:44 Nicardipine 20 Mg Capsule PO 03/13/24 20:59 Not Given BID ABHIJIT Ondansetron HCl 4 mg 02/08/24 18:25 Ondansetron Inj 2 Mg/Ml Inj 2 Ml IV 03/09/24 18:24 Q6H PRN NAUSEA OR VOMITING Protocol Pantoprazole Sodium 40 mg 02/09/24 21:00 02/14/24 08:49 Pantoprazole Inj 40 Mg Vial IV 03/10/24 20:59 40 mg BID ABHIJIT Administration Sennosides 2 tab 02/08/24 18:25 Senna Tablet PO 03/09/24 18:24 BID PRN CONSTIPATION Protocol Sevelamer Carbonate 0.8 gm 02/14/24 12:30 02/14/24 12:57 Sevelamer Carbonate 0.8 Gm Packet (Non-Formulary) PO 03/12/24 11:59 0.8 gm TIDWM ABHIJIT Administration Sodium Chloride 1 gm 02/11/24 11:45 02/14/24 08:45 Sodium Chloride 1 Gm Tablet PO 03/12/24 11:44 Not Given BID ABHIJIT Plan 70-year-old male with past medical history of hypertension, DM2, CKD, and CVA was admitted to the hospital on 02/08/2024 for hypoosmolar, hyponatremia and acute hypoxic respiratory failure likely secondary to acute decompensated heart failure exacerbation versus pneumonia. #Acute renal failure # History of CKD stage IV # Renal dialysis -GFR 12, creatinine 4.7 Plan: ?Permanent Vas-Cath based -Urgent dialysis session today #Hypoosmolar hyponatremia #Hypochloremia #Hyperphosphatemia ?Patient's sodium was initially 120 and dropped to 112 next day of admission -Sodium today 129 ?Phosphorus 7.0 and chloride 92 Plan: ?started sodium tablets 1gm BID and sevelamer 800 mg TID. ?Sodium checks every 4 hours ?Nephrology consulted, appreciate recommendations ?Will continue to monitor #Acute hypoxic respiratory failure #Pleural effusions #Acute decompensated heart failure exacerbation #HFpEF (EF 55-to 60% 2020) -Patient had LIBERTY LE edema 2+ on admission per chart review ?Echo on 2020 showed EF 55-60%, without evidence of diastolic dysfuntion ?BNP on 02/08/2024 was 381 ?[address] CT showed moderate heart failure with pleural effusions bilateral ?Echo 02/10- estimated EF 60-65% and Mild MR and moderate TR Plan: ? Per nephrology team hold Bumex 2mg to once daily -Strict VALERIO's ?Keep potassium above 4 magnesium above 2 ?O2 administration as needed ?Cardiology consulted Dr. Amaya, appreciate commendations ? Will continue to monitor #Delirium -Patient is likely showing signs of delirium possibly a side effect of steroids Plan: ?D/C steroids -And monitor patient mood -Encouraged to be surrounded with patient's family -Give Seroquel x 1 if patient is agitated and delirious #Sepsis likely secondary to community-acquired pneumonia #Community-acquired pneumonia #lactic acidosis ?Initially patient came in with complaints of productive cough ?Patient met SIRS criteria 2 out of 4 with leukocytosis and tachypnea ?Chest x-ray 02/08/2024 showed bilateral pneumonia ?Chest x-ray on 02/09/2024 showed pneumonia lung bases ?WBC 11.3 today, likely reactive in the setting of steroids, no spikes in fevers ?Blood culture negative in 48 hours -Lactic acid 2.6 Plan: ?Continue azithromycin 500 mg daily and Rocephin 1 g daily [02/08-] ? D/C- Solu-Medrol 60 mg IV every 12 hours ?Will continue to monitor #NSTEMI type II likely demand ischemia ?Patient denies any chest pain?troponins ?Peaked at 1.242 and down trended. ?EKG showed sinus rhythm Plan: ?Will continue to monitor #NAGMA #Lactic acidosis ?Carbon dioxide 19.5 this morning Plan: ?Bicitra as per nephrology ?Will continue to monitor #Chronic anemia ?Patient's hemoglobin 7.0- 1 unit RBC given which improved Hgb 7.3 today ?No active signs of bleeding Plan: ?Will transfuse if hemoglobin less than 7 ?GI consulted and recommended EGD once patient's O2 requirements decreased. ?Will continue to monitor #Hx of HTN ?DC'd amlodipine 10 mg every afternoon and hydralazine 25 mg 3 times daily -Started Diltiazem 60mg TID. #Hx of DM2 ?a1c 5.7 02/09/2024 Plan: ?ISS ?Accu-Cheks and hypoglycemic protocol ?Will continue to monitor #Hx of CKD ?Patient's baseline creatinine is around 2.3-3.1 ?Creatinine today 3.2 Plan: ?Avoid nephrotoxic agents ?Renally dose medications ?Nephrology consulted, appreciate recommendations ?Will continue to monitor #Hx of CVA ?Continue atorvastatin 10 mg at bedtime Disposition: tele for continue to monitor sodium, management of CKD, urgent dialysis Diet: Cardiac, carb consistent low GI prophylaxis: protonix DVT prophylaxis: SCDs Code:Full Assessment and plan discussed with my senior resident Dr. Oneill & attending physician Dr. 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 Patient states that shortness of breath has been going on for the past 3 days denies any fevers or chills. In the ER, patient found to have hypoosmolar hyponatremia with sodium of 120 and subsequently started on normal saline admitted. Furthermore, patient also noted to have normocytic anemia however denies any melena or hematochezia. Overnight, patient noted to have worsening acute hypoxic respiratory failure with worsening crackles and lower extremity edema and subsequently started on diuretic therapy and BiPAP. Furthermore, patient's sodium also noted to drop to 112 and subsequently nephrology was consulted and recommended starting patient on 3% hypertonic saline renal panel every 2 hours. In addition, patient also noted to have elevated troponin however denies any chest pain and EKG with no ST elevation likely non-STEMI type II secondary to fluid overload state. As of now, patient's oxygen requirement is downtrending however creatinine continues to uptrend and appreciate nephrology input. Sodium up to 122. Continue to monitor closely and will follow-up with cardiology and nephrology input. Creatinine continues to uptrend and hyponatremia improving. Confusion significantly improving and nephrology plan to dialyze patient today. I reviewed above note and agree with findings and plans. I have also personally examined the patient with medicine team and went over assessment and plan with medical team including newsroom intern and resident physician.
--- NOTE | 2024-02-14 16:48 | PC.NURSE ---
1st dialysis completed for 2 hrs, tolerated well. Able to remove 900 ml of fluid net. 1 unit PRBC given during HD. No side effects/reaction noted. Pt no complaint of pain. Respiration even and unlabored. Sating at 97% on O2 at 3L/min via oxy mask. Pt back in rm 272. Pt at bed side. Post VS stable. BP 163/79, HR 71, Temp. 98. Report given to Ayse VALDIVIA.
[2024-02-14] MEDS: cefTRIAXone/D5w 1gm IV premix 50 ML IV (17:03)
[2024-02-14 17:07] LABS: Hepatitis A Antibody IgM Non Reactive (Non React); Hepatitis B Core Antibody IgM Non Reactive (Non React); Hepatitis B Surface Ab NonReact(Not Immune) (Immune); Hepatitis B Surface Antigen Non Reactive (Non React); Hepatitis C Antibody Non Reactive (Non React)
[2024-02-14] MEDS: TUBERCULIN PPD INJ 5 UNIT/0.1 ML DOSE ID (18:09)
[2024-02-14 18:22] LABS: Hematocrit 26.8 % (41.0-53.0); Hemoglobin 9.2 g/dL (13.5-16.0)
[2024-02-14] MEDS: INSULIN GLARGINE (Lantus) 5 UNIT/0.05 ML (PER 5 UNITS) SC (20:25)
[2024-02-14] MEDS: niCARdipine 20 MG CAPSULE PO (20:27)
[2024-02-14] MEDS: ATORVASTATIN CALCIUM 10 MG TABLET PO (20:27)
[2024-02-14] MEDS: CITRIC ACID/SODIUM CITR 15 ML UDC (BICITRA) 30 ML PO (20:27)
[2024-02-14] MEDS: SODIUM CHLORIDE 1 GM TABLET PO (20:27)
--- NOTE | 2024-02-14 21:13 | ESPR_ITS ---
Documentation for date of: 02/14/24 Subjective Subjective Interval history: Patient's hemoglobin hematocrit dropped down to 7.3 and 21.1 Requiring 1 unit of PRBCs And the hemoglobin is back up to 9.2 Patient is still on quite a bit of oxygen at 6 L oxime mask and not a candidate for any invasive GI workup He is somewhat confused and agitated requiring Seroquel last night Exam Vital Signs Temp Pulse Resp BP Pulse Ox O2 Del Method O2 Flow Rate 97.1 F 80 17 161/84 H 96 Nasal Cannula 3 02/14/24 20:00 02/14/24 20:27 02/14/24 20:00 02/14/24 20:27 02/14/24 20:00 02/14/24 20:00 02/14/24 20:00 FiO2 0 02/14/24 16:19 Objective Labs 02/14/24 17:37 02/14/24 04:25 Labs: Laboratory Results - last 24 hr 02/09/24 02/14/24 02/14/24 09:47 04:25 05:30 WBC 10.2 RBC 2.44 L Hgb 7.0 L Hct 19.8 L* MCV 81 MCH 28.7 MCHC 35.4 RDW Std Deviation 38.3 Plt Count 243 Neut % (Auto) 89 H Lymph % (Auto) 2 L [place] % (Auto) 7 Eos % (Auto) 0 Baso % (Auto) 0 Neut # (Auto) 9.0 H Lymph # (Auto) 0.2 L [place] # (Auto) 0.7 Eos # (Auto) 0.0 Baso # (Auto) 0.0 Immature Gran # (Auto) 0.18 H Absolute Nucleated RBC 0.02 H Immature Gran % 2 H Nucleated RBC % 0 PT 12.2 INR 1.1 APTT 26.3 Sodium 129 L Potassium 4.4 Chloride 92 L Carbon Dioxide 29.9 Anion Gap 7 BUN 95 H Creatinine 4.7 H* D Estim Creat Clear Calc 10.8 L eGFR 12 L* BUN/Creatinine Ratio 20 Glucose 294 H Calculated Osmolality 299 H Calcium 8.9 Corrected Calcium 8.9 Phosphorus 7.0 H Magnesium 2.6 Total Bilirubin 0.4 AST 64 H ALT 91 H Alkaline Phosphatase 40 L Total Protein 5.8 Albumin 4.0 Globulin 1.8 L Albumin/Globulin Ratio 2.2 Hepatitis A IgM Ab Hep Bs Antigen Hep Bs Antibody Hep B Core IgM Ab Hepatitis C Antibody Blood Type Antibody Screen Crossmatch See Detail Blood Bank Wristband ID 02/14/24 02/14/24 08:27 17:37 WBC RBC Hgb 7.3 L 9.2 L D Hct 21.1 L* 26.8 L MCV MCH MCHC RDW Std Deviation Plt Count Neut % (Auto) Lymph % (Auto) [place] % (Auto) Eos % (Auto) Baso % (Auto) Neut # (Auto) Lymph # (Auto) [place] # (Auto) Eos # (Auto) Baso # (Auto) Immature Gran # (Auto) Absolute Nucleated RBC Immature Gran % Nucleated RBC % PT INR APTT Sodium Potassium Chloride Carbon Dioxide Anion Gap BUN Creatinine Estim Creat Clear Calc eGFR BUN/Creatinine Ratio Glucose Calculated Osmolality Calcium Corrected Calcium Phosphorus Magnesium Total Bilirubin AST ALT Alkaline Phosphatase Total Protein Albumin Globulin Albumin/Globulin Ratio Hepatitis A IgM Ab Non Reactive Hep Bs Antigen Non Reactive Hep Bs Antibody NonReact(Not Immune) L Hep B Core IgM Ab Non Reactive Hepatitis C Antibody Non Reactive Blood Type B Positive Antibody Screen NEGATIVE Crossmatch See Detail Blood Bank Wristband ID Yes Impressions Impression: # Anemia multifactorial part of that could be occult GI blood losses Patient respiratory status still requiring 6 L via oxime mask And patient not a candidate at the moment for any invasive GI workup Blood transfusion as needed till his respiratory status improves ABG Interpretation ABG results: 02/09/24 02/09/24 02/09/24 09:30 12:12 19:16 ABG pH 7.26 L 7.31 L ABG pCO2 30 L 31 L ABG pO2 69 L 101 D ABG HCO3 13 L 15 L ABG O2 Saturation 93 99 H ABG Base Excess -13 L -10 L VBG pH 7.41 VBG pCO2 29 L VBG pO2 38 VBG Base Excess -6 L Assessment & Plan A&P Narrative # Anemia with thrombocytopenia within normal B12 level and no history of any yash GI bleeding in the form of melena hematochezia or hematemesis Patient can still have occult GI bleeding # Hypoosmolar hypochloremic hyponatremia agree with the IV fluids I do not think patient has SIADH # Bilateral pneumonia # CKD # Diabetes mellitus type 2 Plan Iron panel Stool for occult blood Upper endoscopy during this hospitalization to make sure there is no source of bleeding at the moment and may be an outpatient colonoscopy In this clinical setting GI tract has to be screened fully I do not think patient has any kind of paraneoplastic syndrome although He does have an elevated PSA of 19.12 which needs to be addressed Thank you very much for the opportunity to participate in the care of this patient Time Spent With Patient Time: Total time spent is greater than 50% in coordination of care (as documented) at patient's floor/unit and/or counseling patient:
[2024-02-15] VITALS (30 sets, daily range): BP systolic 129–166; BP diastolic 57–100; PULSE 63–90; RESP 12–28; TEMP 36.2–37.1; O2SAT 91–99
[2024-02-15] MEDS: QUEtiapine FUMARATE 25 MG TABLET PO (00:21)
[2024-02-15] MEDS: DILTIAZEM 30 MG TABLET 60 MG PO ×3 (05:15→21:05)
[2024-02-15] MEDS: ALBUTEROL/IPRATROPIUM (Duoneb) RT SOL 3 ML NEBU INH ×2 (05:30→21:34)
[2024-02-15 09:12] LABS: Basophils % (Auto) 0 % (0-2.5); Eosinophils % (Auto) 0 % (0-10); Hematocrit 26.6 % (41.0-53.0); Hemoglobin 9.1 g/dL (13.5-16.0); Immature Granulocytes % (Auto) 1 % (0-0); Immature Granulocytes Auto 0.18 Thou/mm3 (0.00-0.00); Lymphocytes # (Auto) 0.7 Thou/mm3 (1.0-4.8); Lymphocytes % (Auto) 4 % (10-50); Mean Corpuscular HGB Conc 34.2 g/dl (31.0-37.0); Mean Corpuscular Hemoglobin 29.3 pg (25.0-35.0); Mean Corpuscular Volume 86 fL (80-100); Monocytes # (Auto) 1.7 Thou/mm3 (0.0-0.8); Monocytes % (Auto) 10 % (0-12); Neutrophils # (Auto) 13.9 Thou/mm3 (1.8-7.7); Neutrophils % (Auto) 84 % (37-80); Nucleated Red Blood Cell # 0.02 Thou/mm3 (0.00-0.00); Nucleated Red Blood Cell % 0 /100 WBC (0); Platelet Count 241 Thou/mm3 (140-440); RDW Standard Deviation 41.9 fL (35.1-43.9); Red Blood Count 3.11 Miln/mm3 (4.50-5.90); White Blood Count 16.5 Thou/mm3 (3.8-10.6)
--- NOTE | 2024-02-15 09:55 | ESPR_ITS ---
<Statement entered by Hernandez Amaya MD - 02/17/24 12:58> I personally examined the patient and appears to be doing better continues to improve over the last few days with a dialysis shortness with improving but still have some occasional wheezing no chest pain shortness be reported today I agree with the treatment plan recommendation as documented by Dr. Kern PGY 2 Documentation for date of: 02/15/24 Subjective Subjective Interval history: The patient is a 78-year-old male with known history of longstanding hypertension, diabetes mellitus and chronic kidney disease stage IV, who is followed by Dr. West regularly, presented to the hospital with multiple symptoms being shortness of breath, orthopnea and volume overload. He was given some fluid, is not having much diuresis, having severe shortness of breath, not having any chest pain at all, but his cardiac enzymes were persistently elevated at one point initially 0.28, but went up to 1.24, 1.0, 1.03. The patient is still not having any chest pain and mostly orthopnea, has JVD with volume overload situation. He does not have any other symptoms for now, but he has been treated with IV Bumex with some urine output. The patient is also developed severe hyponatremia. Sodium 118, now up to 121, dilutional with low urine sodium. His creatinine is still going up steadily 3.0, BUN is 56 and mild acidosis, CO2 is 19. Blood gas showed pH 7.31, pCO2 of 31, and pO2 is 100. His chest x-ray does show evidence of pulmonary congestion and heart failure. EKG showed sinus rhythm. No evidence of ischemic change and now essentially unremarkable first-degree AV block. The patient is still having some shortness of breath and orthopnea and not complaining of any chest pain. Labs revealed troponin at 1.0. Hemoglobin at 7.3, white count 10. Chemistry panel showed BUN and creatinine elevated at 56 and 2.0. Sodium now 121. Creatinine clearance 21. PMH: As above Allergies: NKDA Home medications: Amlodipine 10 mg, hydralazine 25 mg, insulin 02/11/2024: Patient was seen and examined at the bedside. Patient is feeling better and is seen on nasal cannula 4 L. Morning labs revealed leukocytosis likely due to steroids, hemoglobin at 7.3. Chemistry panel showed sodium at 121 today. Kidney functions consistent with CKD stage IV with creatinine 3.2. Phosphorus at 6.7. Urine sodium less than 15, random total protein 165. Echocardiogram showed normal LV size and function. Estimated EF 60-65%Normal RV size and function.Estimated RVSP 53mmHg.Mild MR. Moderate TR. Trace AI. Recommended to continue Bumex 2 mg once a day, continuing IV ceftriaxone for treating infection. Sodium levels have improved. Nephrology team added salt tablets as well. After discussing with cylinder checker, we discontinued amlodipine and hydralazine and started Cardizem 60 mg 3 times daily. Patient's family was updated regarding the plan of care. Patient still making good urine output therefore nephrology will follow the patient closely due to his CKD stage IV. 02/12/24:Patient was seen and examined at the bedside, Patient appears improved in his breathing. Patient had Left leg swelling and calf pain. Vitals showed slight elevated BP. Labs showed Leukocytosis and Hgb around 7.5.Na improved to 125. Kidney functions showing Cr at 3.6. Doppler LE was negative for DVT.Recommended to continue Bumex 2 mg once a day, and cont cardizem 60 mg TID. Added nicardipine 20 mg twice daily for blood pressure control. 02/13/2024: Patient was seen and examined at the bedside. He appears lethargic and mildly agitated with poor mentation. He had a urine output of 1. 9 l. Chemistry panel showed sodium 127, kidney functions worsened with BUN 77 creatinine 3.9. Hemoglobin 7.2. Nephrology team decided to hold Bumex. He does have signs of worsening delirium. Recommended to hold Bumex as patient has CKD significant compared to heart failure. will likely reduce dose of bumex to 1 mg once a day and give only for fluid overload state. 02/14/2024: Patient was seen and examined at the bedside. Patient appears to be mildly distress. Vitals showed mildly elevated blood pressure. Labs revealed hemoglobin at 7.3. Kidney functions showed worsening BUN and creatinine 4.7. Mild hyponatremia however sodium improved since admission. Phosphorus 7.0. Elevated liver enzymes. Nephrology team decided to start dialysis and family was agreeable to the plan.PermCath placed in right IJV. Recommended to discontinue Bumex. Patient will be undergoing hemodialysis. Agreeable to the plan. All labs and orders were reviewed. 02/15/2024: Patient was seen and examined at the bedside. Patient is appears to be doing better today. However, patient was mildly agitated therefore primary team gave quetiapine for delirium. Vitals showed mildly elevated blood pressure 152/78. Labs revealed hemoglobin 9.1. WBC 16.5. Chemistry panel showed creatinine 2.9 improved after dialysis. Liver enzymes slightly elevated. Patient is undergoing session of hemodialysis today as well. Nephrology team following the case. Changed to lisinopril 20 mg once a day and stopped nicardipine and continuing Cardizem 60 mg 3 times a day.. All labs and orders were reviewed. Exam Vital Signs Temp Pulse Resp BP Pulse Ox O2 Del Method O2 Flow Rate 97.6 F 75 13 150/73 H 96 Oxy Mask 3 02/15/24 08:00 02/15/24 08:00 02/15/24 08:00 02/15/24 08:00 02/15/24 08:00 02/15/24 08:00 02/15/24 08:00 FiO2 0 02/14/24 16:19 Narrative Exam GENERAL APPEARANCE: Patient is mildly delirious chronically ill-appearing male in mildly agitated HEENT: NC, AT. MMM. EOMI, clear conjunctiva, oropharynx clear.JVD seen NECK: Supple without lymphadenopathy. No stiffness or restricted ROM. Prominent JVD. Right IJV catheter HEART: Regular rate and regular rhythm, normal S1/S2, no m/r/g LUNGS: Decreased breath sounds and bilateral crackles heard on auscultation. ABDOMEN: Soft, nontender, nondistended with good bowel sounds heard. EXTREMITIES: 1+ pitting edema On both lower extremities. NEUROLOGICAL: Grossly nonfocal. Alert and oriented, moving all 4 extremities. CN not formally tested but appear grossly intact. Observed to ambulate with normal gait. Skin: Warm and dry without any rash. Psych: Delirium noticed Objective Labs 02/15/24 08:55 02/15/24 08:55 Labs: Laboratory Results - last 24 hr 02/09/24 02/14/24 02/14/24 09:47 08:27 17:37 WBC RBC Hgb 9.2 L D Hct 26.8 L MCV MCH MCHC RDW Std Deviation Plt Count Neut % (Auto) Lymph % (Auto) [place] % (Auto) Eos % (Auto) Baso % (Auto) Neut # (Auto) Lymph # (Auto) [place] # (Auto) Eos # (Auto) Baso # (Auto) Immature Gran # (Auto) Absolute Nucleated RBC Immature Gran % Nucleated RBC % Hepatitis A IgM Ab Non Reactive Hep Bs Antigen Non Reactive Hep Bs Antibody NonReact(Not Immune) L Hep B Core IgM Ab Non Reactive Hepatitis C Antibody Non Reactive Blood Type B Positive Antibody Screen NEGATIVE Crossmatch See Detail See Detail Blood Bank Wristband ID Yes 02/15/24 08:55 WBC 16.5 H D RBC 3.11 L Hgb 9.1 L Hct 26.6 L MCV 86 MCH 29.3 MCHC 34.2 RDW Std Deviation 41.9 Plt Count 241 Neut % (Auto) 84 H Lymph % (Auto) 4 L [place] % (Auto) 10 Eos % (Auto) 0 Baso % (Auto) 0 Neut # (Auto) 13.9 H Lymph # (Auto) 0.7 L [place] # (Auto) 1.7 H Eos # (Auto) 0.0 Baso # (Auto) 0.0 Immature Gran # (Auto) 0.18 H Absolute Nucleated RBC 0.02 H Immature Gran % 1 H Nucleated RBC % 0 Hepatitis A IgM Ab Hep Bs Antigen Hep Bs Antibody Hep B Core IgM Ab Hepatitis C Antibody Blood Type Antibody Screen Crossmatch Blood Bank Wristband ID ABG Interpretation ABG results: 02/09/24 02/09/24 02/09/24 09:30 12:12 19:16 ABG pH 7.26 L 7.31 L ABG pCO2 30 L 31 L ABG pO2 69 L 101 D ABG HCO3 13 L 15 L ABG O2 Saturation 93 99 H ABG Base Excess -13 L -10 L VBG pH 7.41 VBG pCO2 29 L VBG pO2 38 VBG Base Excess -6 L Quality Measures Quality Measures VTE prophylaxis Advance care planning discussed with:: patient Assessment & Plan Assessment Current Active Medications: Generic Name Dose Route Start Last Admin Trade Name Freq PRN Reason Stop Dose Admin Acetaminophen 650 mg 02/09/24 05:01 02/09/24 05:13 Acetaminophen 325 Mg Tablet PO 03/09/24 18:24 650 mg Q6H PRN Administration PAIN OR FEVER > 101 Albuterol/Ipratropium 3 ml 02/13/24 09:21 02/15/24 05:30 Albuterol/Ipratropium (Duoneb) Rt Romina 3 Ml Nebu INH 03/09/24 18:59 3 ml Q4HRRT PRN Administration WHEEZING or sob Atorvastatin Calcium 10 mg 02/09/24 21:00 02/14/24 20:27 Atorvastatin Calcium 10 Mg Tablet PO 03/10/24 20:59 10 mg HS ABHIJIT Administration Dextrose 25 ml 02/08/24 19:04 Dextrose 50%-Water Inj 50 Ml Syringe IV 03/09/24 19:03 Q15MIN PRN BG 50-70 responsive npo pt Dextrose 50 ml 02/08/24 19:04 Dextrose 50%-Water Inj 50 Ml Syringe IV 03/09/24 19:03 Q15MIN PRN BG <50 OR BG <70 & pt unresponsive Diltiazem HCl 60 mg 02/11/24 22:00 02/15/24 05:15 Diltiazem 30 Mg Tablet PO 03/12/24 21:59 60 mg TID ABHIJIT Administration Glucagon 1 mg 02/08/24 19:04 Glucagon Inj 1 Mg Vial IM Q15MIN PRN BG <70, and no IV access Heparin Sodium (Porcine) 3,300 unit 02/14/24 15:39 Heparin Sod Inj 1000 Unit/Ml Vial 10 Ml INDWELLCAT 02/28/24 15:38 X1 PRN DIALYSIS Ceftriaxone Sodium/Dextrose 50 mls @ 100 mls/hr 02/09/24 14:00 02/14/24 17:33 Rocephin/D5w 1gm Iv Premix IV 02/16/24 13:59 Infused QDAY@1400 ABHIJIT Infusion Albumin Human 25 gm in 100 mls @ 100 mls/min 02/15/24 09:10 Albuminar-25 Ivpb IV PRN PRN DIALYSIS Insulin Glargine 5 unit 02/10/24 21:00 02/14/24 20:25 Insulin Glargine (Lantus) 5 Unit/0.05 Ml (Per 5 Units) SC 03/11/24 20:59 5 unit HS ABHIJIT Administration Insulin Human Lispro 0 unit 02/10/24 17:00 02/15/24 07:08 Insulin Lispro (Admelog) 1 Unit/0.01 Ml Unit SC 03/11/24 16:59 Not Given ACHS ABHIJIT Protocol Nicardipine HCl 20 mg 02/12/24 21:00 02/14/24 20:27 Nicardipine 20 Mg Capsule PO 03/13/24 20:59 20 mg BID ABHIJIT Administration Ondansetron HCl 4 mg 02/08/24 18:25 Ondansetron Inj 2 Mg/Ml Inj 2 Ml IV 03/09/24 18:24 Q6H PRN NAUSEA OR VOMITING Protocol Pantoprazole Sodium 40 mg 02/09/24 21:00 02/14/24 20:27 Pantoprazole Inj 40 Mg Vial IV 03/10/24 20:59 40 mg BID ABHIJIT Administration Sennosides 2 tab 02/08/24 18:25 Senna Tablet PO 03/09/24 18:24 BID PRN CONSTIPATION Protocol Sevelamer Carbonate 0.8 gm 02/14/24 12:30 02/15/24 07:53 Sevelamer Carbonate 0.8 Gm Packet (Non-Formulary) PO 03/12/24 11:59 Not Given TIDWM ABHIJIT Plan This 70-year-old male with past medical history of hypertension, DM2, CKD, and CVA was admitted to the hospital on 02/08/2024 for hypoosmolar hyponatremia and acute hypoxic respiratory failure likely secondary to acute decompensated heart failure exacerbation versus pneumonia. # Acute hypoxic respiratory failure # Likely secondary to pleural effusion versus HFpEF vs Fluid overload due to CKD # HFpEF EF 60 to 65% ?Patient presented with shortness of breath, wheezing and mild cough. Patient was kept on BiPAP due to increased work of breathing. Switched to OxyMask. ? Chest CT showed moderate heart failure with pleural effusions bilateral. ?Patient showed a diuresis output of 2.4 L with negative balance of 1.6 L. ?Patient's sodium has slightly improved at 123 ? Echocardiogram showed EF 60 to 65%. ? LE Doppler was negative for DVT. Plan: ? No new further recommendations continue nicardipine and Cardizem for blood pressure control ? Discontinued Bumex given patient is starting on hemodialysis from now on ? Changed to lisinopril 20 mg once a day and stopped nicardipine and continuing Cardizem 60 mg 3 times a day ? No need of anticoagulation as patient has severe anemia ? Quetiapine was given for delirium ? Strict VALERIO's, fluid restriction and daily weight ? Oxygen as needed ? Daily labs ? Keep magnesium above 2 and potassium above 4 ? Keep hemoglobin above 7 ? Continue IV antibiotic therapy and steroids for treating sepsis # History of hypertension # Hypertensive emergency, resolved ? Patient was taking amlodipine and hydralazine for blood pressure management. Plan: ? Changed to lisinopril 20 mg once a day and stopped nicardipine and continuing Cardizem 60 mg 3 times a day ? DC'd amlodipine and hydralazine ? Monitor vitals # NSTEMI type II likely supply demand ischemia ? Troponin I peaked at 1.242 and down trended. EKG showed sinus rhythm. Plan: ? Continue to monitor for signs of chest pain or shortness of breath # New onset hemodialysis ? Patient's kidney functions worsened and he remains in fluid overload with decreased urine output. ? Nephrology team decided for placing a right IJV catheter and starting hemodialysis sessions. ? Right IJV catheter placed today Plan: ? Patient is undergoing session of hemodialysis today as well per nephrology recommendations BUN/creatinine improved after dialysis ? Avoid nephrotoxic agents ? Renally dose medications ? Strict VALERIO's ? Follow-up with renal panel ? Nephrology following the case ? Discontinued Bumex ?Continue sevelamer 0.8 3 times daily with meals Other active problems: # Delirium # Hypoosmolar hyponatremia, improved # Hypochloremia -Nephrology following the case. # Sepsis likely secondary to community-acquired pneumonia # Lactic acidosis type B # NAGMA # Elevated transaminases # Leukocytosis # Anemia of chronic disease # History of type 2 diabetes # CKD stage 4 # History of CVA #Moderate thoracic spondylosis per CT finding Rest of the management as per primary care team. Thank you very much for consulting cardiology team. Discontinued Bumex. Patient is starting a new onset hemodialysis from now on nephrology following the case. Agreeable to the plan. Changed to lisinopril 20 mg once a day and stopped nicardipine and continuing Cardizem 60 mg 3 times a day Plan of care discussed with director career services, Dr. Jose Luis Kern MD, PGY 2
[2024-02-15 10:10] LABS: Alanine Aminotransferase 95 U/L (10-49); Albumin, Serum 3.9 gm/dL (3.4-4.8); Albumin/Globulin Ratio 2.3 (1.2-2.2); Alkaline Phosphatase 40 U/L (46-116); Anion Gap 6 (7-16); Aspartate Amino Transferase 67 U/L (0-34); BUN/Creatinine Ratio 21 Ratio (12-20); Blood Urea Nitrogen 61 mg/dL (9-23); Calcium 8.9 mg/dL (8.3-10.6); Carbon Dioxide 30.7 mMol/L (20.0-31.0); Chloride 99 mMol/L (98-107); Creatinine (Component) 2.9 mg/dL (0.6-1.3); Estimated Creatinine Clearance 17.6 mL/min (>60); Globulin 1.7 gm/dL (2.3-3.5); Glucose 95 mg/dL (74-106); Magnesium 2.3 mg/dL (1.6-2.6); Osmolality,Calculated 289 (275-295); Potassium 4.1 mMol/L (3.4-5.1); Sodium 136 mMol/L (136-145); Total Protein 5.6 gm/dL (5.7-8.2); eGFR 21 See Note
--- NOTE | 2024-02-15 10:35 | PC.SS ---
Update: Patient receiving dialysis today, second session. Forge Helper is Dr. West.
--- NOTE | 2024-02-15 11:08 | PC.SS ---
Dialysis referral submitted on [facility] to [facility] [place] environmental services supervisor to submit updated dialysis flow sheets as they become available. [employer] ATTENDANT updated [facility] staff, Sharon; of referral submittal on [facility].
--- NOTE | 2024-02-15 11:17 | ESPR_ITS ---
Documentation for date of: 02/15/24 Subjective Subjective Interval history: Mr. 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 Patient's is at bedside and majority of history was taken from her. Patient has been having shortness of breath and wheezing with mild cough and white phlegm for the past 2 days. Patient states that he also is mildly congested denies any runny nose sick contacts or travel history. The noted that recently he has been feeling bloating but denies any changes in the appetite nausea vomiting or abdominal pain. Patient denies any history of prior asthma history. In the ED patient's vitals include blood pressure 164/70 respirations 28, WBC 10.9, hemoglobin 7.3, hematocrit 21.5, and sodium 120. Creatinine 2.9, GFR 21, osmolality 259, BNP 381, lipase 76. Chest x-ray findings include subtle opacity in both lungs suspicious for bilateral basilar pneumonia. In the ED patient received a breathing treatment, Rocephin x 1. Patient admitted for hypoosmolar hyponatremia. Nephrology was consulted for hyponatremia and DIAN on CKD. Primary team ordered urine electrolytes, started patient on IV fluids normal saline at 75 mL/h, every 4 sodium checks. Urine electrolytes showed urine sodium less than 15. Renal ultrasound showed no hydronephrosis, renal cortical thinning and renal parenchymal scar formation. Patient continued to deteriorate: Hemoglobin 6.3, sodium 117, BUN 51, creatinine 2.7, eGFR 23. Patient was examined on the floors, sitting at side of bed, in clear distress. Patient had labored breathing, audible wheezing, tense edema to bilateral lower extremities. Repeat sodium check 112. Patient received breathing treatment with minimal improvement. ICU was consulted for possible upgrade, patient started on hypertonic saline. ICU team aware of patient monitoring, elected to keep patient on floors for now. Blood transfusion held in setting of volume overload, will continue to monitor closely. Considered chest CT, delayed due to patient's respiratory distress. ABG showed pH 7.26, pCO2 30, pO2 69, bicarb 13. Lactic acid 3.8. No anion gap. Chest x-ray showed mild to moderate CHF pattern with severe vascular congestion including central vascular engorgement. 02/10/2024 patient currently seen in telemetry. Still having labored breathing and wheezing although slightly better than yesterday. With the Bumex patient put out 3.7 L. Sodium improved from 1 12-1 21. Clinically seems to be stable. at bedside. Blood pressure 154/80, heart rate 107. WBC 10.1, hemoglobin 7.2, platelets 203. Sodium 121, potassium 4.1, BUN 56, creatinine went up to 3.0, glucose 310, phosphorus 5.4, troponin 1.072. Chest x-ray yesterday showed moderate heart failure. 02/11/2024 patient still very short of breath although slightly better than yesterday. at bedside. Labs and medications have been reviewed. Continue with diuretics. Sodium 123. Salt tablets added. Metabolic acidosis noted- Bicitra given. Spoke to Dr. Burleson. 02/15/2024 patient seems to be slightly confused. Spoke to Dr. Aaron-Matheusoquejagdish given. Suspect hospital psychosis. Has not been sleeping for the last 4 days per . He is currently seen on his second dialysis session. Tolerated first dialysis well. Blood pressure seems to be on the higher side. Blood pressure medications adjusted. Spoke to Dr. Kern Review of Systems Review of Systems Narrative Review of Systems: Limited as patient seems to be confused. at bedside. Exam Vital Signs Temp Pulse Resp BP Pulse Ox O2 Del Method O2 Flow Rate 37.1 C 69 18 164/100 H 97 Oxy Mask 5.5 02/15/24 09:55 02/15/24 11:15 02/15/24 09:55 02/15/24 11:15 02/15/24 09:55 02/15/24 08:00 02/15/24 09:55 FiO2 0 02/14/24 16:19 Narrative Exam GENERAL APPEARANCE: Fragile gentleman currently seen in telemetry. Short of breath. On nasal cannula. On dialysis NECK: ++ JVD CARDIOVASCULAR: Heart regular, no murmurs, tachycardia LUNGS/CHEST: Significant wheezing in all lung lara. ABDOMEN: Soft, nontender, nondistended. No masses. Normal bowel sounds. EXTREMITIES: No edema. SKIN: Skin exam normal without any rashes MUSCULOSKELETAL: In bed NEUROLOGICAL : patient seems to be confused Objective Labs 02/15/24 08:55 02/15/24 08:55 Labs: Laboratory Results - last 24 hr 02/09/24 02/14/24 02/14/24 09:47 08:27 17:37 WBC RBC Hgb 9.2 L D Hct 26.8 L MCV MCH MCHC RDW Std Deviation Plt Count Neut % (Auto) Lymph % (Auto) [place] % (Auto) Eos % (Auto) Baso % (Auto) Neut # (Auto) Lymph # (Auto) [place] # (Auto) Eos # (Auto) Baso # (Auto) Immature Gran # (Auto) Absolute Nucleated RBC Immature Gran % Nucleated RBC % Sodium Potassium Chloride Carbon Dioxide Anion Gap BUN Creatinine Estim Creat Clear Calc eGFR BUN/Creatinine Ratio Glucose Calculated Osmolality Calcium Corrected Calcium Magnesium AST ALT Alkaline Phosphatase Total Protein Albumin Globulin Albumin/Globulin Ratio Hepatitis A IgM Ab Non Reactive Hep Bs Antigen Non Reactive Hep Bs Antibody NonReact(Not Immune) L Hep B Core IgM Ab Non Reactive Hepatitis C Antibody Non Reactive Blood Type B Positive Antibody Screen NEGATIVE Crossmatch See Detail See Detail Blood Bank Wristband ID Yes 02/15/24 08:55 WBC 16.5 H D RBC 3.11 L Hgb 9.1 L Hct 26.6 L MCV 86 MCH 29.3 MCHC 34.2 RDW Std Deviation 41.9 Plt Count 241 Neut % (Auto) 84 H Lymph % (Auto) 4 L [place] % (Auto) 10 Eos % (Auto) 0 Baso % (Auto) 0 Neut # (Auto) 13.9 H Lymph # (Auto) 0.7 L [place] # (Auto) 1.7 H Eos # (Auto) 0.0 Baso # (Auto) 0.0 Immature Gran # (Auto) 0.18 H Absolute Nucleated RBC 0.02 H Immature Gran % 1 H Nucleated RBC % 0 Sodium 136 Potassium 4.1 Chloride 99 Carbon Dioxide 30.7 Anion Gap 6 L BUN 61 H Creatinine 2.9 H D Estim Creat Clear Calc 17.6 L eGFR 21 L BUN/Creatinine Ratio 21 H Glucose 95 D Calculated Osmolality 289 Calcium 8.9 Corrected Calcium 9.0 Magnesium 2.3 AST 67 H ALT 95 H Alkaline Phosphatase 40 L Total Protein 5.6 L Albumin 3.9 Globulin 1.7 L Albumin/Globulin Ratio 2.3 H Hepatitis A IgM Ab Hep Bs Antigen Hep Bs Antibody Hep B Core IgM Ab Hepatitis C Antibody Blood Type Antibody Screen Crossmatch Blood Bank Wristband ID ABG Interpretation ABG results: 02/09/24 02/09/24 02/09/24 09:30 12:12 19:16 ABG pH 7.26 L 7.31 L ABG pCO2 30 L 31 L ABG pO2 69 L 101 D ABG HCO3 13 L 15 L ABG O2 Saturation 93 99 H ABG Base Excess -13 L -10 L VBG pH 7.41 VBG pCO2 29 L VBG pO2 38 VBG Base Excess -6 L Assessment & Plan Additional Assessment & Plan Additional Plan: Mr. 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 Patient is been having shortness of breath and wheezing with mild cough and white phlegm for the past 2 days. #DIAN on CKD Suspect cardiorenal syndrome vs ATN. Patient with confusion and fluid overload. Cannot give any more patient currently seen on dialysis. Tolerating dialysis without any problems. Hemodialysis for 2.5 hours, 2K, ultrafiltration 1-2 L, Epogen 6000, no heparin ordered. Plan of care discussed with the dialysis nurse. Please see dialysis flowsheet for further details. Outpatient dialysis will be arranged #Acute hypoxic respiratory failure #Chronic anemia #History of diabetes mellitus #History of primary hypertension #History of CVA without residual deficit Management as per primary team Spoke to Dr. Kern. Add lisinopril Spoke to at bedside. Time spent more than 35 minutes regarding plan of care and disease management. Spoke to primary team Quality - progress note Quality Measures Quality Measures: VTE prophylaxis Reason for Continued Stay Reason for Continued Stay: further monitoring
[2024-02-15] MEDS: HEPARIN SOD INJ 1000 UNIT/ML VIAL 10 ML 3300 UNIT INDWELLCAT (12:40)
[2024-02-15 13:39] LABS: OBS Card Expiration Date 2026-09; OBS Card Lot # 23001; OBS Developer Expiration Date 2026-09; OBS Developer Lot # 23003; OBS Performed By PLUMW; OBS QC OK? Yes; Occult Blood, Stool Negative (Negative)
[2024-02-15] MEDS: cefTRIAXone/D5w 1gm IV premix 50 ML IV (13:53)
[2024-02-15] MEDS: SEVELAMER CARBONATE 0.8 GM PACKET (NON-FORMULARY) PO ×2 (13:54→17:20)
[2024-02-15] MEDS: PANTOPRAZOLE INJ 40 MG VIAL IV ×2 (13:58→21:04)
[2024-02-15] MEDS: niCARdipine 20 MG CAPSULE PO (13:58)
[2024-02-15 14:55] LABS: Bilirubin,Total 0.6 mg/dL (0.3-1.2)
--- NOTE | 2024-02-15 15:14 | ESPR_ITS ---
Documentation for date of: 02/15/24 Subjective Subjective Interval history: Patient was seen and examined during hemodialysis. No acute overnight events. Patient required 1 dose of Seroquel last night and was able to fall asleep only around 4 AM. His kidney function test has improved significantly. Will continue current management and monitor patient. Exam Vital Signs Temp Pulse Resp BP Pulse Ox O2 Del Method O2 Flow Rate 98.6 F 78 18 152/78 H 98 Oxy Mask 5.5 02/15/24 12:43 02/15/24 13:58 02/15/24 12:43 02/15/24 13:58 02/15/24 12:43 02/15/24 12:00 02/15/24 12:43 FiO2 0 02/14/24 16:19 Narrative Exam Gen: Well-developed and well-nourished elderly male. HEENT: NCAT, PERRLA, EOMI, MMM, anicteric conjunctivae. CVS: normal S1 and S2. RRR. No M/R/G. Resp: CTA B/L. No rhonchi, rales, crackles or wheezing. Abd: soft, non-tender, non-distended. BS+ in all 4 quadrants. MSK: Good ROM in BUE & BLE. No rash. Trace edema BLE. Neuro: CN II-XII grossly intact. Strength 5/5 in BUE & BLE. Objective Labs 02/15/24 08:55 02/15/24 08:55 Labs: Laboratory Results - last 24 hr 02/14/24 02/14/24 02/15/24 08:27 17:37 05:00 WBC RBC Hgb 9.2 L D Hct 26.8 L MCV MCH MCHC RDW Std Deviation Plt Count Neut % (Auto) Lymph % (Auto) [place] % (Auto) Eos % (Auto) Baso % (Auto) Neut # (Auto) Lymph # (Auto) [place] # (Auto) Eos # (Auto) Baso # (Auto) Immature Gran # (Auto) Absolute Nucleated RBC Immature Gran % Nucleated RBC % Sodium Potassium Chloride Carbon Dioxide Anion Gap BUN Creatinine Estim Creat Clear Calc eGFR BUN/Creatinine Ratio Glucose Calculated Osmolality Calcium Corrected Calcium Magnesium Total Bilirubin AST ALT Alkaline Phosphatase Total Protein Albumin Globulin Albumin/Globulin Ratio Stool Occult Blood Negative Hepatitis A IgM Ab Non Reactive Hep Bs Antigen Non Reactive Hep Bs Antibody NonReact(Not Immune) L Hep B Core IgM Ab Non Reactive Hepatitis C Antibody Non Reactive Crossmatch See Detail 02/15/24 08:55 WBC 16.5 H D RBC 3.11 L Hgb 9.1 L Hct 26.6 L MCV 86 MCH 29.3 MCHC 34.2 RDW Std Deviation 41.9 Plt Count 241 Neut % (Auto) 84 H Lymph % (Auto) 4 L [place] % (Auto) 10 Eos % (Auto) 0 Baso % (Auto) 0 Neut # (Auto) 13.9 H Lymph # (Auto) 0.7 L [place] # (Auto) 1.7 H Eos # (Auto) 0.0 Baso # (Auto) 0.0 Immature Gran # (Auto) 0.18 H Absolute Nucleated RBC 0.02 H Immature Gran % 1 H Nucleated RBC % 0 Sodium 136 Potassium 4.1 Chloride 99 Carbon Dioxide 30.7 Anion Gap 6 L BUN 61 H Creatinine 2.9 H D Estim Creat Clear Calc 17.6 L eGFR 21 L BUN/Creatinine Ratio 21 H Glucose 95 D Calculated Osmolality 289 Calcium 8.9 Corrected Calcium 9.0 Magnesium 2.3 Total Bilirubin 0.6 AST 67 H ALT 95 H Alkaline Phosphatase 40 L Total Protein 5.6 L Albumin 3.9 Globulin 1.7 L Albumin/Globulin Ratio 2.3 H Stool Occult Blood Hepatitis A IgM Ab Hep Bs Antigen Hep Bs Antibody Hep B Core IgM Ab Hepatitis C Antibody Crossmatch ABG Interpretation ABG results: 02/09/24 02/09/24 02/09/24 09:30 12:12 19:16 ABG pH 7.26 L 7.31 L ABG pCO2 30 L 31 L ABG pO2 69 L 101 D ABG HCO3 13 L 15 L ABG O2 Saturation 93 99 H ABG Base Excess -13 L -10 L VBG pH 7.41 VBG pCO2 29 L VBG pO2 38 VBG Base Excess -6 L Quality Measures Quality Measures VTE prophylaxis Advance care planning discussed with:: patient Assessment & Plan Assessment Current Active Medications: Generic Name Dose Route Start Last Admin Trade Name Freq PRN Reason Stop Dose Admin Acetaminophen 650 mg 02/09/24 05:01 02/09/24 05:13 Acetaminophen 325 Mg Tablet PO 03/09/24 18:24 650 mg Q6H PRN Administration PAIN OR FEVER > 101 Albuterol/Ipratropium 3 ml 02/13/24 09:21 02/15/24 05:30 Albuterol/Ipratropium (Duoneb) Rt Romina 3 Ml Nebu INH 03/09/24 18:59 3 ml Q4HRRT PRN Administration WHEEZING or sob Atorvastatin Calcium 10 mg 02/09/24 21:00 02/14/24 20:27 Atorvastatin Calcium 10 Mg Tablet PO 03/10/24 20:59 10 mg HS ABHIJIT Administration Dextrose 25 ml 02/08/24 19:04 Dextrose 50%-Water Inj 50 Ml Syringe IV 03/09/24 19:03 Q15MIN PRN BG 50-70 responsive npo pt Dextrose 50 ml 02/08/24 19:04 Dextrose 50%-Water Inj 50 Ml Syringe IV 03/09/24 19:03 Q15MIN PRN BG <50 OR BG <70 & pt unresponsive Diltiazem HCl 60 mg 02/11/24 22:00 02/15/24 13:53 Diltiazem 30 Mg Tablet PO 03/12/24 21:59 60 mg TID ABHIJIT Administration Glucagon 1 mg 02/08/24 19:04 Glucagon Inj 1 Mg Vial IM Q15MIN PRN BG <70, and no IV access Heparin Sodium (Porcine) 3,300 unit 02/14/24 15:39 02/15/24 12:40 Heparin Sod Inj 1000 Unit/Ml Vial 10 Ml INDWELLCAT 02/28/24 15:38 3,300 unit X1 PRN Administration DIALYSIS Ceftriaxone Sodium/Dextrose 50 mls @ 100 mls/hr 02/09/24 14:00 02/15/24 13:53 Rocephin/D5w 1gm Iv Premix IV 02/16/24 13:59 100 mls/hr QDAY@1400 ABHIJIT Administration Albumin Human 25 gm in 100 mls @ 100 mls/min 02/15/24 09:10 Albuminar-25 Ivpb IV PRN PRN DIALYSIS Insulin Glargine 5 unit 02/10/24 21:00 02/14/24 20:25 Insulin Glargine (Lantus) 5 Unit/0.05 Ml (Per 5 Units) SC 03/11/24 20:59 5 unit HS ABHIJIT Administration Insulin Human Lispro 0 unit 02/10/24 17:00 02/15/24 11:30 Insulin Lispro (Admelog) 1 Unit/0.01 Ml Unit SC 03/11/24 16:59 Not Given ACHS COUNT INCLUDES THE [facility] Protocol Lisinopril 20 mg 02/15/24 14:45 Lisinopril 20 Mg Tablet PO 03/16/24 14:44 QDAY ABHIJIT Ondansetron HCl 4 mg 02/08/24 18:25 Ondansetron Inj 2 Mg/Ml Inj 2 Ml IV 03/09/24 18:24 Q6H PRN NAUSEA OR VOMITING Protocol Pantoprazole Sodium 40 mg 02/15/24 14:00 02/15/24 13:58 Pantoprazole Inj 40 Mg Vial IV 03/16/24 13:59 40 mg BID ABHIJIT Administration Sennosides 2 tab 02/08/24 18:25 Senna Tablet PO 03/09/24 18:24 BID PRN CONSTIPATION Protocol Sevelamer Carbonate 0.8 gm 02/14/24 12:30 02/15/24 13:54 Sevelamer Carbonate 0.8 Gm Packet (Non-Formulary) PO 03/12/24 11:59 0.8 gm TIDWM ABHIJIT Administration Plan 70-year-old male with past medical history of hypertension, DM2, CKD, and CVA was admitted to the hospital on 02/08/2024 for hypoosmolar, hyponatremia and acute hypoxic respiratory failure likely secondary to acute decompensated heart failure exacerbation versus pneumonia. #Acute renal failure. #History of CKD stage IV. #Renal dialysis. -GFR 12, creatinine 4.7 Plan: ?Permanent Vas-Cath based -Urgent dialysis session today #Hypoosmolar hyponatremia, improved. #Hypochloremia. #Hyperphosphatemia. ?Patient's sodium was initially 120 and dropped to 112 next day of admission -Sodium today 129 ?Phosphorus 7.0 and chloride 92 Plan: ?started sodium tablets 1gm BID and sevelamer 800 mg TID. ?Sodium checks every 4 hours ?Nephrology consulted, appreciate recommendations ?Will continue to monitor #Acute hypoxic respiratory failure. #Pleural effusions. #Acute decompensated heart failure exacerbation. #HFpEF (EF 55-to 60% 2020). -Patient had LIBERTY LE edema 2+ on admission per chart review ?Echo on 2020 showed EF 55-60%, without evidence of diastolic dysfuntion ?BNP on 02/08/2024 was 381 ?Chest CT showed moderate heart failure with pleural effusions bilateral ?Echo 02/10- estimated EF 60-65% and Mild MR and moderate TR Plan: ? Per nephrology team hold Bumex 2mg to once daily - Strict VALERIO's ?Keep potassium above 4 magnesium above 2 ?O2 administration as needed ?Cardiology consulted Dr. Amaya, appreciate commendations ?Will continue to monitor #Delirium -Patient is likely showing signs of delirium possibly a side effect of steroids Plan: ?D/C steroids -Encouraged to be surrounded with patient's family -Give Seroquel HS. #Sepsis likely secondary to community-acquired pneumonia #Community-acquired pneumonia #lactic acidosis ?Initially patient came in with complaints of productive cough ?Patient met SIRS criteria 2 out of 4 with leukocytosis and tachypnea ?Chest x-ray 02/08/2024 showed bilateral pneumonia ?Chest x-ray on 02/09/2024 showed pneumonia lung bases ?WBC 11.3 today, likely reactive in the setting of steroids, no spikes in fevers ?Blood culture negative in 48 hours -Lactic acid 2.6 Plan: ?Continue azithromycin 500 mg daily and Rocephin 1 g daily [02/08-] ? D/C- Solu-Medrol 60 mg IV every 12 hours ?Will continue to monitor #NSTEMI type II likely demand ischemia ?Patient denies any chest pain?troponins ?Peaked at 1.242 and down trended. ?EKG showed sinus rhythm Plan: ?Will continue to monitor #NAGMA. #Lactic acidosis. ?Carbon dioxide 19.5 this morning Plan: ?Bicitra as per nephrology ?Will continue to monitor #Chronic anemia. ?Patient's hemoglobin 7.0- 1 unit RBC given which improved Hgb 7.3 today ?No active signs of bleeding Plan: ?Will transfuse if hemoglobin less than 7 ?GI consulted and recommended EGD once patient's O2 requirements decreased. ?Will continue to monitor #Hx of HTN. ?DC'd amlodipine 10 mg every afternoon and hydralazine 25 mg 3 times daily -Started Diltiazem 60mg TID. #Hx of DM2. ?a1c 5.7 02/09/2024 Plan: ?ISS ?Accu-Cheks and hypoglycemic protocol ?Will continue to monitor #Hx of CKD. ?Patient's baseline creatinine is around 2.3-3.1 ?Creatinine today 3.2 Plan: ?Avoid nephrotoxic agents ?Renally dose medications ?Nephrology consulted, appreciate recommendations ?Will continue to monitor #Hx of CVA. ?Continue atorvastatin 10 mg at bedtime. Disposition: tele for continue to monitor sodium, management of CKD, urgent dialysis. Diet: Cardiac, carb consistent low. GI prophylaxis: protonix. DVT prophylaxis: SCDs. Code:Full Plan of care discussed with attending Dr. Aaron. Rahul Oneill MD, PGY 2. Disclaimer: This note was dictated by speech recognition. Minor errors in hob mill operator may be present due to voice recognition software. Attending Provider Attestation/Addendum Vita Celis, DO, attest that I was physically present for the [place] portions of the service and evaluated the patient with the resident and I reviewed and discussed the case with the resident and agree with the resident's findings and plans of care as documented above Patient seen and evaluated this AM. at bedside and states that patient remains confused and agitated when she is gone. Patient given seroquel due to agitation and is able to rest at this time. Will order seroquel at night as patient has not been able to sleep well. Acute encephalopathy likely multifactorial i.e. hospital delirium vs uremia. Patient undergoing HD at time of evaluation. Case was discussed with nephrology as well. Continue with current management
[2024-02-15] MEDS: Lisinopril 20 MG TABLET PO (16:18)
[2024-02-15] MEDS: INSULIN LISPRO (AdmeLOG) 1 UNIT/0.01 ML UNIT SC (16:19)
--- NOTE | 2024-02-15 20:08 | ESPR_ITS ---
Documentation for date of: 02/15/24 Subjective Subjective Interval history: Patient evaluated Currently on 3 L nasal cannula Hemoglobin hematocrit 9.1 and 26.6 Exam Vital Signs Temp Pulse Resp BP Pulse Ox O2 Del Method O2 Flow Rate 97.6 F 75 15 131/60 H 97 Oxy Mask 3 02/15/24 16:00 02/15/24 16:18 02/15/24 16:00 02/15/24 16:18 02/15/24 16:00 02/15/24 16:00 02/15/24 16:00 FiO2 0 02/14/24 16:19 Constitutional Comments: Chronically ill Routine Respiratory Exam Comments: Basal crepitations Objective Labs 02/15/24 08:55 02/15/24 08:55 Labs: Laboratory Results - last 24 hr 02/15/24 02/15/24 05:00 08:55 WBC 16.5 H D RBC 3.11 L Hgb 9.1 L Hct 26.6 L MCV 86 MCH 29.3 MCHC 34.2 RDW Std Deviation 41.9 Plt Count 241 Neut % (Auto) 84 H Lymph % (Auto) 4 L [place] % (Auto) 10 Eos % (Auto) 0 Baso % (Auto) 0 Neut # (Auto) 13.9 H Lymph # (Auto) 0.7 L [place] # (Auto) 1.7 H Eos # (Auto) 0.0 Baso # (Auto) 0.0 Immature Gran # (Auto) 0.18 H Absolute Nucleated RBC 0.02 H Immature Gran % 1 H Nucleated RBC % 0 Sodium 136 Potassium 4.1 Chloride 99 Carbon Dioxide 30.7 Anion Gap 6 L BUN 61 H Creatinine 2.9 H D Estim Creat Clear Calc 17.6 L eGFR 21 L BUN/Creatinine Ratio 21 H Glucose 95 D Calculated Osmolality 289 Calcium 8.9 Corrected Calcium 9.0 Magnesium 2.3 Total Bilirubin 0.6 AST 67 H ALT 95 H Alkaline Phosphatase 40 L Total Protein 5.6 L Albumin 3.9 Globulin 1.7 L Albumin/Globulin Ratio 2.3 H Stool Occult Blood Negative Impressions Impression: # Posthemorrhagic anemia requiring blood transfusion # Respiratory failure improving Continue to monitor before scheduling invasive GI workup ABG Interpretation ABG results: 02/09/24 02/09/24 02/09/24 09:30 12:12 19:16 ABG pH 7.26 L 7.31 L ABG pCO2 30 L 31 L ABG pO2 69 L 101 D ABG HCO3 13 L 15 L ABG O2 Saturation 93 99 H ABG Base Excess -13 L -10 L VBG pH 7.41 VBG pCO2 29 L VBG pO2 38 VBG Base Excess -6 L Assessment & Plan A&P Narrative # Anemia with thrombocytopenia within normal B12 level and no history of any yash GI bleeding in the form of melena hematochezia or hematemesis Patient can still have occult GI bleeding # Hypoosmolar hypochloremic hyponatremia agree with the IV fluids I do not think patient has SIADH # Bilateral pneumonia # CKD # Diabetes mellitus type 2 Plan Iron panel Stool for occult blood Upper endoscopy during this hospitalization to make sure there is no source of bleeding at the moment and may be an outpatient colonoscopy In this clinical setting GI tract has to be screened fully I do not think patient has any kind of paraneoplastic syndrome although He does have an elevated PSA of 19.12 which needs to be addressed Thank you very much for the opportunity to participate in the care of this patient Time Spent With Patient Time: Total time spent is greater than 50% in coordination of care (as documented) at patient's floor/unit and/or counseling patient:
[2024-02-15] MEDS: ATORVASTATIN CALCIUM 10 MG TABLET PO (21:03)
[2024-02-15] MEDS: INSULIN GLARGINE (Lantus) 5 UNIT/0.05 ML (PER 5 UNITS) SC (21:04)
[2024-02-16] VITALS (35 sets, daily range): BP systolic 107–174; BP diastolic 51–93; PULSE 63–82; RESP 14–24; TEMP 36.7–38; O2SAT 90–100; BMI 22.6
[2024-02-16] MEDS: ACETAMINOPHEN 325 MG TABLET 650 MG PO (04:13)
[2024-02-16] MEDS: DILTIAZEM 30 MG TABLET 60 MG PO ×3 (05:51→21:56)
[2024-02-16] MEDS: DEXTROSE 50%-WATER INJ 50 ML SYRINGE 25 ML IV ×2 (06:01→16:47)
--- NOTE | 2024-02-16 06:12 | PC.NURSE ---
patient blood glucose of 51, given dextrose IV, provider jeremy sanchezfied.
--- NOTE | 2024-02-16 06:15 | PC.NURSE ---
pt repeat blood glucose after 15 min is 137.
--- NOTE | 2024-02-16 08:06 | XR_ITS ---
Examination: AP chest single view Technique: AP semiupright chest portable single view Exam date and time: February 16, 2024 at 0822 hrs. Indications: Difficulty breathing increasing hypoxia today. Findings: Mild to moderate CHF Mild enlargement cardiac contour Prominent vascular congestion with perihilar and basilar edema Fluid in the right minor fissure Mild to moderate right pleural effusion Right internal jugular dialysis catheter tips SVC satisfactory position Prominent osteopenia Impression: Mild to moderate CHF
--- NOTE | 2024-02-16 08:09 | PD.RESPRO ---
Documentation for date of: 02/16/24 Subjective Subjective Interval history: Patient's vitals, labs, imaging and chart reviewed. Patient interviewed and examined at bedside accompanied by his daughter. Overnight patient had low grade fever of 100.4 F. [place] [address] [place] [address]. Ordered a CXR due to increasing O2 reqs which showed a RLL infiltrate vs effusion. Escalated ABX to amppicillin/sulbactam renally dosed. On exam patient has coarse B/L breath sounds. Kidney functions showed mild improvement on hemodialysis with BUN 33 and creatinine 2.2. Cardiology service recommended to increase dose of lisinopril to 40 mg once a day and to initiate nifedipine 10mg TID and continue Cardizem 60mg TID for blood pressure. Patient is getting another session of hemodialysis per schedule nephrology team following the case closely. All labs and orders were reviewed. Patient currently pending EGD. Exam Vital Signs Temp Pulse Resp BP Pulse Ox O2 Del Method O2 Flow Rate 98.8 F 70 17 157/76 H 99 Oxy Mask 6 02/16/24 07:48 02/16/24 07:48 02/16/24 07:48 02/16/24 07:48 02/16/24 07:48 02/16/24 07:48 02/16/24 07:48 FiO2 0 02/16/24 07:48 Narrative Exam General: Not in any visible or apparent acute distress, well appearing, alert, pleasant and interactive HEENT: NC/AT, EOMI, good conjugate gaze, moist mucous membranes, CVS: S1S2 Regular rate and rhythm, No murmurs, rubs or gallops, prescence of temporary dialysis vas-cath on right upper chest Lungs: Normal respiratory effort, coarse B.L breath sounds Abd: Soft, non-distended Ext: No edema, warm well perfused, normal tone and ROM Skin: Intact, no rashes, no lesions, no erythema Neuro: no gross focal neurological deficits Objective Labs 02/16/24 07:18 02/16/24 07:18 Labs: Laboratory Results - last 24 hr 02/15/24 02/15/24 05:00 08:55 WBC 16.5 H D RBC 3.11 L Hgb 9.1 L Hct 26.6 L MCV 86 MCH 29.3 MCHC 34.2 RDW Std Deviation 41.9 Plt Count 241 Neut % (Auto) 84 H Lymph % (Auto) 4 L [place] % (Auto) 10 Eos % (Auto) 0 Baso % (Auto) 0 Neut # (Auto) 13.9 H Lymph # (Auto) 0.7 L [place] # (Auto) 1.7 H Eos # (Auto) 0.0 Baso # (Auto) 0.0 Immature Gran # (Auto) 0.18 H Absolute Nucleated RBC 0.02 H Immature Gran % 1 H Nucleated RBC % 0 Sodium 136 Potassium 4.1 Chloride 99 Carbon Dioxide 30.7 Anion Gap 6 L BUN 61 H Creatinine 2.9 H D Estim Creat Clear Calc 17.6 L eGFR 21 L BUN/Creatinine Ratio 21 H Glucose 95 D Calculated Osmolality 289 Calcium 8.9 Corrected Calcium 9.0 Magnesium 2.3 Total Bilirubin 0.6 AST 67 H ALT 95 H Alkaline Phosphatase 40 L Total Protein 5.6 L Albumin 3.9 Globulin 1.7 L Albumin/Globulin Ratio 2.3 H Stool Occult Blood Negative ABG Interpretation ABG results: 02/09/24 02/09/24 02/09/24 09:30 12:12 19:16 ABG pH 7.26 L 7.31 L ABG pCO2 30 L 31 L ABG pO2 69 L 101 D ABG HCO3 13 L 15 L ABG O2 Saturation 93 99 H ABG Base Excess -13 L -10 L VBG pH 7.41 VBG pCO2 29 L VBG pO2 38 VBG Base Excess -6 L Quality Measures Quality Measures VTE prophylaxis Advance care planning discussed with:: patient and child Assessment & Plan Assessment Current Active Medications: Generic Name Dose Route Start Last Admin Trade Name Silvia PRN Reason Stop Dose Admin Acetaminophen 650 mg 02/09/24 05:01 02/16/24 04:13 Acetaminophen 325 Mg Tablet PO 03/09/24 18:24 650 mg Q6H PRN Administration PAIN OR FEVER > 101 Albuterol/Ipratropium 3 ml 02/13/24 09:21 02/15/24 21:34 Albuterol/Ipratropium (Duoneb) Rt Romina 3 Ml Nebu INH 03/09/24 18:59 3 ml Q4HRRT PRN Administration WHEEZING or sob Atorvastatin Calcium 10 mg 02/09/24 21:00 02/15/24 21:03 Atorvastatin Calcium 10 Mg Tablet PO 03/10/24 20:59 10 mg HS ABHIJIT Administration Dextrose 25 ml 02/08/24 19:04 02/16/24 06:01 Dextrose 50%-Water Inj 50 Ml Syringe IV 03/09/24 19:03 25 ml Q15MIN PRN Administration BG 50-70 responsive npo pt Dextrose 50 ml 02/08/24 19:04 Dextrose 50%-Water Inj 50 Ml Syringe IV 03/09/24 19:03 Q15MIN PRN BG <50 OR BG <70 & pt unresponsive Diltiazem HCl 60 mg 02/11/24 22:00 02/16/24 05:51 Diltiazem 30 Mg Tablet PO 03/12/24 21:59 60 mg TID ABHIJIT Administration Glucagon 1 mg 02/08/24 19:04 Glucagon Inj 1 Mg Vial IM Q15MIN PRN BG <70, and no IV access Heparin Sodium (Porcine) 3,300 unit 02/14/24 15:39 02/15/24 12:40 Heparin Sod Inj 1000 Unit/Ml Vial 10 Ml INDWELLCAT 02/28/24 15:38 3,300 unit X1 PRN Administration DIALYSIS Ceftriaxone Sodium/Dextrose 50 mls @ 100 mls/hr 02/09/24 14:00 02/15/24 13:53 Rocephin/D5w 1gm Iv Premix IV 02/16/24 13:59 100 mls/hr QDAY@1400 ABHIJIT Administration Albumin Human 25 gm in 100 mls @ 100 mls/min 02/15/24 09:10 Albuminar-25 Ivpb IV PRN PRN DIALYSIS Insulin Glargine 5 unit 02/10/24 21:00 02/15/24 21:04 Insulin Glargine (Lantus) 5 Unit/0.05 Ml (Per 5 Units) SC 03/11/24 20:59 5 unit HS ABHIJIT Administration Insulin Human Lispro 0 unit 02/16/24 12:00 Insulin Lispro (Admelog) 1 Unit/0.01 Ml Unit SC 03/17/24 11:59 Q6HR ABHIJIT Protocol Lisinopril 20 mg 02/15/24 14:45 02/15/24 16:18 Lisinopril 20 Mg Tablet PO 03/16/24 14:44 20 mg QDAY ABHIJIT Administration Ondansetron HCl 4 mg 02/08/24 18:25 Ondansetron Inj 2 Mg/Ml Inj 2 Ml IV 03/09/24 18:24 Q6H PRN NAUSEA OR VOMITING Protocol Pantoprazole Sodium 40 mg 02/15/24 14:00 02/15/24 21:04 Pantoprazole Inj 40 Mg Vial IV 03/16/24 13:59 40 mg BID ABHIJIT Administration Quetiapine Fumarate 25 mg 02/15/24 15:18 Quetiapine Fumarate 25 Mg Tablet PO 03/16/24 20:59 HS PRN AGITATION Sennosides 2 tab 02/08/24 18:25 Senna Tablet PO 03/09/24 18:24 BID PRN CONSTIPATION Protocol Sevelamer Carbonate 0.8 gm 02/14/24 12:30 02/16/24 08:03 Sevelamer Carbonate 0.8 Gm Packet (Non-Formulary) PO 03/12/24 11:59 Not Given TIDWM ABHIJIT Plan 70-year-old male with past medical history of hypertension, DM2, CKD, and CVA was admitted to the hospital on 02/08/2024 for hypoosmolar, hyponatremia and acute hypoxic respiratory failure likely secondary to acute decompensated heart failure exacerbation versus pneumonia. #Acute Metabolic Encephalopathy 2/2 hospital delirium vs steroid induced delirium vs uremia -Patient is likely showing signs of delirium possibly a side effect of steroids Plan: ?D/C steroids -Encouraged to be surrounded with patient's family, keep blinds open during the day -started on Seroquel qHS #Acute renal failure - improving #History of CKD stage IV. #Renal dialysis. -GFR 30, creatinine 2.2 Plan: ?Permanent Vas-Cath based -Dialysis session today -Nephrology service following, appreciate recommendations #Hypoosmolar hyponatremia - resolved #Hypochloremia- resolved #Hyperphosphatemia. ?Patient's sodium was initially 120 and dropped to 112 next day of admission -Sodium today 129 ?Phosphorus 7.0 and chloride 92 Plan: ?started sodium tablets 1gm BID and sevelamer 800 mg TID. ?Sodium checks every 4 hours ?Nephrology consulted, appreciate recommendations ?Will continue to monitor #Acute hypoxic respiratory failure. #Pleural effusions. #Acute decompensated heart failure exacerbation. #HFpEF (EF 55-to 60% 2020). -Patient had LIBERTY LE edema 2+ on admission per chart review ?Echo on 2020 showed EF 55-60%, without evidence of diastolic dysfuntion ?BNP on 02/08/2024 was 381 ?Chest CT showed moderate heart failure with pleural effusions bilateral ?Echo 02/10- estimated EF 60-65% and Mild MR and moderate TR Plan: ? Per nephrology team hold Bumex 2mg to once daily - Strict VALERIO's ?Keep potassium above 4 magnesium above 2 ?O2 administration as needed ?Cardiology consulted Dr. Amaya, appreciate commendations ?Will continue to monitor #Sepsis likely secondary to community-acquired pneumonia #Community-acquired pneumonia #lactic acidosis ?Initially patient came in with complaints of productive cough ?Patient met SIRS criteria 2 out of 4 with leukocytosis and tachypnea ?Chest x-ray 02/08/2024 showed bilateral pneumonia ?Chest x-ray on 02/09/2024 showed pneumonia lung bases ?WBC 11.3 today, likely reactive in the setting of steroids, no spikes in fevers ?Blood culture negative in 48 hours -Lactic acid 2.6 Plan: ?Continue azithromycin 500 mg daily and Rocephin 1 g daily [02/08-] ? D/C- Solu-Medrol 60 mg IV every 12 hours ?Will continue to monitor #NSTEMI type II likely demand ischemia ?Patient denies any chest pain?troponins ?Peaked at 1.242 and down trended. ?EKG showed sinus rhythm Plan: ?Will continue to monitor #NAGMA. #Lactic acidosis. ?Carbon dioxide 19.5 this morning Plan: ?Bicitra as per nephrology ?Will continue to monitor #Chronic anemia. ?Patient's hemoglobin 7.0- 1 unit RBC given which improved Hgb 7.3 today ?No active signs of bleeding Plan: ?Will transfuse if hemoglobin less than 7 ?GI consulted and recommended EGD once patient's O2 requirements decreased. ?Will continue to monitor #Hx of HTN. ?DC'd amlodipine 10 mg every afternoon and hydralazine 25 mg 3 times daily -Started Diltiazem 60mg TID. #Hx of DM2. ?a1c 5.7 02/09/2024 Plan: ?ISS ?Accu-Cheks and hypoglycemic protocol ?Will continue to monitor #Hx of CVA. ?Continue atorvastatin 10 mg at bedtime. Disposition: tele for continue to monitor sodium, management of CKD, urgent dialysis. Diet: Cardiac, carb consistent low. GI prophylaxis: protonix. DVT prophylaxis: SCDs. Code:Full Patient's case was discussed with supervising attending physician Dr. Agnieszka Clancy M.D. Internal Medicine PGY-3 Attending Provider Attestation/Addendum I, Vita Aaron DO, attest that I was physically present for the [place] portions of the service and evaluated the patient with the resident and I reviewed and discussed the case with the resident and agree with the resident's findings and plans of care as documented above Patient seen and evaluated this AM. Daughter at bedside and states that the patient was agitated throughout the night and only got 2hrs of sleep this AM. Patient remains confused. He is noted to have uptrending WBCs and Tmax of 100.4 this AM. CXR was repeated as patient is noted to have increasing productive sputum and increasing O2 demand on 6L oxymask this AM. RLL infiltrate versus effusion noted. Started on unasyn due to concern for aspiration. Will schedule seroquel qHS due to insomnia. He is otherwise scheduled for EGD today due to anemia.
[2024-02-16 08:22] LABS: Basophils % (Auto) 0 % (0-2.5); Eosinophils # (Auto) 0.1 Thou/mm3 (0.0-0.5); Eosinophils % (Auto) 0 % (0-10); Hemoglobin 9.3 g/dL (13.5-16.0); Immature Granulocytes % (Auto) 1 % (0-0); Immature Granulocytes Auto 0.23 Thou/mm3 (0.00-0.00); Lymphocytes # (Auto) 0.5 Thou/mm3 (1.0-4.8); Lymphocytes % (Auto) 3 % (10-50); Mean Corpuscular HGB Conc 33.2 g/dl (31.0-37.0); Mean Corpuscular Hemoglobin 28.6 pg (25.0-35.0); Mean Corpuscular Volume 86 fL (80-100); Monocytes # (Auto) 1.5 Thou/mm3 (0.0-0.8); Monocytes % (Auto) 8 % (0-12); Neutrophils # (Auto) 16.7 Thou/mm3 (1.8-7.7); Neutrophils % (Auto) 88 % (37-80); Nucleated Red Blood Cell # 0.02 Thou/mm3 (0.00-0.00); Nucleated Red Blood Cell % 0 /100 WBC (0); Platelet Count 246 Thou/mm3 (140-440); RDW Standard Deviation 42.8 fL (35.1-43.9); Red Blood Count 3.25 Miln/mm3 (4.50-5.90)
[2024-02-16 09:40] LABS: Alanine Aminotransferase 82 U/L (10-49); Albumin, Serum 3.6 gm/dL (3.4-4.8); Albumin/Globulin Ratio 1.8 (1.2-2.2); Alkaline Phosphatase 44 U/L (46-116); Anion Gap 3 (7-16); Aspartate Amino Transferase 50 U/L (0-34); BUN/Creatinine Ratio 15 Ratio (12-20); Blood Urea Nitrogen 33 mg/dL (9-23); Calcium 8.6 mg/dL (8.3-10.6); Calcium (Corrected) 8.9 mg/dL (8.5-10.1); Carbon Dioxide 30.8 mMol/L (20.0-31.0); Chloride 103 mMol/L (98-107); Creatinine (Component) 2.2 mg/dL (0.6-1.3); Estimated Creatinine Clearance 23.2 mL/min (>60); Glucose 95 mg/dL (74-106); Osmolality,Calculated 281 (275-295); Sodium 137 mMol/L (136-145); Total Protein 5.6 gm/dL (5.7-8.2); eGFR 30 See Note
--- NOTE | 2024-02-16 10:07 | ESPR_ITS ---
<Statement entered by Hernandez Amaya MD - 02/17/24 12:59> I personally examined the patient in rounds and telemetry continues to improve slowly receiving dialysis followed by nephrology continues to monitor the patient for cardiac arrhythmias no chest pain or shortness of reported today I reviewed the findings and all the details went over all essential components PGY 2 Dr. Kern agree with the treatment plan recommendation patient did not have any myocardial infarction troponin level is possibly type II has no further cardiac workup is planned at this time. Documentation for date of: 02/16/24 Subjective Subjective Interval history: The patient is a 78-year-old male with known history of longstanding hypertension, diabetes mellitus and chronic kidney disease stage IV, who is followed by Dr. West regularly, presented to the hospital with multiple symptoms being shortness of breath, orthopnea and volume overload. He was given some fluid, is not having much diuresis, having severe shortness of breath, not having any chest pain at all, but his cardiac enzymes were persistently elevated at one point initially 0.28, but went up to 1.24, 1.0, 1.03. The patient is still not having any chest pain and mostly orthopnea, has JVD with volume overload situation. He does not have any other symptoms for now, but he has been treated with IV Bumex with some urine output. The patient is also developed severe hyponatremia. Sodium 118, now up to 121, dilutional with low urine sodium. His creatinine is still going up steadily 3.0, BUN is 56 and mild acidosis, CO2 is 19. Blood gas showed pH 7.31, pCO2 of 31, and pO2 is 100. His chest x-ray does show evidence of pulmonary congestion and heart failure. EKG showed sinus rhythm. No evidence of ischemic change and now essentially unremarkable first-degree AV block. The patient is still having some shortness of breath and orthopnea and not complaining of any chest pain. Labs revealed troponin at 1.0. Hemoglobin at 7.3, white count 10. Chemistry panel showed BUN and creatinine elevated at 56 and 2.0. Sodium now 121. Creatinine clearance 21. PMH: As above Allergies: NKDA Home medications: Amlodipine 10 mg, hydralazine 25 mg, insulin 02/11/2024: Patient was seen and examined at the bedside. Patient is feeling better and is seen on nasal cannula 4 L. Morning labs revealed leukocytosis likely due to steroids, hemoglobin at 7.3. Chemistry panel showed sodium at 121 today. Kidney functions consistent with CKD stage IV with creatinine 3.2. Phosphorus at 6.7. Urine sodium less than 15, random total protein 165. Echocardiogram showed normal LV size and function. Estimated EF 60-65%Normal RV size and function.Estimated RVSP 53mmHg.Mild MR. Moderate TR. Trace AI. Recommended to continue Bumex 2 mg once a day, continuing IV ceftriaxone for treating infection. Sodium levels have improved. Nephrology team added salt tablets as well. After discussing with animal keeper, we discontinued amlodipine and hydralazine and started Cardizem 60 mg 3 times daily. Patient's family was updated regarding the plan of care. Patient still making good urine output therefore nephrology will follow the patient closely due to his CKD stage IV. 02/12/24:Patient was seen and examined at the bedside, Patient appears improved in his breathing. Patient had Left leg swelling and calf pain. Vitals showed slight elevated BP. Labs showed Leukocytosis and Hgb around 7.5.Na improved to 125. Kidney functions showing Cr at 3.6. Doppler LE was negative for DVT.Recommended to continue Bumex 2 mg once a day, and cont cardizem 60 mg TID. Added nicardipine 20 mg twice daily for blood pressure control. 02/13/2024: Patient was seen and examined at the bedside. He appears lethargic and mildly agitated with poor mentation. He had a urine output of 1. 9 l. Chemistry panel showed sodium 127, kidney functions worsened with BUN 77 creatinine 3.9. Hemoglobin 7.2. Nephrology team decided to hold Bumex. He does have signs of worsening delirium. Recommended to hold Bumex as patient has CKD significant compared to heart failure. will likely reduce dose of bumex to 1 mg once a day and give only for fluid overload state. 02/14/2024: Patient was seen and examined at the bedside. Patient appears to be mildly distress. Vitals showed mildly elevated blood pressure. Labs revealed hemoglobin at 7.3. Kidney functions showed worsening BUN and creatinine 4.7. Mild hyponatremia however sodium improved since admission. Phosphorus 7.0. Elevated liver enzymes. Nephrology team decided to start dialysis and family was agreeable to the plan.PermCath placed in right IJV. Recommended to discontinue Bumex. Patient will be undergoing hemodialysis. Agreeable to the plan. All labs and orders were reviewed. 02/15/2024: Patient was seen and examined at the bedside. Patient is appears to be doing better today. However, patient was mildly agitated therefore primary team gave quetiapine for delirium. Vitals showed mildly elevated blood pressure 152/78. Labs revealed hemoglobin 9.1. WBC 16.5. Chemistry panel showed creatinine 2.9 improved after dialysis. Liver enzymes slightly elevated. Patient is undergoing session of hemodialysis today as well. Nephrology team following the case. Changed to lisinopril 20 mg once a day and stopped nicardipine and continuing Cardizem 60 mg 3 times a day.. All labs and orders were reviewed. 02/16/2024: Patient was seen and examined at the bedside. Patient is doing well and feels better. Quetiapine is on hold. Patient vitals showed elevated blood pressures at 174/92. White count 19.0. Hemoglobin stable at 9.3. Kidney functions showed mild improvement on hemodialysis with BUN 33 and creatinine 2.2. Mildly elevated AST and ALTs. Recommended to increase dose of lisinopril to 40 mg once a day, start nifedipine 10 3 times daily and continue Cardizem 60 3 times daily to control blood pressure. Patient is getting another session of hemodialysis per schedule nephrology team following the case closely. All labs and orders were reviewed. Exam Vital Signs Temp Pulse Resp BP Pulse Ox O2 Del Method O2 Flow Rate 98.8 F 76 21 H 157/76 H 97 Oxy Mask 6 02/16/24 07:48 02/16/24 09:47 02/16/24 09:47 02/16/24 07:48 02/16/24 09:47 02/16/24 07:48 02/16/24 09:47 FiO2 0 02/16/24 07:48 Narrative Exam GENERAL APPEARANCE: Patient is mildly delirious chronically ill-appearing male HEENT: NC, AT. MMM. EOMI, clear conjunctiva, oropharynx clear.JVD seen NECK: Supple without lymphadenopathy. No stiffness or restricted ROM. Prominent JVD. Right IJV catheter HEART: Regular rate and regular rhythm, normal S1/S2, no m/r/g LUNGS: Decreased breath sounds and bilateral crackles improved heard on auscultation. ABDOMEN: Soft, nontender, nondistended with good bowel sounds heard. EXTREMITIES: 1+ pitting edema On both lower extremities. NEUROLOGICAL: Grossly nonfocal. Alert and oriented, moving all 4 extremities. CN not formally tested but appear grossly intact. Observed to ambulate with normal gait. Skin: Warm and dry without any rash. Psych: Delirium noticed Objective Labs 02/16/24 07:18 02/16/24 07:18 Labs: Laboratory Results - last 24 hr 02/15/24 02/15/24 02/16/24 05:00 08:55 07:18 WBC 19.0 H RBC 3.25 L Hgb 9.3 L Hct 28.0 L MCV 86 MCH 28.6 MCHC 33.2 RDW Std Deviation 42.8 Plt Count 246 Neut % (Auto) 88 H Lymph % (Auto) 3 L [place] % (Auto) 8 Eos % (Auto) 0 Baso % (Auto) 0 Neut # (Auto) 16.7 H Lymph # (Auto) 0.5 L [place] # (Auto) 1.5 H Eos # (Auto) 0.1 Baso # (Auto) 0.0 Immature Gran # (Auto) 0.23 H Absolute Nucleated RBC 0.02 H Immature Gran % 1 H Nucleated RBC % 0 Sodium 136 137 Potassium 4.1 4.0 Chloride 99 103 Carbon Dioxide 30.7 30.8 Anion Gap 6 L 3 L BUN 61 H 33 H Creatinine 2.9 H D 2.2 H D Estim Creat Clear Calc 17.6 L 23.2 L eGFR 21 L 30 L BUN/Creatinine Ratio 21 H 15 Glucose 95 D 95 Calculated Osmolality 289 281 Calcium 8.9 8.6 Corrected Calcium 9.0 8.9 Magnesium 2.3 Total Bilirubin 0.6 AST 67 H 50 H ALT 95 H 82 H Alkaline Phosphatase 40 L 44 L Total Protein 5.6 L 5.6 L Albumin 3.9 3.6 Globulin 1.7 L 2.0 L Albumin/Globulin Ratio 2.3 H 1.8 Stool Occult Blood Negative ABG Interpretation ABG results: 02/09/24 02/09/24 02/09/24 09:30 12:12 19:16 ABG pH 7.26 L 7.31 L ABG pCO2 30 L 31 L ABG pO2 69 L 101 D ABG HCO3 13 L 15 L ABG O2 Saturation 93 99 H ABG Base Excess -13 L -10 L VBG pH 7.41 VBG pCO2 29 L VBG pO2 38 VBG Base Excess -6 L Quality Measures Quality Measures VTE prophylaxis Advance care planning discussed with:: patient Assessment & Plan Assessment Current Active Medications: Generic Name Dose Route Start Last Admin Trade Name Freq PRN Reason Stop Dose Admin Acetaminophen 650 mg 02/09/24 05:01 02/16/24 04:13 Acetaminophen 325 Mg Tablet PO 03/09/24 18:24 650 mg Q6H PRN Administration PAIN OR FEVER > 101 Albuterol/Ipratropium 3 ml 02/13/24 09:21 02/15/24 21:34 Albuterol/Ipratropium (Duoneb) Rt Romina 3 Ml Nebu INH 03/09/24 18:59 3 ml Q4HRRT PRN Administration WHEEZING or sob Atorvastatin Calcium 10 mg 02/09/24 21:00 02/15/24 21:03 Atorvastatin Calcium 10 Mg Tablet PO 03/10/24 20:59 10 mg HS ABHIJIT Administration Dextrose 25 ml 02/08/24 19:04 02/16/24 06:01 Dextrose 50%-Water Inj 50 Ml Syringe IV 03/09/24 19:03 25 ml Q15MIN PRN Administration BG 50-70 responsive npo pt Dextrose 50 ml 02/08/24 19:04 Dextrose 50%-Water Inj 50 Ml Syringe IV 03/09/24 19:03 Q15MIN PRN BG <50 OR BG <70 & pt unresponsive Diltiazem HCl 60 mg 02/11/24 22:00 02/16/24 05:51 Diltiazem 30 Mg Tablet PO 03/12/24 21:59 60 mg TID ABHIJIT Administration Epoetin Marco 10,000 unit 02/16/24 11:00 Epoetin Marco-Epbx Inj 10,000 Unit/Ml Vial (Esrd) SC 02/16/24 11:01 X1 ONE Glucagon 1 mg 02/08/24 19:04 Glucagon Inj 1 Mg Vial IM Q15MIN PRN BG <70, and no IV access Heparin Sodium (Porcine) 3,300 unit 02/14/24 15:39 02/15/24 12:40 Heparin Sod Inj 1000 Unit/Ml Vial 10 Ml INDWELLCAT 02/28/24 15:38 3,300 unit X1 PRN Administration DIALYSIS Ceftriaxone Sodium/Dextrose 50 mls @ 100 mls/hr 02/09/24 14:00 02/15/24 13:53 Rocephin/D5w 1gm Iv Premix IV 02/16/24 13:59 100 mls/hr QDAY@1400 ABHIJIT Administration Albumin Human 25 gm in 100 mls @ 100 mls/min 02/15/24 09:10 Albuminar-25 Ivpb IV PRN PRN DIALYSIS Insulin Glargine 5 unit 02/10/24 21:00 02/15/24 21:04 Insulin Glargine (Lantus) 5 Unit/0.05 Ml (Per 5 Units) SC 03/11/24 20:59 5 unit HS ABHIJIT Administration Insulin Human Lispro 0 unit 02/16/24 12:00 Insulin Lispro (Admelog) 1 Unit/0.01 Ml Unit SC 03/17/24 11:59 Q6HR ABHIJIT Protocol Lisinopril 40 mg 02/16/24 09:45 Lisinopril 20 Mg Tablet PO 03/17/24 09:44 QDAY ABHIJIT Nifedipine 10 mg 02/16/24 14:00 Nifedipine 10 Mg Capsule PO 03/17/24 13:59 TID ABHIJIT Ondansetron HCl 4 mg 02/08/24 18:25 Ondansetron Inj 2 Mg/Ml Inj 2 Ml IV 03/09/24 18:24 Q6H PRN NAUSEA OR VOMITING Protocol Pantoprazole Sodium 40 mg 02/15/24 14:00 02/16/24 09:26 Pantoprazole Inj 40 Mg Vial IV 03/16/24 13:59 Not Given BID ABHIJIT Quetiapine Fumarate 25 mg 02/15/24 15:18 Quetiapine Fumarate 25 Mg Tablet PO 03/16/24 20:59 HS PRN AGITATION Sennosides 2 tab 02/08/24 18:25 Senna Tablet PO 03/09/24 18:24 BID PRN CONSTIPATION Protocol Sevelamer Carbonate 0.8 gm 02/14/24 12:30 02/16/24 08:03 Sevelamer Carbonate 0.8 Gm Packet (Non-Formulary) PO 03/12/24 11:59 Not Given TIDWM ABHIJIT Plan This 70-year-old male with past medical history of hypertension, DM2, CKD, and CVA was admitted to the hospital on 02/08/2024 for hypoosmolar hyponatremia and acute hypoxic respiratory failure likely secondary to acute decompensated heart failure exacerbation versus pneumonia. # Acute hypoxic respiratory failure # Likely secondary to pleural effusion versus HFpEF vs Fluid overload due to CKD # HFpEF EF 60 to 65% ?Patient presented with shortness of breath, wheezing and mild cough. Patient was kept on BiPAP due to increased work of breathing. Switched to OxyMask. ? Chest CT showed moderate heart failure with pleural effusions bilateral. ?Patient showed a diuresis output of 2.4 L with negative balance of 1.6 L. ?Patient's sodium has slightly improved at 123 ? Echocardiogram showed EF 60 to 65%. ? LE Doppler was negative for DVT. Plan: ? Change lisinopril to 40 mg and added nifedipine 10 3 times daily for better blood pressure control ? Discontinued Bumex given patient is starting on hemodialysis from now on ? Changed to lisinopril 40 mg once a day and added nifedipine 10 3 times daily and continuing Cardizem 60 mg 3 times a day ? No need of anticoagulation as patient has severe anemia ? Quetiapine was given for delirium ? Strict VALERIO's, fluid restriction and daily weight ? Oxygen as needed ? Daily labs ? Keep magnesium above 2 and potassium above 4 ? Keep hemoglobin above 7 ? Continue IV antibiotic therapy and steroids for treating sepsis # History of hypertension # Hypertensive emergency, resolved # Uncontrolled hypertension ? Patient was taking amlodipine and hydralazine for blood pressure management. Plan: ? Increase lisinopril to 40 mg and added nifedipine 10 3 times daily and continuing Cardizem 60 mg 3 times a day ? DC'd amlodipine and hydralazine ? Monitor vitals # NSTEMI type II likely supply demand ischemia ? Troponin I peaked at 1.242 and down trended. EKG showed sinus rhythm. Plan: ? Continue to monitor for signs of chest pain or shortness of breath # New onset hemodialysis ? Patient's kidney functions worsened and he remains in fluid overload with decreased urine output. ? Nephrology team decided for placing a right IJV catheter and starting hemodialysis sessions. ? Right IJV catheter placed today Plan: ? Patient is undergoing session of hemodialysis today per nephrology recommendations BUN/creatinine improved after dialysis ? Avoid nephrotoxic agents ? Renally dose medications ? Strict VALERIO's ? Follow-up with renal panel ? Nephrology following the case ? Discontinued Bumex ?Continue sevelamer 0.8 3 times daily with meals Other active problems: # Delirium # Hypoosmolar hyponatremia, improved # Hypochloremia -Nephrology following the case. # Sepsis likely secondary to community-acquired pneumonia # Lactic acidosis type B # NAGMA # Elevated transaminases # Leukocytosis # Anemia of chronic disease # History of type 2 diabetes # CKD stage 4 # History of CVA #Moderate thoracic spondylosis per CT finding Rest of the management as per primary care team. Thank you very much for consulting cardiology team. Patient is starting a new onset hemodialysis from now on nephrology following the case. Agreeable to the plan. Increased lisinopril to 40 mg once a day and added nifedipine 10 mg 3 times daily. Continue Cardizem 60 3 times daily for now. All labs and orders were reviewed. Plan of care discussed with rn telehealth, Dr. Jose Luis Kern MD, PGY 2
[2024-02-16 11:55] LABS: Bilirubin,Total 0.8 mg/dL (0.3-1.2)
[2024-02-16] MEDS: EPOETIN ALFA-EPBX INJ 10,000 UNIT/ML VIAL (ESRD) 10000 UNIT SC (12:05)
[2024-02-16] MEDS: HEPARIN SOD INJ 1000 UNIT/ML VIAL 10 ML 3300 UNIT INDWELLCAT (13:32)
[2024-02-16] MEDS: AMPICILLIN/SULBAC INJ 1.5 GM in SODIUM CHLORIDE 0.9% (P) 50 ML IV ×2 (13:49→21:54)
[2024-02-16] MEDS: NIFEdipine 10 MG CAPSULE PO (13:51)
[2024-02-16] MEDS: Lisinopril 20 MG TABLET 40 MG PO (13:52)
--- NOTE | 2024-02-16 17:39 | PD.NEPHPROG ---
Documentation for date of: 02/16/24 Subjective Subjective Interval history: Mr. 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 Patient's is at bedside and majority of history was taken from her. Patient has been having shortness of breath and wheezing with mild cough and white phlegm for the past 2 days. Patient states that he also is mildly congested denies any runny nose sick contacts or travel history. The noted that recently he has been feeling bloating but denies any changes in the appetite nausea vomiting or abdominal pain. Patient denies any history of prior asthma history. In the ED patient's vitals include blood pressure 164/70 respirations 28, WBC 10.9, hemoglobin 7.3, hematocrit 21.5, and sodium 120. Creatinine 2.9, GFR 21, osmolality 259, BNP 381, lipase 76. Chest x-ray findings include subtle opacity in both lungs suspicious for bilateral basilar pneumonia. In the ED patient received a breathing treatment, Rocephin x 1. Patient admitted for hypoosmolar hyponatremia. Nephrology was consulted for hyponatremia and DIAN on CKD. Primary team ordered urine electrolytes, started patient on IV fluids normal saline at 75 mL/h, every 4 sodium checks. Urine electrolytes showed urine sodium less than 15. Renal ultrasound showed no hydronephrosis, renal cortical thinning and renal parenchymal scar formation. Patient continued to deteriorate: Hemoglobin 6.3, sodium 117, BUN 51, creatinine 2.7, eGFR 23. Patient was examined on the floors, sitting at side of bed, in clear distress. Patient had labored breathing, audible wheezing, tense edema to bilateral lower extremities. Repeat sodium check 112. Patient received breathing treatment with minimal improvement. ICU was consulted for possible upgrade, patient started on hypertonic saline. ICU team aware of patient monitoring, elected to keep patient on floors for now. Blood transfusion held in setting of volume overload, will continue to monitor closely. Considered chest CT, delayed due to patient's respiratory distress. ABG showed pH 7.26, pCO2 30, pO2 69, bicarb 13. Lactic acid 3.8. No anion gap. Chest x-ray showed mild to moderate CHF pattern with severe vascular congestion including central vascular engorgement. 02/10/2024 patient currently seen in telemetry. Still having labored breathing and wheezing although slightly better than yesterday. With the Bumex patient put out 3.7 L. Sodium improved from 1 12-1 21. Clinically seems to be stable. at bedside. Blood pressure 154/80, heart rate 107. WBC 10.1, hemoglobin 7.2, platelets 203. Sodium 121, potassium 4.1, BUN 56, creatinine went up to 3.0, glucose 310, phosphorus 5.4, troponin 1.072. Chest x-ray yesterday showed moderate heart failure. 02/11/2024 patient still very short of breath although slightly better than yesterday. at bedside. Labs and medications have been reviewed. Continue with diuretics. Sodium 123. Salt tablets added. Metabolic acidosis noted-Bicitra given. Spoke to Dr. Burleson. 02/15/2024 patient seems to be slightly confused. Spoke to Dr. Aaron-Matheusoquejagdish given. Suspect hospital psychosis. Has not been sleeping for the last 4 days per . He is currently seen on his second dialysis session. Tolerated first dialysis well. Blood pressure seems to be on the higher side. Blood pressure medications adjusted. Spoke to Dr. Kern 02/16/2024 patient currently seen in Telemetry. He is more alert and awake. Daughter at bedside. currently receiving dialysis at bedside. His breathing seems to be much better. Patient had a restful night per her daughter. Review of Systems Review of Systems Narrative Review of Systems: Patient more alert and awake. Denies any chest pain. Denies any nausea, vomiting. Appetite slightly better per daughter. Exam Vital Signs Temp Pulse Resp BP Pulse Ox O2 Del Method O2 Flow Rate 36.8 C 74 14 118/60 97 Oxy Mask 4 02/16/24 16:00 02/16/24 16:00 02/16/24 16:00 02/16/24 16:00 02/16/24 16:00 02/16/24 16:00 02/16/24 16:00 FiO2 0 02/16/24 16:00 Narrative Exam GENERAL APPEARANCE: Fragile gentleman currently seen in telemetry. Short of breath. On nasal cannula. On dialysis NECK: ++ JVD CARDIOVASCULAR: Heart regular, no murmurs, tachycardia LUNGS/CHEST: Significant wheezing in all lung lara. ABDOMEN: Soft, nontender, nondistended. No masses. Normal bowel sounds. EXTREMITIES: No edema. SKIN: Skin exam normal without any rashes MUSCULOSKELETAL: In bed NEUROLOGICAL : patient seems to be confused Objective Labs 02/16/24 07:18 02/16/24 07:18 Labs: Laboratory Results - last 24 hr 02/16/24 07:18 WBC 19.0 H RBC 3.25 L Hgb 9.3 L Hct 28.0 L MCV 86 MCH 28.6 MCHC 33.2 RDW Std Deviation 42.8 Plt Count 246 Neut % (Auto) 88 H Lymph % (Auto) 3 L [place] % (Auto) 8 Eos % (Auto) 0 Baso % (Auto) 0 Neut # (Auto) 16.7 H Lymph # (Auto) 0.5 L [place] # (Auto) 1.5 H Eos # (Auto) 0.1 Baso # (Auto) 0.0 Immature Gran # (Auto) 0.23 H Absolute Nucleated RBC 0.02 H Immature Gran % 1 H Nucleated RBC % 0 Sodium 137 Potassium 4.0 Chloride 103 Carbon Dioxide 30.8 Anion Gap 3 L BUN 33 H Creatinine 2.2 H D Estim Creat Clear Calc 23.2 L eGFR 30 L BUN/Creatinine Ratio 15 Glucose 95 Calculated Osmolality 281 Calcium 8.6 Corrected Calcium 8.9 Total Bilirubin 0.8 AST 50 H ALT 82 H Alkaline Phosphatase 44 L Total Protein 5.6 L Albumin 3.6 Globulin 2.0 L Albumin/Globulin Ratio 1.8 ABG Interpretation ABG results: 02/09/24 02/09/24 02/09/24 09:30 12:12 19:16 ABG pH 7.26 L 7.31 L ABG pCO2 30 L 31 L ABG pO2 69 L 101 D ABG HCO3 13 L 15 L ABG O2 Saturation 93 99 H ABG Base Excess -13 L -10 L VBG pH 7.41 VBG pCO2 29 L VBG pO2 38 VBG Base Excess -6 L Assessment & Plan Additional Assessment & Plan Additional Plan: Mr. 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 Patient is been having shortness of breath and wheezing with mild cough and white phlegm for the past 2 days. #DIAN on CKD Suspect cardiorenal syndrome vs ATN. Patient with confusion and fluid overload. Cannot give any more patient currently seen on dialysis. Tolerating dialysis without any problems. Hemodialysis for 3 hours, 2K, ultrafiltration 1-2 L, Epogen 6000, no heparin ordered. Plan of care discussed with the dialysis nurse. Please see dialysis flowsheet for further details. Outpatient dialysis will be arranged #Acute hypoxic respiratory failure #Chronic anemia #History of diabetes mellitus #History of primary hypertension #History of CVA without residual deficit Management as per primary team Spoke to Dr. Kern. Add lisinopril to nifedipine/Cardizem Spoke to at bedside. Time spent more than 35 minutes regarding plan of care and disease management. Spoke to primary team
[2024-02-16] MEDS: ATORVASTATIN CALCIUM 10 MG TABLET PO (21:54)
[2024-02-16] MEDS: INSULIN GLARGINE (Lantus) 5 UNIT/0.05 ML (PER 5 UNITS) SC (21:54)
[2024-02-16] MEDS: INSULIN LISPRO (AdmeLOG) 1 UNIT/0.01 ML UNIT SC (21:55)
[2024-02-16] MEDS: PANTOPRAZOLE INJ 40 MG VIAL IV (21:55)
[2024-02-16] MEDS: QUEtiapine FUMARATE 25 MG TABLET PO (21:56)
[2024-02-16] MEDS: NYSTATIN SUSP 5 ML UDC PO (21:56)
[2024-02-17] VITALS (13 sets, daily range): BP systolic 123–141; BP diastolic 60–70; PULSE 67–95; RESP 15–20; TEMP 36.2–37; O2SAT 94–100
--- NOTE | 2024-02-17 00:16 | PC.NURSE ---
Patient refused 0000 vitals due to staff interrupting patient sleep. patient is resting with eyes closed, respirations are even and unlabored, no signs of distress, plan of care ongoing.
[2024-02-17] MEDS: DILTIAZEM 30 MG TABLET 60 MG PO ×3 (05:07→21:32)
[2024-02-17] MEDS: NYSTATIN SUSP 5 ML UDC PO ×3 (05:07→21:32)
[2024-02-17 06:19] LABS: Basophils % (Auto) 0 % (0-2.5); Eosinophils # (Auto) 0.3 Thou/mm3 (0.0-0.5); Eosinophils % (Auto) 2 % (0-10); Hemoglobin 10.7 g/dL (13.5-16.0); Immature Granulocytes % (Auto) 1 % (0-0); Immature Granulocytes Auto 0.23 Thou/mm3 (0.00-0.00); Lymphocytes # (Auto) 0.9 Thou/mm3 (1.0-4.8); Lymphocytes % (Auto) 6 % (10-50); Mean Corpuscular HGB Conc 33.4 g/dl (31.0-37.0); Mean Corpuscular Hemoglobin 29.2 pg (25.0-35.0); Mean Corpuscular Volume 87 fL (80-100); Monocytes # (Auto) 1.2 Thou/mm3 (0.0-0.8); Monocytes % (Auto) 8 % (0-12); Neutrophils # (Auto) 13.6 Thou/mm3 (1.8-7.7); Neutrophils % (Auto) 83 % (37-80); Nucleated Red Blood Cell # 0.02 Thou/mm3 (0.00-0.00); Nucleated Red Blood Cell % 0 /100 WBC (0); Platelet Count 236 Thou/mm3 (140-440); RDW Standard Deviation 43.8 fL (35.1-43.9); Red Blood Count 3.66 Miln/mm3 (4.50-5.90); White Blood Count 16.3 Thou/mm3 (3.8-10.6)
[2024-02-17 06:20] LABS: Albumin, Serum 3.6 gm/dL (3.4-4.8); Anion Gap 5 (7-16); BUN/Creatinine Ratio 11 Ratio (12-20); Blood Urea Nitrogen 24 mg/dL (9-23); Calcium 8.4 mg/dL (8.3-10.6); Calcium (Corrected) 8.7 mg/dL (8.5-10.1); Carbon Dioxide 30.6 mMol/L (20.0-31.0); Chloride 101 mMol/L (98-107); Creatinine (Component) 2.1 mg/dL (0.6-1.3); Estimated Creatinine Clearance 24.3 mL/min (>60); Glucose 153 mg/dL (74-106); Osmolality,Calculated 280 (275-295); Phosphorous 1.8 mg/dL (2.4-5.1); Potassium 3.9 mMol/L (3.4-5.1); Sodium 137 mMol/L (136-145); eGFR 32 See Note
[2024-02-17] MEDS: Lisinopril 20 MG TABLET 40 MG PO (08:22)
[2024-02-17] MEDS: NIFEdipine XL 30 MG TABCR 60 MG PO (08:22)
[2024-02-17] MEDS: AMPICILLIN/SULBAC INJ 1.5 GM in SODIUM CHLORIDE 0.9% (P) 50 ML IV ×2 (08:22→20:25)
[2024-02-17] MEDS: PANTOPRAZOLE INJ 40 MG VIAL IV ×2 (08:23→20:26)
[2024-02-17] MEDS: INSULIN LISPRO (AdmeLOG) 1 UNIT/0.01 ML UNIT SC ×4 (08:24→20:26)
--- NOTE | 2024-02-17 12:27 | ESPR_ITS ---
Documentation for date of: 02/17/24 Subjective Subjective Interval history: Mr. 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 Patient's is at bedside and majority of history was taken from her. Patient has been having shortness of breath and wheezing with mild cough and white phlegm for the past 2 days. Patient states that he also is mildly congested denies any runny nose sick contacts or travel history. The noted that recently he has been feeling bloating but denies any changes in the appetite nausea vomiting or abdominal pain. Patient denies any history of prior asthma history. In the ED patient's vitals include blood pressure 164/70 respirations 28, WBC 10.9, hemoglobin 7.3, hematocrit 21.5, and sodium 120. Creatinine 2.9, GFR 21, osmolality 259, BNP 381, lipase 76. Chest x-ray findings include subtle opacity in both lungs suspicious for bilateral basilar pneumonia. In the ED patient received a breathing treatment, Rocephin x 1. Patient admitted for hypoosmolar hyponatremia. Nephrology was consulted for hyponatremia and DIAN on CKD. Primary team ordered urine electrolytes, started patient on IV fluids normal saline at 75 mL/h, every 4 sodium checks. Urine electrolytes showed urine sodium less than 15. Renal ultrasound showed no hydronephrosis, renal cortical thinning and renal parenchymal scar formation. Patient continued to deteriorate: Hemoglobin 6.3, sodium 117, BUN 51, creatinine 2.7, eGFR 23. Patient was examined on the floors, sitting at side of bed, in clear distress. Patient had labored breathing, audible wheezing, tense edema to bilateral lower extremities. Repeat sodium check 112. Patient received breathing treatment with minimal improvement. ICU was consulted for possible upgrade, patient started on hypertonic saline. ICU team aware of patient monitoring, elected to keep patient on floors for now. Blood transfusion held in setting of volume overload, will continue to monitor closely. Considered chest CT, delayed due to patient's respiratory distress. ABG showed pH 7.26, pCO2 30, pO2 69, bicarb 13. Lactic acid 3.8. No anion gap. Chest x-ray showed mild to moderate CHF pattern with severe vascular congestion including central vascular engorgement. 02/16/2024 patient currently seen in Telemetry. He is more alert and awake. Daughter at bedside. currently receiving dialysis at bedside. His breathing seems to be much better. Patient had a restful night per her daughter. 02/17/2024: Patient seen and examined in telemetry. Patient is alert and awake, sitting in a chair bed, in good mood. Patient's at bedside, states patient slept well throughout the night. BUN 24, creatinine 2.1, eGFR 32. 1.4 L urinary output overnight. Patient saturating well, O2 was removed. Plan dialysis today, possibly dialysis tomorrow. Exam Vital Signs Temp Pulse Resp BP Pulse Ox O2 Del Method O2 Flow Rate 97.4 F 70 17 130/68 98 Nasal Cannula 2 02/17/24 11:36 02/17/24 11:36 02/17/24 11:36 02/17/24 11:36 02/17/24 11:36 02/17/24 11:36 02/17/24 11:36 FiO2 0 02/17/24 11:36 Narrative Exam GENERAL APPEARANCE: Fragile gentleman currently seen in telemetry. Short of breath. NECK: ++ JVD CARDIOVASCULAR: Heart regular, no murmurs, tachycardia LUNGS/CHEST: Significant wheezing in all lung lara. ABDOMEN: Soft, nontender, nondistended. No masses. Normal bowel sounds. EXTREMITIES: No edema. SKIN: Skin exam normal without any rashes MUSCULOSKELETAL: In bed NEUROLOGICAL : Awake and alert, oriented. Objective Labs 02/17/24 04:53 02/17/24 04:53 Labs: Laboratory Results - last 24 hr 02/17/24 04:53 WBC 16.3 H RBC 3.66 L Hgb 10.7 L Hct 32.0 L MCV 87 MCH 29.2 MCHC 33.4 RDW Std Deviation 43.8 Plt Count 236 Neut % (Auto) 83 H Lymph % (Auto) 6 L [place] % (Auto) 8 Eos % (Auto) 2 Baso % (Auto) 0 Neut # (Auto) 13.6 H Lymph # (Auto) 0.9 L [place] # (Auto) 1.2 H Eos # (Auto) 0.3 Baso # (Auto) 0.0 Immature Gran # (Auto) 0.23 H Absolute Nucleated RBC 0.02 H Immature Gran % 1 H Nucleated RBC % 0 Sodium 137 Potassium 3.9 Chloride 101 Carbon Dioxide 30.6 Anion Gap 5 L BUN 24 H Creatinine 2.1 H Estim Creat Clear Calc 24.3 L eGFR 32 L BUN/Creatinine Ratio 11 L Glucose 153 H D Calculated Osmolality 280 Calcium 8.4 Corrected Calcium 8.7 Phosphorus 1.8 L Albumin 3.6 ABG Interpretation ABG results: 02/09/24 02/09/24 02/09/24 09:30 12:12 19:16 ABG pH 7.26 L 7.31 L ABG pCO2 30 L 31 L ABG pO2 69 L 101 D ABG HCO3 13 L 15 L ABG O2 Saturation 93 99 H ABG Base Excess -13 L -10 L VBG pH 7.41 VBG pCO2 29 L VBG pO2 38 VBG Base Excess -6 L Quality Measures Quality Measures VTE prophylaxis Advance care planning discussed with:: patient and spouse Assessment & Plan Assessment Current Active Medications: Generic Name Dose Route Start Last Admin Trade Name Freq PRN Reason Stop Dose Admin Acetaminophen 650 mg 02/09/24 05:01 02/16/24 04:13 Acetaminophen 325 Mg Tablet PO 03/09/24 18:24 650 mg Q6H PRN Administration PAIN OR FEVER > 101 Albuterol/Ipratropium 3 ml 02/13/24 09:21 02/15/24 21:34 Albuterol/Ipratropium (Duoneb) Rt Romina 3 Ml Nebu INH 03/09/24 18:59 3 ml Q4HRRT PRN Administration WHEEZING or sob Atorvastatin Calcium 10 mg 02/09/24 21:00 02/16/24 21:54 Atorvastatin Calcium 10 Mg Tablet PO 03/10/24 20:59 10 mg HS ABHIJIT Administration Dextrose 25 ml 02/08/24 19:04 02/16/24 16:47 Dextrose 50%-Water Inj 50 Ml Syringe IV 03/09/24 19:03 25 ml Q15MIN PRN Administration BG 50-70 responsive npo pt Dextrose 50 ml 02/08/24 19:04 Dextrose 50%-Water Inj 50 Ml Syringe IV 03/09/24 19:03 Q15MIN PRN BG <50 OR BG <70 & pt unresponsive Diltiazem HCl 60 mg 02/11/24 22:00 02/17/24 05:07 Diltiazem 30 Mg Tablet PO 03/12/24 21:59 60 mg TID ABHIJIT Administration Glucagon 1 mg 02/08/24 19:04 Glucagon Inj 1 Mg Vial IM Q15MIN PRN BG <70, and no IV access Heparin Sodium (Porcine) 3,300 unit 02/14/24 15:39 02/16/24 13:32 Heparin Sod Inj 1000 Unit/Ml Vial 10 Ml INDWELLCAT 02/28/24 15:38 3,300 unit X1 PRN Administration DIALYSIS Albumin Human 25 gm in 100 mls @ 100 mls/min 02/15/24 09:10 Albuminar-25 Ivpb IV PRN PRN DIALYSIS Ampicillin Sodium/Sulbactam 50 mls @ 100 mls/hr 02/16/24 12:00 02/17/24 08:22 Sodium 1.5 gm/ Sodium Chloride IV 02/23/24 11:59 100 mls/hr Q12HR ABHIJIT Administration Insulin Glargine 5 unit 02/10/24 21:00 02/16/24 21:54 Insulin Glargine (Lantus) 5 Unit/0.05 Ml (Per 5 Units) SC 03/11/24 20:59 5 unit HS ABHIJIT Administration Insulin Human Lispro 0 unit 02/16/24 21:00 02/17/24 12:12 Insulin Lispro (Admelog) 1 Unit/0.01 Ml Unit SC 03/17/24 20:59 2 unit ACHS ABHIJIT Administration Protocol Lisinopril 40 mg 02/16/24 09:45 02/17/24 08:22 Lisinopril 20 Mg Tablet PO 03/17/24 09:44 40 mg QDAY ABHIJIT Administration Nifedipine 60 mg 02/17/24 09:00 02/17/24 08:22 Nifedipine Xl 30 Mg Tabcr PO 03/18/24 08:59 60 mg QDAY ABHIJIT Administration Nystatin 5 ml 02/16/24 22:00 02/17/24 05:07 Nystatin Susp 5 Ml Udc PO 02/23/24 21:59 5 ml TID ABHIJIT Administration Ondansetron HCl 4 mg 02/08/24 18:25 Ondansetron Inj 2 Mg/Ml Inj 2 Ml IV 03/09/24 18:24 Q6H PRN NAUSEA OR VOMITING Protocol Pantoprazole Sodium 40 mg 02/15/24 14:00 02/17/24 08:23 Pantoprazole Inj 40 Mg Vial IV 03/16/24 13:59 40 mg BID ABHIJIT Administration Quetiapine Fumarate 12.5 mg 02/17/24 21:00 Quetiapine Fumarate 25 Mg Tablet PO 03/18/24 20:59 HS ABHIJIT Sennosides 2 tab 02/08/24 18:25 Senna Tablet PO 03/09/24 18:24 BID PRN CONSTIPATION Protocol Plan Mr. 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 Patient is been having shortness of breath and wheezing with mild cough and Mr. 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 Patient is been having shortness of breath and wheezing with mild cough and white phlegm for the past 2 days. #DIAN on CKD Suspect cardiorenal syndrome vs ATN. Patient with confusion and fluid overload. Cannot give any more Outpatient dialysis will be arranged Patient appears better today, alert and oriented. No dialysis today, possible dialysis tomorrow. #Acute hypoxic respiratory failure #Chronic anemia #History of diabetes mellitus #History of primary hypertension #History of CVA without residual deficit Management as per primary team Thank you for allow me to participate in the care of this patient. Plan of care discussed with attending Dr. West. Cornelio Powell MD PGY-1 Attending Provider Attestation/Addendum Patient seen and examined with resident physician Dr. Powell. Note reviewed, agree with findings and recommendations. Patient more alert and awake. He is feeling much stronger today. , kids at bedside. Suspect patient in cardiorenal syndrome/ATN. Long conversation with his -she agreed for dialysis. Catheter placed by Dr. Trevizo. Patient received 3 dialysis sessions. Pending labs will do another session tomorrow. Once outpatient dialysis arranged he can be discharged. Hep panel negative, PPD negative. Plan of care discussed with primary team
--- NOTE | 2024-02-17 12:27 | PC.SS ---
CONTROL ENGINEER updated dialysis information via [employer]
--- NOTE | 2024-02-17 14:05 | ESPR_ITS ---
<Statement entered by Rahul Oneill MD - 02/17/24 16:10> Senior Resident Attestation: I supervised/discussed management plan with consultant intern physician Dr. Key, and was involved in the care of this patient. I personally saw and examined the patient and discussed the assessment and plan with the entire medicine team, including my attending. I agree with the assessment and plan as documented. Patient was seen and examined at bedside. No acute overnight events. He is mental status significantly improved and patient is alert and oriented now. He reports no complaints. Patient will continue hemodialysis after discharge, possible discharge tomorrow. Patient's care was discussed with attending physician, Dr. Aaron. Rahul Oneill MD PGY-2. Documentation for date of: 02/17/24 Subjective Subjective Interval history: 02/16: No overnight events, patient is seen and examined at bedside this morning. Patient is sitting on the side of the bed saturating well on 2 L of oxygen via nasal cannula. Patient is alert and oriented. Patient has significant improvement in his breathing, shortness of breath, denies any chest pain or abdominal pain. Patient denies any cough. Patient continues to have improvement in kidney function creatinine is 2.1 and GFR is 32 today. Patient continues to produce urine. Patient's reports patient slept well last night, and resolution of delirium. Patient received dialysis last [address] West's recommendation patient can continue on outpatient dialysis and PT will be ordered. Exam Vital Signs Temp Pulse Resp BP Pulse Ox O2 Del Method O2 Flow Rate 97.4 F 71 17 130/68 98 Nasal Cannula 2 02/17/24 11:36 02/17/24 12:00 02/17/24 11:36 02/17/24 11:36 02/17/24 11:36 02/17/24 11:36 02/17/24 11:36 FiO2 0 02/17/24 11:36 Narrative Exam GENERAL: A&Ox3 . Awake NEURO: Normal neurological deficits HEENT: Atraumatic, Normocephalic. mucous membranes moist. Eyes open, symmetrical, & clear HEART: Normal Heart Sounds LUNGS:clear on auscultation ABDOMEN: soft, non-distended, non-tender, bowel sounds heard, no guarding or rebound tenderness SKIN: No Rash or ecchymoses EXTREMITIES: trace pitting edema, no tenderness, able to move all 4 extremities, pedal pulses palpated Objective Labs 02/17/24 04:53 02/17/24 04:53 Labs: Laboratory Results - last 24 hr 02/17/24 04:53 WBC 16.3 H RBC 3.66 L Hgb 10.7 L Hct 32.0 L MCV 87 MCH 29.2 MCHC 33.4 RDW Std Deviation 43.8 Plt Count 236 Neut % (Auto) 83 H Lymph % (Auto) 6 L [place] % (Auto) 8 Eos % (Auto) 2 Baso % (Auto) 0 Neut # (Auto) 13.6 H Lymph # (Auto) 0.9 L [place] # (Auto) 1.2 H Eos # (Auto) 0.3 Baso # (Auto) 0.0 Immature Gran # (Auto) 0.23 H Absolute Nucleated RBC 0.02 H Immature Gran % 1 H Nucleated RBC % 0 Sodium 137 Potassium 3.9 Chloride 101 Carbon Dioxide 30.6 Anion Gap 5 L BUN 24 H Creatinine 2.1 H Estim Creat Clear Calc 24.3 L eGFR 32 L BUN/Creatinine Ratio 11 L Glucose 153 H D Calculated Osmolality 280 Calcium 8.4 Corrected Calcium 8.7 Phosphorus 1.8 L Albumin 3.6 ABG Interpretation ABG results: 02/09/24 02/09/24 02/09/24 09:30 12:12 19:16 ABG pH 7.26 L 7.31 L ABG pCO2 30 L 31 L ABG pO2 69 L 101 D ABG HCO3 13 L 15 L ABG O2 Saturation 93 99 H ABG Base Excess -13 L -10 L VBG pH 7.41 VBG pCO2 29 L VBG pO2 38 VBG Base Excess -6 L Quality Measures Quality Measures VTE prophylaxis Advance care planning discussed with:: patient, spouse and child Assessment & Plan Assessment Current Active Medications: Generic Name Dose Route Start Last Admin Trade Name Freq PRN Reason Stop Dose Admin Acetaminophen 650 mg 02/09/24 05:01 02/16/24 04:13 Acetaminophen 325 Mg Tablet PO 03/09/24 18:24 650 mg Q6H PRN Administration PAIN OR FEVER > 101 Albuterol/Ipratropium 3 ml 02/13/24 09:21 02/15/24 21:34 Albuterol/Ipratropium (Duoneb) Rt Romina 3 Ml Nebu INH 03/09/24 18:59 3 ml Q4HRRT PRN Administration WHEEZING or sob Atorvastatin Calcium 10 mg 02/09/24 21:00 02/16/24 21:54 Atorvastatin Calcium 10 Mg Tablet PO 03/10/24 20:59 10 mg HS ABHIJIT Administration Dextrose 25 ml 02/08/24 19:04 02/16/24 16:47 Dextrose 50%-Water Inj 50 Ml Syringe IV 03/09/24 19:03 25 ml Q15MIN PRN Administration BG 50-70 responsive npo pt Dextrose 50 ml 02/08/24 19:04 Dextrose 50%-Water Inj 50 Ml Syringe IV 03/09/24 19:03 Q15MIN PRN BG <50 OR BG <70 & pt unresponsive Diltiazem HCl 60 mg 02/11/24 22:00 02/17/24 05:07 Diltiazem 30 Mg Tablet PO 03/12/24 21:59 60 mg TID ABHIJIT Administration Glucagon 1 mg 02/08/24 19:04 Glucagon Inj 1 Mg Vial IM Q15MIN PRN BG <70, and no IV access Heparin Sodium (Porcine) 3,300 unit 02/14/24 15:39 02/16/24 13:32 Heparin Sod Inj 1000 Unit/Ml Vial 10 Ml INDWELLCAT 02/28/24 15:38 3,300 unit X1 PRN Administration DIALYSIS Albumin Human 25 gm in 100 mls @ 100 mls/min 02/15/24 09:10 Albuminar-25 Ivpb IV PRN PRN DIALYSIS Ampicillin Sodium/Sulbactam 50 mls @ 100 mls/hr 02/16/24 12:00 02/17/24 08:22 Sodium 1.5 gm/ Sodium Chloride IV 02/23/24 11:59 100 mls/hr Q12HR ABHIJIT Administration Insulin Glargine 5 unit 02/10/24 21:00 02/16/24 21:54 Insulin Glargine (Lantus) 5 Unit/0.05 Ml (Per 5 Units) SC 03/11/24 20:59 5 unit HS ABHIJIT Administration Insulin Human Lispro 0 unit 02/16/24 21:00 02/17/24 12:12 Insulin Lispro (Admelog) 1 Unit/0.01 Ml Unit SC 03/17/24 20:59 2 unit ACHS ABHIJIT Administration Protocol Lisinopril 40 mg 02/16/24 09:45 02/17/24 08:22 Lisinopril 20 Mg Tablet PO 03/17/24 09:44 40 mg QDAY ABHIJIT Administration Nifedipine 60 mg 02/17/24 09:00 02/17/24 08:22 Nifedipine Xl 30 Mg Tabcr PO 03/18/24 08:59 60 mg QDAY ABHIJIT Administration Nystatin 5 ml 02/16/24 22:00 02/17/24 05:07 Nystatin Susp 5 Ml Udc PO 02/23/24 21:59 5 ml TID ABHIJIT Administration Ondansetron HCl 4 mg 02/08/24 18:25 Ondansetron Inj 2 Mg/Ml Inj 2 Ml IV 03/09/24 18:24 Q6H PRN NAUSEA OR VOMITING Protocol Pantoprazole Sodium 40 mg 02/15/24 14:00 02/17/24 08:23 Pantoprazole Inj 40 Mg Vial IV 03/16/24 13:59 40 mg BID ABHIJIT Administration Quetiapine Fumarate 12.5 mg 02/17/24 21:00 Quetiapine Fumarate 25 Mg Tablet PO 03/18/24 20:59 HS ABHIJIT Sennosides 2 tab 02/08/24 18:25 Senna Tablet PO 03/09/24 18:24 BID PRN CONSTIPATION Protocol Plan Mr. Acuna is a 70-year-old male with past medical history of hypertension, DM2, CKD, and CVA was admitted to the hospital on 02/08/2024 for hypoosmolar, hyponatremia and acute hypoxic respiratory failure likely secondary to acute decompensated heart failure exacerbation versus pneumonia. #Acute Metabolic Encephalopathy 2/2 hospital delirium vs steroid induced delirium vs uremia -Patient is likely showing signs of delirium possibly a side effect of steroids Plan: ?D/C steroids -Encouraged to be surrounded with patient's family, keep blinds open during the day -started on Seroquel qHS #Acute renal failure - improving #History of CKD stage IV. #Renal dialysis. -GFR 30, creatinine 2.2 Plan: ?Permanent Vas-Cath based -Outpatient dialysis -Nephrology service following, appreciate recommendations -Per nephrology Dr. West started the patient on nifedipine 60mg daily and gave him epoetin alpha-epbx x1 #Hypoosmolar hyponatremia - resolved #Hypochloremia- resolved #Hyperphosphatemia-resolved ?Patient's sodium was initially 120 and dropped to 112 next day of admission -Sodium today 137 ?Phosphorus 1.8 and chloride 101 Plan: ?Nephrology consulted, appreciate recommendations ?Will continue to monitor #Acute hypoxic respiratory failure. #Pleural effusions. #Acute decompensated heart failure exacerbation. #HFpEF (EF 55-to 60% 2020). -Patient had LIBERTY LE edema 2+ on admission per chart review ?Echo on 2020 showed EF 55-60%, without evidence of diastolic dysfuntion ?BNP on 02/08/2024 was 381 ?Chest CT showed moderate heart failure with pleural effusions bilateral ?Echo 02/10- estimated EF 60-65% and Mild MR and moderate TR Plan: ? Per nephrology team hold Bumex 2mg to once daily - Strict VALERIO's ?Keep potassium above 4 magnesium above 2 ?O2 administration as needed ?Cardiology consulted Dr. Amaya, appreciate commendations -Per cardio recommendations patient is started on diltiazem 60mg 3 times daily and lisinopril 40mg daily ?Will continue to monitor #Sepsis likely secondary to community-acquired pneumonia #Community-acquired pneumonia #lactic acidosis ?Initially patient came in with complaints of productive cough ?Patient met SIRS criteria 2 out of 4 with leukocytosis and tachypnea ?Chest x-ray 02/08/2024 showed bilateral pneumonia ?Chest x-ray on 02/09/2024 showed pneumonia lung bases ?WBC 11.3 today, likely reactive in the setting of steroids, no spikes in fevers ?Blood culture negative in 48 hours -Lactic acid 2.6 Plan: ?Continue azithromycin 500 mg daily and Rocephin 1 g daily [02/08-] ? D/C- Solu-Medrol 60 mg IV every 12 hours ?Will continue to monitor #NSTEMI type II likely demand ischemia ?Patient denies any chest pain?troponins ?Peaked at 1.242 and down trended. ?EKG showed sinus rhythm Plan: ?Will continue to monitor #NAGMA. #Lactic acidosis. ?Carbon dioxide 19.5 this morning Plan: ?Bicitra as per nephrology ?Will continue to monitor #Chronic anemia. ?Patient's hemoglobin 7.0- 1 unit RBC given which improved Hgb 7.3 today ?No active signs of bleeding Plan: ?Will transfuse if hemoglobin less than 7 ?GI consulted and recommended EGD once patient's O2 requirements decreased. ?Will continue to monitor #Hx of HTN. ?DC'd amlodipine 10 mg every afternoon and hydralazine 25 mg 3 times daily -Started Diltiazem 60mg TID. #Hx of DM2. ?a1c 5.7 02/09/2024 Plan: ?ISS ?Accu-Cheks and hypoglycemic protocol ?Will continue to monitor #Hx of CVA. ?Continue atorvastatin 10 mg at bedtime. Disposition: tele for continue to monitor sodium, management of CKD, urgent dialysis. Diet: Cardiac, carb consistent low. GI prophylaxis: protonix. DVT prophylaxis: SCDs. Code:Full Assessment and plan discussed with my senior resident Dr. Oneill & attending physician Dr. Agnieszka Key (PGY-1)- Internal medicine resident Attending Provider Attestation/Addendum IVita, , attest that I was physically present for the [place] portions of the service and evaluated the patient with the resident and I reviewed and discussed the case with the resident and agree with the resident's findings and plans of care as documented above Patient seen and evaluated this AM. Son is at bedside. Patient is sitting up in chair and states he is doing well. Case discussed with nephro, will arrange for outpatient HD. Patient states he was able to sleep after receiving seroquel last night. Will decrease dose to 12.5mg PO qHS. Anticipate DC within next 24-48hrs once outpatient HD is arranged.
--- NOTE | 2024-02-17 15:09 | ESPR_ITS ---
RE: PRISCA ACUNA : 1945 DATE OF SERVICE: 02/17/2024 S: Prisca Acuna appears to be doing little better today. He does not have any shortness of breath. Chest pain is clinically stable following dialysis. VITAL SIGNS: Blood pressure 130/68, pulse 70, temperature normal, respirations 17, saturating well on 2 liters nasal cannula. NECK: Supple. No JVD. LUNGS: Decreased breath sounds at bases. HEART: S1, S2. Regular. No gallops. ABDOMEN: Thin and soft. EXTREMITIES: Mild edema. A: 1. [id number] kidney disease, requiring dialysis. 2. Volume overload with congestive heart failure _ 3. Mild troponin elevation, possibly type 2 troponin elevation. P: Continue present medications. No further cardiac workup at this time is planned. DT: 13:24:10 TT: 14:57:00 Ref: [id number] - TID: [id number] [facility]
--- NOTE | 2024-02-17 18:07 | PD.IMPROG ---
Documentation for date of: 02/17/24 Subjective Subjective Interval history: Evaluate the patient in his room sitting in a chair Alert oriented Met with the family Discussed endoscopic findings of distal esophageal ulceration and Lea esophagitis along with gastritis with the family Patient on nystatin swish and swallow Outpatient colonoscopy Exam Vital Signs Temp Pulse Resp BP Pulse Ox O2 Del Method O2 Flow Rate 97.2 F 79 18 123/64 98 Nasal Cannula 2 02/17/24 16:00 02/17/24 16:00 02/17/24 16:00 02/17/24 16:00 02/17/24 16:00 02/17/24 16:00 02/17/24 16:00 FiO2 0 02/17/24 16:00 Objective Labs 02/17/24 04:53 02/17/24 04:53 Labs: Laboratory Results - last 24 hr 02/17/24 04:53 WBC 16.3 H RBC 3.66 L Hgb 10.7 L Hct 32.0 L MCV 87 MCH 29.2 MCHC 33.4 RDW Std Deviation 43.8 Plt Count 236 Neut % (Auto) 83 H Lymph % (Auto) 6 L [place] % (Auto) 8 Eos % (Auto) 2 Baso % (Auto) 0 Neut # (Auto) 13.6 H Lymph # (Auto) 0.9 L [place] # (Auto) 1.2 H Eos # (Auto) 0.3 Baso # (Auto) 0.0 Immature Gran # (Auto) 0.23 H Absolute Nucleated RBC 0.02 H Immature Gran % 1 H Nucleated RBC % 0 Sodium 137 Potassium 3.9 Chloride 101 Carbon Dioxide 30.6 Anion Gap 5 L BUN 24 H Creatinine 2.1 H Estim Creat Clear Calc 24.3 L eGFR 32 L BUN/Creatinine Ratio 11 L Glucose 153 H D Calculated Osmolality 280 Calcium 8.4 Corrected Calcium 8.7 Phosphorus 1.8 L Albumin 3.6 Impressions Impression: # Distal esophageal ulceration # Gastritis # Lea esophagitis Continue current management ABG Interpretation ABG results: 02/09/24 02/09/24 02/09/24 09:30 12:12 19:16 ABG pH 7.26 L 7.31 L ABG pCO2 30 L 31 L ABG pO2 69 L 101 D ABG HCO3 13 L 15 L ABG O2 Saturation 93 99 H ABG Base Excess -13 L -10 L VBG pH 7.41 VBG pCO2 29 L VBG pO2 38 VBG Base Excess -6 L Assessment & Plan A&P Narrative # Anemia with thrombocytopenia within normal B12 level and no history of any yash GI bleeding in the form of melena hematochezia or hematemesis Patient can still have occult GI bleeding # Hypoosmolar hypochloremic hyponatremia agree with the IV fluids I do not think patient has SIADH # Bilateral pneumonia # CKD # Diabetes mellitus type 2 Plan Iron panel Stool for occult blood Upper endoscopy during this hospitalization to make sure there is no source of bleeding at the moment and may be an outpatient colonoscopy In this clinical setting GI tract has to be screened fully I do not think patient has any kind of paraneoplastic syndrome although He does have an elevated PSA of 19.12 which needs to be addressed Thank you very much for the opportunity to participate in the care of this patient Time Spent With Patient Time: Total time spent is greater than 50% in coordination of care (as documented) at patient's floor/unit and/or counseling patient:
[2024-02-17] MEDS: ATORVASTATIN CALCIUM 10 MG TABLET PO (20:25)
[2024-02-17] MEDS: INSULIN GLARGINE (Lantus) 5 UNIT/0.05 ML (PER 5 UNITS) SC (20:25)
[2024-02-17] MEDS: QUEtiapine FUMARATE 25 MG TABLET 12.5 MG PO (20:26)
[2024-02-18] VITALS (29 sets, daily range): BP systolic 109–142; BP diastolic 53–79; PULSE 75–97; RESP 17–22; TEMP 36.5–37.2; O2SAT 94–98; BMI 13.0
[2024-02-18] MEDS: NYSTATIN SUSP 5 ML UDC PO ×2 (05:33→13:10)
[2024-02-18 06:06] LABS: Basophils % (Auto) 0 % (0-2.5); Eosinophils # (Auto) 0.5 Thou/mm3 (0.0-0.5); Eosinophils % (Auto) 3 % (0-10); Hematocrit 30.3 % (41.0-53.0); Hemoglobin 10.3 g/dL (13.5-16.0); Immature Granulocytes % (Auto) 2 % (0-0); Immature Granulocytes Auto 0.39 Thou/mm3 (0.00-0.00); Lymphocytes # (Auto) 0.8 Thou/mm3 (1.0-4.8); Lymphocytes % (Auto) 5 % (10-50); Mean Corpuscular Hemoglobin 28.9 pg (25.0-35.0); Mean Corpuscular Volume 85 fL (80-100); Monocytes # (Auto) 1.5 Thou/mm3 (0.0-0.8); Monocytes % (Auto) 8 % (0-12); Neutrophils # (Auto) 14.4 Thou/mm3 (1.8-7.7); Neutrophils % (Auto) 82 % (37-80); Nucleated Red Blood Cell % 0 /100 WBC (0); Platelet Count 228 Thou/mm3 (140-440); RDW Standard Deviation 42.6 fL (35.1-43.9); Red Blood Count 3.56 Miln/mm3 (4.50-5.90); White Blood Count 17.5 Thou/mm3 (3.8-10.6)
[2024-02-18 06:40] LABS: Albumin, Serum 3.6 gm/dL (3.4-4.8); Anion Gap 8 (7-16); BUN/Creatinine Ratio 13 Ratio (12-20); Blood Urea Nitrogen 38 mg/dL (9-23); Calcium 8.1 mg/dL (8.3-10.6); Calcium (Corrected) 8.4 mg/dL (8.5-10.1); Carbon Dioxide 26.1 mMol/L (20.0-31.0); Chloride 96 mMol/L (98-107); Creatinine (Component) 2.9 mg/dL (0.6-1.3); Estimated Creatinine Clearance 17.6 mL/min (>60); Glucose 97 mg/dL (74-106); Osmolality,Calculated 269 (275-295); Phosphorous 1.4 mg/dL (2.4-5.1); Potassium 3.8 mMol/L (3.4-5.1); Sodium 130 mMol/L (136-145); eGFR 21 See Note
[2024-02-18] MEDS: NAPH,KPH MBDB 1 PACKET (1.5 GM) PO (08:02)
--- NOTE | 2024-02-18 08:43 | PC.SS ---
SS contacted [facility] in [place] and they informed SS that nothing has been received. SS informed staff at [facility] that Amauri MANN had send clinicals information though [facility] [place] on Sunday. They informed SS that at the time they don't have access to [employer]. Staff at [facility] requesting all clinicals for patient. SS will fax information.
--- NOTE | 2024-02-18 09:10 | PC.SS ---
SS follow up note; SS faxed requested information to [facility] for chair time.
--- NOTE | 2024-02-18 10:25 | ESPR_ITS ---
<Statement entered by Hernandez Amaya MD - 02/20/24 18:59> The patient was personally evaluated by me along with resident physician Dr. Kern appears to be doing clinically better cardiac point of view no chest pain reported and I agree with the treatment plan recommendation as documented by PGY 2 resident physician Documentation for date of: 02/18/24 Subjective Subjective Interval history: The patient is a 78-year-old male with known history of longstanding hypertension, diabetes mellitus and chronic kidney disease stage IV, who is followed by Dr. West regularly, presented to the hospital with multiple symptoms being shortness of breath, orthopnea and volume overload. He was given some fluid, is not having much diuresis, having severe shortness of breath, not having any chest pain at all, but his cardiac enzymes were persistently elevated at one point initially 0.28, but went up to 1.24, 1.0, 1.03. The patient is still not having any chest pain and mostly orthopnea, has JVD with volume overload situation. He does not have any other symptoms for now, but he has been treated with IV Bumex with some urine output. The patient is also developed severe hyponatremia. Sodium 118, now up to 121, dilutional with low urine sodium. His creatinine is still going up steadily 3.0, BUN is 56 and mild acidosis, CO2 is 19. Blood gas showed pH 7.31, pCO2 of 31, and pO2 is 100. His chest x-ray does show evidence of pulmonary congestion and heart failure. EKG showed sinus rhythm. No evidence of ischemic change and now essentially unremarkable first-degree AV block. The patient is still having some shortness of breath and orthopnea and not complaining of any chest pain. Labs revealed troponin at 1.0. Hemoglobin at 7.3, white count 10. Chemistry panel showed BUN and creatinine elevated at 56 and 2.0. Sodium now 121. Creatinine clearance 21. PMH: As above Allergies: NKDA Home medications: Amlodipine 10 mg, hydralazine 25 mg, insulin 02/11/2024: Patient was seen and examined at the bedside. Patient is feeling better and is seen on nasal cannula 4 L. Morning labs revealed leukocytosis likely due to steroids, hemoglobin at 7.3. Chemistry panel showed sodium at 121 today. Kidney functions consistent with CKD stage IV with creatinine 3.2. Phosphorus at 6.7. Urine sodium less than 15, random total protein 165. Echocardiogram showed normal LV size and function. Estimated EF 60-65%Normal RV size and function.Estimated RVSP 53mmHg.Mild MR. Moderate TR. Trace AI. Recommended to continue Bumex 2 mg once a day, continuing IV ceftriaxone for treating infection. Sodium levels have improved. Nephrology team added salt tablets as well. After discussing with floor molder, we discontinued amlodipine and hydralazine and started Cardizem 60 mg 3 times daily. Patient's family was updated regarding the plan of care. Patient still making good urine output therefore nephrology will follow the patient closely due to his CKD stage IV. 02/12/24:Patient was seen and examined at the bedside, Patient appears improved in his breathing. Patient had Left leg swelling and calf pain. Vitals showed slight elevated BP. Labs showed Leukocytosis and Hgb around 7.5.Na improved to 125. Kidney functions showing Cr at 3.6. Doppler LE was negative for DVT.Recommended to continue Bumex 2 mg once a day, and cont cardizem 60 mg TID. Added nicardipine 20 mg twice daily for blood pressure control. 02/13/2024: Patient was seen and examined at the bedside. He appears lethargic and mildly agitated with poor mentation. He had a urine output of 1. 9 l. Chemistry panel showed sodium 127, kidney functions worsened with BUN 77 creatinine 3.9. Hemoglobin 7.2. Nephrology team decided to hold Bumex. He does have signs of worsening delirium. Recommended to hold Bumex as patient has CKD significant compared to heart failure. will likely reduce dose of bumex to 1 mg once a day and give only for fluid overload state. 02/14/2024: Patient was seen and examined at the bedside. Patient appears to be mildly distress. Vitals showed mildly elevated blood pressure. Labs revealed hemoglobin at 7.3. Kidney functions showed worsening BUN and creatinine 4.7. Mild hyponatremia however sodium improved since admission. Phosphorus 7.0. Elevated liver enzymes. Nephrology team decided to start dialysis and family was agreeable to the plan.PermCath placed in right IJV. Recommended to discontinue Bumex. Patient will be undergoing hemodialysis. Agreeable to the plan. All labs and orders were reviewed. 02/15/2024: Patient was seen and examined at the bedside. Patient is appears to be doing better today. However, patient was mildly agitated therefore primary team gave quetiapine for delirium. Vitals showed mildly elevated blood pressure 152/78. Labs revealed hemoglobin 9.1. WBC 16.5. Chemistry panel showed creatinine 2.9 improved after dialysis. Liver enzymes slightly elevated. Patient is undergoing session of hemodialysis today as well. Nephrology team following the case. Changed to lisinopril 20 mg once a day and stopped nicardipine and continuing Cardizem 60 mg 3 times a day.. All labs and orders were reviewed. 02/16/2024: Patient was seen and examined at the bedside. Patient is doing well and feels better. Quetiapine is on hold. Patient vitals showed elevated blood pressures at 174/92. White count 19.0. Hemoglobin stable at 9.3. Kidney functions showed mild improvement on hemodialysis with BUN 33 and creatinine 2.2. Mildly elevated AST and ALTs. Recommended to increase dose of lisinopril to 40 mg once a day, start nifedipine 10 3 times daily and continue Cardizem 60 3 times daily to control blood pressure. Patient is getting another session of hemodialysis per schedule nephrology team following the case closely. All labs and orders were reviewed. 02/18/24: Patient was seen and examined at the bedside. Patient is doing well and had looks better since yesterday. Vitals showed stable blood pressure now. Labs revealed mild leukocytosis and stable hemoglobin. Chemistry panel showed kidney functions BUN 38 and creatinine 2.9. Phosphorus 1.4. Patient underwent hemodialysis per schedule as per plan by floor molder. Primary team managing patient's delirium with quetiapine 12.5 mg at bedtime. DC'd nifedipine 60 mg XL and continuing lisinopril 40 mg once a day and diltiazem 60 3 times daily. Agreeable to the plan of care. All labs and orders were reviewed. Exam Vital Signs Temp Pulse Resp BP Pulse Ox O2 Del Method O2 Flow Rate 98.4 F 81 18 125/71 95 Nasal Cannula 2 02/18/24 09:04 02/18/24 10:15 02/18/24 09:04 02/18/24 10:15 02/18/24 09:04 02/18/24 08:00 02/18/24 08:00 FiO2 0 02/18/24 08:00 Narrative Exam GENERAL APPEARANCE: Patient is mildly delirious chronically ill-appearing male HEENT: NC, AT. MMM. EOMI, clear conjunctiva, oropharynx clear.JVD seen NECK: Supple without lymphadenopathy. No stiffness or restricted ROM. Prominent JVD. Right IJV catheter HEART: Regular rate and regular rhythm, normal S1/S2, no m/r/g LUNGS: Decreased breath sounds and bilateral crackles improved heard on auscultation. ABDOMEN: Soft, nontender, nondistended with good bowel sounds heard. EXTREMITIES: 1+ pitting edema On both lower extremities. NEUROLOGICAL: Grossly nonfocal. Alert and oriented, moving all 4 extremities. CN not formally tested but appear grossly intact. Observed to ambulate with normal gait. Skin: Warm and dry without any rash. Psych: Delirium noticed Objective Labs 02/18/24 04:52 02/18/24 04:52 Labs: Laboratory Results - last 24 hr 02/18/24 04:52 WBC 17.5 H RBC 3.56 L Hgb 10.3 L Hct 30.3 L MCV 85 MCH 28.9 MCHC 34.0 RDW Std Deviation 42.6 Plt Count 228 Neut % (Auto) 82 H Lymph % (Auto) 5 L [place] % (Auto) 8 Eos % (Auto) 3 Baso % (Auto) 0 Neut # (Auto) 14.4 H Lymph # (Auto) 0.8 L [place] # (Auto) 1.5 H Eos # (Auto) 0.5 Baso # (Auto) 0.0 Immature Gran # (Auto) 0.39 H Absolute Nucleated RBC 0.00 Immature Gran % 2 H Nucleated RBC % 0 Sodium 130 L Potassium 3.8 Chloride 96 L Carbon Dioxide 26.1 Anion Gap 8 BUN 38 H Creatinine 2.9 H D Estim Creat Clear Calc 17.6 L eGFR 21 L BUN/Creatinine Ratio 13 Glucose 97 D Calculated Osmolality 269 L Calcium 8.1 L Corrected Calcium 8.4 L Phosphorus 1.4 L Albumin 3.6 ABG Interpretation ABG results: 02/09/24 02/09/24 02/09/24 09:30 12:12 19:16 ABG pH 7.26 L 7.31 L ABG pCO2 30 L 31 L ABG pO2 69 L 101 D ABG HCO3 13 L 15 L ABG O2 Saturation 93 99 H ABG Base Excess -13 L -10 L VBG pH 7.41 VBG pCO2 29 L VBG pO2 38 VBG Base Excess -6 L Quality Measures Quality Measures VTE prophylaxis Advance care planning discussed with:: patient Assessment & Plan Assessment Current Active Medications: Generic Name Dose Route Start Last Admin Trade Name Freq PRN Reason Stop Dose Admin Acetaminophen 650 mg 02/09/24 05:01 02/16/24 04:13 Acetaminophen 325 Mg Tablet PO 03/09/24 18:24 650 mg Q6H PRN Administration PAIN OR FEVER > 101 Albuterol/Ipratropium 3 ml 02/13/24 09:21 02/15/24 21:34 Albuterol/Ipratropium (Duoneb) Rt Romina 3 Ml Nebu INH 03/09/24 18:59 3 ml Q4HRRT PRN Administration WHEEZING or sob Atorvastatin Calcium 10 mg 02/09/24 21:00 02/17/24 20:25 Atorvastatin Calcium 10 Mg Tablet PO 03/10/24 20:59 10 mg HS ABHIJIT Administration Dextrose 25 ml 02/08/24 19:04 02/16/24 16:47 Dextrose 50%-Water Inj 50 Ml Syringe IV 03/09/24 19:03 25 ml Q15MIN PRN Administration BG 50-70 responsive npo pt Dextrose 50 ml 02/08/24 19:04 Dextrose 50%-Water Inj 50 Ml Syringe IV 03/09/24 19:03 Q15MIN PRN BG <50 OR BG <70 & pt unresponsive Diltiazem HCl 60 mg 02/11/24 22:00 02/18/24 06:21 Diltiazem 30 Mg Tablet PO 03/12/24 21:59 Not Given TID ABHIJIT Epoetin Marco 10,000 unit 02/18/24 11:00 Epoetin Marco-Epbx Inj 10,000 Unit/Ml Vial (Non-Esrd) SC 02/18/24 11:01 X1 ONE Glucagon 1 mg 02/08/24 19:04 Glucagon Inj 1 Mg Vial IM Q15MIN PRN BG <70, and no IV access Heparin Sodium (Porcine) 3,300 unit 02/14/24 15:39 02/16/24 13:32 Heparin Sod Inj 1000 Unit/Ml Vial 10 Ml INDWELLCAT 02/28/24 15:38 3,300 unit X1 PRN Administration DIALYSIS Albumin Human 25 gm in 100 mls @ 100 mls/min 02/15/24 09:10 Albuminar-25 Ivpb IV PRN PRN DIALYSIS Ampicillin Sodium/Sulbactam 50 mls @ 100 mls/hr 02/16/24 12:00 02/17/24 20:25 Sodium 1.5 gm/ Sodium Chloride IV 02/23/24 11:59 100 mls/hr Q12HR ABHIJIT Administration Insulin Glargine 5 unit 02/10/24 21:00 02/17/24 20:25 Insulin Glargine (Lantus) 5 Unit/0.05 Ml (Per 5 Units) SC 03/11/24 20:59 5 unit HS ABHIJIT Administration Insulin Human Lispro 0 unit 02/16/24 21:00 02/18/24 07:57 Insulin Lispro (Admelog) 1 Unit/0.01 Ml Unit SC 03/17/24 20:59 Not Given ACHS ABHIJIT Protocol Lisinopril 40 mg 02/16/24 09:45 02/18/24 10:03 Lisinopril 20 Mg Tablet PO 03/17/24 09:44 Not Given QDAY ABHIJIT Nystatin 5 ml 02/16/24 22:00 02/18/24 05:33 Nystatin Susp 5 Ml Udc PO 02/23/24 21:59 5 ml TID ABHIJIT Administration Ondansetron HCl 4 mg 02/08/24 18:25 Ondansetron Inj 2 Mg/Ml Inj 2 Ml IV 03/09/24 18:24 Q6H PRN NAUSEA OR VOMITING Protocol Pantoprazole Sodium 40 mg 02/15/24 14:00 02/17/24 20:26 Pantoprazole Inj 40 Mg Vial IV 03/16/24 13:59 40 mg BID ABHIJIT Administration Quetiapine Fumarate 12.5 mg 02/17/24 21:00 02/17/24 20:26 Quetiapine Fumarate 25 Mg Tablet PO 03/18/24 20:59 12.5 mg HS ABHIJIT Administration Sennosides 2 tab 02/08/24 18:25 Senna Tablet PO 03/09/24 18:24 BID PRN CONSTIPATION Protocol Plan This 70-year-old male with past medical history of hypertension, DM2, CKD, and CVA was admitted to the hospital on 02/08/2024 for hypoosmolar hyponatremia and acute hypoxic respiratory failure likely secondary to acute decompensated heart failure exacerbation versus pneumonia. # Acute hypoxic respiratory failure # Likely secondary to pleural effusion versus HFpEF vs Fluid overload due to CKD # HFpEF EF 60 to 65% ?Patient presented with shortness of breath, wheezing and mild cough. Patient was kept on BiPAP due to increased work of breathing. Switched to OxyMask. ? Chest CT showed moderate heart failure with pleural effusions bilateral. ?Patient showed a diuresis output of 2.4 L with negative balance of 1.6 L. ?Patient's sodium has slightly improved at 123 ? Echocardiogram showed EF 60 to 65%. ? LE Doppler was negative for DVT. Plan: ? Continue lisinopril 40 mg and Cardizem 60 3 times daily and discontinue nifedipine given blood pressure on softer side now ? Discontinued Bumex given patient is on hemodialysis ? No need of anticoagulation as patient has severe anemia ? Quetiapine 12.5 mg at bedtime given for delirium ? Strict VALERIO's, fluid restriction and daily weight ? Oxygen as needed ? Daily labs ? Keep magnesium above 2 and potassium above 4 ? Keep hemoglobin above 7 ? Continue IV antibiotic therapy and steroids for treating sepsis # History of hypertension # Hypertensive emergency, resolved # Uncontrolled hypertension, resolved ? Patient was taking amlodipine and hydralazine for blood pressure management. Plan: ? Continue lisinopril 40 mg daily and Cardizem 60 times a day and discontinued nifedipine given blood pressure on softer side ? Monitor vitals # NSTEMI type II likely supply demand ischemia ? Troponin I peaked at 1.242 and down trended. EKG showed sinus rhythm. Plan: ? Continue to monitor for signs of chest pain or shortness of breath # New onset hemodialysis ? Patient's kidney functions worsened and he remains in fluid overload with decreased urine output. ? Nephrology team decided for placing a right IJV catheter and starting hemodialysis sessions. ? Right IJV catheter placed today Plan: ? Patient is undergoing session of hemodialysis 02/17 per nephrology recommendations BUN/creatinine improved after dialysis ? Avoid nephrotoxic agents ? Renally dose medications ? Strict VALERIO's ? Follow-up with renal panel ? Nephrology following the case ? Discontinued Bumex ? Holding sevelamer 0.8 3 times daily with meals due to hypophosphatemia Other active problems: # Delirium # Hypoosmolar hyponatremia, improved # Hypochloremia # Hypophosphatemia -Nephrology following the case. # Sepsis likely secondary to community-acquired pneumonia # Lactic acidosis type B # NAGMA # Elevated transaminases # Leukocytosis # Anemia of chronic disease # History of type 2 diabetes # CKD stage 4 # History of CVA #Moderate thoracic spondylosis per CT finding Rest of the management as per primary care team. Thank you very much for consulting cardiology team. Continue hemodialysis session per nephrology recommendations. Continue diltiazem 60 mg 3 times a day and lisinopril 40 mg once a day. Discontinue nifedipine given blood pressure being softer side. Agreeable to the plan of care per primary care team. Plan of care discussed with terra cotta roofer, Dr. Jose Luis Kern MD, PGY 2
--- NOTE | 2024-02-18 10:34 | ESPR_ITS ---
Documentation for date of: 02/18/24 Subjective Subjective Interval history: Mr. 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 Patient's is at bedside and majority of history was taken from her. Patient has been having shortness of breath and wheezing with mild cough and white phlegm for the past 2 days. Patient states that he also is mildly congested denies any runny nose sick contacts or travel history. The noted that recently he has been feeling bloating but denies any changes in the appetite nausea vomiting or abdominal pain. Patient denies any history of prior asthma history. In the ED patient's vitals include blood pressure 164/70 respirations 28, WBC 10.9, hemoglobin 7.3, hematocrit 21.5, and sodium 120. Creatinine 2.9, GFR 21, osmolality 259, BNP 381, lipase 76. Chest x-ray findings include subtle opacity in both lungs suspicious for bilateral basilar pneumonia. In the ED patient received a breathing treatment, Rocephin x 1. Patient admitted for hypoosmolar hyponatremia. Nephrology was consulted for hyponatremia and DIAN on CKD. Primary team ordered urine electrolytes, started patient on IV fluids normal saline at 75 mL/h, every 4 sodium checks. Urine electrolytes showed urine sodium less than 15. Renal ultrasound showed no hydronephrosis, renal cortical thinning and renal parenchymal scar formation. Patient continued to deteriorate: Hemoglobin 6.3, sodium 117, BUN 51, creatinine 2.7, eGFR 23. Patient was examined on the floors, sitting at side of bed, in clear distress. Patient had labored breathing, audible wheezing, tense edema to bilateral lower extremities. Repeat sodium check 112. Patient received breathing treatment with minimal improvement. ICU was consulted for possible upgrade, patient started on hypertonic saline. ICU team aware of patient monitoring, elected to keep patient on floors for now. Blood transfusion held in setting of volume overload, will continue to monitor closely. Considered chest CT, delayed due to patient's respiratory distress. ABG showed pH 7.26, pCO2 30, pO2 69, bicarb 13. Lactic acid 3.8. No anion gap. Chest x-ray showed mild to moderate CHF pattern with severe vascular congestion including central vascular engorgement. 02/16/2024 patient currently seen in Telemetry. He is more alert and awake. Daughter at bedside. currently receiving dialysis at bedside. His breathing seems to be much better. Patient had a restful night per her daughter. 02/17/2024: Patient seen and examined in telemetry. Patient is alert and awake, sitting in a chair bed, in good mood. Patient's at bedside, states patient slept well throughout the night. BUN 24, creatinine 2.1, eGFR 32. 1.4 L urinary output overnight. Patient saturating well, O2 was removed. Plan dialysis today, possibly dialysis tomorrow. 02/18/2024: Patient seen and examined in telemetry. Patient awake and alert, resting comfortably in bed. Patient oriented, appropriately responsive, energetic. Patient's reports he had poor slepp overnight. Sodium 130, BUN 38, creatinine 2.9, eGFR 21. Plan for dialysis today. Arranging outpatient dialysis. Exam Vital Signs Temp Pulse Resp BP Pulse Ox O2 Del Method O2 Flow Rate 98.4 F 83 18 132/76 H 95 Nasal Cannula 2 02/18/24 09:04 02/18/24 10:30 02/18/24 09:04 02/18/24 10:30 02/18/24 09:04 02/18/24 08:00 02/18/24 08:00 FiO2 0 02/18/24 08:00 Narrative Exam GENERAL APPEARANCE: Fragile gentleman currently seen in telemetry. NECK: + JVD CARDIOVASCULAR: Heart regular, no murmurs, tachycardia LUNGS/CHEST: Moderate wheezing in all lung lara. ABDOMEN: Soft, nontender, nondistended. No masses. Normal bowel sounds. EXTREMITIES: No edema. SKIN: Skin exam normal without any rashes MUSCULOSKELETAL: In bed NEUROLOGICAL : Awake and alert, oriented. Objective Labs 02/18/24 04:52 02/18/24 04:52 Labs: Laboratory Results - last 24 hr 02/18/24 04:52 WBC 17.5 H RBC 3.56 L Hgb 10.3 L Hct 30.3 L MCV 85 MCH 28.9 MCHC 34.0 RDW Std Deviation 42.6 Plt Count 228 Neut % (Auto) 82 H Lymph % (Auto) 5 L [place] % (Auto) 8 Eos % (Auto) 3 Baso % (Auto) 0 Neut # (Auto) 14.4 H Lymph # (Auto) 0.8 L Blaine # (Auto) 1.5 H Eos # (Auto) 0.5 Baso # (Auto) 0.0 Immature Gran # (Auto) 0.39 H Absolute Nucleated RBC 0.00 Immature Gran % 2 H Nucleated RBC % 0 Sodium 130 L Potassium 3.8 Chloride 96 L Carbon Dioxide 26.1 Anion Gap 8 BUN 38 H Creatinine 2.9 H D Estim Creat Clear Calc 17.6 L eGFR 21 L BUN/Creatinine Ratio 13 Glucose 97 D Calculated Osmolality 269 L Calcium 8.1 L Corrected Calcium 8.4 L Phosphorus 1.4 L Albumin 3.6 ABG Interpretation ABG results: 02/09/24 02/09/24 02/09/24 09:30 12:12 19:16 ABG pH 7.26 L 7.31 L ABG pCO2 30 L 31 L ABG pO2 69 L 101 D ABG HCO3 13 L 15 L ABG O2 Saturation 93 99 H ABG Base Excess -13 L -10 L VBG pH 7.41 VBG pCO2 29 L VBG pO2 38 VBG Base Excess -6 L Quality Measures Quality Measures VTE prophylaxis Advance care planning discussed with:: patient and spouse Assessment & Plan Assessment Current Active Medications: Generic Name Dose Route Start Last Admin Trade Name Freq PRN Reason Stop Dose Admin Acetaminophen 650 mg 02/09/24 05:01 02/16/24 04:13 Acetaminophen 325 Mg Tablet PO 03/09/24 18:24 650 mg Q6H PRN Administration PAIN OR FEVER > 101 Albuterol/Ipratropium 3 ml 02/13/24 09:21 02/15/24 21:34 Albuterol/Ipratropium (Duoneb) Rt Romina 3 Ml Nebu INH 03/09/24 18:59 3 ml Q4HRRT PRN Administration WHEEZING or sob Atorvastatin Calcium 10 mg 02/09/24 21:00 02/17/24 20:25 Atorvastatin Calcium 10 Mg Tablet PO 03/10/24 20:59 10 mg HS ABHIJIT Administration Dextrose 25 ml 02/08/24 19:04 02/16/24 16:47 Dextrose 50%-Water Inj 50 Ml Syringe IV 03/09/24 19:03 25 ml Q15MIN PRN Administration BG 50-70 responsive npo pt Dextrose 50 ml 02/08/24 19:04 Dextrose 50%-Water Inj 50 Ml Syringe IV 03/09/24 19:03 Q15MIN PRN BG <50 OR BG <70 & pt unresponsive Diltiazem HCl 60 mg 02/11/24 22:00 02/18/24 06:21 Diltiazem 30 Mg Tablet PO 03/12/24 21:59 Not Given TID ABHIJIT Epoetin Marco 10,000 unit 02/18/24 11:00 Epoetin Marco-Epbx Inj 10,000 Unit/Ml Vial (Non-Esrd) SC 02/18/24 11:01 X1 ONE Glucagon 1 mg 02/08/24 19:04 Glucagon Inj 1 Mg Vial IM Q15MIN PRN BG <70, and no IV access Heparin Sodium (Porcine) 3,300 unit 02/14/24 15:39 02/16/24 13:32 Heparin Sod Inj 1000 Unit/Ml Vial 10 Ml INDWELLCAT 02/28/24 15:38 3,300 unit X1 PRN Administration DIALYSIS Albumin Human 25 gm in 100 mls @ 100 mls/min 02/15/24 09:10 Albuminar-25 Ivpb IV PRN PRN DIALYSIS Ampicillin Sodium/Sulbactam 50 mls @ 100 mls/hr 02/16/24 12:00 02/17/24 20:25 Sodium 1.5 gm/ Sodium Chloride IV 02/23/24 11:59 100 mls/hr Q12HR ABHIJIT Administration Insulin Glargine 5 unit 02/10/24 21:00 02/17/24 20:25 Insulin Glargine (Lantus) 5 Unit/0.05 Ml (Per 5 Units) SC 03/11/24 20:59 5 unit HS ABHIJIT Administration Insulin Human Lispro 0 unit 02/16/24 21:00 02/18/24 07:57 Insulin Lispro (Admelog) 1 Unit/0.01 Ml Unit SC 03/17/24 20:59 Not Given ACHS [facility] Protocol Lisinopril 40 mg 02/16/24 09:45 02/18/24 10:03 Lisinopril 20 Mg Tablet PO 03/17/24 09:44 Not Given QDAY ABHIJIT Nystatin 5 ml 02/16/24 22:00 02/18/24 05:33 Nystatin Susp 5 Ml Udc PO 02/23/24 21:59 5 ml TID ABHIJIT Administration Ondansetron HCl 4 mg 02/08/24 18:25 Ondansetron Inj 2 Mg/Ml Inj 2 Ml IV 03/09/24 18:24 Q6H PRN NAUSEA OR VOMITING Protocol Pantoprazole Sodium 40 mg 02/15/24 14:00 02/17/24 20:26 Pantoprazole Inj 40 Mg Vial IV 03/16/24 13:59 40 mg BID ABHIJIT Administration Quetiapine Fumarate 12.5 mg 02/17/24 21:00 02/17/24 20:26 Quetiapine Fumarate 25 Mg Tablet PO 03/18/24 20:59 12.5 mg HS ABHIJIT Administration Sennosides 2 tab 02/08/24 18:25 Senna Tablet PO 03/09/24 18:24 BID PRN CONSTIPATION Protocol Plan Mr. 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 Patient is been having shortness of breath and wheezing with mild cough and Mr. 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 Patient is been having shortness of breath and wheezing with mild cough and white phlegm for the past 2 days. #DIAN on CKD Suspect cardiorenal syndrome vs ATN. Patient with confusion and fluid overload. Cannot give any more Outpatient dialysis will be arranged Patient appears better today, alert and oriented. Dialysis today. Plan for outpatient dialysis 2x weekly, temporary pending renal function improvement. #Acute hypoxic respiratory failure #Chronic anemia #History of diabetes mellitus #History of primary hypertension #History of CVA without residual deficit Management as per primary team Thank you for allow me to participate in the care of this patient. Plan of care discussed with attending Dr. West. Cornelio Powell MD PGY-1 Attending Provider Attestation/Addendum Dr. West- Note reviewed, agree with findings and recommendations. Arranged for outpatient dialysis twice weekly. Will monitor renal function moving forwards
[2024-02-18] MEDS: EPOETIN ALFA-EPBX INJ 10,000 UNIT/ML VIAL (NON-ESRD) 10000 UNIT SC (12:01)
[2024-02-18] MEDS: HEPARIN SOD INJ 1000 UNIT/ML VIAL 10 ML 3300 UNIT INDWELLCAT (12:53)
[2024-02-18] MEDS: AMPICILLIN/SULBAC INJ 1.5 GM in SODIUM CHLORIDE 0.9% (P) 50 ML IV (13:10)
[2024-02-18] MEDS: PANTOPRAZOLE INJ 40 MG VIAL IV (13:10)
[2024-02-18] MEDS: INSULIN LISPRO (AdmeLOG) 1 UNIT/0.01 ML UNIT SC ×2 (13:18→16:58)
--- NOTE | 2024-02-18 13:19 | PC.SS ---
Addendum entered by Lindsay Ba 02/18/24 14:44: SS met with patient's at bedside and provided chair time and address to patient's . SS submitted inquiry through [facility] for 02. Jose informed SS they will be delivering 02 at bedside in 1-2 Hrs. Addendum entered by Lindsay Ba 02/18/24 14:18: SS contacted [facility] and spoke to Sharon. Chair time was provided for Tuesdays and Saturdays from 10:45-1:45PM. Patient will start tomorrow and will need to arrive at 9:15AM. SS will meet with patient to provide chair time. Original Note: SS spoke to Concha from [facility] in regards to chair time. She informed SS that at the time it's for review and chair time is pending.
--- NOTE | 2024-02-18 14:50 | PC.SS ---
OXYGEN Pt is discharged in a chronic stable state and has been treated optimally and has other respiratory needs. Oxygen has been ordered due to Covid and acute hypoxic respiratory failure. To secure a safe discharge for the pt home oxygen is needed. The pt is mobile within the home and will need continuous, portable O2 via nasal cannula. Pt is discharged in a chronic stable state and has been treated optimally and has other respiratory needs. Oxygen has been ordered due to Covid and acute hypoxic respiratory failure.
[2024-02-18] MEDS: DILTIAZEM 30 MG TABLET 60 MG PO (14:59)
--- NOTE | 2024-02-18 16:11 | PC.SS ---
SS was informed by Patient's nurse Ayse that patient's was requesting HH for medication management. SS informed Dr Aaron's team. No preference in HH agency. HH order is in place.
--- NOTE | 2024-02-18 16:40 | ESDS_ITS ---
<Statement entered by Vita Aaron DO - 02/19/24 15:44> I, Vita Aaron DO, attest that I was physically present for the [place] portions of the service and evaluated the patient with the resident and I reviewed and discussed the case with the resident and agree with the resident's findings and plans of care as documented above Planned Discharge Date 02/18/24 DS: Providers Provider Date of admission: 02/08/24 18:19 Primary care physician: Velma West MD Admitting Provider: Gilbert Alexander MD Attending Provider on Admission: Vita Aaron DO Consults: 02/08/24 19:26 Consult to Nephrology Routine Comment: Hyponatremia, DIAN on CKD Consulting Provider: Velma West 02/09/24 10:10 Consult to Gastroenterology Stat Comment: Consulting Provider: Asif Carmen 02/09/24 12:05 Consult to [employer] Agent Stat Comment: Consulting Provider: Tonya Oliveira 02/10/24 10:13 Consult to Cardiology Routine Comment: Consulting Provider: Hernandez Amaya 02/15/24 08:00 Referral Discharge Planning Routine Comment: Outpatient dialysis unit 02/18/24 14:44 Referral Physical Therapy Routine Comment: Physician Instructions: Attending Provider on DC: Michael Key MD Discharging Provider: Michael Key MD DS: Diagnosis Discharge Diagnosis (1) Acute hypoxic respiratory failure: Status: Acute (2) CHF exacerbation: Status: Acute (3) Community acquired pneumonia: Status: Acute (4) Hypo-osmolar hyponatremia: Status: Acute (5) End stage renal disease: Status: Acute (6) Acute renal failure: Status: Acute (7) Uncontrolled diabetes mellitus: Status: Acute (8) Primary hypertension: Status: Acute (9) Esophageal ulcer: Status: Acute (10) Anemia, normocytic normochromic: Status: Acute Problem List Completed Was Problem List Reviewed/Reconciled?: Yes Hospital Course Hospital Course Hospital course: Patient is a 78 year old male with a medical history of primary hypertension, diabetes mellitus type 2, CKD IV, iron deficiency anemia, and history of CVA presented to [facility] on 02/08/2024 with chief complaint of shortness of breath. Patient was diagnosed with acute hypoxic respiratory failure and severe hyponatremia. Patient monitored and managed by ICU for severe hypoosmolar hypocholermic hyponatremia. Sodium on admission 112 fluid status of fluid overload. Patient received 3% hypertonic saline in telemetry by the ICU team. Sodium was monitored closely, slowly corrected and on day of discharge 130. Patient will follow-up with PCP/nephrology for continued monitoring. Patient was also found to have acute hypoxic respiratory failure which was multifactorial secondary to bilateral community acquired, CHF exacerbation, and bilateral pleural effusions. Chest xray was significantly bilateral pneumonia at lung bases. Patient was started on IV rocephin and oral azithromycin. Blood cultures showed no growth. Patient will be discharged with additional 4 days of Augmentin. Patient also diagnosed with acute exacerbation of heart failure with preserved ejection fraction. BNP 381 and echocardiogram 02/11/24 EF 60-65% and Mild MR and moderate TR. Patient was placed on IV diuresis although patients kidney disease progressed and diagnosed with new onset end stage renal disease. Nephrology Dr. West was consulted and patient was started on hemodialysis. Patient received right IJ tunneled dialysis catheter. Acute hepatitis panel negative. Outpatient chair time has been arranged with case management and nephrology. Continue outpatient hemodialysis. Patient was diagnosed with symptomatic anemia and received 1U PRBCS. He then underwent EGD which showed esophageal ulcers. Patient started on nystatin which will be continued at time of discharge. Patient to receive epoetin as per nephrology. Hemoglobin stable at 10.3 on day of discharge. Iron panel revealed iron deficiency anemia and patient should continue ferrous gluconate 324 daily. Patient also noted to have small bilateral pleural effusions most likely secondary to heart failure and can be monitored outpatient. Troponins were elevated on admission and peaked at 1.242 although no EKG changes of acute ischemia were noted and elevated troponins thought to be secondary to demand ischemia. Follow-up outpatient with cardiology. Patient was also suspected of having COPD exacerbation while hospitalized and did recieve short course of steroids and breathing treatments. Hospital course was complicated by acute metabolic encephalopathy which has resolved on day of discharge. Lactic acidosis has resolved. Patient showed continue norvasc, diltiazem, lisinopril and hydralazine for primary hypertension. Continue lantus 10U and lispro sliding scale for well controlled diabetes mellitus type 2. A1C 5.7%. Continue atorvastatin for hyperlipidemia. Patient is medically cleared for discharge on 02/18/2024 with home health. Patient was given strict return precautions and advised to take medications as prescribed. Patient was counseled on avoiding drinking excessive fluids. Patient will need close outpatient follow-up with primary care provider, nephrology, and cardiology within two weeks of discharge. Outpatient dialysis was set up for AM and to be continued two times a week. Schedule provided to patient Start taking diltiazem 60 mg three times a day and lisinopril 40 mg daily. Hold if BP drops below 100/60 Stop taking plavix. Take Augmentin 1 tab twice daily for 4 days. Start insulin lispro per sliding scale. Start taking nystatin three times a day swish and swallow. Continue other home medications as prescribed. Follow up with Dr West for outpatient hemodyalysis. Follow up with PCP, cardiology and GI within 2 weeks. If you don't have a PCP, you can make an appointment at the [facility]: [address] [place] [address] Return to ED if symptoms recur or worsen. #Acute renal failure - improving #History of CKD stage IV. #Renal dialysis #Sepsis likely secondary to community-acquired pneumonia #Community-acquired pneumonia #lactic acidosis #Acute hypoxic respiratory failure #Pleural effusions. #Acute decompensated heart failure exacerbation. #Hypoosmolar hyponatremia - resolved #Hypochloremia- resolved #Hyperphosphatemia-resolved #Acute Metabolic Encephalopathy 2/2 hospital delirium vs steroid induced de lirium vs uremia -resolved #chronic anemia #hx of HTN #hx of Diabetes Assessment and plan discussed with my senior resident Dr. Oneill & attending physician Dr. Agnieszka Key (PGY-1)- Internal medicine resident Status at Discharge Overall status at discharge: patient is progressing back to baseline Time Spent with Patient Time attestation: Total time spent providing and/or coordinating discharge services: Home Health Home Health Referral Orders: 02/18/24 16:05 Home Health Referral Routine Reason For Exam: Hypertension, renal failure Home-Bound The patient must either because of illness or injury, need the aid of supportive devices such as crutches, canes, wheelchairs, and walkers; the use of special transportation; or the assistance of another person in order to leave their place of residence; OR have a condition such that leaving his or her home is medically contraindicated. In addition, the patient also meets the following criteria: patient is normally unable to leave the home and leaving home requires considerable taxing effort. Addendum to Home Health Certification Practitioner's Certification: I certify that the patient has been under my care in the hospital and the care of attending physician (see below). We had a pomw-dx-ghcg encounter on (see date below). My clinical findings indicate that the patient is home bound per the above criteria and the Home Health Services noted in these orders are medically necessary. The primary reason for the ohyw-xq-pysw encounter is related to the fact that the patient requires home health services. Date Certifying [id number] Physician Encounter: 02/08/24 Physician's Name who will Assume Oversight for Services: Velma West Physician's Phone No.who will Assume Oversight for Service: [employer] - Community Resources: No PT to Evaluate: No PT to evaluate and provide a treatmnet plan to increase patient's mobility and strength. Wound Care: No IV Therapy: No Discontinue PICC Line Once Treatment Complete: No RN Safety Evaluation: Yes RN to evaluate and create a plan of care that will produce positive outcomes. Palliative Treatment: No Palliative treatment and evaluate the need for hospice. Home Health Aide - Personal Care: Yes Home Health Aide to assist with any ADL's. Exam Vital Signs Temp Pulse Resp BP Pulse Ox O2 Del Method O2 Flow Rate 97.8 F 85 17 135/66 H 97 Nasal Cannula 2 02/18/24 16:00 02/18/24 16:00 02/18/24 16:00 02/18/24 16:00 02/18/24 16:00 02/18/24 16:00 02/18/24 16:00 FiO2 0 02/18/24 16:00 Narrative Exam GENERAL: A&Ox3 . Awake NEURO: Normal neurological deficits HEENT: Atraumatic, Normocephalic. mucous membranes moist. Eyes open, symmetrical, & clear HEART: Normal Heart Sounds LUNGS:clear on auscultation ABDOMEN: soft, non-distended, non-tender, bowel sounds heard, no guarding or rebound tenderness SKIN: No Rash or ecchymoses EXTREMITIES: trace pitting edema, no tenderness, able to move all 4 extremities, pedal pulses palpated Discharge Plan Plan Patient Disposition: Home w/HOME HEALTH Patient condition on transfer: Stable Care Plan Goals: Start taking diltiazem 60 mg three times a day and lisinopril 40 mg daily. Hold if BP drops below 100/60 Stop taking plavix. Take Augmentin 1 tab twice daily for 4 days. Start insulin lispro per sliding scale. Start taking nystatin three times a day swish and swallow. Continue other home medications as prescribed. Follow up with Dr West for outpatient hemodyalysis. Follow up with PCP, cardiology and GI within 2 weeks. If you don't have a PCP, you can make an appointment at the [facility]: [address] [place] [address] Return to ED if symptoms recur or worsen. Prescriptions/Referrals Prescriptions/Med Rec: New (DME) FreeStyle Angle 3 Sensor Device See Rx Instructions .Route Qty: 1 0RF Rx Instructions: As directed insulin lispro 100 unit/mL insulin pen 1 sliding scale dose subcut ACHS Qty: 15 0RF nystatin 100,000 unit/mL suspension 5 ml PO TID Qty: 473 0RF Rx Instructions: swish and swallow hydralazine 25 mg tablet 25 mg PO TID Qty: 90 0RF diltiazem HCl 60 mg tablet 60 mg PO TID 90 Days Qty: 270 0RF Rx Instructions: Hold if BP drops below 100/60 mmHg lisinopril 40 mg tablet 40 mg PO QDAY Qty: 30 0RF amoxicillin-pot clavulanate 875-125 mg tablet 1 tab PO BID 4 Days Qty: 8 0RF (DME) Accu-Chek Radha Plus test strp Strip See Rx Instructions .Route Qty: 100 0RF Rx Instructions: As directed (DME) blood-glucose meter [Accu-Chek Guide Glucose Meter] Misc See Rx Instructions .Route Qty: 1 0RF Rx Instructions: As directed (DME) Accu-Chek Safe-T-Pro 23 gauge misc See Rx Instructions .Route Qty: 200 0RF Rx Instructions: As directed Continued (DME) lancets Misc See Rx Instructions .Route Qty: 100 0RF Rx Instructions: As directed (DME) Accu-Chek Radha Plus test strp Strip See Rx Instructions .Route Qty: 100 0RF Rx Instructions: As directed amlodipine 10 mg tablet 10 mg PO QPM Rx Instructions: taking @16:00 atorvastatin 10 mg tablet 10 mg PO HS Patient Comments: TAKE 1 TABLET BY MOUTH EVERYDAY AT BEDTIME Peg-Pino 0.8 mg tablet 1 tab PO QPM Patient Comments: TAKE 1 TABLET BY MOUTH EVERY DAY Rx Instructions: taking @ 1300 ferrous gluconate 324 mg (38 mg iron) tablet 324 mg PO DAILY Patient Comments: TAKE 1 TABLET BY MOUTH EVERY DAY insulin glargine [Lantus Solostar U-100 Insulin] 100 unit/mL (3 mL) insulin pen 10 unit SUBCUT QPM Qty: 15 0RF Rx Instructions: taking @ 1500 Discontinued clopidogrel [Plavix] 75 mg tablet 75 mg PO QDAY Qty: 30 0RF hydralazine 25 mg tablet 25 mg PO TID Patient Comments: TAKE 1 TABLET BY MOUTH THREE TIMES A DAY Referrals: Asif Carmen MD [Physician] - Velma West MD [Primary Care Provider] - Patient/Caregiver Discharge Instructions Education Materials: Using Oxygen Safely, Treating Pneumonia, Hemodialysis, Anemia and Kidney Disease, ED Diet for Chronic Kidney Disease Print Language: Qatari Activity Restrictions/Additional Instructions: please call dr Carmen office to schedule your outpatient colonoscopy. Stand Alone Forms: Karly Award Info., Patient Portal Info Letter Discharge Order Discharge Orders: Discharge (Routine); Ordered 02/18/24 Ordered By: Rahul Oneill Quality Discharge Quality Measures VTE therapy
--- NOTE | 2024-02-18 18:36 | PC.CM ---
Patient did not have a preference for a home health agency so [facility].
--- NOTE | 2024-02-18 19:39 | ESPR_ITS ---
Documentation for date of: 02/18/24 Subjective Subjective Interval history: Hemoglobin hematocrit 10.3 and 30.3 No signs of any active bleeding Agree with discharge planning Plan patient is most strong outpatient colonoscopy Exam Vital Signs Temp Pulse Resp BP Pulse Ox O2 Del Method O2 Flow Rate 97.8 F 85 17 135/66 H 97 Nasal Cannula 2 02/18/24 16:00 02/18/24 16:00 02/18/24 16:00 02/18/24 16:00 02/18/24 16:00 02/18/24 16:00 02/18/24 16:00 FiO2 0 02/18/24 16:00 Objective Labs 02/18/24 04:52 02/18/24 04:52 Labs: Laboratory Results - last 24 hr 02/18/24 04:52 WBC 17.5 H RBC 3.56 L Hgb 10.3 L Hct 30.3 L MCV 85 MCH 28.9 MCHC 34.0 RDW Std Deviation 42.6 Plt Count 228 Neut % (Auto) 82 H Lymph % (Auto) 5 L [place] % (Auto) 8 Eos % (Auto) 3 Baso % (Auto) 0 Neut # (Auto) 14.4 H Lymph # (Auto) 0.8 L [place] # (Auto) 1.5 H Eos # (Auto) 0.5 Baso # (Auto) 0.0 Immature Gran # (Auto) 0.39 H Absolute Nucleated RBC 0.00 Immature Gran % 2 H Nucleated RBC % 0 Sodium 130 L Potassium 3.8 Chloride 96 L Carbon Dioxide 26.1 Anion Gap 8 BUN 38 H Creatinine 2.9 H D Estim Creat Clear Calc 17.6 L eGFR 21 L BUN/Creatinine Ratio 13 Glucose 97 D Calculated Osmolality 269 L Calcium 8.1 L Corrected Calcium 8.4 L Phosphorus 1.4 L Albumin 3.6 Impressions Impression: # Distal esophageal ulceration # Lea esophagitis Agree with discharge planning Outpatient colonoscopy ABG Interpretation ABG results: 02/09/24 02/09/24 02/09/24 09:30 12:12 19:16 ABG pH 7.26 L 7.31 L ABG pCO2 30 L 31 L ABG pO2 69 L 101 D ABG HCO3 13 L 15 L ABG O2 Saturation 93 99 H ABG Base Excess -13 L -10 L VBG pH 7.41 VBG pCO2 29 L VBG pO2 38 VBG Base Excess -6 L Assessment & Plan A&P Narrative # Anemia with thrombocytopenia within normal B12 level and no history of any yash GI bleeding in the form of melena hematochezia or hematemesis Patient can still have occult GI bleeding # Hypoosmolar hypochloremic hyponatremia agree with the IV fluids I do not think patient has SIADH # Bilateral pneumonia # CKD # Diabetes mellitus type 2 Plan Iron panel Stool for occult blood Upper endoscopy during this hospitalization to make sure there is no source of bleeding at the moment and may be an outpatient colonoscopy In this clinical setting GI tract has to be screened fully I do not think patient has any kind of paraneoplastic syndrome although He does have an elevated PSA of 19.12 which needs to be addressed Thank you very much for the opportunity to participate in the care of this patient Time Spent With Patient Time: Total time spent is greater than 50% in coordination of care (as documented) at patient's floor/unit and/or counseling patient:
--- NOTE | 2024-02-19 07:54 | PC.CM ---
[facility] accepted the pt. [facility]ed [facility]. Pending start of care date.
--- NOTE | 2024-02-26 15:50 | PC.CM ---
[facility] made several attempts to get a hold of patient and they were unsuccessful. they closed referral.
== END 2024-02-18 19:34 | disposition home or self-care (01) | DRG 871 ==
LOC: SERX 17:16 → SERHOLD 18:45 → S3NX 20:45 → S2NX 02-09 12:34
PROVIDERS: Nurse Practitioner Primary Care; Radiology Diagnostic Radiology; Specialist; Student in an Organized Health Care Education/Training Program; Admitting Provider Internal Medicine; Emergency Provider Emergency Medicine; PCP Internal Medicine; Visit Provider Internal Medicine
PROC: 0DJ08ZZ Inspection of Upper Intestinal Tract, Via Natural or Artificial Opening Endoscopic (ICD-10-PCS; CPT 43239; principal; 2024-02-16 20:30)
DX: A41.9 Sepsis, unspecified organism (principal); I21.A1 Myocardial infarction type 2; J18.9 Pneumonia, unspecified organism; J96.01 Acute respiratory failure with hypoxia; I50.33 Acute on chronic diastolic (congestive) heart failure; K22.11 Ulcer of esophagus with bleeding; N18.6 End stage renal disease; N17.9 Acute kidney failure, unspecified; J44.0 Chronic obstructive pulmonary disease with (acute) lower respiratory infection; E87.1 Hypo-osmolality and hyponatremia; E87.20 Acidosis, unspecified; J44.1 Chronic obstructive pulmonary disease with (acute) exacerbation; I13.2 Hypertensive heart and chronic kidney disease with heart failure and with stage 5 chronic kidney disease, or end stage renal disease; B37.81 Candidal esophagitis; E11.22 Type 2 diabetes mellitus with diabetic chronic kidney disease; Z86.73 Personal history of transient ischemic attack (TIA), and cerebral infarction without residual deficits; E87.8 Other disorders of electrolyte and fluid balance, not elsewhere classified; D63.1 Anemia in chronic kidney disease; M47.814 Spondylosis without myelopathy or radiculopathy, thoracic region; E83.39 Other disorders of phosphorus metabolism; I44.0 Atrioventricular block, first degree; E11.65 Type 2 diabetes mellitus with hyperglycemia; G47.00 Insomnia, unspecified
CPT/HCPCS: 36415; 36600; 71045; 71046; 71250; 76770; 76937; 77001; 80048; 80053; 80069; 80074; 81001; 82010; 82270; 82436; 82570; 82803; 83036; 83540; 83550; 83605; 83690; 83735; 83880; 84100; 84133; 84145; 84156; 84295; 84300; 84484; 85014; 85018; 85025; 85610; 85730; 86331; 86580; 86635; 86706; 86850; 86900; 86901; 86923; 87040; 87086; 87400; 87811; 93005; 93306; 93971; 94640; 94660; 94762; 96365; 97162; 99285; A9270; C1750; C1894; J0295; J0456; J0696; J1642; J1643; J1815; J1940; J2250; J2470; J2919; J3010; J3490; J7030; J7050; J7131; P9016; Q5105; Q5106; J1644

== ENCOUNTER → 2024-02-28 | Outpatient (CLI) | payer MEDICARE, BC, SELFPAY ==
[2024-02-28 10:07] LABS: Albumin, Serum 4.5 gm/dL (3.4-4.8); Anion Gap 8 (7-16); BUN/Creatinine Ratio 18 Ratio (12-20); Blood Urea Nitrogen 44 mg/dL (9-23); Calcium 9.3 mg/dL (8.3-10.6); Calcium (Corrected) 9.3 mg/dL (8.5-10.1); Carbon Dioxide 25.6 mMol/L (20.0-31.0); Chloride 103 mMol/L (98-107); Creatinine (Component) 2.4 mg/dL (0.6-1.3); Glucose 140 mg/dL (74-106); Osmolality,Calculated 287 (275-295); Phosphorous 3.6 mg/dL (2.4-5.1); Sodium 137 mMol/L (136-145); eGFR 27 See Note
== END | disposition home or self-care (01) ==
LOC: COPL 08:29
PROVIDERS: PCP Family Medicine; Referring Provider Internal Medicine; Visit Provider Internal Medicine
DX: N17.9 Acute kidney failure, unspecified (principal)
CPT/HCPCS: 36415; 80069

== ENCOUNTER 2024-03-03 11:21 | Outpatient (CLI) | payer MEDICARE, BC, SELFPAY ==
--- NOTE | 2024-03-03 11:34 | XR_ITS ---
Examination: Venous access removal permanent tunneled dialysis catheter Fluoroscopy AP chest 2 views Exam date 9: March 03, 2024 1224 hours INDICATIONS: No longer needed for dialysis TECHNIQUE AND FINDINGS: Informed consent provided. Timeout performed. Skin prepped over the entrance site of the right internal jugular permanent tunneled dialysis catheter sterile drape hand hygiene 1% lidocaine administered for local anesthesia Careful dissection around the dialysis catheter was successful removal Estimated blood loss 2 cc Chest completion procedure no longer demonstrates the dialysis catheter Fluoroscopy 0.1 minute radiation dose 6.97 milligray 2 spot fluoroscopic chest films IMPRESSION: Successful venous assess removal permanent tunneled dialysis catheter
[2024-03-03 12:36] VITALS: BMI 23.6
[2024-03-03 12:36] LABS: Basophils # (Auto) 0.1 Thou/mm3 (0.0-0.2); Basophils % (Auto) 2 % (0-2.5); Eosinophils # (Auto) 0.2 Thou/mm3 (0.0-0.5); Eosinophils % (Auto) 2 % (0-10); Hematocrit 30.6 % (41.0-53.0); Immature Granulocytes % (Auto) 0 % (0-0); Immature Granulocytes Auto 0.02 Thou/mm3 (0.00-0.00); Lymphocytes # (Auto) 0.8 Thou/mm3 (1.0-4.8); Lymphocytes % (Auto) 12 % (10-50); Mean Corpuscular HGB Conc 32.7 g/dl (31.0-37.0); Mean Corpuscular Hemoglobin 28.3 pg (25.0-35.0); Mean Corpuscular Volume 87 fL (80-100); Monocytes # (Auto) 0.7 Thou/mm3 (0.0-0.8); Monocytes % (Auto) 10 % (0-12); Neutrophils # (Auto) 4.9 Thou/mm3 (1.8-7.7); Neutrophils % (Auto) 73 % (37-80); Nucleated Red Blood Cell % 0 /100 WBC (0); Platelet Count 358 Thou/mm3 (140-440); RDW Standard Deviation 47.6 fL (35.1-43.9); Red Blood Count 3.53 Miln/mm3 (4.50-5.90); White Blood Count 6.6 Thou/mm3 (3.8-10.6)
[2024-03-03 12:52] LABS: Partial Thromboplastin Time 25.3 Seconds (22.0-36.0); Prothrombin Time 10.8 Seconds (9.0-12.2)
[2024-03-03 13:05] VITALS: BP 153/78; PULSE 79; RESP 20; O2SAT 100
[2024-03-03 13:21] VITALS: BP 171/73; PULSE 83; RESP 13; TEMP 36.7; O2SAT 100
[2024-03-03 13:30] VITALS: BP 147/72; PULSE 76; RESP 20; O2SAT 100
[2024-03-03 14:30] VITALS: BP 110/85; PULSE 87; RESP 21; O2SAT 97
== END 2024-03-03 14:40 | disposition home or self-care (01) ==
PROVIDERS: Radiology Diagnostic Radiology; PCP Internal Medicine; Referring Provider Internal Medicine; Visit Provider Internal Medicine
DX: N17.9 Acute kidney failure, unspecified (principal)
CPT/HCPCS: 36589; 36415; 77001; 85025; 85610; 85730; A4649

== ENCOUNTER → 2024-04-02 | Outpatient (CLI) | payer MEDICARE, BC, SELFPAY ==
[2024-04-02 09:18] LABS: Basophils # (Auto) 0.1 Thou/mm3 (0.0-0.2); Basophils % (Auto) 1 % (0-2.5); Eosinophils # (Auto) 0.4 Thou/mm3 (0.0-0.5); Eosinophils % (Auto) 4 % (0-10); Hematocrit 29.5 % (41.0-53.0); Immature Granulocytes % (Auto) 0 % (0-0); Immature Granulocytes Auto 0.04 Thou/mm3 (0.00-0.00); Lymphocytes % (Auto) 11 % (10-50); Mean Corpuscular HGB Conc 33.9 g/dl (31.0-37.0); Mean Corpuscular Hemoglobin 27.9 pg (25.0-35.0); Mean Corpuscular Volume 82 fL (80-100); Monocytes # (Auto) 0.7 Thou/mm3 (0.0-0.8); Monocytes % (Auto) 8 % (0-12); Neutrophils # (Auto) 6.8 Thou/mm3 (1.8-7.7); Neutrophils % (Auto) 76 % (37-80); Nucleated Red Blood Cell % 0 /100 WBC (0); Platelet Count 235 Thou/mm3 (140-440); RDW Standard Deviation 45.2 fL (35.1-43.9); Red Blood Count 3.59 Miln/mm3 (4.50-5.90)
[2024-04-02 09:52] LABS: Albumin, Serum 4.8 gm/dL (3.4-4.8); Anion Gap 7 (7-16); BUN/Creatinine Ratio 24 Ratio (12-20); Blood Urea Nitrogen 77 mg/dL (9-23); Calcium 9.5 mg/dL (8.3-10.6); Calcium (Corrected) 9.5 mg/dL (8.5-10.1); Carbon Dioxide 22.8 mMol/L (20.0-31.0); Chloride 107 mMol/L (98-107); Creatinine (Component) 3.2 mg/dL (0.6-1.3); Glucose 98 mg/dL (74-106); Osmolality,Calculated 296 (275-295); Phosphorous 4.7 mg/dL (2.4-5.1); Potassium 5.2 mMol/L (3.4-5.1); Sodium 137 mMol/L (136-145); eGFR 19 See Note
== END | disposition home or self-care (01) ==
LOC: COPL 08:17
PROVIDERS: PCP Internal Medicine; Referring Provider Internal Medicine; Visit Provider Internal Medicine
DX: N17.9 Acute kidney failure, unspecified (principal)
CPT/HCPCS: 36415; 80069; 85025

== ENCOUNTER → 2024-05-05 | Outpatient (CLI) | payer MEDICARE, BC, SELFPAY ==
[2024-05-05 11:33] LABS: Basophils # (Auto) 0.1 Thou/mm3 (0.0-0.2); Basophils % (Auto) 1 % (0-2.5); Eosinophils # (Auto) 0.2 Thou/mm3 (0.0-0.5); Eosinophils % (Auto) 3 % (0-10); Hematocrit 24.2 % (41.0-53.0); Immature Granulocytes % (Auto) 1 % (0-0); Immature Granulocytes Auto 0.04 Thou/mm3 (0.00-0.00); Lymphocytes % (Auto) 12 % (10-50); Mean Corpuscular HGB Conc 35.1 g/dl (31.0-37.0); Mean Corpuscular Hemoglobin 27.9 pg (25.0-35.0); Mean Corpuscular Volume 79 fL (80-100); Monocytes # (Auto) 0.8 Thou/mm3 (0.0-0.8); Monocytes % (Auto) 10 % (0-12); Neutrophils # (Auto) 6.2 Thou/mm3 (1.8-7.7); Neutrophils % (Auto) 75 % (37-80); Nucleated Red Blood Cell % 0 /100 WBC (0); Platelet Count 234 Thou/mm3 (140-440); Red Blood Count 3.05 Miln/mm3 (4.50-5.90); White Blood Count 8.3 Thou/mm3 (3.8-10.6)
[2024-05-05 11:46] LABS: Parathyroid Hormone Intact 391.1 pg/ml (18.5-88.0)
[2024-05-05 11:49] LABS: Albumin, Serum 4.3 gm/dL (3.4-4.8); Anion Gap 8 (7-16); BUN/Creatinine Ratio 14 Ratio (12-20); Blood Urea Nitrogen 39 mg/dL (9-23); Calcium 8.8 mg/dL (8.3-10.6); Calcium (Corrected) 8.8 mg/dL (8.5-10.1); Carbon Dioxide 22.4 mMol/L (20.0-31.0); Chloride 98 mMol/L (98-107); Creatinine (Component) 2.8 mg/dL (0.6-1.3); Glucose 101 mg/dL (74-106); Osmolality,Calculated 266 (275-295); Phosphorous 3.9 mg/dL (2.4-5.1); Potassium 4.4 mMol/L (3.4-5.1); Sodium 128 mMol/L (136-145); eGFR 22 See Note
[2024-05-05 12:05] LABS: Hemoglobin 8.5 g/dL (13.5-16.0)
== END | disposition home or self-care (01) ==
PROVIDERS: PCP Family Medicine; Referring Provider Internal Medicine; Visit Provider Internal Medicine
DX: N17.9 Acute kidney failure, unspecified (principal); I10 Essential (primary) hypertension
CPT/HCPCS: 36415; 80069; 83970; 85025

== ENCOUNTER → 2024-06-27 | Outpatient (CLI) | payer MEDICARE, BC, SELFPAY ==
--- NOTE | 2024-06-27 12:30 | XR_ITS ---
Examination: MRI brain without intravenous contrast. Date and time of exam: June 27, 2024 1247 hours INDICATIONS: Hallucinations, psychosis, confusion getting worse beginning January 2024, brain MRI March 15, 2021 large acute brainstem infarcts pontine level Technique: Multiple axial and sagittal images of the brain obtained. Siemens high-resolution 1.5 Renetta short bore scanners utilized. Sagittal sections, T1-weighted, TR 500, TE 14, are performed. Axial sections proton-density and T2-weighted have been obtained. Inversion recovery axial images, TR 9, 260, TE 111, TI 2500. Diffusion weighted images, axial sections, TR 4800, TE 128, B value 1000 Axial sections, ADC map, TR 4800, TE 128 Findings: Enlargement of the sella turcica is not present. The optic chiasm and infundibular are not remarkable. Prepontine and interpeduncular cisterns are not enlarged. There is no localized enlargement of the medulla or regina. Fourth ventricle and cerebellar tonsils appear normal in position. No subacute area of hemorrhage density is seen. Mass in the cerebellopontine angle region is not evident. Globes symmetrical. Orbital musculature including medial lateral rectus muscles do not exhibit abnormality. Diffusion-weighted images demonstrate no focus of restricted diffusion. Increased white matter signal mild, old infarct left basal ganglia Mass effect upon the ventricular system is not identified. Impression: Negative for acute hemorrhage mass effect or midline shift No acute infarct Moderate atrophy
== END | disposition home or self-care (01) ==
LOC: SMRI 07-04 10:45
PROVIDERS: PCP Internal Medicine; Referring Provider Psychiatry & Neurology Neurology; Visit Provider Psychiatry & Neurology Neurology
DX: G31.89 Other specified degenerative diseases of nervous system (principal)
CPT/HCPCS: 70551